=== PATIENT | male | born 1950 | race Caucasian/White ===

== ENCOUNTER 2020-12-25 06:40 | Inpatient (IN) | payer MEDICARE, SELFPAY ==
[2020-12-25] VITALS (10 sets, daily range): BP systolic 136–174; BP diastolic 63–75; PULSE 53–110; RESP 12–20; TEMP 36.4–37.7; O2SAT 93–98; BMI 52.4; BMI 50.9
--- NOTE | 2020-12-25 07:10 | RAD_ITS ---
STUDY: X-RAY CHEST REASON FOR EXAM: Male, 70 years old. Shortness of breath TECHNIQUE: Single AP portable view of the chest. COMPARISON: None. FINDINGS: The lungs are clear and expanded. There is no demonstrated pleural abnormality. Normal size heart. Normal mediastinum and almaz. Normal visualized pulmonary arteries. Normal visualized aortic arch and descending thoracic aorta. There are diffuse degenerative changes of the visualized thoracic spine. Normal visualized ribs, clavicles, and shoulders. There is no demonstrated abnormality of the visualized soft tissue structures of the upper abdomen. RAD/Chest 1 View (Portable) IMPRESSION: No acute pulmonary process Electronically Signed: Sukhi Romero MD at 8:19 EDT , Service support ,
--- NOTE | 2020-12-25 07:10 | EKG12_ITS ---
Test Reason : WOUND Blood Pressure : / mmHG Vent. Rate : 091 BPM Atrial Rate : 100 BPM P-R Int : 160 ms QRS Dur : 124 ms QT Int : 384 ms P-R-T Axes : 007 -41 094 degrees QTc Int : 472 ms Atrial fibrillation Left axis deviation Septal infarct , age undetermined ST & T wave abnormality, consider lateral ischemia Abnormal ECG Confirmed by LISA NGUYEN, LYNDSEY ([id number]), department editor OFELIA RUTH ([id number]) on 12/29/2020 10:10:12 A M Referred By: TAYLOR Confirmed By:ODESSA GONZALEZ MD
--- NOTE | 2020-12-25 07:12 | EX.ED.DYSGE1 ---
HPI History of Present Illness Chief Complaint: Wound Narrative Narrative: 70-year-old male presenting with diabetic foot infection. He has chronic wounds to his left foot. He states over the last several days it has been increasingly red and swollen. He has had drainage from the wounds. He denies fever. He complains of associated shortness of breath and chest tightness. Denies vomiting, diarrhea. He states he usually follows with podiatry but has been unable because of the pandemic. He has not received his Covid vaccine. Prior similar symptoms: Yes Recent Illness/Hospitalization: No PFSH PFSH Medical History Diabetes Hypertension Kidney disease Home Medications carvedilol [Coreg] 1 mg PO BID 12/25/20 [History Last Taken Unknown] furosemide [Lasix] 40 mg PO BID 12/25/20 [History Last Taken Unknown] insulin glargine [Lantus Solostar U-100 Insulin] 46 unit SUBCUT DAILY 12/25/20 [History Last Taken Unknown] pioglitazone [Actos] 30 mg PO DAILY 12/25/20 [History Last Taken Unknown] Allergy/AdvReac Type Severity Reaction Status Date / Time Penicillins [PCN] AdvReac Rash Verified 12/25/20 06:49 blood pressure meds AdvReac NEEDS Uncoded 12/25/20 06:49 FOLLOW-UP Social History Smoking Status: Never smoker ROS ROS ED Constitutional Constitutional ED: Denies fever(s) Eyes Eyes: Denies change in vision ENT ENT ED: Denies rhinorrhea or sore throat Cardiovascular Cardiovascular: Reports chest pain; Denies palpitations Respiratory/Chest Respiratory/Chest: Reports cough and dyspnea; Denies sputum Gastrointestinal Gastrointestinal: Denies abdominal pain, diarrhea, nausea or vomiting Genitourinary Genitourinary ED: Denies dysuria Musculoskeletal Musculoskeletal: Denies myalgias Integumentary Reports other Details: left foot wounds ; Denies rash Neurologic Neurologic: Denies headache(s) Psychiatric Psychiatric: Denies suicidal thoughts EXAM Physical Exam Const Vital Signs: 12/25/20 06:43 Temperature 98.1 F Temperature Source Oral Pulse Rate 103 H Respiratory Rate 16 Blood Pressure 165/75 H Blood Pressure Mean 105 Pulse Ox 97 Oxygen Delivery Method Room Air Positive well nourished and well developed General Appearance ED: well developed HEENT Reports normocephalic and head/scalp atraumatic Eyes PERRL and EOMs intact bilaterally Neck supple General: Negative for tenderness Chest Wall inspection of chest normal Resp normal respiratory effort and clear to auscultation bilaterally Cardio regular rate and regular rhythm GI non-tender and non-distended Palpation: soft; Negative for guarding or rebound tenderness present no CVA tenderness Extremity Extremity Narrative: left lateral foot and heel wound with surrounding erythema Neuro oriented x3 Sensorium / Orientation: alert Psych mental status grossly normal MDM MDM MDM Narrative Medical decision making narrative: Covid is negative. Left foot x-ray read by myself and radiology shows abnormal volar soft tissue swelling with subcutaneous emphysema noted in the soft tissues volar to the proximal fifth metatarsal seen best on the lateral film. There is no evidence of an erosive osseous lesion, these findings are highly suspicious for an inflammatory process. Extensive arthrosis and deformity of the foot consistent with diabetic foot. There is no demonstrated fracture or suspicious erosive osseous lesion. Calcaneal spurs and pes planus. Patient was given vancomycin IV. Discussed with hospitalist for admission. Lab Data Attestation: I reviewed the patient's lab results. Labs: Laboratory Results - last 24 hr 12/25/20 12/25/20 12/25/20 07:05 07:05 07:05 WBC 6.9 RBC 3.79 L Hgb 9.7 L Hct 31.9 L MCV 84.2 MCH 25.6 L MCHC 30.4 L RDW Std Deviation 54.4 H RDW Coeff of Xavier 17.6 H Plt Count 357 MPV 10.4 Immature Gran % (Auto) 0.600 Neut % (Auto) 69.5 Lymph % (Auto) 15.6 L Jennings % (Auto) 11.1 H Eos % (Auto) 2.9 Baso % (Auto) 0.3 Absolute Neuts (auto) 4.8 Absolute Lymphs (auto) 1.07 Nucleated RBC % 0 Sodium 137 Potassium 3.6 Chloride 102 Carbon Dioxide 26.0 Anion Gap 9 BUN 31 H Creatinine 1.49 H Estim Creat Clear Calc 48.99 Est GFR (MDRD) Af Amer 60 Est GFR (MDRD) Non-Af 50 L BUN/Creatinine Ratio 20.8 H Glucose 98 Lactic Acid 1.4 Calcium 8.8 Troponin I 0.025 Radiography Chest X-Ray - ED: 1 View, Read by ED Physician and Read by Radiologist Diagnostic Testing: Radiology Impression Chest X-Ray 12/25/20 07:10 IMPRESSION: No acute pulmonary process Electronically Signed: Sukhi Romero MD at 8:19 EDT , Service support , Foot X-Ray 12/25/20 07:48 IMPRESSION: Abnormal volar soft tissue swelling with subcutaneous emphysema noted in the soft tissues volar to the proximal fifth metatarsal seen best on the lateral film. There is no evidence of an erosive osseous lesion, these findings are highly suspicious for an inflammatory process. Extensive arthrosis and deformity of the foot consistent with diabetic foot. There is no demonstrated fracture or suspicious erosive osseous lesion, please see discussion above Calcaneal spurs and pes planus Electronically Signed: Sukhi Romero MD at 8:33 EDT , Service support , EKG Initial EKG: Attestation: I personally reviewed and interpreted this EKG as follows: Interpretation: Sinus Rhythm and Inverted T-Waves (Lead I and aVL) Prior EKG tracings: available for review Prior: Changed (11/17/2010) Discharge Plan Triage Chief Complaint: Wound ED Provider: Shantel Smart Dx/Rx/DC Orders Clinical Impression: Diabetic infection of left foot, Chest pain Prescriptions: No Action furosemide [Lasix] 40 mg tablet 40 mg PO BID RF: 0 carvedilol [Coreg] 25 mg tablet 1 mg PO BID RF: 0 pioglitazone [Actos] 30 mg tablet 30 mg PO DAILY RF: 0 Lantus Solostar U-100 Insulin 100 unit/mL (3 mL) insulin pen 46 unit SUBCUT DAILY RF: 0 Primary Care Provider: Michael Palomino Referrals: Michael Palomino DO [Primary Care Provider] - Disposition Disposition: Acute Care [facility]
[2020-12-25 07:28] LABS: Absolute Lymphocyte Count 1.07 X10^3/uL (0.83-4.51); Absolute Neutrophil Count 4.8 X10^3/uL (2.0-7.7); Basophil# 0.02 X10^3/uL; Basophil% 0.3 % (0-1); Eosinophils% 2.9 % (0-5); Hematocrit 31.9 % (40-54); Hemoglobin 9.7 g/dL (13.0-16.5); Lymphocyte # 1.07 X10^3/ul (0.83-4.51); Lymphocyte % 15.6 % (19-41); Mean Corp Hgb Conc 30.4 g/dL (32-36); Mean Corpuscular Hgb 25.6 pg (27.0-32.0); Mean Corpuscular Volume 84.2 fL (80-94); Mean Platelet Vol. 10.4 fl (6.2-12.0); Monocyte# 0.76 X10^3/uL; Monocyte% 11.1 % (0-10); NRBC Flagged by Analyzer 0 % (0-5); Neutrophil # 4.78 X10^3/uL (2.7-7.7); Neutrophil % 69.5 % (47-70); Platelet Count 357 K/mm3 (150-450); RBC Distribution Width CV 17.6 % (11.6-14.6); RBC Distribution Width SD 54.4 fl (35.1-43.9); Red Blood Count 3.79 M/mm3 (4.6-6.2); White Blood Count 6.9 K/mm3 (4.4-11.0)
[2020-12-25 07:48] LABS: Anion Gap 9 (5-15); BUN 31 mg/dL (7-18); BUN/Creat Ratio 20.8 RATIO (10-20); Calcium,Total 8.8 mg/dL (8.5-10.1); Chloride 102 mmol/L (98-107); Creatinine, Serum 1.49 mg/dL (0.70-1.30); EST Glomerular Filtration Rate 50 mL/min (>60); Est Glom Filt Rate - Afr Amer 60 mL/min (>60); Estimated Creatinine Clearance 48.99 ml/min; Glucose 98 mg/dL (74-106); Potassium 3.6 mmol/L (3.5-5.1); Sodium Level 137 mmol/L (136-145)
--- NOTE | 2020-12-25 07:48 | RAD_ITS ---
STUDY: X-RAY - LEFT FOOT CLINICAL: Male, 70 years old. Pain and swelling TECHNIQUE: 5 view(s) of the foot. COMPARISON: None. FINDINGS: The bones are demineralized. There has been collapse of the midfoot bones consistent with diabetic foot as well as pes planus. There is hammertoe deformity of the MTP joints. There is no demonstrated fracture or suspicious erosive lesion. However, one could easily be obscured or overlooked due to the osteopenia, overlapping structures and deformities of the bones. If there is strong clinical suspicion of a fracture or erosive lesion, recommend further evaluation with cross-sectional imaging. There are calcaneal spurs. There is volar soft tissue swelling and evidence of subcutaneous emphysema volar to the proximal fifth metatarsal which is highly concerning for an inflammatory process. RAD/Foot min 3 Views IMPRESSION: Abnormal volar soft tissue swelling with subcutaneous emphysema noted in the soft tissues volar to the proximal fifth metatarsal seen best on the lateral film. There is no evidence of an erosive osseous lesion, these findings are highly suspicious for an inflammatory process. Extensive arthrosis and deformity of the foot consistent with diabetic foot. There is no demonstrated fracture or suspicious erosive osseous lesion, please see discussion above Calcaneal spurs and pes planus Electronically Signed: Sukhi Romero MD at 8:33 EDT , Service support ,
[2020-12-25 07:50] LABS: Lactic Acid 1.4 mmol/L (0.4-1.9)
--- NOTE | 2020-12-25 09:21 | NURSING ---
DR RONNA VAZQUEZ
--- NOTE | 2020-12-25 09:43 | PCM.HP.STD ---
HPI - General General Date of Admission: 12/25/20 HPI Narrative JONEL ZALDIVAR, is a 70 M who presents with history of diabetes mellitus type 2 and chronic diabetic foot ulcer for more than 10 years came to ER with left foot ulcer along with chest pain and mild shortness of breath. He has bilateral Charcot's feet for many years and is on diabetic splint. He got opening on the lateral aspect of left foot, ulcer at 2 areas for more than 6 months. There is purulent drainage. Mild chills and fever. Patient also got chest pain along with shortness of breath yesterday morning. This lasted for half an hour. Described chest pain midsternal with radiation to neck without dizziness not associated shortness of breath. In the morning also had chest pain. Patient is back to lower extremity swelling and Lasix 40 mg twice daily but denies diagnosis of CHF, coronary artery disease or stent. He denies history of smoking or chronic lung disease. His mother had coronary artery disease in her 80s and of 89. [facility], [facility] Medical History Diabetes Hypertension Kidney disease Home Medications aspirin 81 mg PO DAILY 12/25/20 [History Last Taken Unknown] carvedilol [Coreg] 25 mg PO BID 12/25/20 [History Last Taken Unknown] furosemide [Lasix] 40 mg PO BID 12/25/20 [History Last Taken Unknown] insulin glargine [Lantus Solostar U-100 Insulin] 46 unit SUBCUT DAILY 12/25/20 [History Last Taken Unknown] pioglitazone [Actos] 30 mg PO DAILY 12/25/20 [History Last Taken Unknown] Allergy/AdvReac Type Severity Reaction Status Date / Time Penicillins [PCN] AdvReac Rash Verified 12/25/20 06:49 blood pressure meds AdvReac NEEDS Uncoded 12/25/20 06:49 FOLLOW-UP Social History Smoking Status: Never smoker ROS ROS Narrative Constitutional: Reports fatigue and weakness. Chills and occasional fever. HEENT: Reports systems reviewed and no addt'l complaints, except as documented Respiratory/Chest: Chest pain and shortness of breath as described in HPI Gastrointestinal: Denies coffee ground emesis, hematemesis or vomiting Genitourinary: Denies burning urination Musculoskeletal: Reports joint pain and limited range of motion especially of foot and lower extremity Neurologic: Denies seizure-like activity Endocrinology: Diabetes mellitus type 2. Reports systems reviewed and no addt'l complaints, except as documented Hematologic/Lymphatic: Reports systems reviewed and no addt'l complaints, except as documented Rest 12 ROS are negative except as mentioned in HPI Vital Signs Vital Signs Vital Signs: 12/25/20 06:43 Temperature 98.1 F Temperature Source Oral Pulse Rate 103 H Respiratory Rate 16 Blood Pressure 165/75 H Blood Pressure Mean 105 Pulse Ox 97 Oxygen Delivery Method Room Air Physical Exam Narrative General: Alert, Oriented x3, Cooperative looks mild short of breath. HEENT: Atraumatic, PERRLA, EOMI, Normocephalic Oral: No Gingival or Mucosal Lesions/ Ulcerations Neck: Supple, No JVD, Negative Carotid Bruits Lungs: Air entry diminished in bilateral lung bases. No crepitation/rhonchi. Mild dyspnea at rest Cardiovascular: Regular rate, Regular Rhythm, Normal S1, Normal S2, No murmurs Abdomen: Bowel Sounds Present, Soft, Non Tender, Non-Distended : No renal angle tenderness. No suprapubic tenderness. Extremities: Bilateral lower extremity lymphedema , Capillary Refill Less than 3 Seconds Skin: 2 ulcers of lateral margin of left foot, floor covered with slough. Margins are thickened and rough. Musculoskeletal: Tenderness present on the feet. Charcot joint of both feet. Neurological: Cranial nerves II-XII grossly intact, Deep Tendon Reflexes 2+/4 and Symmetrical, Neuro grossly intact Psych/Mental Status: Normal Affect, Appropriate. Lab / Micro Data Result Diagrams: 12/25/20 07:05 12/25/20 07:05 Labs: Laboratory Results - last 24 hr 12/25/20 12/25/20 12/25/20 07:05 07:05 07:05 WBC 6.9 RBC 3.79 L Hgb 9.7 L Hct 31.9 L MCV 84.2 MCH 25.6 L MCHC 30.4 L RDW Std Deviation 54.4 H RDW Coeff of Xavier 17.6 H Plt Count 357 MPV 10.4 Immature Gran % (Auto) 0.600 Neut % (Auto) 69.5 Lymph % (Auto) 15.6 L Lee % (Auto) 11.1 H Eos % (Auto) 2.9 Baso % (Auto) 0.3 Absolute Neuts (auto) 4.8 Absolute Lymphs (auto) 1.07 Nucleated RBC % 0 Sodium 137 Potassium 3.6 Chloride 102 Carbon Dioxide 26.0 Anion Gap 9 BUN 31 H Creatinine 1.49 H Estim Creat Clear Calc 48.99 Est GFR (MDRD) Af Amer 60 Est GFR (MDRD) Non-Af 50 L BUN/Creatinine Ratio 20.8 H Glucose 98 Lactic Acid 1.4 Calcium 8.8 Troponin I 0.025 Micro: Microbiology 12/25/20 07:43 SARS-CoV-2 Antigen (Rapid) - Final Interface Orders Radiology Impression Chest X-Ray 12/25/20 07:10 IMPRESSION: No acute pulmonary process Electronically Signed: Sukhi Romero MD at 8:19 EDT , Service support , Foot X-Ray 12/25/20 07:48 IMPRESSION: Abnormal volar soft tissue swelling with subcutaneous emphysema noted in the soft tissues volar to the proximal fifth metatarsal seen best on the lateral film. There is no evidence of an erosive osseous lesion, these findings are highly suspicious for an inflammatory process. Extensive arthrosis and deformity of the foot consistent with diabetic foot. There is no demonstrated fracture or suspicious erosive osseous lesion, please see discussion above Calcaneal spurs and pes planus Electronically Signed: Sukhi Romero MD at 8:33 EDT , Service support , Assessment & Plan Assessment/Plan (1) Diabetic infection of left foot: (2) Chest pain: PLAN: 1. Atypical chest pain and shortness of breath rule out coronary artery disease: Patient is being admitted in PCU. Serial troponin enzymes. Twelve-lead EKG shows sinus rhythm with sinus arrhythmia at 91 bpm, LAD. QTC 172 ms. 2D echo is ordered. Stress test not ordered as patient has diabetic foot ongoing infection. 2. 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 Cameron in [place] and has not been admitted here before in long time. MRI foot is ordered. Started on empirically antibiotic IV vancomycin and Zosyn. Wound nurse consult with wound culture. Blood cultures already been ordered. ESR elevated. ID consult. 3. CKD stage III: Patient creatinine stable at 1.49 since 2016. Probably diabetic nephropathy. 4. VTE prophylaxis: Lovenox 40 mg subcu daily. Living will/advanced directive/end of life care: Patient does not have living will or advanced directive. After discussion of benefits/risks procedures involved with full code, DNR CC arrest and DNR CC, the patient opted for DNR-CC Arrest with no intubation Patient does not want artificial life support including intubation, tube feed, ventilator and/chest compression, central venous catheter, vasopressor and DC shock if needed Total time spent in [id number] encounter in discussion of advanced directive 16 minutes. Visit Charges Inpatient E&M: 31220 Init Hosp L3 Procedures Hospitalists Procedures: 16807 Advncd Care Plan 30 Min
--- NOTE | 2020-12-25 10:02 | NURSING ---
PCU RONNA DIABETIC FOOT INFECTION, CP
[2020-12-25 10:16] LABS: Magnesium 2.1 mg/dL (1.6-2.6)
--- NOTE | 2020-12-25 10:35 | ECHOCS_ITS ---
Reason For Study: Dyspnea/SOB Procedure This was a 2D Doppler, Color Flow transthoracic echocardiogram. Very technically difficult study due to patient body habitus and patients inablility to stand probe pressure. Contrast injection was performed to try and enhance image quality. Exam performed portable in patient room. Left Ventricle Normal LV size. The estimated ejection fraction is 45 %. There is evidence of diastolic dysfunction. [place] : Severely Hypokinetic. anteroseptal hypokinesis. Right Ventricle Normal RV size. Normal systolic function. Atria Normal left atrium. Normal right atrium. No doppler evidence for ASD. Mitral Valve There is no mitral valve stenosis. No mitral valve insufficiency. Tricuspid Valve There is no tricuspid stenosis. Unable to estimate RV systolic pressure due to inadequate jet, pulmonary artery pressure probably normal. Aortic Valve The aortic valve is not well visualized. There is no aortic stenosis. No aortic valve insufficiency. Pulmonic Valve There is no pulmonic valvular stenosis. No pulmonic valve insufficiency. Great Vessels Normal aortic root. Pericardium/Pleural No pericardial effusion. Medication Diluted definity 5ml given slow IV push to enhance endocardial definition. MMode/2D Measurements & Calculations LVIDd: 5.4 cm IVSd: 1.8 cm LAV(MOD-sp4): 67.8 ml LVIDs: 4.4 cm LVPWd: 1.8 cm FS: 19.5 % LA A4 area: 22.9 cm2 Time Measurements MV dec time: 0.15 sec Doppler Measurements & Calculations MV E max aime: 111.3 cm/sec Lat Peak E' Aime: 10.7 cm/sec Med Peak E' Aime: 7.2 cm/sec MV A max aime: 34.0 cm/sec E/E' lat: 10.4 E/E' med: 15.4 MV E/A: 3.3 MV V2 max: 138.5 cm/sec MV P1/2t max aime: 137.2 cm/sec Ao V2 max: 67.6 cm/sec MV max P.7 mmHg MV P1/2t: 60.9 msec Ao max P.8 mmHg MV V2 mean: 61.6 cm/sec MV dec slope: 660.2 cm/sec2 MV mean P.0 mmHg MV V2 VTI: 27.2 cm MVA(P1/2t): 3.6 cm2 LV V1 max: 83.0 cm/sec PA V2 max: 80.9 cm/sec LV V1 max P.8 mmHg ECHO/Echo Complete W/ Contrast Interpretation Summary The estimated ejection fraction is 45 %. There is evidence of diastolic dysfunction. [place] : Severely Hypokinetic. anteroseptal hypokinesis Ordering Physician: Abelino Serrano Referring Physician: Michael Palomino Performed By: Fede Bee RCS
--- NOTE | 2020-12-25 10:35 | EKG12_ITS ---
Test Reason : UPDATE Blood Pressure : / mmHG Vent. Rate : 094 BPM Atrial Rate : 107 BPM P-R Int : 000 ms QRS Dur : 126 ms QT Int : 380 ms P-R-T Axes : 000 -46 097 degrees QTc Int : 475 ms Atrial fibrillation Left axis deviation Non-specific intra-ventricular conduction block Abnormal ECG Confirmed by BISI NGUYEN, JADEN ([id number]), movie editor OFELIA RUTH ([id number]) on 12/30/2020 9:55:47 AM Referred By: RONNA Confirmed By:JADEN MATHEWS MD
[2020-12-25] MEDS: Furosemide 40 MG Tablet PO ×2 (11:29→17:11)
[2020-12-25] MEDS: Carvedilol 25 MG Tablet PO ×2 (11:29→22:04)
[2020-12-25] MEDS: Aspirin E.C. 81 MG Tablet PO (11:29)
--- NOTE | 2020-12-25 11:39 | MRI_ITS ---
STUDY: MRI LEFT REARFOOT WITHOUT CONTRAST REASON FOR EXAM: Male, 70 years old. osteomyelitis -- without due to renal function TECHNIQUE: Standardized fat and water weighted pulse sequences were obtained in all 3 orthogonal planes. COMPARISON: Left foot x-ray dated DECEMBER 25, 2020 FINDINGS: Large open wound seen on the plantar aspect of foot centrally and laterally with edema and cellulitis in the affected subcutaneous tissues as well as the muscles of the foot without an abscess. Mild cortical thinning and mild to moderate patchy edema is present in the anterior process of the calcaneus, cuboid, and fourth and fifth metatarsal bases compatible with osteomyelitis. Equina varus deformity of the foot as well as reversal of Boehler''s angle, as well as extensive Charcot arthropathy. Small intramuscular fluid collections are present in the distal aspect of the posterior tibialis muscle measuring 4.92 x 2.38 cm which could represent extension of joint fluid into this region and less likely an intramuscular abscess. The appearance of this fluid suggests a loculated ganglion. A small to moderate size ankle joint effusion is present. Patchy reactive signal is present throughout the affected bony structures. Significant soft tissue edema and swelling. Significant fatty atrophy of the muscles. Moderate tenosynovitis of the flexor digitorum longus tendon sheath. The ankle mortise is intact. The deltoid ligamentous complex is intact. MRI/Lower Ext/No Jt/w/o IMPRESSION: 1. Mild cortical thinning and mild to moderate patchy edema is present in the anterior process of the calcaneus, cuboid, and fourth and fifth metatarsal bases compatible with osteomyelitis. 2. Extensive neuropathic/Charcot arthropathy changes of the foot with contraction in equinus varus deformity. Numerous additional abnormalities. Electronically Signed: Lon Baptiste MD at 23:57 EDT , Service support ,
[2020-12-25 11:40] LABS: Bedside Glucose 61 mg/dL (70-110)
[2020-12-25 12:00] LABS: Bedside Glucose 74 mg/dL (70-110)
--- NOTE | 2020-12-25 13:58 | CON.PCM.ID_ITS ---
Assessment & Plan Assessment/Plan (1) Diabetic infection of left foot: PLAN: Podiatry consulted. Wound cx pending. MRI pending. On vanc/zosyn. Will follow, thank you. Recommended he get covid vaccine after discharge. HPI Consult Data Date of Consult: 12/25/20 HPI Narrative HPI Narrative: JONEL ZALDIVAR, is a 70 M with DM, neuropathy, obesity, charcot foot, presented to ED today with a few days of L foot pain, redness, swelling, ulceration, fever. Has not gotten covid vaccine. No inciting event. Pain is moderate. No n/v/d. No outpt abx. Came to ED, admitted on vanc/zosyn. Reports hives with PCN as a small child. Full ROS performed and neg except as noted above. [facility] Medical History Diabetes Hypertension Kidney disease Home Medications aspirin 81 mg PO DAILY 12/25/20 [History Last Taken Unknown] carvedilol [Coreg] 25 mg PO BID 12/25/20 [History Last Taken Unknown] furosemide [Lasix] 40 mg PO BID 12/25/20 [History Last Taken Unknown] insulin glargine [Lantus Solostar U-100 Insulin] 46 unit SUBCUT DAILY 12/25/20 [History Last Taken Unknown] pioglitazone [Actos] 30 mg PO DAILY 12/25/20 [History Last Taken Unknown] Allergy/AdvReac Type Severity Reaction Status Date / Time Penicillins [PCN] AdvReac Rash Verified 12/25/20 06:49 blood pressure meds AdvReac NEEDS Uncoded 12/25/20 06:49 FOLLOW-UP Social History Smoking Status: Never smoker Physical Exam Const alert, oriented x3 and no apparent distress General Appearance: cooperative Exam Limitations: no limitations HEENT normocephalic and head/scalp atraumatic Eyes PERRL and EOMs intact bilaterally Neck supple and No nodes Resp normal air movement and clear to auscultation bilaterally Cardio regular rate and regular rhythm GI normal to inspection, nondistended, normoactive bowel sounds Extremity General Extremity: edema Skin Skin Narrative: L ankle wrapped, redness/swelling/ulcers present Neuro CN's II-XII intact bilaterally Lab / Micro Data Result Diagrams: 12/25/20 07:05 12/25/20 07:05 Labs: Laboratory Results - last 24 hr 12/25/20 12/25/20 12/25/20 07:05 07:05 07:05 WBC 6.9 RBC 3.79 L Hgb 9.7 L Hct 31.9 L MCV 84.2 MCH 25.6 L MCHC 30.4 L RDW Std Deviation 54.4 H RDW Coeff of Xavier 17.6 H Plt Count 357 MPV 10.4 Immature Gran % (Auto) 0.600 Neut % (Auto) 69.5 Lymph % (Auto) 15.6 L [place] % (Auto) 11.1 H Eos % (Auto) 2.9 Baso % (Auto) 0.3 Absolute Neuts (auto) 4.8 Absolute Lymphs (auto) 1.07 Nucleated RBC % 0 Sodium 137 Potassium 3.6 Chloride 102 Carbon Dioxide 26.0 Anion Gap 9 BUN 31 H Creatinine 1.49 H Estim Creat Clear Calc 48.99 Est GFR (MDRD) Af Amer 60 Est GFR (MDRD) Non-Af 50 L BUN/Creatinine Ratio 20.8 H Glucose 98 Lactic Acid 1.4 Calcium 8.8 Magnesium Troponin I 0.025 POC Glucose 12/25/20 12/25/20 12/25/20 07:05 11:15 11:33 WBC RBC Hgb Hct MCV MCH MCHC RDW Std Deviation RDW Coeff of Xavier Plt Count MPV Immature Gran % (Auto) Neut % (Auto) Lymph % (Auto) [place] % (Auto) Eos % (Auto) Baso % (Auto) Absolute Neuts (auto) Absolute Lymphs (auto) Nucleated RBC % Sodium Potassium Chloride Carbon Dioxide Anion Gap BUN Creatinine Estim Creat Clear Calc Est GFR (MDRD) Af Amer Est GFR (MDRD) Non-Af BUN/Creatinine Ratio Glucose Lactic Acid Calcium Magnesium 2.1 Troponin I 0.040 POC Glucose 61 L 12/25/20 11:56 WBC RBC Hgb Hct MCV MCH MCHC RDW Std Deviation RDW Coeff of Xavier Plt Count MPV Immature Gran % (Auto) Neut % (Auto) Lymph % (Auto) [place] % (Auto) Eos % (Auto) Baso % (Auto) Absolute Neuts (auto) Absolute Lymphs (auto) Nucleated RBC % Sodium Potassium Chloride Carbon Dioxide Anion Gap BUN Creatinine Estim Creat Clear Calc Est GFR (MDRD) Af Amer Est GFR (MDRD) Non-Af BUN/Creatinine Ratio Glucose Lactic Acid Calcium Magnesium Troponin I POC Glucose 74 Micro: Microbiology 12/25/20 07:43 SARS-CoV-2 Antigen (Rapid) - Final Interface Orders Radiology Impression Chest X-Ray 12/25/20 07:10 IMPRESSION: No acute pulmonary process Electronically Signed: Sukhi Romero MD at 8:19 EDT , Service support , Foot X-Ray 12/25/20 07:48 IMPRESSION: Abnormal volar soft tissue swelling with subcutaneous emphysema noted in the soft tissues volar to the proximal fifth metatarsal seen best on the lateral film. There is no evidence of an erosive osseous lesion, these findings are highly suspicious for an inflammatory process. Extensive arthrosis and deformity of the foot consistent with diabetic foot. There is no demonstrated fracture or suspicious erosive osseous lesion, please see discussion above Calcaneal spurs and pes planus Electronically Signed: Sukhi Romero MD at 8:33 EDT , Service support ,
--- NOTE | 2020-12-25 14:20 | NURSING ---
wound photo: left lateral foot/ankle
--- NOTE | 2020-12-25 14:25 | NURSING ---
wound photo: left plantar foot
--- NOTE | 2020-12-25 14:25 | NURSING ---
wound photo: left foot
--- NOTE | 2020-12-25 14:53 | PCM.RX.CS ---
Consult Pharmacy has been consulted to manage selected antiobiotic: Vancomycin Type of Consult: New start Suspected Infection: Skin/Soft tissue Labs: Sodium 137 mmol/L (136-145) 12/25/20 07:05 Potassium 3.6 mmol/L (3.5-5.1) 12/25/20 07:05 Chloride 102 mmol/L (98-107) 12/25/20 07:05 Carbon Dioxide 26.0 mmol/L (21.0-32.0) 12/25/20 07:05 Anion Gap 9 (5-15) 12/25/20 07:05 BUN 31 mg/dL (7-18) H 12/25/20 07:05 Creatinine 1.49 mg/dL (0.70-1.30) H 12/25/20 07:05 Est GFR (MDRD) Af Amer 60 mL/min (>60) 12/25/20 07:05 Est GFR (MDRD) Non-Af 50 mL/min (>60) L 12/25/20 07:05 BUN/Creatinine Ratio 20.8 RATIO (10-20) H 12/25/20 07:05 Glucose 98 mg/dL (74-106) 12/25/20 07:05 Microbiology: Microbiology 12/25/20 07:43 Interface Orders SARS-CoV-2 Antigen (Rapid) - Final Goal Trough: 15-20 mcg/mL Pharmacy Plan for Drug Dosing: NEW START IV VANCOMYCIN Consulting Physician: Dr. Serrano Indication: Diabetic foot infection Goal Trough: 15-20 SrCr: 1.49 CrCl: 73 mL/min using AdjBW of 108.2kg Comments: Initial dose of 2000mg IV vanco x1 in ED 12/25/20 @1023 Vancomcyin Dose: 1750mg IV Q12hr to start 12/25/20 @2200 Pending Level: 12/26/20 @2130, prior to 4th total dose per protocol Pharmacy Service will continue to monitor and adjust dosing as required.
[2020-12-25 15:05] LABS: M R Staph aureus DNA By PCR Negative (Negative); Probe Check PASS; Specimen Processing Control PASS; Staph aureus DNA By PCR POSITIVE (Negative)
--- NOTE | 2020-12-25 15:05 | CASEMGMT ---
Addendum entered by Glen Rodriguez 12/25/20 20:44: 1505: LNOK: Sister, Anyi. Has a brother. Father is living. Original Note: RN CM DRY WALL INSTALLER CM to room to meet with patient for initial transition planning/care coordination assessment. RN MISTY introduced self and role at [facility]. Pt voices understanding and consents to assessment at this time. Pt resting in bed in no distress at this time. Pt is A/O at this time and answers all questions appropriately. Care providers, pharmacy, and demographics verified/updated at this time. PCP: Dr Palomino Specialists: Dr Cameron--podiatry [facility] Insurance: [facility] Prescription Benefit: Yes Living Will/HPOA: Pt does not currently have LW/HCPOA and declines info at this time. Pt made aware that he can contact as an out-pt and make appt in the future if he decides he would like to talk with someone about this or would like to utilize [facility] social work for advanced directive completion. Given [employer] card with information and contact number. Pt expresses understanding. Living Arrangements: Lives alone in [id number]5 steps to go down to get to the apt. Independent w/ADL's and IADL's. Has groceries delivered. Transportation: Pt states drives self and states no transportation concerns at this time. DME: States has the following DME: Shower chair, glucometer w/testing supplies, BP machine, [place] splint for Lt foot Pt states no need for further DME at this time. HHC/SNF: No hx of SNF. Hx of [facility] HHC after foot surgery. Pt wishes to return home and states has no concerns with going home at time of discharge. He states he may be interested in HHC @ discharge, stating, It depends as how bad things are as he was talking about upcoming MRI. CM to follow for discharge planning/needs. Pt voices no further concerns/needs at this time. Advised pt to ask for CM if any further questions/concerns/needs arise. Voices understanding. PLAN: Home w/possible HHC. MRI pending. PT/OT evals pending Follow for any DME needs. Sandy DUBON RN, CM
[2020-12-25] MEDS: proCHLORPERazine 10 MG/2 ML Vial 5 MG IV (15:40)
[2020-12-25] MEDS: levoFLOXacin IV 750 MG/150 ML BAG 100 MG IV (15:57)
[2020-12-25] MEDS: APIXABAN 5 MG TABLET PO ×2 (15:57→22:04)
[2020-12-25] MEDS: Juven (unflavored) Packet 1 PACKET PO (17:16)
[2020-12-25 17:21] LABS: Bedside Glucose 117 mg/dL (70-110)
[2020-12-25] MEDS: Atorvastatin Calcium 40 MG Tablet PO (22:03)
[2020-12-25 23:11] LABS: Bedside Glucose 201 mg/dL (70-110)
[2020-12-25] MEDS: Insulin Lispro 100 UNIT/ML INSULN.PEN SC (23:14)
[2020-12-26] VITALS (13 sets, daily range): BP systolic 110–144; BP diastolic 49–66; PULSE 70–97; RESP 15–18; TEMP 36.5–38.2; O2SAT 97–98
[2020-12-26] MEDS: Acetaminophen 325 MG Tablet 650 MG PO (01:04)
[2020-12-26 06:45] LABS: Absolute Neutrophil Count 5.2 X10^3/uL (2.0-7.7); Basophil# 0.03 X10^3/uL; Basophil% 0.4 % (0-1); Eosinophil# 0.15 X10^3/uL; Hematocrit 30.2 % (40-54); Lymphocyte % 14.9 % (19-41); Mean Corp Hgb Conc 29.8 g/dL (32-36); Mean Corpuscular Hgb 25.6 pg (27.0-32.0); Mean Corpuscular Volume 85.8 fL (80-94); Mean Platelet Vol. 10.2 fl (6.2-12.0); Monocyte# 0.84 X10^3/uL; Monocyte% 11.4 % (0-10); NRBC Flagged by Analyzer 0 % (0-5); Neutrophil # 5.18 X10^3/uL (2.7-7.7); Neutrophil % 70.2 % (47-70); Platelet Count 341 K/mm3 (150-450); RBC Distribution Width CV 17.7 % (11.6-14.6); RBC Distribution Width SD 55.9 fl (35.1-43.9); Red Blood Count 3.52 M/mm3 (4.6-6.2); White Blood Count 7.4 K/mm3 (4.4-11.0)
[2020-12-26 07:10] LABS: Bedside Glucose 146 mg/dL (70-110)
--- NOTE | 2020-12-26 07:14 | CON.PCM_ITS ---
Assessment & Plan Assessment/Plan (1) Diabetic infection of left foot: PLAN: Continue with local wound care which includes Aquacel Ag packed within the wounds and dry sterile dressing. Patient states as the wound care currently is he cannot apply his boot so that will need to be trimmed down a little bit with the amount of gauze and ABDs applied. (2) Osteomyelitis of left foot: QUALIFIERS: Osteomyelitis type: unspecified type Qualified Code(s): M86.9 - Osteomyelitis, unspecified PLAN: Recommend further guidance and treatment by infectious disease. Discussed treatment options with patient including surgical and conservative. At this point given the structures involved in the shape of the patient's foot with extreme instability due to Charcot, below-knee amputation would be the most appropriate surgical intervention in my opinion. Simple debridement of the infected structures would yield him even more unstable foot for the patient to ambulate. It is also not likely that his lateral skin would heal given the appearance of it from chronic lymphedema and ulceration. This was discussed in detail with the patient. The wounds are relatively clean and without significant necrosis, so conservative intervention could be an option for him. It is also not likely that he would do well with a below-knee amputation, as is our concern. Podiatry will continue to follow as needed. Patient was encouraged to obtain COVID-19 vaccinations so that he can make his doctors appoi ntments. He states he did not seek any medical care over the last year because, people were just dying around me and I did not want to leave the house. (3) Charcot foot due to diabetes mellitus: PLAN: Over 18 months ago we had recommended the patient follow-up with [employer] for a new Kake walker. Patient admits that he did but the boot is so wide for him that he cannot drive with it and he feels there is too much movement with his foot on the inside. So he does not wear it. It is obvious that his foot has changed position since I last saw him as he is bearing more weight on the dorsal lateral foot area which is completely inappropriate. We did discuss again today that we are very concerned about the patient bearing weight on his unstable foot and given his body habitus as well as the soft bones of the Charcot foot, he understands that he could cause fracture to his foot and/or ankle. It is very important that he wears a walking boot at all times with ambulation. He understands. Patient refuses surgical intervention today in favor of simple conservative therapy with antibiotics. He states that he is able to give himself antibiotics at home if necessary. Risks, complications, benefits, alternative treatments were reviewed in detail and no guarantees were given. All questions were answered. Patient states, I just want to get home. HPI Consult Data Date of Consult: 12/26/20 HPI Narrative HPI Narrative: JONEL ZALDIVAR, is a 70 M who presents complaining of painful diabet ic foot ulcer to left foot. He states that he was having more pain yesterday and today he is feeling much better. COUNTS INCLUDE 234 BEDS AT THE [facility] Medical History Diabetes Hypertension Kidney disease Home Medications aspirin 81 mg PO DAILY 12/25/20 [History Last Taken Unknown] carvedilol [Coreg] 25 mg PO BID 12/25/20 [History Last Taken Unknown] furosemide [Lasix] 40 mg PO BID 12/25/20 [History Last Taken Unknown] insulin glargine [Lantus Solostar U-100 Insulin] 46 unit SUBCUT DAILY 12/25/20 [History Last Taken Unknown] pioglitazone [Actos] 30 mg PO DAILY 12/25/20 [History Last Taken Unknown] Allergy/AdvReac Type Severity Reaction Status Date / Time Penicillins [PCN] Allergy Rash Verified 12/25/20 14:41 blood pressure meds AdvReac NEEDS Uncoded 12/25/20 06:49 FOLLOW-UP Social History Smoking Status: Never smoker Physical Exam Narrative Lower extremity exam was performed today. Patient is known to me from my [facility] office where he had been treated for several years with conservative care for left lower extremity ulcerations. The current ulcerations have been in place for approximately 6+ years. Patient refused aggressive intervention and was seen monthly in my office for conservative care only. Patient lives alone and often missed appointments due to his inability to get to our office. Since Covid began he refused to leave his home so did not follow-up with us. Extremity normal capillary refill General Extremity: weight-bearing difficulty Peripheral Pulses: Yes pulses 2+ throughout Left Lower Extremity: foot and digits Positive for neurovascular exam (Protective sensation is absent to bilateral feet. Light touch sensation is absent as well but patient does feel pain during exam today at the lateral midfoot ulceration.) Skin Wounds: wounds noted Wound Narrative: Large wound to left lateral midfoot which was very superficial the last time I saw the patient 18 months ago. The wound is approximately 2.8 x 1.5 x 1.5 cm. Bone is exposed at this area but does seem to be intact. The wound is granular and healthy appearing as well without necrosis or malodor. There is no significant purulence as well. The plantar lateral midfoot wound is much smaller than when I saw the patient previously and measures approximately 2.4 x 0.8 x 1.0. This wound has granular tissue without fibrous tissue noted or necrosis. There is no valentine purulence or malodor. Lab / Micro Data Result Diagrams: 12/26/20 06:17 12/26/20 06:17 Labs: Laboratory Results - last 24 hr 12/25/20 12/25/20 12/25/20 07:05 07:05 07:05 WBC 6.9 RBC 3.79 L Hgb 9.7 L Hct 31.9 L MCV 84.2 MCH 25.6 L MCHC 30.4 L RDW Std Deviation 54.4 H RDW Coeff of Xavier 17.6 H Plt Count 357 MPV 10.4 Immature Gran % (Auto) 0.600 Neut % (Auto) 69.5 Lymph % (Auto) 15.6 L [place] % (Auto) 11.1 H Eos % (Auto) 2.9 Baso % (Auto) 0.3 Absolute Neuts (auto) 4.8 Absolute Lymphs (auto) 1.07 Nucleated RBC % 0 Sodium 137 Potassium 3.6 Chloride 102 Carbon Dioxide 26.0 Anion Gap 9 BUN 31 H Creatinine 1.49 H Estim Creat Clear Calc 48.99 Est GFR (MDRD) Af Amer 60 Est GFR (MDRD) Non-Af 50 L BUN/Creatinine Ratio 20.8 H Glucose 98 Lactic Acid 1.4 Calcium 8.8 Magnesium Troponin I 0.025 S.aureus Protein A PCR MRSA (PCR) POC Glucose 12/25/20 12/25/20 12/25/20 07:05 11:15 11:33 WBC RBC Hgb Hct MCV MCH MCHC RDW Std Deviation RDW Coeff of Xavier Plt Count MPV Immature Gran % (Auto) Neut % (Auto) Lymph % (Auto) [place] % (Auto) Eos % (Auto) Baso % (Auto) Absolute Neuts (auto) Absolute Lymphs (auto) Nucleated RBC % Sodium Potassium Chloride Carbon Dioxide Anion Gap BUN Creatinine Estim Creat Clear Calc Est GFR (MDRD) Af Amer Est GFR (MDRD) Non-Af BUN/Creatinine Ratio Glucose Lactic Acid Calcium Magnesium 2.1 Troponin I 0.040 S.aureus Protein A PCR MRSA (PCR) POC Glucose 61 L 12/25/20 12/25/20 12/25/20 11:56 13:00 13:18 WBC RBC Hgb Hct MCV MCH MCHC RDW Std Deviation RDW Coeff of Xavier Plt Count MPV Immature Gran % (Auto) Neut % (Auto) Lymph % (Auto) [place] % (Auto) Eos % (Auto) Baso % (Auto) Absolute Neuts (auto) Absolute Lymphs (auto) Nucleated RBC % Sodium Potassium Chloride Carbon Dioxide Anion Gap BUN Creatinine Estim Creat Clear Calc Est GFR (MDRD) Af Amer Est GFR (MDRD) Non-Af BUN/Creatinine Ratio Glucose Lactic Acid Calcium Magnesium Troponin I 0.034 S.aureus Protein A PCR POSITIVE H MRSA (PCR) Negative POC Glucose 74 12/25/20 12/25/20 12/26/20 17:10 23:06 06:17 WBC 7.4 RBC 3.52 L Hgb 9.0 L Hct 30.2 L MCV 85.8 MCH 25.6 L MCHC 29.8 L RDW Std Deviation 55.9 H RDW Coeff of Xavier 17.7 H Plt Count 341 MPV 10.2 Immature Gran % (Auto) 1.100 H Neut % (Auto) 70.2 H Lymph % (Auto) 14.9 L [place] % (Auto) 11.4 H Eos % (Auto) 2.0 Baso % (Auto) 0.4 Absolute Neuts (auto) 5.2 Absolute Lymphs (auto) 1.10 Nucleated RBC % 0 Sodium Potassium Chloride Carbon Dioxide Anion Gap BUN Creatinine Estim Creat Clear Calc Est GFR (MDRD) Af Amer Est GFR (MDRD) Non-Af BUN/Creatinine Ratio Glucose Lactic Acid Calcium Magnesium Troponin I S.aureus Protein A PCR MRSA (PCR) POC Glucose 117 H 201 H 12/26/20 07:06 WBC RBC Hgb Hct MCV MCH MCHC RDW Std Deviation RDW Coeff of Xavier Plt Count MPV Immature Gran % (Auto) Neut % (Auto) Lymph % (Auto) [place] % (Auto) Eos % (Auto) Baso % (Auto) Absolute Neuts (auto) Absolute Lymphs (auto) Nucleated RBC % Sodium Potassium Chloride Carbon Dioxide Anion Gap BUN Creatinine Estim Creat Clear Calc Est GFR (MDRD) Af Amer Est GFR (MDRD) Non-Af BUN/Creatinine Ratio Glucose Lactic Acid Calcium Magnesium Troponin I S.aureus Protein A PCR MRSA (PCR) POC Glucose 146 H Micro: Microbiology 12/25/20 07:05 Blood Culture - Preliminary Blood Culture (Wb) - Right Hand 12/25/20 07:40 Gram Stain - Final Wound - Ankle 12/25/20 07:43 SARS-CoV-2 Antigen (Rapid) - Final Interface Orders Radiology Impression Chest X-Ray 12/25/20 07:10 IMPRESSION: No acute pulmonary process Electronically Signed: Sukhi Romero MD at 8:19 EDT , Service support , Foot X-Ray 12/25/20 07:48 IMPRESSION: Abnormal volar soft tissue swelling with subcutaneous emphysema noted in the soft tissues volar to the proximal fifth metatarsal seen best on the lateral film. There is no evidence of an erosive osseous lesion, these findings are highly suspicious for an inflammatory process. Extensive arthrosis and deformity of the foot consistent with diabetic foot. There is no demonstrated fracture or suspicious erosive osseous lesion, please see discussion above Calcaneal spurs and pes planus Electronically Signed: Sukhi Romero MD at 8:33 EDT , Service support , Echocardiogram 12/25/20 10:35 Interpretation Summary The estimated ejection fraction is 45 %. There is evidence of diastolic dysfunction. [place] : Severely Hypokinetic. anteroseptal hypokinesis Ordering Physician: Abelino Serrano Referring Physician: Michael Palomino Performed By: Fede Bee RCS Lower Extremity MRI 12/25/20 11:39 IMPRESSION: 1. Mild cortical thinning and mild to moderate patchy edema is present in the anterior process of the calcaneus, cuboid, and fourth and fifth metatarsal bases compatible with osteomyelitis. 2. Extensive neuropathic/Charcot arthropathy changes of the foot with contraction in equinus varus deformity. Numerous additional abnormalities. Electronically Signed: Lon Baptiste MD at 23:57 EDT , Service support ,
[2020-12-26 07:20] LABS: Anion Gap 8 (5-15); BUN 35 mg/dL (7-18); BUN/Creat Ratio 20.5 RATIO (10-20); Calcium,Total 8.8 mg/dL (8.5-10.1); Chloride 101 mmol/L (98-107); Cholesterol 121 mg/dL (200); Creatinine, Serum 1.71 mg/dL (0.70-1.30); EST Glomerular Filtration Rate 43 mL/min (>60); Est Glom Filt Rate - Afr Amer 51 mL/min (>60); Estimated Creatinine Clearance 42.69 ml/min; Glucose 156 mg/dL (74-106); High Density Lipoprotein 32 mg/dL; Potassium 3.4 mmol/L (3.5-5.1); Sodium Level 135 mmol/L (136-145); Thyroid Stim Hormone (TSH) 0.96 uIU/mL (0.358-3.74); Triglycerides 52 mg/dL; Very Low Density Lipoprotein 10 mg/dL (5-40)
[2020-12-26 08:26] LABS: Hemoglobin A1c 6.6 % (3.8-5.6)
[2020-12-26] MEDS: Juven (unflavored) Packet 1 PACKET PO ×2 (09:16→16:34)
[2020-12-26] MEDS: Carvedilol 25 MG Tablet PO ×2 (09:17→21:28)
[2020-12-26] MEDS: Aspirin E.C. 81 MG Tablet PO (09:17)
[2020-12-26] MEDS: APIXABAN 5 MG TABLET PO ×2 (09:17→21:28)
[2020-12-26] MEDS: Furosemide 40 MG Tablet PO (09:17)
--- NOTE | 2020-12-26 09:30 | EKG12_ITS ---
Test Reason : Blood Pressure : / mmHG Vent. Rate : 070 BPM Atrial Rate : 070 BPM P-R Int : 160 ms QRS Dur : 130 ms QT Int : 430 ms P-R-T Axes : 008 -42 083 degrees QTc Int : 464 ms Normal sinus rhythm Left axis deviation Non-specific intra-ventricular conduction block T wave abnormality, consider lateral ischemia Abnormal ECG When compared with ECG of 25-DEC-2020 13:49, MANUAL COMPARISON REQUIRED, DATA IS UNCONFIRMED Confirmed by TIN NGUYEN, JESUS ([id number]), assistant editor OFELIA RUTH ([id number]) on 12/31/2020 11:21:35 AM Referred By: RONNA Confirmed By:JESUS CASTLE MD
--- NOTE | 2020-12-26 09:58 | CASEMGMT ---
RN MISTY NOTE: PT/OT notes have been reviewed. SNF is recommended. Assist of 2 and pt unable to maintain NWB w/out assistance. Pt states he does not want to go to a SNF or TCU and he wishes to go home. He states he feels he will be able to get around okay once he is in his own home. He also states feels he can administer IV atb's @ home, if needed. Pt would like [facility]. Pt was provided with list of [facility] providers including quality and resource use data and consistent with the patient's preferred geographic region, medical needs, and insurance network. The pt's preferred provider is [facility]. D/C Plan: Pt wishes to return home w/[facility]. ID c/s pending. Pt may need IV atb's @ d/c. CM to follow pt's progress and work w/pt to determine safe discharge plan. CM to follow for any DME needs @ discharge. Sandy GONSALEZN TINO JAY
--- NOTE | 2020-12-26 10:09 | CASEMGMT ---
TINO JAY NOTE: Insurance review for hospitals In-network with [facility] Insurance if transfer is recommended is as follows: [facility], [facility] ([facility]), and . Sandy DUBON RN CM
[2020-12-26] MEDS: Potassium Chloride Oral Tablet 20 MEQ 40 MEQ PO (11:43)
[2020-12-26] MEDS: levoFLOXacin IV 750 MG/150 ML BAG 100 MG IV (11:45)
[2020-12-26 11:51] LABS: Bedside Glucose 149 mg/dL (70-110)
--- NOTE | 2020-12-26 15:33 | PCM.PN.HOSP ---
Subjective Subjective 2D echo report reviewed with the patient. Actually, stress test was ordered in the a.m. but patient refused it. He even does not want to see automatic die cutting machine operator. 2D echo shows cardiac Severe hypokinesis of, EF 45 % with evidence of diastolic dysfunction. Objective Data Objective Data Vital Signs: Vital Signs Temp Pulse Resp BP Pulse Ox 97.7 F L 81 18 144/66 H 97 12/26/20 09:15 12/26/20 15:01 12/26/20 09:15 12/26/20 09:15 12/26/20 09:15 Oxygen Delivery Method Room Air Weight: 354 lb 12.8 oz Body Mass Index (BMI) 50.9 Intake & Output: Intake and Output for Last 24 Hours 12/24/20 12/25/20 12/26/20 23:59 23:59 23:59 Intake Total 1240 / 1490 2049 / 2049 Output Total 775 / 1125 975 / 975 Balance 465 / 365 1075 / 1075 Lab / Micro Data Result Diagrams: 12/26/20 06:17 12/26/20 06:17 Labs: Laboratory Results - last 24 hr 12/25/20 12/25/20 12/26/20 17:10 23:06 06:17 WBC 7.4 RBC 3.52 L Hgb 9.0 L Hct 30.2 L MCV 85.8 MCH 25.6 L MCHC 29.8 L RDW Std Deviation 55.9 H RDW Coeff of [place]vaier 17.7 H Plt Count 341 MPV 10.2 Immature Gran % (Auto) 1.100 H Neut % (Auto) 70.2 H Lymph % (Auto) 14.9 L [place] % (Auto) 11.4 H Eos % (Auto) 2.0 Baso % (Auto) 0.4 Absolute Neuts (auto) 5.2 Absolute Lymphs (auto) 1.10 Nucleated RBC % 0 Sodium Potassium Chloride Carbon Dioxide Anion Gap BUN Creatinine Estim Creat Clear Calc Est GFR (MDRD) Af Amer Est GFR (MDRD) Non-Af BUN/Creatinine Ratio Glucose Hemoglobin A1c Calcium Triglycerides Cholesterol LDL Cholesterol VLDL Cholesterol HDL Cholesterol TSH POC Glucose 117 H 201 H 12/26/20 12/26/20 12/26/20 06:17 06:17 07:06 WBC RBC Hgb Hct MCV MCH MCHC RDW Std Deviation RDW Coeff of Xavier Plt Count MPV Immature Gran % (Auto) Neut % (Auto) Lymph % (Auto) [place] % (Auto) Eos % (Auto) Baso % (Auto) Absolute Neuts (auto) Absolute Lymphs (auto) Nucleated RBC % Sodium 135 L Potassium 3.4 L Chloride 101 Carbon Dioxide 26.0 Anion Gap 8 BUN 35 H Creatinine 1.71 H Estim Creat Clear Calc 42.69 Est GFR (MDRD) Af Amer 51 L Est GFR (MDRD) Non-Af 43 L BUN/Creatinine Ratio 20.5 H Glucose 156 H Hemoglobin A1c 6.6 H Calcium 8.8 Triglycerides 52 Cholesterol 121 LDL Cholesterol 79 VLDL Cholesterol 10 HDL Cholesterol 32 L TSH 0.96 POC Glucose 146 H 12/26/20 11:42 WBC RBC Hgb Hct MCV MCH MCHC RDW Std Deviation RDW Coeff of Xavier Plt Count MPV Immature Gran % (Auto) Neut % (Auto) Lymph % (Auto) [place] % (Auto) Eos % (Auto) Baso % (Auto) Absolute Neuts (auto) Absolute Lymphs (auto) Nucleated RBC % Sodium Potassium Chloride Carbon Dioxide Anion Gap BUN Creatinine Estim Creat Clear Calc Est GFR (MDRD) Af Amer Est GFR (MDRD) Non-Af BUN/Creatinine Ratio Glucose Hemoglobin A1c Calcium Triglycerides Cholesterol LDL Cholesterol VLDL Cholesterol HDL Cholesterol TSH POC Glucose 149 H Micro: Microbiology 12/25/20 07:40 Wound - Ankle Gram Stain - Final 12/25/20 07:40 Wound - Ankle Wound Culture - Preliminary Gram negative claudia Gram positive organism 12/25/20 07:05 Blood Culture (Wb) - Right Hand Blood Culture - Preliminary 12/25/20 07:43 Interface Orders SARS-CoV-2 Antigen (Rapid) - Final Radiography Diagnostic Testing: Radiology Impression Lower Extremity MRI 12/25/20 11:39 IMPRESSION: 1. Mild cortical thinning and mild to moderate patchy edema is present in the anterior process of the calcaneus, cuboid, and fourth and fifth metatarsal bases compatible with osteomyelitis. 2. Extensive neuropathic/Charcot arthropathy changes of the foot with contraction in equinus varus deformity. Numerous additional abnormalities. Electronically Signed: Lon Baptiste MD at 23:57 EDT , Service support , Physical Exam Narrative General: Alert, Oriented x3, Cooperative looks mild short of breath. HEENT: Atraumatic, PERRLA, EOMI, Normocephalic Oral: No Gingival or Mucosal Lesions/ Ulcerations Neck: Supple, No JVD, Negative Carotid Bruits Lungs: Air entry diminished in bilateral lung bases. No crepitation/rhonchi. Mild dyspnea at rest Cardiovascular: Regular rate, Regular Rhythm, Normal S1, Normal S2, No murmurs Abdomen: Bowel Sounds Present, Soft, Non Tender, Non-Distended : No renal angle tenderness. No suprapubic tenderness. Extremities: Bilateral lower extremity lymphedema, mild improvement, Capillary Refill Less than 3 Seconds Skin: 2 ulcers of lateral margin of left foot, status post debridement. Dressing dry. Musculoskeletal: Tenderness present on the feet. Charcot joint of both feet. Neurological: Cranial nerves II-XII grossly intact, Deep Tendon Reflexes 2+/4 and Symmetrical, Neuro grossly intact Psych/Mental Status: Normal Affect, Appropriate. Assessment & Plan Assessment/Plan (1) Diabetic infection of left foot: (2) Chest pain: PLAN: 1. Atypical chest pain and shortness of breath rule out coronary artery disease: Patient is being admitted in PCU. Serial troponin enzymes. Twelve-lead EKG shows sinus rhythm with sinus arrhythmia at 91 bpm, LAD. QTC 172 ms. 2D echo is ordered. Stress test not ordered as patient has diabetic foot ongoing infection. 12/26: 2D echo shows EF 45% with severe hypokinetic apex, anteroseptal hypokinesis. Patient offered stress test and cardiac cath but he refused. He even refused to see automatic die cutting machine operator. Discussed with automatic die cutting machine operator Dr. Stroud and recommended medical management with beta-brent, LOKI/ARB and statin. Patient cannot have LOKI/ARB and is already on carvedilol, atorvastatin, apixaban and aspirin. He has chronic systolic and diastolic heart failure. Lipid profile within normal limit except HDL 32 2. Acute on chronic left diabetic foot infection, complicated with Charcot feet, neuropathy, bilateral lymphedema, venous hypertension and possible PAD: Patient history about diabetic foot, peripheral arterial disease is unclear as he follows silk screen printer machine Dr. Cameron in [place] and has not been admitted here before in long time. MRI foot is ordered. Started on empirically antibiotic IV vancomycin and Zosyn. Wound nurse consult with wound culture. Blood cultures already been ordered. ESR elevated. ID consult. 12/26: MRI reviewed and shows osteomyelitis of calcaneum, cuboid and fourth and fifth metatarsal. Patient had wound debridement in the morning by silk screen printer machine. Preliminary blood cultures, Anaerobic bottle growing gram-positive cocci. Wound culture preliminary showing gram-negative claudia and gram-positive organism. 3. CKD stage IIIb: Patient creatinine stable at 1.49 since 2016. Probably diabetic nephropathy. Patient developed increasing creatinine, still less than 30% of baseline secondary to diuretic/fluid received and probably vancomycin. Nephrology consult. Lasix discontinued. Discussed with the pharmacist to hold vancomycin. Patient not on LOKI or ARB or other nephrotoxic medications. 4. VTE prophylaxis: Lovenox 40 mg subcu daily. Living will/advanced directive/end of life care: Patient does not have living will or advanced directive. After discussion of benefits/risks procedures involved with full code, DNR CC arrest and DNR CC, the patient opted for DNR-CC Arrest with no intubation Patient does not want artificial life support including intubation, tube feed, ventilator and/chest compression, central venous catheter, vasopressor and DC shock if needed Total time spent in [id number] encounter in discussion of advanced directive 16 minutes. Total time of the visit including total time spent in counseling or coordination of care, (more than 50% of the total time, spent in obtaining medical information from nurses and other ancillary care providers,explaining to the patient about labs, imaging, diagnosis and management), discussion with automatic die cutting machine operator and nursing staff, review of labs and imaging is 30 minutes. Microbiology Past 72 Hours 12/25/20 07:40 Wound - Ankle Gram Stain - Final 12/25/20 07:40 Wound - Ankle Wound Culture - Preliminary Gram negative claudia Gram positive organism 12/25/20 07:05 Blood Culture (Wb) - Right Hand Blood Culture - Preliminary 12/25/20 07:43 Interface Orders SARS-CoV-2 Antigen (Rapid) - Final Clinical Impression(s) from Imaging Studies Chest X-Ray 12/25/20 07:10 IMPRESSION: No acute pulmonary process Foot X-Ray 12/25/20 07:48 IMPRESSION: Abnormal volar soft tissue swelling with subcutaneous emphysema noted in the soft tissues volar to the proximal fifth metatarsal seen best on the lateral film. There is no evidence of an erosive osseous lesion, these findings are highly suspicious for an inflammatory process. Extensive arthrosis and deformity of the foot consistent with diabetic foot. There is no demonstrated fracture or suspicious erosive osseous lesion, please see discussion above Calcaneal spurs and pes planus Echocardiogram 12/25/20 10:35 Interpretation Summary The estimated ejection fraction is 45 %. There is evidence of diastolic dysfunction. [place] : Severely Hypokinetic. anteroseptal hypokinesis Lower Extremity MRI 12/25/20 11:39 IMPRESSION: 1. Mild cortical thinning and mild to moderate patchy edema is present in the anterior process of the calcaneus, cuboid, and fourth and fifth metatarsal bases compatible with osteomyelitis. 2. Extensive neuropathic/Charcot arthropathy changes of the foot with contraction in equinus varus deformity. Numerous additional abnormalities. Electronically Signed: Lon Baptiste MD at 23:57 EDT , Service support , Visit Charges Inpatient E&M: [id number] Subs Hosp L3
[2020-12-26] MEDS: Insulin Lispro 100 UNIT/ML INSULN.PEN SC ×2 (16:34→21:26)
[2020-12-26 16:40] LABS: Bedside Glucose 187 mg/dL (70-110)
--- NOTE | 2020-12-26 19:01 | CON.PCM.RE_ITS ---
Assessment & Plan Assessment/Plan (1) Acute kidney injury: (2) Chronic kidney disease, stage 3b: (3) Hyponatremia: (4) Hypokalemia: PLAN: (5) Osteomyelitis of left foot: QUALIFIERS: Osteomyelitis type: unspecified type Qualified Code(s): M86.9 - Osteomyelitis, unspecified (6) Charcot foot due to diabetes mellitus: (7) Diabetic infection of left foot: PLAN: 1. The patient has underlying chronic kidney disease stage IIIa secondary to diabetic kidney disease. Baseline serum creatinine is around 1.5 mg/dL. 2. There are multiple possibilities for acute kidney injuries. The patient could have prerenal azotemia from poor intake along with continued diuresis. Volume depletion could have been made worse by diarrhea today as well. ATN can also be due to vancomycin although he has only received 2 days worth of antibiotics. Another possibility for ANDRY is acute glomerulonephritis related to osteomyelitis. Acute interstitial nephritis from quinolone is also possible but less likely. Low suspicion for obstructive ANDRY, but we should check renal ultrasound to be sure. 3. Agree with stopping furosemide for now. 4. I will check urinalysis and urine indices. Will check urine protein to creatinine ratio. 5. I will check C3 and C4. C3 should be low and infection related gl omerulonephritis. 6. There is no current need for kidney replacement therapy. 7. If renal function is any worse tomorrow, I would recommend dosing vancomycin for a random level rather than scheduling it. 8. Continue potassium chloride since potassium level is still low. However, we should check potassium level and magnesium level again tomorrow. 9. Hyponatremia is mild and asymptomatic. It is likely due to acute kidney injury on chronic kidney disease. There is no need for extensive work-up at this point. However, if sodium continues to fall, I will expand the work-up for hyponatremia. HPI Consult Data Date of Consult: 12/26/20 HPI Narrative Reason for Consultation: Acute kidney injury on chronic kidney disease. HPI Narrative: The patient is a 70-year-old man with past history of type 2 diabetes mellitus, hypertension, hyperlipidemia, and lymphedema of the lower extremities. The patient presented to the hospital with a 3 days history left foot pain and swelling prior to admission. The patient is being treated for left diabetic foot infection and osteomyelitis. Nephrology is asked to see the patient because of acute rise in serum creatinine over the last 24 hours. The patient has a known chronic kidney disease stage IIIa secondary to diabetic kidney disease. He had been followed by Dr. Gregory in our office. However, he has not been seen since March 2017. At that time, his serum creatinine had been around 1.4 to 1.5 mg/dL. The patient presented to the hospital with serum creatinine of 1.49 mg/dL on 12/25/2020. Serum creatinine has increased to 1.71 mg/dL today. The patient denies chest pain, shortness of breath at rest, nausea, or vomiting. His appetite, however, has been poor. He also had loose bowel movement today. He denies diarrhea prior to admission. The patient denies gross hematuria or dysuria. He denies increasing urinary frequency, urgency or hesitancy. He has occasional dribbling. The patient has chronic bilateral lymphedema. His left foot has been more swollen lately, especially in the last 3 days prior to admission. The patient does take ibuprofen at home as needed. He did take 1-2 ibuprofen for about 4 to 5 days prior to admission. There has been no recent exposure to IV contrast. [facility] Medical History Diabetes Hypertension Kidney disease Home Medications aspirin 81 mg PO DAILY 12/25/20 [History Last Taken Unknown] carvedilol [Coreg] 25 mg PO BID 12/25/20 [History Last Taken Unknown] furosemide [Lasix] 40 mg PO BID 12/25/20 [History Last Taken Unknown] insulin glargine [Lantus Solostar U-100 Insulin] 46 unit SUBCUT DAILY 12/25/20 [History Last Taken Unknown] pioglitazone [Actos] 30 mg PO DAILY 12/25/20 [History Last Taken Unknown] Allergy/AdvReac Type Severity Reaction Status Date / Time Penicillins [PCN] Allergy Rash Verified 12/25/20 14:41 blood pressure meds AdvReac NEEDS Uncoded 12/25/20 06:49 FOLLOW-UP Social History Smoking Status: Never smoker ROS ROS Narrative Review of systems as per HPI. Otherwise, review of 10 systems are nonco ntributory. Physical Exam Const Constitutional Narrative: Alert and oriented x3 in no apparent distress. HEENT HEENT Narrative: Normocephalic, atraumatic. Mucous membrane moist without erythema. Hearing is intact. Eyes Eyes Narrative: Pupil equal round and reactive to light and accommodation. Neck Neck Narrative: Supple, no JVD Lymph Lymphatic: lymphedema Resp Resp Narrative: Clear to auscultation bilaterally Cardio Cardio Narrative: Normal S1-S2 no rubs no murmurs GI GI Narrative: Normal bowel sound. Abdomen is obese. There is no pain on palpation. No guarding or rebound. Extremity Extremity Narrative: There is no cyanosis. Both lower extremities are edematous. 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 The left lower extremity has pitting edema up to the knee. Neuro Neuro Narrative: No focal neurologic deficits. Lab / Micro Data Result Diagrams: 12/26/20 06:17 12/26/20 06:17 Labs: Laboratory Results - last 24 hr 12/25/20 12/26/20 12/26/20 23:06 06:17 06:17 WBC 7.4 RBC 3.52 L Hgb 9.0 L Hct 30.2 L MCV 85.8 MCH 25.6 L MCHC 29.8 L RDW Std Deviation 55.9 H RDW Coeff of Xavier 17.7 H Plt Count 341 MPV 10.2 Immature Gran % (Auto) 1.100 H Neut % (Auto) 70.2 H Lymph % (Auto) 14.9 L [place] % (Auto) 11.4 H Eos % (Auto) 2.0 Baso % (Auto) 0.4 Absolute Neuts (auto) 5.2 Absolute Lymphs (auto) 1.10 Nucleated RBC % 0 Sodium 135 L Potassium 3.4 L Chloride 101 Carbon Dioxide 26.0 Anion Gap 8 BUN 35 H Creatinine 1.71 H Estim Creat Clear Calc 42.69 Est GFR (MDRD) Af Amer 51 L Est GFR (MDRD) Non-Af 43 L BUN/Creatinine Ratio 20.5 H Glucose 156 H Hemoglobin A1c Calcium 8.8 Triglycerides 52 Cholesterol 121 LDL Cholesterol 79 VLDL Cholesterol 10 HDL Cholesterol 32 L TSH 0.96 POC Glucose 201 H 12/26/20 12/26/20 12/26/20 06:17 07:06 11:42 WBC RBC Hgb Hct MCV MCH MCHC RDW Std Deviation RDW Coeff of Xavier Plt Count MPV Immature Gran % (Auto) Neut % (Auto) Lymph % (Auto) [place] % (Auto) Eos % (Auto) Baso % (Auto) Absolute Neuts (auto) Absolute Lymphs (auto) Nucleated RBC % Sodium Potassium Chloride Carbon Dioxide Anion Gap BUN Creatinine Estim Creat Clear Calc Est GFR (MDRD) Af Amer Est GFR (MDRD) Non-Af BUN/Creatinine Ratio Glucose Hemoglobin A1c 6.6 H Calcium Triglycerides Cholesterol LDL Cholesterol VLDL Cholesterol HDL Cholesterol TSH POC Glucose 146 H 149 H 12/26/20 16:32 WBC RBC Hgb Hct MCV MCH MCHC RDW Std Deviation RDW Coeff of Xavier Plt Count MPV Immature Gran % (Auto) Neut % (Auto) Lymph % (Auto) [place] % (Auto) Eos % (Auto) Baso % (Auto) Absolute Neuts (auto) Absolute Lymphs (auto) Nucleated RBC % Sodium Potassium Chloride Carbon Dioxide Anion Gap BUN Creatinine Estim Creat Clear Calc Est GFR (MDRD) Af Amer Est GFR (MDRD) Non-Af BUN/Creatinine Ratio Glucose Hemoglobin A1c Calcium Triglycerides Cholesterol LDL Cholesterol VLDL Cholesterol HDL Cholesterol TSH POC Glucose 187 H Micro: Microbiology 12/25/20 07:40 Gram Stain - Final Wound - Ankle Wound Culture - Preliminary Gram negative claudia Gram positive organism 12/25/20 07:05 Blood Culture - Preliminary Blood Culture (Wb) - Right Hand Radiology Impression Lower Extremity MRI 12/25/20 11:39 IMPRESSION: 1. Mild cortical thinning and mild to moderate patchy edema is present in the anterior process of the calcaneus, cuboid, and fourth and fifth metatarsal bases compatible with osteomyelitis. 2. Extensive neuropathic/Charcot arthropathy changes of the foot with contraction in equinus varus deformity. Numerous additional abnormalities. Electronically Signed: Lon Baptiste MD at 23:57 EDT , Service support ,
[2020-12-26] MEDS: Atorvastatin Calcium 40 MG Tablet PO (21:28)
[2020-12-26 21:41] LABS: Bedside Glucose 198 mg/dL (70-110)
[2020-12-26 21:53] LABS: Mucous, Urine 0 SEEN /hpf (<or=2+); Squamous Epithelial Cells - UA 0 SEEN /hpf (0-5); White Blood Cells 0 SEEN /hpf (0-5)
[2020-12-26 22:10] LABS: Color, Urine Yellow (Yellow); Glucose, Dipstick Normal (Normal); Ketone-Dipstick Negative (Negative); Leukocyte Esterase-Dipstick Negative /ul (Negative); Nitrite-Dipstick Negative (Negative); Occult Blood-Urine 50 /ul (Negative); Protein-Dipstick 15 mg/dl (Negative); Specific Gravity, Urine 1.015 (1.002-1.030); Urine Bilirubin Dipstick Negative (Negative); Urine Clarity Clear (Clear); Urine Urobilinogen Normal (Normal)
[2020-12-26 22:13] LABS: Vancomycin, Trough Level 28.2 ug/mL (5.0-15.0)
[2020-12-26 22:17] LABS: Protein, Urine (Random) 40.7 mg/dL (<11.9); Protein:Creat Ratio 308 mg/g CRE (0-200); Urine Sodium 13 mmol/L (Not Establ.)
[2020-12-26 22:23] LABS: Bacteria RARE /hpf (None Seen); Red Blood Cells-Urine 0-5 SEEN /hpf (0-5)
--- NOTE | 2020-12-26 22:33 | PCM.RX.CS ---
Consult Pharmacy has been consulted to manage selected antiobiotic: Vancomycin Type of Consult: Follow-up Suspected Infection: Skin/Soft tissue Labs: Sodium 135 mmol/L (136-145) L 12/26/20 06:17 Potassium 3.4 mmol/L (3.5-5.1) L 12/26/20 06:17 Chloride 101 mmol/L (98-107) 12/26/20 06:17 Carbon Dioxide 26.0 mmol/L (21.0-32.0) 12/26/20 06:17 Anion Gap 8 (5-15) 12/26/20 06:17 BUN 35 mg/dL (7-18) H 12/26/20 06:17 Creatinine 1.71 mg/dL (0.70-1.30) H 12/26/20 06:17 Est GFR (MDRD) Af Amer 51 mL/min (>60) L 12/26/20 06:17 Est GFR (MDRD) Non-Af 43 mL/min (>60) L 12/26/20 06:17 BUN/Creatinine Ratio 20.5 RATIO (10-20) H 12/26/20 06:17 Glucose 156 mg/dL (74-106) H 12/26/20 06:17 Vancomycin Trough 28.2 ug/mL (5.0-15.0) H 12/26/20 21:30 Microbiology: Microbiology 12/25/20 07:40 Wound - Ankle Gram Stain - Final 12/25/20 07:40 Wound - Ankle Wound Culture - Preliminary Gram negative claudia Gram positive organism 12/25/20 07:05 Blood Culture (Wb) - Right Hand Blood Culture - Preliminary 12/25/20 07:43 Interface Orders SARS-CoV-2 Antigen (Rapid) - Final Goal Trough: 15-20 mcg/mL Pharmacy Plan for Drug Dosing: Pharmacy Service will continue to monitor and adjust dosing as required. TROUGH 28.2 D/C CURRENT DOSE, DRAW LEVEL IN 12 HOURS AND REDOSE Follow-Up Labs: Trough Vancomycin Labs to be done on [date and time ordered]: 12/27 @ 2648
[2020-12-27] VITALS (9 sets, daily range): BP systolic 141–151; BP diastolic 57–68; PULSE 73–86; RESP 18; TEMP 36.2–37.3; O2SAT 96–98
[2020-12-27 05:36] LABS: Magnesium 2.2 mg/dL (1.6-2.6)
[2020-12-27 06:40] LABS: Bedside Glucose 141 mg/dL (70-110)
[2020-12-27] MEDS: Aspirin E.C. 81 MG Tablet PO (09:07)
[2020-12-27] MEDS: Juven (unflavored) Packet 1 PACKET PO ×2 (09:07→16:43)
[2020-12-27] MEDS: APIXABAN 5 MG TABLET PO ×2 (09:07→22:43)
[2020-12-27] MEDS: Carvedilol 25 MG Tablet PO ×2 (09:07→22:43)
[2020-12-27] MEDS: Potassium Chloride Oral Tablet 20 MEQ 40 MEQ PO (09:08)
--- NOTE | 2020-12-27 10:28 | PCM.PN.HOSP ---
Subjective Subjective The patient was seen by rolled glass crosscutter for acute kidney injury and CKD. Vault Worker ordered complement levels, pending, urine random protein 40, sodium 13, protein creatinine ratio 308. Patient clinical status has not much change with anasarca. Lasix, vancomycin has been discontinued. Discussed with ID. Objective Data Objective Data Vital Signs: Vital Signs Temp Pulse Resp BP Pulse Ox 99.1 F 79 18 146/59 H 97 12/27/20 09:07 12/27/20 09:07 12/27/20 09:07 12/27/20 09:07 12/27/20 09:07 Oxygen Delivery Method Room Air Weight: 354 lb 12.8 oz Body Mass Index (BMI) 50.9 Intake & Output: Intake and Output for Last 24 Hours 12/25/20 12/26/20 12/27/20 23:59 23:59 23:59 Intake Total 1240 / 1490 2770 / 2770 480 / 480 Output Total 775 / 1125 1325 / 1325 275 / 275 Balance 465 / 365 1445 / 1445 205 / 205 Lab / Micro Data Result Diagrams: 12/26/20 06:17 12/26/20 06:17 Labs: Laboratory Results - last 24 hr 12/26/20 12/26/20 12/26/20 11:42 16:32 21:25 Magnesium Urine Color Urine Clarity Urine pH Ur Specific [place] Urine Protein Urine Glucose (UA) Urine Ketones Urine Occult Blood Urine Nitrite Urine Bilirubin Urine Urobilinogen Ur Leukocyte Esterase Urine RBC Urine WBC Ur Squamous Epith Cells Urine Bacteria Urine Mucus U Random Total Protein Ur Random Sodium Urine Creatinine Protein/Creatinin Ratio Vancomycin Trough POC Glucose 149 H 187 H 198 H 12/26/20 12/26/20 12/26/20 21:30 21:45 21:45 Magnesium Urine Color Yellow Urine Clarity Clear Urine pH 5.0 Ur Specific [place] 1.015 Urine Protein 15 H Urine Glucose (UA) Normal Urine Ketones Negative Urine Occult Blood 50 H Urine Nitrite Negative Urine Bilirubin Negative Urine Urobilinogen Normal Ur Leukocyte Esterase Negative Urine RBC 0-5 SEEN Urine WBC 0 SEEN Ur Squamous Epith Cells 0 SEEN Urine Bacteria RARE Urine Mucus 0 SEEN U Random Total Protein 40.7 H Ur Random Sodium 13 Urine Creatinine 132.00 Protein/Creatinin Ratio 308 H Vancomycin Trough 28.2 H POC Glucose 12/26/20 12/27/20 12/27/20 21:45 05:03 06:36 Magnesium 2.2 Urine Color Urine Clarity Urine pH Ur Specific [place] Urine Protein Urine Glucose (UA) Urine Ketones Urine Occult Blood Urine Nitrite Urine Bilirubin Urine Urobilinogen Ur Leukocyte Esterase Urine RBC Urine WBC Ur Squamous Epith Cells Urine Bacteria Urine Mucus U Random Total Protein Ur Random Sodium Urine Creatinine 137.00 Protein/Creatinin Ratio Vancomycin Trough POC Glucose 141 H Micro: Microbiology 12/25/20 07:40 Wound - Ankle Gram Stain - Final 12/25/20 07:40 Wound - Ankle Wound Culture - Preliminary Morganella morganii sp morgani Gram negative claudia Gram negative claudia#2 Staphylococcus aureus 12/25/20 07:20 Blood Culture (Wb) - Left Hand Blood Culture - Preliminary No growth in 48 hours. 12/25/20 07:05 Blood Culture (Wb) - Right Hand Blood Culture - Preliminary Staphylococcus aureus 12/25/20 07:43 Interface Orders SARS-CoV-2 Antigen (Rapid) - Final Physical Exam Narrative General: Alert, Oriented x3, Cooperative. HEENT: Atraumatic, PERRLA, EOMI, Normocephalic Oral: No Gingival or Mucosal Lesions/ Ulcerations Neck: Supple, No JVD, Negative Carotid Bruits Lungs: Air entry diminished in bilateral lung bases. No crepitation/rhonchi. Cardiovascular: Regular rate, Regular Rhythm, Normal S1, Normal S2, No murmurs Abdomen: Bowel Sounds Present, Soft, Non Tender, Non-Distended, may be ascites, hard to discern from fat abdomen : No renal angle tenderness. No suprapubic tenderness. Extremities: Bilateral lower extremity lymphedema. Capillary Refill Less than 3 Seconds Skin: 2 ulcers of lateral margin of left foot, status post debridement. Dressing dry. Musculoskeletal: Tenderness present on the feet. Charcot joint of both feet. Neurological: Cranial nerves II-XII grossly intact, Deep Tendon Reflexes 2+/4 and Symmetrical, Neuro grossly intact Psych/Mental Status: Normal Affect, Appropriate. Assessment & Plan Assessment/Plan (1) Diabetic infection of left foot: (2) Chest pain: PLAN: 1. Atypical chest pain and shortness of breath rule out coronary artery disease: Patient is being admitted in PCU. Serial troponin enzymes. Twelve-lead EKG shows sinus rhythm with sinus arrhythmia at 91 bpm, LAD. QTC 172 ms. 2D echo is ordered. Stress test not ordered as patient has diabetic foot ongoing infection. 12/26: 2D echo shows EF 45% with severe hypokinetic apex, anteroseptal hypokinesis. Patient offered stress test and cardiac cath but he refused. He even refused to see physician/ophthalmologist. Discussed with physician/ophthalmologist Dr. Stroud and recommended medical management with beta-brent, LOKI/ARB and statin. Patient cannot have LOKI/ARB and is already on carvedilol, atorvastatin, apixaban and aspirin. He has chronic systolic and diastolic heart failure. Lipid profile within normal limit except HDL 32 2. Acute on chronic left diabetic foot infection, complicated with Charcot feet, neuropathy, bilateral lymphedema, venous hypertension and possible PAD: Patient history about diabetic foot, peripheral arterial disease is unclear as he follows dictating transcribing machine servicer Dr. Cameron in [place] and has not been admitted here before in long time. MRI foot is ordered. Started on empirically antibiotic IV vancomycin and Zosyn. Wound nurse consult with wound culture. Blood cultures already been ordered. ESR elevated. ID consult. 12/26: MRI reviewed and shows osteomyelitis of calcaneum, cuboid and fourth and fifth metatarsal. Patient had wound debridement in the morning by dictating transcribing machine servicer. Preliminary blood cultures, Anaerobic bottle growing gram-positive cocci. Wound culture preliminary showing gram-negative claudia and gram-positive organism. 12/27: Discussed with ID. Vanco trough level elevated 28.2, random level came 23.4. Vancomycin discontinued. Will consider linezolid later as Vanco level still covers gram-positive organisms. 3. Acute kidney injury on CKD stage IIIa during hospital course: Patient creatinine stable at 1.49 since 2016. Probably diabetic nephropathy. Patient developed increasing creatinine, still less than 30% of baseline secondary to diuretic/fluid received and probably vancomycin. Nephrology consult. Lasix discontinued. Discussed with the pharmacist to hold vancomycin. Patient not on LOKI or ARB or other nephrotoxic medications. 12/27: Monitor labs. Nephrology consult reviewed. Patient has diabetic nephropathy, ANDRY may be related to volume shift from diuretic, poor intake, diarrhea, ATN from vancomycin. Renal ultrasound ordered to rule out postobstructive pathology. 4. VTE prophylaxis: Lovenox 30 mg subcu daily. Living will/advanced directive/end of life care: Patient does not have living will or advanced directive. After discussion of benefits/risks procedures involved with full code, DNR CC arrest and DNR CC, the patient opted for DNR-CC Arrest with no intubation Patient does not want artificial life support including intubation, tube feed, ventilator and/chest compression, central venous catheter, vasopressor and DC shock if needed Total time spent in [id number] encounter in discussion of advanced directive 16 minutes. Total time of the visit including total time spent in counseling or coordination of care, (more than 50% of the total time, spent in obtaining medical information from nurses and other ancillary care providers,explaining to the patient about labs, imaging, diagnosis and management), discussion with ID, rolled glass crosscutter and nursing staff, review of labs and imaging is 30 minutes. Microbiology Past 72 Hours 12/25/20 07:40 Wound - Ankle Gram Stain - Final 12/25/20 07:40 Wound - Ankle Wound Culture - Preliminary Morganella morganii sp morgani Gram negative claudia Gram negative claudia#2 Staphylococcus aureus 12/25/20 07:20 Blood Culture (Wb) - Left Hand Blood Culture - Preliminary No growth in 48 hours. 12/25/20 07:05 Blood Culture (Wb) - Right Hand Blood Culture - Preliminary Staphylococcus aureus 12/25/20 07:43 Interface Orders SARS-CoV-2 Antigen (Rapid) - Final Clinical Impression(s) from Imaging Studies Chest X-Ray 12/25/20 07:10 IMPRESSION: No acute pulmonary process Foot X-Ray 12/25/20 07:48 IMPRESSION: Abnormal volar soft tissue swelling with subcutaneous emphysema noted in the soft tissues volar to the proximal fifth metatarsal seen best on the lateral film. There is no evidence of an erosive osseous lesion, these findings are highly suspicious for an inflammatory process. Extensive arthrosis and deformity of the foot consistent with diabetic foot. There is no demonstrated fracture or suspicious erosive osseous lesion, please see discussion above Calcaneal spurs and pes planus Echocardiogram 12/25/20 10:35 Interpretation Summary The estimated ejection fraction is 45 %. There is evidence of diastolic dysfunction. [place] : Severely Hypokinetic. anteroseptal hypokinesis Lower Extremity MRI 12/25/20 11:39 IMPRESSION: 1. Mild cortical thinning and mild to moderate patchy edema is present in the anterior process of the calcaneus, cuboid, and fourth and fifth metatarsal bases compatible with osteomyelitis. 2. Extensive neuropathic/Charcot arthropathy changes of the foot with contraction in equinus varus deformity. Numerous additional abnormalities. Electronically Signed: Lon Baptiste MD at 23:57 EDT , Service support , Visit Charges Inpatient E&M: [id number] Subs Hosp L3
[2020-12-27 10:29] LABS: Vancomycin, Random Level 23.4 ug/mL (0.0-15.0)
[2020-12-27 11:11] LABS: Bedside Glucose 126 mg/dL (70-110)
[2020-12-27] MEDS: 0.9% Saline Lock 10 ML Syringe IV (11:14)
[2020-12-27 11:35] LABS: Absolute Lymphocyte Count 1.17 X10^3/uL (0.83-4.51); Basophil# 0.03 X10^3/uL; Basophil% 0.4 % (0-1); Eosinophil# 0.24 X10^3/uL; Eosinophils% 3.4 % (0-5); Hematocrit 31.1 % (40-54); Hemoglobin 9.3 g/dL (13.0-16.5); Lymphocyte # 1.17 X10^3/ul (0.83-4.51); Lymphocyte % 16.6 % (19-41); Mean Corp Hgb Conc 29.9 g/dL (32-36); Mean Corpuscular Hgb 25.3 pg (27.0-32.0); Mean Corpuscular Volume 84.5 fL (80-94); Mean Platelet Vol. 9.9 fl (6.2-12.0); Monocyte# 0.58 X10^3/uL; Monocyte% 8.2 % (0-10); NRBC Flagged by Analyzer 0 % (0-5); Neutrophil # 4.97 X10^3/uL (2.7-7.7); Neutrophil % 70.4 % (47-70); Platelet Count 357 K/mm3 (150-450); RBC Distribution Width CV 17.7 % (11.6-14.6); Red Blood Count 3.68 M/mm3 (4.6-6.2); White Blood Count 7.1 K/mm3 (4.4-11.0)
[2020-12-27 11:51] LABS: Albumin, Serum 2.1 g/dL (3.2-5.0); BUN 54 mg/dL (7-18); BUN/Creat Ratio 27.8 RATIO (10-20); Calcium,Total 9.1 mg/dL (8.5-10.1); Chloride 104 mmol/L (98-107); Creatinine, Serum 1.94 mg/dL (0.70-1.30); EST Glomerular Filtration Rate 37 mL/min (>60); Est Glom Filt Rate - Afr Amer 44 mL/min (>60); Estimated Creatinine Clearance 37.63 ml/min; Glucose 133 mg/dL (74-106); Magnesium 2.2 mg/dL (1.6-2.6); Potassium 4.3 mmol/L (3.5-5.1); Sodium Level 136 mmol/L (136-145)
[2020-12-27 16:40] LABS: Bedside Glucose 147 mg/dL (70-110)
--- NOTE | 2020-12-27 20:07 | PN.RENAL_ITS ---
Subjective Subjective Following for acute kidney injury on chronic kidney disease. Has mild shortness of breath with exertion. He denies chest pain,, vomiting or diarrhea. Diet is marginal. Objective Data Objective Data Vital Signs: Vital Signs Temp Pulse Resp BP Pulse Ox 97.2 F L 77 18 151/60 H 98 12/27/20 15:07 12/27/20 19:35 12/27/20 15:07 12/27/20 15:07 12/27/20 15:07 Oxygen Delivery Method Room Air Weight: 160.935 kg Body Mass Index (BMI) 50.9 Intake & Output: Intake and Output for Last 24 Hours 12/25/20 12/26/20 12/27/20 23:59 23:59 23:59 Intake Total 1240 / 1490 2770 / 2770 1440 / 1440 Output Total 775 / 1125 1325 / 1325 925 / 925 Balance 465 / 365 1445 / 1445 515 / 515 Lab / Micro Data Result Diagrams: 12/27/20 11:21 12/27/20 11:21 Labs: Laboratory Results - last 24 hr 12/26/20 12/26/20 12/26/20 21:25 21:30 21:45 WBC RBC Hgb Hct MCV MCH MCHC RDW Std Deviation RDW Coeff of Xavier Plt Count MPV Immature Gran % (Auto) Neut % (Auto) Lymph % (Auto) [place] % (Auto) Eos % (Auto) Baso % (Auto) Absolute Neuts (auto) Absolute Lymphs (auto) Nucleated RBC % Sodium Potassium Chloride Carbon Dioxide BUN Creatinine Estim Creat Clear Calc Est GFR (MDRD) Af Amer Est GFR (MDRD) Non-Af BUN/Creatinine Ratio Glucose Calcium Phosphorus Magnesium Albumin Urine Color Yellow Urine Clarity Clear Urine pH 5.0 Ur Specific [place] 1.015 Urine Protein 15 H Urine Glucose (UA) Normal Urine Ketones Negative Urine Occult Blood 50 H Urine Nitrite Negative Urine Bilirubin Negative Urine Urobilinogen Normal Ur Leukocyte Esterase Negative Urine RBC 0-5 SEEN Urine WBC 0 SEEN Ur Squamous Epith Cells 0 SEEN Urine Bacteria RARE Urine Mucus 0 SEEN U Random Total Protein Ur Random Sodium Urine Creatinine Protein/Creatinin Ratio Vancomycin Trough 28.2 H Random Vancomycin POC Glucose 198 H 12/26/20 12/26/20 12/27/20 21:45 21:45 05:03 WBC RBC Hgb Hct MCV MCH MCHC RDW Std Deviation RDW Coeff of Xavier Plt Count MPV Immature Gran % (Auto) Neut % (Auto) Lymph % (Auto) [place] % (Auto) Eos % (Auto) Baso % (Auto) Absolute Neuts (auto) Absolute Lymphs (auto) Nucleated RBC % Sodium Potassium Chloride Carbon Dioxide BUN Creatinine Estim Creat Clear Calc Est GFR (MDRD) Af Amer Est GFR (MDRD) Non-Af BUN/Creatinine Ratio Glucose Calcium Phosphorus Magnesium 2.2 Albumin Urine Color Urine Clarity Urine pH Ur Specific [place] Urine Protein Urine Glucose (UA) Urine Ketones Urine Occult Blood Urine Nitrite Urine Bilirubin Urine Urobilinogen Ur Leukocyte Esterase Urine RBC Urine WBC Ur Squamous Epith Cells Urine Bacteria Urine Mucus U Random Total Protein 40.7 H Ur Random Sodium 13 Urine Creatinine 132.00 137.00 Protein/Creatinin Ratio 308 H Vancomycin Trough Random Vancomycin POC Glucose 12/27/20 12/27/20 12/27/20 06:36 09:17 11:04 WBC RBC Hgb Hct MCV MCH MCHC RDW Std Deviation RDW Coeff of Xavier Plt Count MPV Immature Gran % (Auto) Neut % (Auto) Lymph % (Auto) [place] % (Auto) Eos % (Auto) Baso % (Auto) Absolute Neuts (auto) Absolute Lymphs (auto) Nucleated RBC % Sodium Potassium Chloride Carbon Dioxide BUN Creatinine Estim Creat Clear Calc Est GFR (MDRD) Af Amer Est GFR (MDRD) Non-Af BUN/Creatinine Ratio Glucose Calcium Phosphorus Magnesium Albumin Urine Color Urine Clarity Urine pH Ur Specific [place] Urine Protein Urine Glucose (UA) Urine Ketones Urine Occult Blood Urine Nitrite Urine Bilirubin Urine Urobilinogen Ur Leukocyte Esterase Urine RBC Urine WBC Ur Squamous Epith Cells Urine Bacteria Urine Mucus U Random Total Protein Ur Random Sodium Urine Creatinine Protein/Creatinin Ratio Vancomycin Trough Random Vancomycin 23.4 H POC Glucose 141 H 126 H 12/27/20 12/27/20 12/27/20 11:21 11:21 16:27 WBC 7.1 RBC 3.68 L Hgb 9.3 L Hct 31.1 L MCV 84.5 MCH 25.3 L MCHC 29.9 L RDW Std Deviation 55.0 H RDW Coeff of Xavier 17.7 H Plt Count 357 MPV 9.9 Immature Gran % (Auto) 1.000 H Neut % (Auto) 70.4 H Lymph % (Auto) 16.6 L [place] % (Auto) 8.2 Eos % (Auto) 3.4 Baso % (Auto) 0.4 Absolute Neuts (auto) 5.0 Absolute Lymphs (auto) 1.17 Nucleated RBC % 0 Sodium 136 Potassium 4.3 Chloride 104 Carbon Dioxide 26.0 BUN 54 H Creatinine 1.94 H Estim Creat Clear Calc 37.63 Est GFR (MDRD) Af Amer 44 L Est GFR (MDRD) Non-Af 37 L BUN/Creatinine Ratio 27.8 H Glucose 133 H Calcium 9.1 Phosphorus 3.0 Magnesium 2.2 Albumin 2.1 L Urine Color Urine Clarity Urine pH Ur Specific [place] Urine Protein Urine Glucose (UA) Urine Ketones Urine Occult Blood Urine Nitrite Urine Bilirubin Urine Urobilinogen Ur Leukocyte Esterase Urine RBC Urine WBC Ur Squamous Epith Cells Urine Bacteria Urine Mucus U Random Total Protein Ur Random Sodium Urine Creatinine Protein/Creatinin Ratio Vancomycin Trough Random Vancomycin POC Glucose 147 H Micro: Microbiology 12/25/20 07:40 Wound - Ankle Gram Stain - Final 12/25/20 07:40 Wound - Ankle Wound Culture - Preliminary Morganella morganii sp morgani Gram negative claudia Gram negative claudia#2 Staphylococcus aureus 12/25/20 07:20 Blood Culture (Wb) - Left Hand Blood Culture - Preliminary No growth in 48 hours. 12/25/20 07:05 Blood Culture (Wb) - Right Hand Blood Culture - Preliminary Staphylococcus aureus 12/25/20 07:43 Interface Orders SARS-CoV-2 Antigen (Rapid) - Final Physical Exam Const Constitutional Narrative: Alert and oriented x3 in no apparent distress. Neck Neck Narrative: Supple, no JVD Lymph Lymphatic: lymphedema Resp Resp Narrative: Clear to auscultation anteriorly Cardio Cardio Narrative: Normal S1-S2 no rubs no murmurs GI GI Narrative: Normal bowel sound. Abdomen is obese. There is no pain on palpation. No guarding or rebound. Extremity Extremity Narrative: There is no cyanosis. Both lower extremities are edematous. 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 The left lower extremity has 4+ pitting edema up to the knee. Assessment & Plan Assessment/Plan (1) Acute kidney injury: PLAN: There are multiple possibilities for acute kidney injuries. The patient could have prerenal azotemia from poor intake along with continued diuresis. Urine indices are consistent with prerenal azotemia with FENa<1%. Another possibility for ANDRY is acute glomerulonephritis related to osteomyelitis presents with low FENa. However, I would have expected higher urine protein (UPCR is only 308 mg/g) and more RBCs in UA. C3 and C4 are pending. Acute interstitial nephritis from quinolone is also possible but less likely. Low suspicion for obstructive ANDRY, but we should check renal ultrasound to be sure (renal ultrasound is pending). Renal function is a bit worse today, but the patient is nonoliguric. There is no need for kidney replacement therapy today. Agree with holding furosemide for now. Recheck renal function tomorrow. Current medications are reviewed and are all appropriately dosed for the current estimated creatinine clearance. (2) Chronic kidney disease, stage 3b: PLAN: CKD is likely due to diabetic kidney disease. Baseline serum creatinine is 1.5 mg/dL. (3) Hyponatremia: PLAN: Resolved. Sodium level is 136 mmol/L today. Continue to monitor serum sodium. (4) Hypokalemia: PLAN: Potassium level is 4.3 mmol/L today. The patient is still on potassi um chloride at 40 mEq/day. Recheck potassium level in the morning. If potassium level is greater than 4.5 mmol/L, I would stop potassium chloride since the patient is off Lasix. (5) Osteomyelitis of left foot: QUALIFIERS: Osteomyelitis type: unspecified type Qualified Code(s): M86.9 - Osteomyelitis, unspecified PLAN: Antimicrobial per infectious disease. Pharmacist is helping to monitor vancomycin level and adjust the dose. (6) Charcot foot due to diabetes mellitus: (7) Diabetic infection of left foot: PLAN: . See above.
[2020-12-27] MEDS: Insulin Lispro 100 UNIT/ML INSULN.PEN SC (22:42)
[2020-12-27] MEDS: Atorvastatin Calcium 40 MG Tablet PO (22:43)
[2020-12-27 23:01] LABS: Bedside Glucose 195 mg/dL (70-110)
--- NOTE | 2020-12-27 23:09 | NURSING ---
Pt states that he is refusing Kidney and Bladder US in morning, canceling NPO @ 0000 per Pt request.
[2020-12-28] VITALS (10 sets, daily range): BP systolic 145–162; BP diastolic 53–63; PULSE 73–86; RESP 18; TEMP 36.6–36.9; O2SAT 96–97
[2020-12-28] MEDS: Acetaminophen 325 MG Tablet 650 MG PO (05:46)
[2020-12-28 06:45] LABS: Absolute Lymphocyte Count 1.12 X10^3/uL (0.83-4.51); Absolute Neutrophil Count 4.8 X10^3/uL (2.0-7.7); Basophil# 0.05 X10^3/uL; Basophil% 0.7 % (0-1); Eosinophil# 0.32 X10^3/uL; Eosinophils% 4.6 % (0-5); Hematocrit 30.8 % (40-54); Hemoglobin 9.2 g/dL (13.0-16.5); Lymphocyte # 1.12 X10^3/ul (0.83-4.51); Lymphocyte % 16.1 % (19-41); Mean Corp Hgb Conc 29.9 g/dL (32-36); Mean Corpuscular Hgb 25.3 pg (27.0-32.0); Mean Corpuscular Volume 84.6 fL (80-94); Mean Platelet Vol. 10.3 fl (6.2-12.0); Monocyte# 0.61 X10^3/uL; Monocyte% 8.8 % (0-10); NRBC Flagged by Analyzer 0 % (0-5); Neutrophil # 4.77 X10^3/uL (2.7-7.7); Neutrophil % 68.5 % (47-70); Platelet Count 376 K/mm3 (150-450); RBC Distribution Width CV 17.9 % (11.6-14.6); RBC Distribution Width SD 55.7 fl (35.1-43.9); Red Blood Count 3.64 M/mm3 (4.6-6.2)
[2020-12-28 06:50] LABS: Bedside Glucose 133 mg/dL (70-110)
[2020-12-28 07:11] LABS: Albumin, Serum 2.1 g/dL (3.2-5.0); BUN 53 mg/dL (7-18); BUN/Creat Ratio 29.4 RATIO (10-20); Chloride 104 mmol/L (98-107); EST Glomerular Filtration Rate 40 mL/min (>60); Est Glom Filt Rate - Afr Amer 48 mL/min (>60); Estimated Creatinine Clearance 40.56 ml/min; Glucose 140 mg/dL (74-106); Phosphorus 3.4 mg/dL (2.5-4.9); Potassium 4.5 mmol/L (3.5-5.1); Sodium Level 136 mmol/L (136-145)
--- NOTE | 2020-12-28 09:51 | NURSING ---
wound photo: left lateral ankle
--- NOTE | 2020-12-28 09:52 | NURSING ---
wound photo: left plantar foot
[2020-12-28] MEDS: levoFLOXacin IV 750 MG/150 ML BAG 100 MG IV (10:01)
[2020-12-28] MEDS: APIXABAN 5 MG TABLET PO ×2 (10:01→21:25)
[2020-12-28] MEDS: Carvedilol 25 MG Tablet PO ×2 (10:01→21:24)
[2020-12-28] MEDS: Juven (unflavored) Packet 1 PACKET PO ×2 (10:01→16:38)
[2020-12-28] MEDS: Aspirin E.C. 81 MG Tablet PO (10:02)
[2020-12-28] MEDS: Potassium Chloride Oral Tablet 20 MEQ 40 MEQ PO (10:02)
[2020-12-28] MEDS: Insulin Lispro 100 UNIT/ML INSULN.PEN SC (11:54)
[2020-12-28 12:01] LABS: Bedside Glucose 210 mg/dL (70-110)
--- NOTE | 2020-12-28 15:07 | PCM.PN.HOSP ---
Objective Data Objective Data Vital Signs: Vital Signs Temp Pulse Resp BP Pulse Ox 98.2 F 74 18 162/59 H 96 12/28/20 14:36 12/28/20 14:36 12/28/20 14:36 12/28/20 14:36 12/28/20 14:36 Oxygen Delivery Method Room Air Weight: 354 lb 12.8 oz Body Mass Index (BMI) 50.9 Intake & Output: Intake and Output for Last 24 Hours 12/26/20 12/27/20 12/28/20 23:59 23:59 23:59 Intake Total 2770 / 2770 1440 / 2000 1290 / 1290 Output Total 1325 / 1325 925 / 1075 975 / 975 Balance 1445 / 1445 515 / 925 315 / 315 Lab / Micro Data Result Diagrams: 12/28/20 06:25 12/28/20 06:25 Labs: Laboratory Results - last 24 hr 12/27/20 12/27/20 12/28/20 16:27 22:39 06:25 WBC 7.0 RBC 3.64 L Hgb 9.2 L Hct 30.8 L MCV 84.6 MCH 25.3 L MCHC 29.9 L RDW Std Deviation 55.7 H RDW Coeff of Xavier 17.9 H Plt Count 376 MPV 10.3 Immature Gran % (Auto) 1.300 H Neut % (Auto) 68.5 Lymph % (Auto) 16.1 L Esmeralda % (Auto) 8.8 Eos % (Auto) 4.6 Baso % (Auto) 0.7 Absolute Neuts (auto) 4.8 Absolute Lymphs (auto) 1.12 Nucleated RBC % 0 Sodium Potassium Chloride Carbon Dioxide BUN Creatinine Estim Creat Clear Calc Est GFR (MDRD) Af Amer Est GFR (MDRD) Non-Af BUN/Creatinine Ratio Glucose Calcium Phosphorus Albumin POC Glucose 147 H 195 H 12/28/20 12/28/20 12/28/20 06:25 06:44 11:53 WBC RBC Hgb Hct MCV MCH MCHC RDW Std Deviation RDW Coeff of Xavier Plt Count MPV Immature Gran % (Auto) Neut % (Auto) Lymph % (Auto) Esmeralda % (Auto) Eos % (Auto) Baso % (Auto) Absolute Neuts (auto) Absolute Lymphs (auto) Nucleated RBC % Sodium 136 Potassium 4.5 Chloride 104 Carbon Dioxide 25.0 BUN 53 H Creatinine 1.80 H Estim Creat Clear Calc 40.56 Est GFR (MDRD) Af Amer 48 L Est GFR (MDRD) Non-Af 40 L BUN/Creatinine Ratio 29.4 H Glucose 140 H Calcium 9.0 Phosphorus 3.4 Albumin 2.1 L POC Glucose 133 H 210 H Micro: Microbiology 12/25/20 07:05 Blood Culture (Wb) - Right Hand Blood Culture - Preliminary Staphylococcus aureus 12/25/20 07:40 Wound - Ankle Gram Stain - Final 12/25/20 07:40 Wound - Ankle Wound Culture - Final Morganella morganii sp morgani Pseudomonas fluorescens Proteus mirabilis Staphylococcus aureus 12/25/20 07:20 Blood Culture (Wb) - Left Hand Blood Culture - Preliminary No growth in 48 hours. 12/25/20 07:43 Interface Orders SARS-CoV-2 Antigen (Rapid) - Final Physical Exam Narrative No fever or chills. Blood pressure acceptable. Kidney profile getting better. Patient refused for stress test, surgical debridement and SNF. General: Alert, Oriented x3, Cooperative. HEENT: Atraumatic, PERRLA, EOMI, Normocephalic Oral: No Gingival or Mucosal Lesions/ Ulcerations Neck: Supple, No JVD, Negative Carotid Bruits Lungs: Air entry diminished in bilateral lung bases. No crepitation/rhonchi. Cardiovascular: Regular rate, Regular Rhythm, Normal S1, Normal S2, No murmurs Abdomen: Bowel Sounds Present, Soft, Non Tender, mild ascites/fat abdomen, better. : No renal angle tenderness. No suprapubic tenderness. Extremities: Bilateral lower extremity lymphedema. Capillary Refill Less than 3 Seconds Skin: 2 ulcers of lateral margin of left foot, status post debridement. Dressing dry. Musculoskeletal: Tenderness present on the feet. Charcot joint of both feet. Neurological: Cranial nerves II-XII grossly intact, Deep Tendon Reflexes 2+/4 and Symmetrical, Neuro grossly intact Psych/Mental Status: Normal Affect, Appropriate. Assessment & Plan Assessment/Plan (1) Diabetic infection of left foot: (2) Chest pain: PLAN: 1. Atypical chest pain and shortness of breath rule out coronary artery disease: Patient is being admitted in PCU. Serial troponin enzymes. Twelve-lead EKG shows sinus rhythm with sinus arrhythmia at 91 bpm, LAD. QTC 172 ms. 2D echo is ordered. Stress test not ordered as patient has diabetic foot ongoing infection. 12/26: 2D echo shows EF 45% with severe hypokinetic apex, anteroseptal hypokinesis. Patient offered stress test and cardiac cath but he refused. He even refused to see vessel slagman. Discussed with vessel slagman Dr. Stroud and recommended medical management with beta-brent, LOKI/ARB and statin. Patient cannot have LOKI/ARB and is already on carvedilol, atorvastatin, apixaban and aspirin. He has chronic systolic and diastolic heart failure. Lipid profile within normal limit except HDL 32 2. Acute on chronic left diabetic foot infection, complicated with Charcot feet, neuropathy, bilateral lymphedema, venous hypertension and possible PAD: Patient history about diabetic foot, peripheral arterial disease is unclear as he follows electrical & instrumentation supervisor Dr. Cameron in [place] and has not been admitted here before in long time. MRI foot is ordered. Started on empirically antibiotic IV vancomycin and Zosyn. Wound nurse consult with wound culture. Blood cultures already been ordered. ESR elevated. ID consult. 12/26: MRI reviewed and shows osteomyelitis of calcaneum, cuboid and fourth and fifth metatarsal. Patient had wound debridement in the morning by electrical & instrumentation supervisor. Preliminary blood cultures, Anaerobic bottle growing gram-positive cocci. Wound culture preliminary showing gram-negative claudia and gram-positive organism. 12/27: Discussed with ID. Vanco trough level elevated 28.2, random level came 23.4. Vancomycin discontinued. Will consider linezolid later as Vanco level still covers gram-positive organisms. 12/28: Blood culture is showing MSSA. On prelim wound culture Morganella, Pseudomonas fluorescence, Proteus mirabilis and staph aureus, MSSA. ID on board. 3. Acute kidney injury on CKD stage IIIa during hospital course: Patient creatinine stable at 1.49 since 2016. Probably diabetic nephropathy. Patient developed increasing creatinine, still less than 30% of baseline secondary to diuretic/fluid received and probably vancomycin. Nephrology consult. Lasix discontinued. Discussed with the pharmacist to hold vancomycin. Patient not on LOKI or ARB or other nephrotoxic medications. 12/27: Monitor labs. Nephrology consult reviewed. Patient has diabetic nephropathy, ANDRY may be related to volume shift from diuretic, poor intake, diarrhea, ATN from vancomycin. Renal ultrasound ordered to rule out postobstructive pathology. 12/28: Mild improvement in creatinine. 4. VTE prophylaxis: Lovenox 30 mg subcu daily. Discharge plan: Discharge home tomorrow after patient gets durable medical equipment for his leg ulcer possible home with home health care Living will/advanced directive/end of life care: Patient does not have living will or advanced directive. After discussion of benefits/risks procedures involved with full code, DNR CC arrest and DNR CC, the patient opted for DNR-CC Arrest with no intubation Patient does not want artificial life support including intubation, tube feed, ventilator and/chest compression, central venous catheter, vasopressor and DC shock if needed Total time spent in [id number] encounter in discussion of advanced directive 16 minutes. Total time of the visit including total time spent in counseling or coordination of care, (more than 50% of the total time, spent in obtaining medical information from nurses and other ancillary care providers,explaining to the patient about labs, imaging, diagnosis and management), discussion with ID, groundskeeping maintenance and nursing staff, review of labs and imaging is 30 minutes. Microbiology Past 72 Hours 12/25/20 07:40 Wound - Ankle Gram Stain - Final 12/25/20 07:40 Wound - Ankle Wound Culture - Preliminary Morganella morganii sp morgani Gram negative claudia Gram negative claudia#2 Staphylococcus aureus 12/25/20 07:20 Blood Culture (Wb) - Left Hand Blood Culture - Preliminary No growth in 48 hours. 12/25/20 07:05 Blood Culture (Wb) - Right Hand Blood Culture - Preliminary Staphylococcus aureus 12/25/20 07:43 Interface Orders SARS-CoV-2 Antigen (Rapid) - Final Clinical Impression(s) from Imaging Studies Chest X-Ray 12/25/20 07:10 IMPRESSION: No acute pulmonary process Foot X-Ray 12/25/20 07:48 IMPRESSION: Abnormal volar soft tissue swelling with subcutaneous emphysema noted in the soft tissues volar to the proximal fifth metatarsal seen best on the lateral film. There is no evidence of an erosive osseous lesion, these findings are highly suspicious for an inflammatory process. Extensive arthrosis and deformity of the foot consistent with diabetic foot. There is no demonstrated fracture or suspicious erosive osseous lesion, please see discussion above Calcaneal spurs and pes planus Echocardiogram 12/25/20 10:35 Interpretation Summary The estimated ejection fraction is 45 %. There is evidence of diastolic dysfunction. [place] : Severely Hypokinetic. anteroseptal hypokinesis Lower Extremity MRI 12/25/20 11:39 IMPRESSION: 1. Mild cortical thinning and mild to moderate patchy edema is present in the anterior process of the calcaneus, cuboid, and fourth and fifth metatarsal bases compatible with osteomyelitis. 2. Extensive neuropathic/Charcot arthropathy changes of the foot with contraction in equinus varus deformity. Numerous additional abnormalities. Electronically Signed: Lon Baptiste MD at 23:57 EDT , Service support , Visit Charges Inpatient E&M: 16291 Subs Hosp L2
--- NOTE | 2020-12-28 15:13 | PCM.PN.ID ---
Physical Exam Narrative Feeling ok, no fever, foot sore, no n/v/d. Const alert and no apparent distress General Appearance: cooperative Resp normal air movement and clear to auscultation bilaterally Cardio regular rate and regular rhythm GI normal to inspection, nondistended, normoactive bowel sounds Extremity General Extremity: edema Skin Skin Narrative: reviewed photos ID ID: Route of nutrition/ use of supplements: [] Nutritional Intake: [] IV Site: [] Shearer Catheter: [] Assessment & Plan Assessment/Plan (1) Diabetic infection of left foot: PLAN: Podiatry following. Wound cx with morganella, Pseudomonas fluorescens, proteus, mssa. MRI reviewed. Currently on levaquin. With MSSA bacteremia, will change to zosyn. Repeat bcx today. TTE showed no veg. Once bcx clear, plan will be for picc and 6 weeks iv zosyn Will follow. Recommended he get covid vaccine after discharge..
--- NOTE | 2020-12-28 15:46 | CASEMGMT ---
[facility] palliative screening tool completed and pt does not qualify for palliative c/s at this time. Debi JIMÉNEZ CM
--- NOTE | 2020-12-28 15:55 | PCM.PN.REN ---
Subjective Subjective no new complaints Objective Data Objective Data Vital Signs: Vital Signs Temp Pulse Resp BP Pulse Ox 98.2 F 74 18 162/59 H 96 12/28/20 14:36 12/28/20 14:36 12/28/20 14:36 12/28/20 14:36 12/28/20 14:36 Oxygen Delivery Method Room Air Weight: 160.935 kg Body Mass Index (BMI) 50.9 Intake & Output: Intake and Output for Last 24 Hours 12/26/20 12/27/20 12/28/20 23:59 23:59 23:59 Intake Total 2770 / 2770 1440 / 2000 1290 / 1290 Output Total 1325 / 1325 925 / 1075 975 / 975 Balance 1445 / 1445 515 / 925 315 / 315 Lab / Micro Data Result Diagrams: 12/28/20 06:25 12/28/20 06:25 Labs: Laboratory Results - last 24 hr 12/27/20 12/27/20 12/28/20 16:27 22:39 06:25 WBC 7.0 RBC 3.64 L Hgb 9.2 L Hct 30.8 L MCV 84.6 MCH 25.3 L MCHC 29.9 L RDW Std Deviation 55.7 H RDW Coeff of Xavier 17.9 H Plt Count 376 MPV 10.3 Immature Gran % (Auto) 1.300 H Neut % (Auto) 68.5 Lymph % (Auto) 16.1 L [place] % (Auto) 8.8 Eos % (Auto) 4.6 Baso % (Auto) 0.7 Absolute Neuts (auto) 4.8 Absolute Lymphs (auto) 1.12 Nucleated RBC % 0 Sodium Potassium Chloride Carbon Dioxide BUN Creatinine Estim Creat Clear Calc Est GFR (MDRD) Af Amer Est GFR (MDRD) Non-Af BUN/Creatinine Ratio Glucose Calcium Phosphorus Albumin POC Glucose 147 H 195 H 12/28/20 12/28/20 12/28/20 06:25 06:44 11:53 WBC RBC Hgb Hct MCV MCH MCHC RDW Std Deviation RDW Coeff of Xavier Plt Count MPV Immature Gran % (Auto) Neut % (Auto) Lymph % (Auto) [place] % (Auto) Eos % (Auto) Baso % (Auto) Absolute Neuts (auto) Absolute Lymphs (auto) Nucleated RBC % Sodium 136 Potassium 4.5 Chloride 104 Carbon Dioxide 25.0 BUN 53 H Creatinine 1.80 H Estim Creat Clear Calc 40.56 Est GFR (MDRD) Af Amer 48 L Est GFR (MDRD) Non-Af 40 L BUN/Creatinine Ratio 29.4 H Glucose 140 H Calcium 9.0 Phosphorus 3.4 Albumin 2.1 L POC Glucose 133 H 210 H Micro: Microbiology 12/25/20 07:05 Blood Culture (Wb) - Right Hand Blood Culture - Preliminary Staphylococcus aureus 12/25/20 07:40 Wound - Ankle Gram Stain - Final 12/25/20 07:40 Wound - Ankle Wound Culture - Final Morganella morganii sp morgani Pseudomonas fluorescens Proteus mirabilis Staphylococcus aureus 12/25/20 07:20 Blood Culture (Wb) - Left Hand Blood Culture - Preliminary No growth in 48 hours. 12/25/20 07:43 Interface Orders SARS-CoV-2 Antigen (Rapid) - Final Physical Exam Const Constitutional Narrative: Alert and oriented x3 in no apparent distress. Eyes Eyes Narrative: Pupil equal round and reactive to light and accommodation. Neck Neck Narrative: Supple, no JVD Lymph Lymphatic: lymphedema Resp Resp Narrative: Clear to auscultation anteriorly Cardio Cardio Narrative: Normal S1-S2 no rubs no murmurs GI GI Narrative: Normal bowel sound. Abdomen is obese. There is no pain on palpation. No guarding or rebound. Extremity Extremity Narrative: There is no cyanosis. Both lower extremities are edematous. 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 The left lower extremity has 4+ pitting edema up to the knee. Neuro Neuro Narrative: No focal neurologic deficits. Assessment & Plan Assessment/Plan (1) Acute kidney injury: PLAN: likely hemodynamic cr is better med list reviewed (2) Chronic kidney disease, stage 3b: PLAN: CKD is likely due to diabetic kidney disease. Baseline serum creatinine is 1.5 mg/dL. (3) Hyponatremia: PLAN: Resolved. (4) Hypokalemia: PLAN: better (5) Osteomyelitis of left foot: QUALIFIERS: Osteomyelitis type: unspecified type Qualified Code(s): M86.9 - Osteomyelitis, unspecified PLAN: Antimicrobial per infectious disease. (6) Charcot foot due to diabetes mellitus: (7) Diabetic infection of left foot: PLAN: . See above.
[2020-12-28 16:41] LABS: Bedside Glucose 150 mg/dL (70-110)
[2020-12-28] MEDS: Atorvastatin Calcium 40 MG Tablet PO (21:25)
[2020-12-28 21:35] LABS: Bedside Glucose 164 mg/dL (70-110)
[2020-12-29] VITALS (8 sets, daily range): BP systolic 139–159; BP diastolic 58–72; PULSE 72–83; RESP 14–18; TEMP 36.6–36.9; O2SAT 95–97
[2020-12-29 06:40] LABS: Bedside Glucose 115 mg/dL (70-110)
[2020-12-29 06:51] LABS: Absolute Lymphocyte Count 0.77 X10^3/uL (0.83-4.51); Absolute Neutrophil Count 4.5 X10^3/uL (2.0-7.7); Basophil# 0.04 X10^3/uL; Basophil% 0.6 % (0-1); Eosinophil# 0.39 X10^3/uL; Eosinophils% 6.3 % (0-5); Hematocrit 31.3 % (40-54); Hemoglobin 9.3 g/dL (13.0-16.5); Lymphocyte # 0.77 X10^3/ul (0.83-4.51); Lymphocyte % 12.4 % (19-41); Mean Corp Hgb Conc 29.7 g/dL (32-36); Mean Corpuscular Hgb 24.9 pg (27.0-32.0); Mean Corpuscular Volume 83.9 fL (80-94); Mean Platelet Vol. 9.8 fl (6.2-12.0); Monocyte# 0.48 X10^3/uL; Monocyte% 7.7 % (0-10); NRBC Flagged by Analyzer 0 % (0-5); Neutrophil # 4.48 X10^3/uL (2.7-7.7); Neutrophil % 71.9 % (47-70); Platelet Count 387 K/mm3 (150-450); RBC Distribution Width CV 17.8 % (11.6-14.6); RBC Distribution Width SD 54.5 fl (35.1-43.9); Red Blood Count 3.73 M/mm3 (4.6-6.2); White Blood Count 6.2 K/mm3 (4.4-11.0)
[2020-12-29 07:24] LABS: BUN 48 mg/dL (7-18); BUN/Creat Ratio 27.7 RATIO (10-20); Calcium,Total 8.9 mg/dL (8.5-10.1); Chloride 105 mmol/L (98-107); Creatinine, Serum 1.73 mg/dL (0.70-1.30); EST Glomerular Filtration Rate 42 mL/min (>60); Est Glom Filt Rate - Afr Amer 51 mL/min (>60); Glucose 115 mg/dL (74-106); Phosphorus 3.5 mg/dL (2.5-4.9); Potassium 4.7 mmol/L (3.5-5.1); Sodium Level 137 mmol/L (136-145)
[2020-12-29 07:25] LABS: Complement C3 164 mg/dL (82-167)
[2020-12-29] MEDS: Aspirin E.C. 81 MG Tablet PO (09:41)
[2020-12-29] MEDS: APIXABAN 5 MG TABLET PO ×2 (09:41→20:59)
[2020-12-29] MEDS: Carvedilol 25 MG Tablet PO ×2 (09:41→20:59)
[2020-12-29] MEDS: Juven (unflavored) Packet 1 PACKET PO ×2 (09:41→16:53)
--- NOTE | 2020-12-29 10:07 | PCM.PN.ID ---
Physical Exam Narrative Feeling fine, no fever, no n/v/d. Const alert and no apparent distress General Appearance: cooperative Resp normal air movement and clear to auscultation bilaterally Cardio regular rate and regular rhythm GI normal to inspection, nondistended, normoactive bowel sounds Extremity Extremity Narrative: legs wrapped ID ID: Route of nutrition/ use of supplements: [] Nutritional Intake: [] IV Site: [] Shearer Catheter: [] Assessment & Plan Assessment/Plan (1) Diabetic infection of left foot: PLAN: Complicated by MSSA bacteremia. Podiatry following. Wound cx with morganella, Pseudomonas fluorescens, proteus, mssa. Cont zosyn. Repeat bcx today. TTE showed no veg. Plan will be for picc tomorrow and 6 weeks iv zosyn, stop date 02/05/21, weekly labs, ID followup in 2-3 weeks.P Will follow. Recommended he get covid vaccine after discharge. D/w Dr. Alfonso and caseworker protective services.
--- NOTE | 2020-12-29 10:40 | CASEMGMT ---
SW spoke with patient as he is not doing well with therapy. He lives alone in an apartment with 5 entry steps. RIGO told patient SW called his insurance and he has 20 days where [facility]. He said he is not going anywhere he would rather go home. He said he normally does not have any troubles at home. SW asked him if he was non weightbearing before and he said no. SW told him that is a big difference as he is not able to maintain his non weightbearing status. He said he wears his brace and then he can bear weight on his foot. SW told him he is swollen and he cannot get the brace on. He said he does not have any troubles at home. SW told him he normally may not have troubles, but these are different circumstances and he is currently having troubles getting out of bed etc. SW asked if he has a plan for getting home and getting into his apartment. He said he will have someone come and get him. Michelle MEDINA
--- NOTE | 2020-12-29 11:45 | CASEMGMT ---
Addendum entered by Melody Dutta 12/29/20 14:08: Pt states plans to use his boot like he normally does and states has another one at home that's a little larger, if needed. Debi JIMÉNEZ CM Addendum entered by Melody Dutta 12/29/20 13:59: Call back from Lon at [facility] and he states they can take pt at this time. PICC line documentation to be faxed to [facility] and infusion once obtained. CM to follow. Debi JIMÉNEZ CM Addendum entered by Melody Dutta 12/29/20 13:23: Call from Josie at [facility] and she states they are unable to accept pt at this time. Pt states no further preference for [facility]. Call to Lon with [facility] in regards to their availability and message left for him at this time. Referral faxed to [facility]. Debi JIMÉNEZ CM Original Note: Per pt and Merced SIERRA, pt insists on going home with [facility] at discharge despite therapy recommendations. Pt states would like [facility] as list was previously provided. Call to [facility] and Josie updated on referral and possible 12/30 discharge date, voices understanding and will call this RN MISTY back. Pt states no preference for infusion company so referral faxed to [facility]. CM to follow. Debi JIMÉNEZ CM
[2020-12-29 11:51] LABS: Bedside Glucose 123 mg/dL (70-110)
--- NOTE | 2020-12-29 13:24 | PCM.PN.HOSP ---
Subjective Subjective Feels much better than when he came in. No issues overnight Objective Data Objective Data Vital Signs: Vital Signs Temp Pulse Resp BP Pulse Ox 98.2 F 81 18 154/58 H 97 12/29/20 09:48 12/29/20 09:48 12/29/20 09:48 12/29/20 09:48 12/29/20 09:48 Oxygen Delivery Method Room Air Weight: 354 lb 12.8 oz Body Mass Index (BMI) 50.9 Intake & Output: Intake and Output for Last 24 Hours 12/28/20 12/29/20 12/30/20 03:59 03:59 03:59 Intake Total 1760 / 1760 1590 / 1590 690 / 690 Output Total 900 / 900 1875 / 1875 950 / 950 Balance 860 / 860 -285 / -285 -260 / -260 Lab / Micro Data Result Diagrams: 12/29/20 06:40 12/29/20 06:40 Labs: Laboratory Results - last 24 hr 12/27/20 12/28/20 12/28/20 05:03 16:34 21:27 WBC RBC Hgb Hct MCV MCH MCHC RDW Std Deviation RDW Coeff of Xavier Plt Count MPV Immature Gran % (Auto) Neut % (Auto) Lymph % (Auto) Petroleum % (Auto) Eos % (Auto) Baso % (Auto) Absolute Neuts (auto) Absolute Lymphs (auto) Nucleated RBC % Sodium Potassium Chloride Carbon Dioxide BUN Creatinine Estim Creat Clear Calc Est GFR (MDRD) Af Amer Est GFR (MDRD) Non-Af BUN/Creatinine Ratio Glucose Calcium Phosphorus Albumin Complement C3 164 Complement C4 35 POC Glucose 150 H 164 H 12/29/20 12/29/20 12/29/20 06:31 06:40 06:40 WBC 6.2 RBC 3.73 L Hgb 9.3 L Hct 31.3 L MCV 83.9 MCH 24.9 L MCHC 29.7 L RDW Std Deviation 54.5 H RDW Coeff of Xavier 17.8 H Plt Count 387 MPV 9.8 Immature Gran % (Auto) 1.100 H Neut % (Auto) 71.9 H Lymph % (Auto) 12.4 L Petroleum % (Auto) 7.7 Eos % (Auto) 6.3 H Baso % (Auto) 0.6 Absolute Neuts (auto) 4.5 Absolute Lymphs (auto) 0.77 L Nucleated RBC % 0 Sodium 137 Potassium 4.7 Chloride 105 Carbon Dioxide 26.0 BUN 48 H Creatinine 1.73 H Estim Creat Clear Calc 42.20 Est GFR (MDRD) Af Amer 51 L Est GFR (MDRD) Non-Af 42 L BUN/Creatinine Ratio 27.7 H Glucose 115 H Calcium 8.9 Phosphorus 3.5 Albumin 2.0 L Complement C3 Complement C4 POC Glucose 115 H 12/29/20 11:46 WBC RBC Hgb Hct MCV MCH MCHC RDW Std Deviation RDW Coeff of Xavier Plt Count MPV Immature Gran % (Auto) Neut % (Auto) Lymph % (Auto) Petroleum % (Auto) Eos % (Auto) Baso % (Auto) Absolute Neuts (auto) Absolute Lymphs (auto) Nucleated RBC % Sodium Potassium Chloride Carbon Dioxide BUN Creatinine Estim Creat Clear Calc Est GFR (MDRD) Af Amer Est GFR (MDRD) Non-Af BUN/Creatinine Ratio Glucose Calcium Phosphorus Albumin Complement C3 Complement C4 POC Glucose 123 H Micro: Microbiology 12/25/20 07:05 Blood Culture (Wb) - Right Hand Blood Culture - Preliminary Staphylococcus aureus 12/25/20 07:40 Wound - Ankle Gram Stain - Final 12/25/20 07:40 Wound - Ankle Wound Culture - Final Morganella morganii sp morgani Pseudomonas fluorescens Proteus mirabilis Staphylococcus aureus 12/25/20 07:20 Blood Culture (Wb) - Left Hand Blood Culture - Preliminary No growth in 48 hours. 12/25/20 07:43 Interface Orders SARS-CoV-2 Antigen (Rapid) - Final Physical Exam Const alert, oriented x3 and no apparent distress HEENT moist oral mucous membranes Head and Scalp: normocephalic Eyes PERRL, EOMs intact bilaterally and conjunctivae normal Neck supple and no JVD Resp normal respiratory effort and clear to auscultation bilaterally Auscultation: Negative for crackles, rales, rhonchi or wheezes Cardio regular rate, regular rhythm, S1 normal heart sound, S2 normal heart sound and no murmurs GI soft to palpation, non-tender and non-distended; Negative for hepatosplenomegaly Extremity General Extremity: edema bilateral lower extremity Details: moderate Skin Skin Narrative: 2 ulcers on the lateral aspect of the left foot status post debridement. Dressing is CDI Neuro no focal motor deficits and no sensory deficits noted Psych affect normal Assessment & Plan Assessment/Plan (1) Diabetic infection of left foot: (2) Chest pain: PLAN: 1. Atypical chest pain and shortness of breath rule out coronary artery disease: Patient is being admitted in PCU. Serial troponin enzymes. Twelve-lead EKG shows sinus rhythm with sinus arrhythmia at 91 bpm, LAD. QTC 172 ms. 2D echo is ordered. Stress test not ordered as patient has diabetic foot ongoing infection. 12/26: 2D echo shows EF 45% with severe hypokinetic apex, anteroseptal hypokinesis. Patient offered stress test and cardiac cath but he refused. He even refused to see agent spa desk. Discussed with agent spa desk Dr. Stroud and recommended medical management with beta-brent, LOKI/ARB and statin. Patient cannot have LOKI/ARB and is already on carvedilol, atorvastatin, apixaban and aspirin. He has chronic systolic and diastolic heart failure. Lipid profile within normal limit except HDL 32 12/29: No further work-up as he refuses any further work-up 2. Acute on chronic left diabetic foot infection, complicated with Charcot feet, neuropathy, bilateral lymphedema, venous hypertension and possible PAD/DM 2: Patient history about diabetic foot, peripheral arterial disease is unclear as he follows apparel designer Dr. Cameron in [place] and has not been admitted here before in long time. MRI foot is ordered. Started on empirically antibiotic IV vancomycin and Zosyn. Wound nurse consult with wound culture. Blood cultures already been ordered. ESR elevated. ID consult. 12/26: MRI reviewed and shows osteomyelitis of calcaneum, cuboid and fourth and fifth metatarsal. Patient had wound debridement in the morning by apparel designer. Preliminary blood cultures, Anaerobic bottle growing gram-positive cocci. Wound culture preliminary showing gram-negative claudia and gram-positive organism. 12/27: Discussed with ID. Vanco trough level elevated 28.2, random level came 23.4. Vancomycin discontinued. Will consider linezolid later as Vanco level still covers gram-positive organisms. 12/28: Blood culture is showing MSSA. On prelim wound culture Morganella, Pseudomonas fluorescence, Proteus mirabilis and staph aureus, MSSA. ID on board. 12/29: Blood culture from yesterday is pending, will plan for discharge tomorrow if culture is no growth and can get a PICC line and safely. We will continue to monitor blood sugars and adjust as necessary 3. Acute kidney injury on CKD stage IIIa during hospital course: Patient creatinine stable at 1.49 since 2016. Probably diabetic nephropathy. Patient developed increasing creatinine, still less than 30% of baseline secondary to diuretic/fluid received and probably vancomycin. Nephrology consult. Lasix discontinued. Discussed with the pharmacist to hold vancomycin. Patient not on LOKI or ARB or other nephrotoxic medications. 12/27: Monitor labs. Nephrology consult reviewed. Patient has diabetic nephropathy, ANDRY may be related to volume shift from diuretic, poor intake, diarrhea, ATN from vancomycin. Renal ultrasound ordered to rule out postobstructive pathology. 12/28: Mild improvement in creatinine. 12/29: Continue to monitor creatinine as it is improving 4. VTE prophylaxis: Lovenox 30 mg subcu daily. Discharge plan: Discharge home tomorrow after patient gets durable medical equipment for his leg ulcer possible home with home health care Microbiology Past 72 Hours 12/25/20 07:40 Wound - Ankle Gram Stain - Final 12/25/20 07:40 Wound - Ankle Wound Culture - Preliminary Morganella morganii sp morgani Gram negative claudia Gram negative claudia#2 Staphylococcus aureus 12/25/20 07:20 Blood Culture (Wb) - Left Hand Blood Culture - Preliminary No growth in 48 hours. 12/25/20 07:05 Blood Culture (Wb) - Right Hand Blood Culture - Preliminary Staphylococcus aureus 12/25/20 07:43 Interface Orders SARS-CoV-2 Antigen (Rapid) - Final Clinical Impression(s) from Imaging Studies Chest X-Ray 12/25/20 07:10 IMPRESSION: No acute pulmonary process Foot X-Ray 12/25/20 07:48 IMPRESSION: Abnormal volar soft tissue swelling with subcutaneous emphysema noted in the soft tissues volar to the proximal fifth metatarsal seen best on the lateral film. There is no evidence of an erosive osseous lesion, these findings are highly suspicious for an inflammatory process. Extensive arthrosis and deformity of the foot consistent with diabetic foot. There is no demonstrated fracture or suspicious erosive osseous lesion, please see discussion above Calcaneal spurs and pes planus Echocardiogram 12/25/20 10:35 Interpretation Summary The estimated ejection fraction is 45 %. There is evidence of diastolic dysfunction. Geary : Severely Hypokinetic. anteroseptal hypokinesis Lower Extremity MRI 12/25/20 11:39 IMPRESSION: 1. Mild cortical thinning and mild to moderate patchy edema is present in the anterior process of the calcaneus, cuboid, and fourth and fifth metatarsal bases compatible with osteomyelitis. 2. Extensive neuropathic/Charcot arthropathy changes of the foot with contraction in equinus varus deformity. Numerous additional abnormalities. Electronically Signed: Lon Baptiste MD at 23:57 EDT , Service support , (3) MSSA bacteremia: Visit Charges Inpatient E&M: 63600 Subs Hosp L2
[2020-12-29 17:00] LABS: Bedside Glucose 114 mg/dL (70-110)
--- NOTE | 2020-12-29 17:31 | PN.RENAL_ITS ---
Subjective Subjective no new events Objective Data Objective Data Vital Signs: Vital Signs Temp Pulse Resp BP Pulse Ox 98.0 F 73 18 151/67 H 96 12/29/20 14:56 12/29/20 15:00 12/29/20 14:56 12/29/20 14:56 12/29/20 14:56 Oxygen Delivery Method Room Air Weight: 160.935 kg Body Mass Index (BMI) 50.9 Intake & Output: Intake and Output for Last 24 Hours 12/27/20 12/28/20 12/29/20 23:59 23:59 23:59 Intake Total 1440 / 1999 1700 / 2100 1140 / 1140 Output Total 925 / 1075 1725 / 2025 1250 / 1250 Balance 515 / 925 -25 / 75 -110 / -110 Lab / Micro Data Result Diagrams: 12/29/20 06:40 12/29/20 06:40 Labs: Laboratory Results - last 24 hr 12/27/20 12/28/20 12/29/20 05:03 21:27 06:31 WBC RBC Hgb Hct MCV MCH MCHC RDW Std Deviation RDW Coeff of Xavier Plt Count MPV Immature Gran % (Auto) Neut % (Auto) Lymph % (Auto) [place] % (Auto) Eos % (Auto) Baso % (Auto) Absolute Neuts (auto) Absolute Lymphs (auto) Nucleated RBC % Sodium Potassium Chloride Carbon Dioxide BUN Creatinine Estim Creat Clear Calc Est GFR (MDRD) Af Amer Est GFR (MDRD) Non-Af BUN/Creatinine Ratio Glucose Calcium Phosphorus Albumin Complement C3 164 Complement C4 35 POC Glucose 164 H 115 H 12/29/20 12/29/20 12/29/20 06:40 06:40 11:46 WBC 6.2 RBC 3.73 L Hgb 9.3 L Hct 31.3 L MCV 83.9 MCH 24.9 L MCHC 29.7 L RDW Std Deviation 54.5 H RDW Coeff of Xaveir 17.8 H Plt Count 387 MPV 9.8 Immature Gran % (Auto) 1.100 H Neut % (Auto) 71.9 H Lymph % (Auto) 12.4 L [place] % (Auto) 7.7 Eos % (Auto) 6.3 H Baso % (Auto) 0.6 Absolute Neuts (auto) 4.5 Absolute Lymphs (auto) 0.77 L Nucleated RBC % 0 Sodium 137 Potassium 4.7 Chloride 105 Carbon Dioxide 26.0 BUN 48 H Creatinine 1.73 H Estim Creat Clear Calc 42.20 Est GFR (MDRD) Af Amer 51 L Est GFR (MDRD) Non-Af 42 L BUN/Creatinine Ratio 27.7 H Glucose 115 H Calcium 8.9 Phosphorus 3.5 Albumin 2.0 L Complement C3 Complement C4 POC Glucose 123 H 12/29/20 16:51 WBC RBC Hgb Hct MCV MCH MCHC RDW Std Deviation RDW Coeff of Xavier Plt Count MPV Immature Gran % (Auto) Neut % (Auto) Lymph % (Auto) [place] % (Auto) Eos % (Auto) Baso % (Auto) Absolute Neuts (auto) Absolute Lymphs (auto) Nucleated RBC % Sodium Potassium Chloride Carbon Dioxide BUN Creatinine Estim Creat Clear Calc Est GFR (MDRD) Af Amer Est GFR (MDRD) Non-Af BUN/Creatinine Ratio Glucose Calcium Phosphorus Albumin Complement C3 Complement C4 POC Glucose 114 H Micro: Microbiology 12/25/20 07:05 Blood Culture (Wb) - Right Hand Blood Culture - Preliminary Staphylococcus aureus 12/25/20 07:40 Wound - Ankle Gram Stain - Final 12/25/20 07:40 Wound - Ankle Wound Culture - Final Morganella morganii sp morgani Pseudomonas fluorescens Proteus mirabilis Staphylococcus aureus 12/25/20 07:20 Blood Culture (Wb) - Left Hand Blood Culture - Preliminary No growth in 48 hours. 12/25/20 07:43 Interface Orders SARS-CoV-2 Antigen (Rapid) - Final Physical Exam Const Constitutional Narrative: Alert and oriented x3 in no apparent distress. Eyes Eyes Narrative: Pupil equal round and reactive to light and accommodation. Neck Neck Narrative: Supple, no JVD Lymph Lymphatic: lymphedema Resp Resp Narrative: Clear to auscultation anteriorly Cardio Cardio Narrative: Normal S1-S2 no rubs no murmurs GI GI Narrative: Normal bowel sound. Abdomen is obese. There is no pain on palpation. No guarding or rebound. Extremity Extremity Narrative: There is no cyanosis. Both lower extremities are edematous. 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 The left lower extremity has 4+ pitting edema up to the knee. Neuro Neuro Narrative: No focal neurologic deficits. Assessment & Plan Assessment/Plan (1) Acute kidney injury: PLAN: likely hemodynamic cr is better med list reviewed (2) Chronic kidney disease, stage 3b: PLAN: CKD is likely due to diabetic kidney disease. Baseline serum creatinine is 1.5 mg/dL. (3) Hyponatremia: PLAN: Resolved. (4) Hypokalemia: PLAN: better (5) Osteomyelitis of left foot: QUALIFIERS: Osteomyelitis type: unspecified type Qualified Code(s): M86.9 - Osteomyelitis, unspecified PLAN: Antimicrobial per infectious disease. (6) Charcot foot due to diabetes mellitus: (7) Diabetic infection of left foot: PLAN: . See above.
[2020-12-29] MEDS: Atorvastatin Calcium 40 MG Tablet PO (20:59)
[2020-12-29 21:40] LABS: Bedside Glucose 104 mg/dL (70-110)
[2020-12-30] VITALS (8 sets, daily range): BP systolic 150–155; BP diastolic 67–69; PULSE 73–88; RESP 18; TEMP 36.7–37.2; O2SAT 94–97
[2020-12-30] MEDS: oxyCODONE 5 MG Tablet PO (00:23)
[2020-12-30 06:41] LABS: Bedside Glucose 72 mg/dL (70-110)
[2020-12-30] MEDS: Carvedilol 25 MG Tablet PO (09:59)
[2020-12-30] MEDS: Aspirin E.C. 81 MG Tablet PO (09:59)
--- NOTE | 2020-12-30 10:01 | CASEMGMT ---
Addendum entered by Melody Dutta 12/30/20 15:37: Pt now states his sister will roll picker his new, larger boot and bring to hospital for him to wear for discharge. D/C summ/instructions faxed to [facility] and Jarret, PCU charge, to fax PICC documentation once charted by PICC nurse. Debi JIMÉNEZ CM Addendum entered by Melody Dutta 12/30/20 14:18: This RN CM to room to updated pt on all and pt now states that he cannot go home until he can get his boot on so that he can ambulate with boot in place. Pt does not believe that the boot will fit at this time and this RN CM advised pt that this is why RIGO and CM discussed this and therapy recommendations with pt yesterday as plan was to discharge pt today. Pt does have a new, larger boot at home but states 'I don't want to wear that one because it doesn't fit right.' Pt would like [place] JIMÉNEZ to come in and try to help him put boot on. Pt also states has not been on his lasix and that's why boot won't fit. Dr. Alfonso and Leighton updated on all, voices understanding. CM to follow. Debi JIMÉNEZ CM Addendum entered by Melody Dutta 12/30/20 13:44: Per Dr. Sweeney, pt can discharge after this afternoon's dose of Zosyn and miss tonight's dose and then have start of care with next dose tomorrow am. Dr. Alfonso updated, voices understanding. PICC line being placed at this time. Pt updated on all and PICC documentation faxed to [facility]/infusion. HHC/infusion updated on discharge and tonight's missed dose, voice understanding. Debi JIMÉNEZ CM Addendum entered by Melody Dutta 12/30/20 12:49: Per Hanna at [facility], pt will have meds/supplies delivered tomorrow am prior to 0800 start of care for [facility]. PICC documentation to be faxed to [facility] and infusion therapy once obtained. Pt to be updated on all and provided contact info for HHC/infusion on d/c instructions. CM to follow. Debi JIMÉNEZ CM Addendum entered by Melody Dutta 12/30/20 10:42: Call from Lon at [facility] and he states that they are unable to do start of care until 12/31 at 0800. Marilu, pharmacist, aware and states pt can have next zosyn dose at 1300 today and then 2000 tonight they could do 3rd dose and run in 30minutes. Leighton JIMÉNEZ updated to give next dose at 1300, voices understanding. Still awaiting blood cultures/PICC placement and this RN CM will discuss with Dr. Sweeney as well. CM to follow. Debi JIMÉNEZ CM Original Note: Pt updated on plan of Care at this time, voices understanding. Pt states has a new [place] ore[place] boot and declines need for WW at this time. CM to follow for blood cultures/PICC placement and then will line up [facility] to come out. Debi JIMÉNEZ CM
[2020-12-30] MEDS: APIXABAN 5 MG TABLET PO (11:54)
[2020-12-30 12:00] LABS: Bedside Glucose 143 mg/dL (70-110)
--- NOTE | 2020-12-30 12:23 | PCM.DC ---
Discharge Instructions Diet Discharge Diet: Carb Control Diet Activity Discharge Activity: Return to Normal Activity Dressing / Incision Call your doctor if you observe: Fever of 101 or Higher, Shortness of breath, Dizziness, Fainting spells, Swelling in the ankles, Chest pain and Increased palpitations (irregular heartbeat) Follow Up Care Test Results: Test results from this visit will be discussed in further detail at your follow-up appointment, if applicable. Discharge Plan Admission Admit Date/Time: 12/25/20 09:53 Attending Provider: Joel Alfonso Primary Care Provider: Michael Palomino Consulting Providers: Betito Sweeney ; Payton Cameron ; Ricardo Hermosillo Instructions Patient Instructions: ED Chest Pain, Noncardiac, ED Bacteremia, Suspected (Adult) Discharge Orders/Prescriptions Prescriptions: New Zosyn in dextrose (iso-osm) 3.375 gram/50 mL piggyback 3.375 g IV Q8H 38 Days Qty: 114 RF: 0 No Action furosemide [Lasix] 40 mg tablet 40 mg PO BID RF: 0 carvedilol [Coreg] 25 mg tablet 25 mg PO BID RF: 0 pioglitazone [Actos] 30 mg tablet 30 mg PO DAILY RF: 0 Lantus Solostar U-100 Insulin 100 unit/mL (3 mL) insulin pen 46 unit SUBCUT DAILY RF: 0 aspirin 81 mg Tablet 81 mg PO DAILY RF: 0 Referrals / Follow Up: Michael Palomino DO [Primary Care Provider] - In 1 Week Payton Cameron DPM [STAFF PHYSICIAN] - In 1 Week Betito Sweeney MD [STAFF PHYSICIAN] - Within 2 Weeks Disposition Disposition (needs filled in before D/C Order can be placed): Home Health Service
--- NOTE | 2020-12-30 13:58 | RAD_ITS ---
STUDY: X-RAY CHEST REASON FOR EXAM: Male, 70 years old. Picc line placement TECHNIQUE: Single AP portable view of the chest. COMPARISON: Comparison is made with prior study dated 12/25/2020. FINDINGS: A right-sided PICC line catheter as been placed. The tip is at the junction of the superior vena cava and right atrium. EKG electrodes are seen. The lungs are clear and expanded. There is no demonstrated pleural abnormality. There is moderate cardiac enlargement. Normal mediastinum and almaz. Normal visualized pulmonary arteries. Normal visualized aortic arch and descending thoracic aorta. Normal visualized thoracic spine. Normal visualized ribs, clavicles, and shoulders. There is no demonstrated abnormality of the visualized soft tissue structures of the upper abdomen. RAD/CXR for Line Placement IMPRESSION: The tip of the right PICC line catheter is at the junction of the superior vena cava and right atrium. Cardiomegaly. Electronically Signed: Javed Brandon MD at 14:33 EDT , Service support ,
--- NOTE | 2020-12-30 14:03 | DS.PCM_ITS ---
Providers Date of Admission: 12/25/20 Primary Care Physician: Dr. 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 Consult: Podiatry Routine Consulting Provider: Payton Cameron Reason for Consult: Left foot ulcer EMERGENT Consult: No MD Notified: Yes Date Notified:: 12/25/20 Time Notified: 09:51 Method of Notification: telephone 12/25/20 13:27 Consult: Infectious Disease Routine Consulting Provider: Betito Sweeney Reason for Consult: Left ankle diabetic ulcer for long time. Type Soldering Machine Tender consulted. EMERGENT Consult: No MD Notified: Yes Date Notified:: 12/25/20 Time Notified: 13:27 Method of Notification: Answering Service 12/26/20 15:29 Consult: Nephrology Routine Consulting Provider: Ricardo Hermosillo Reason for Consult: ANDRY on CKD stage 3 EMERGENT Consult: No MD Notified: Yes Date Notified:: 12/26/20 Time Notified: 15:29 Method of Notification: Answering Service Reason For Visit: ATYPICAL CHEST PAIN, FOOT ULCER Diagnosis Discharge Diagnosis (1) Acute kidney injury: Status: Resolved Code(s): N17.9 - Acute kidney failure, unspecified (2) Chronic kidney disease, stage 3b: Status: Deleted Code(s): N18.32 - Chronic kidney disease, stage 3b (3) Osteomyelitis of left foot: Status: Acute Code(s): M86.9 - Osteomyelitis, unspecified Qualifiers: Osteomyelitis type: unspecified type Qualified Code(s): M86.9 - Osteomyelitis, unspecified (4) Charcot foot due to diabetes mellitus: Status: Chronic Code(s): E11.610 - Type 2 diabetes mellitus with diabetic neuropathic arthropathy (5) Diabetic infection of left foot: Status: Acute Code(s): E11.628 - Type 2 diabetes mellitus with other skin complications; L08.9 - Local infection of the skin and subcutaneous tissue, unspecified (6) Stage 3a chronic kidney disease: Status: Chronic Code(s): N18.31 - Chronic kidney disease, stage 3a (7) MSSA bacteremia: Status: Acute Code(s): R78.81 - Bacteremia; B95.61 - Methicillin susceptible Staphylococcus aureus infection as the cause of diseases classified elsewhere Medications at Discharge Home Medications Lantus Solostar U-100 Insulin 46 unit SUBCUT DAILY 12/25/20 aspirin 81 mg PO DAILY 12/25/20 carvedilol [Coreg] 25 mg PO BID 12/25/20 furosemide [Lasix] 40 mg PO BID 12/25/20 pioglitazone [Actos] 30 mg PO DAILY 12/25/20 [id number] [Zosyn in dextrose (iso-osm)] 3.375 g IV Q8H 38 Days #114 bag 12/29/20 atorvastatin 40 mg PO QHS #30 tab 12/30/20 Hospital Course Operations None Procedures 2-D Echocardiogram Summary of Care Provided Minutes Spent on Discharge: 35 Hospital Course: Per HPI: JONEL ZALDIVAR, is a 70 M who presents with history of diabetes mellitus type 2 and chronic diabetic foot ulcer for more than 10 years came to ER with left foot ulcer along with chest pain and mild shortness of breath.? He has bilateral Charcot's feet for many years and is on diabetic splint.? He got opening on the lateral aspect of left foot, ulcer at 2 areas for more than 6 months.? There is purulent drainage.? Mild chills and fever. Patient also got chest pain along with shortness of breath yesterday morning.? This lasted for half an hour.? Described chest pain midsternal with radiation to neck without dizziness not associated shortness of breath.? In the morning also had chest pain. Patient is back to lower extremity swelling and Lasix 40 mg twice daily but denies diagnosis of CHF, coronary artery disease or stent.? He denies history of smoking or chronic lung disease. His mother had coronary artery disease in her 80s and of 89. Hospital Course: 1. Acute on chronic diabetic left foot infection complicated by Charcot feet bilaterally as well as neuropathy and lymphedema with possible PAD/IDDM 2/MSSA bacteremia -70-year-old male presented from home with left foot infection. He has been managed by podiatry for bilateral Charcot feet however he has not sought treatment in about 12 months secondary to Covid and since then it appears that his Charcot feet have worsened. Podiatry was consulted and evaluated him and felt based on the progression of his disease that he would be best served by below the knee amputation however he has declined this intervention and would like conservative measures with antibiotics he had a wound culture mixed organisms with Proteus, Pseudomonas, Morganella, and MSSA. Infectious disease was consulted and recommended discharge on 6 weeks of Zosyn. His care was little bit complicated by potential MSSA bacteremia however repeat cultures on the were negative for growth therefore PICC line was placed on the day of discharge and he will undergo home care evaluation and antibiotics infusion at home. He will need to follow-up with infectious disease in 2 to 3 weeks as well as his PCP in 1 week and podiatry in a week as well. We had multiple extensive discussions throughout his stay about going to a [place] [facility] facility for rehab and closer nursing care, he has refused all offers. He understands the risks of going home and his condition and is unwilling to go to a SNF at this time. 2. Atypical chest pain/HTN/HLD-he did have an episode of chest pain for about 30 minutes. EKG and troponins were unremarkable he did have a 2D echo ordered which showed severe apical hypokinesis with an EF of 45% and diastolic dysfunc tion however he refused a stress test as well as a cardiac cath. To this extent he will be discharged on Lipitor and continued on aspirin as well as his other blood pressure medications, and will need to follow-up with his PCP as an outpatient. We will hold his Lasix for another few days, his creatinine is improving towards baseline however it is still elevated and I do recommend that he follow-up with his PCP to obtain a BMP on discharge to monitor his renal function. Physical Exam Const alert, oriented x3 and no apparent distress HEENT moist oral mucous membranes Eyes PERRL, EOMs intact bilaterally and conjunctivae normal Neck supple and no JVD Resp normal respiratory effort and clear to auscultation bilaterally Auscultation: Negative for crackles, rales, rhonchi or wheezes Cardio regular rate, regular rhythm, S1 normal heart sound, S2 normal heart sound and no murmurs GI soft to palpation, non-tender and non-distended; Negative for hepatosplenomegaly Extremity General Extremity: edema bilateral lower extremity Details: moderate Skin Skin Narrative: 2 ulcers on the lateral aspect of the left foot status post debridement. Dressing is CDI Neuro no focal motor deficits and no sensory deficits noted Psych affect normal ABG / Lab / Microbiology Data Result Diagrams: 12/29/20 06:40 12/29/20 06:40 Laboratory: Laboratory Results - last 24 hr 12/29/20 12/29/20 12/30/20 16:51 21:02 06:37 POC Glucose 114 H 104 72 12/30/20 11:52 POC Glucose 143 H Microbiology: Microbiology 12/28/20 14:40 Blood Culture - Preliminary Blood Culture (Wb) - Right Hand No growth in 48 hours. 12/25/20 07:20 Blood Culture - Final Blood Culture (Wb) - Left Hand No growth in 5 days. 12/25/20 07:05 Blood Culture - Final Blood Culture (Wb) - Right Hand Staphylococcus aureus Microbiology 12/28/20 14:40 Blood Culture (Wb) - Right Hand Blood Culture - Preliminary No growth in 48 hours. 12/25/20 07:20 Blood Culture (Wb) - Left Hand Blood Culture - Final No growth in 5 days. 12/25/20 07:05 Blood Culture (Wb) - Right Hand Blood Culture - Final Staphylococcus aureus 12/25/20 07:40 Wound - Ankle Gram Stain - Final 12/25/20 07:40 Wound - Ankle Wound Culture - Final Morganella morganii sp morgani Pseudomonas fluorescens Proteus mirabilis Staphylococcus aureus 12/25/20 07:43 Interface Orders SARS-CoV-2 Antigen (Rapid) - Final D/C Instructions Discharge Diet: Carb Control Diet Discharge Activity: Return to Normal Activity Call your doctor if you observe: Fever of 101 or Higher, Shortness of breath, Dizziness, Fainting spells, Swelling in the ankles, Chest pain and Increased palpitations (irregular heartbeat) Meaningful Use Info Meaningful Use Diagnoses (Choose all that apply): None applicable Discharge Plan Admission Admit Date/Time: 12/25/20 09:53 Attending Provider: Joel Alfonso Primary Care Provider: Michael Palomino Consulting Providers: Betito Sweeney ; Payton Cameron ; Ricardo Hermosillo Instructions Patient Instructions: ED Chest Pain, Noncardiac, ED Bacteremia, Suspected (Adult) Discharge Orders/Prescriptions Prescriptions: New Zosyn in dextrose (iso-osm) 3.375 gram/50 mL piggyback 3.375 g IV Q8H 38 Days Qty: 114 RF: 0 atorvastatin 40 mg Tablet 40 mg PO QHS Qty: 30 RF: 0 Continued carvedilol [Coreg] 25 mg tablet 25 mg PO BID RF: 0 pioglitazone [Actos] 30 mg tablet 30 mg PO DAILY RF: 0 Lantus Solostar U-100 Insulin 100 unit/mL (3 mL) insulin pen 46 unit SUBCUT DAILY RF: 0 aspirin 81 mg Tablet 81 mg PO DAILY RF: 0 Held furosemide [Lasix] 40 mg tablet 40 mg PO BID RF: 0 Hold Instructions: Resume on 01/02/21. Follow-up with your PCP in 1 week we will obtain a BMP to monitor your renal function. Referrals / Follow Up: iMchael Palomino DO [Primary Care Provider] - 01/06/21 4:15 pm Payton Cameron DPM [STAFF PHYSICIAN] - 01/06/21 12:30 pm Betito Sweeney MD [STAFF PHYSICIAN] - Within 2 Weeks (Office is closed. Please call tomorrow for an appointment. ) Disposition Disposition (needs filled in before D/C Order can be placed): Home Health Service Visit Charges Inpatient E&M: 85726 Disch Hosp
--- NOTE | 2020-12-30 16:15 | PHA.DC.MC ---
Pharmacy Service has performed discharge medication reconciliation and counseling for this patient. 1. ATORVASTATIN 40MG PO QHS 2. ZOSYN 3.375GM IV Q8 X 38DAYS The patient's discharge medication list was reviewed for discrepancies and discrepancies were resolved. Home Medications Lantus Solostar U-100 Insulin 46 unit SUBCUT DAILY 12/25/20 aspirin 81 mg PO DAILY 12/25/20 carvedilol [Coreg] 25 mg PO BID 12/25/20 furosemide [Lasix] 40 mg PO BID 12/25/20 pioglitazone [Actos] 30 mg PO DAILY 12/25/20 [id number] [Zosyn in dextrose (iso-osm)] 3.375 g IV Q8H 38 Days #114 bag 12/29/20 atorvastatin 40 mg PO QHS #30 tab 12/30/20 The patient was counseled on the following discharge medications and changes in medications for homegoing were reviewed. The Reason for Use, instructions for use, and potential side effects were reviewed for all new medications. The patient's questions regarding all of their medications were answered. The patient was able to verbally demonstrate an understanding of their discharge medications.
[2020-12-30 16:21] LABS: Bedside Glucose 111 mg/dL (70-110)
--- NOTE | 2020-12-30 18:43 | NURSING ---
Pt sister in to picker and packer pt. Sister unable to get into pt house to bring walking boot. Sister asking pt why he doesn't go to rehab? Pt replied, I have to do this, I am going home. Pt refusing to go for rehab. Sister got pt keys and went to retrieve walking boot and will return to picker and packer pt.
== END 2020-12-30 20:47 | disposition home health service (06) | DRG 638 ==
LOC: ED 09:59 → PCU 10:11
PROVIDERS: Internal Medicine Nephrology; Admitting Provider Internal Medicine; Emergency Provider Emergency Medicine; PCP Student in an Organized Health Care Education/Training Program; Visit Provider Family Medicine
DX: E11.628 Type 2 diabetes mellitus with other skin complications (principal); Z68.43 Body mass index [BMI] 50.0-59.9, adult; M86.8X7 Other osteomyelitis, ankle and foot; I50.42 Chronic combined systolic (congestive) and diastolic (congestive) heart failure; E87.1 Hypo-osmolality and hyponatremia; E11.69 Type 2 diabetes mellitus with other specified complication; R07.89 Other chest pain; N17.9 Acute kidney failure, unspecified; E11.621 Type 2 diabetes mellitus with foot ulcer; L97.529 Non-pressure chronic ulcer of other part of left foot with unspecified severity; E11.40 Type 2 diabetes mellitus with diabetic neuropathy, unspecified; E11.22 Type 2 diabetes mellitus with diabetic chronic kidney disease; L08.9 Local infection of the skin and subcutaneous tissue, unspecified; I12.9 Hypertensive chronic kidney disease with stage 1 through stage 4 chronic kidney disease, or unspecified chronic kidney disease; E11.610 Type 2 diabetes mellitus with diabetic neuropathic arthropathy; E66.9 Obesity, unspecified; E87.6 Hypokalemia; E78.5 Hyperlipidemia, unspecified; I89.0 Lymphedema, not elsewhere classified; M77.30 Calcaneal spur, unspecified foot; M21.40 Flat foot [pes planus] (acquired), unspecified foot; N18.31 Chronic kidney disease, stage 3a; B95.61 Methicillin susceptible Staphylococcus aureus infection as the cause of diseases classified elsewhere; B96.4 Proteus (mirabilis) (morganii) as the cause of diseases classified elsewhere; B96.5 Pseudomonas (aeruginosa) (mallei) (pseudomallei) as the cause of diseases classified elsewhere; Z79.899 Other long term (current) drug therapy; Z79.4 Long term (current) use of insulin; Z79.82 Long term (current) use of aspirin
CPT/HCPCS: 36415; 36569; 71045; 73630; 73718; 80048; 80061; 80069; 80202; 81001; 82570; 82962; 83036; 83605; 83735; 84156; 84300; 84443; 84484; 85025; 86160; 87040; 87070; 87077; 87186; 87205; 87426; 87640; 93005; 93306; 97110; 97163; 97166; 97530; 97535; 97802; 97803; 99285; J7040; Q9957; A4216; C8929

== ENCOUNTER 2020-12-31 13:12 | Emergency (ER) | payer MEDICARE, SELFPAY ==
[2020-12-25 10:40] VITALS: BMI 50.9
[2020-12-31 13:14] VITALS: BP 158/73; PULSE 96; RESP 24; TEMP 36.6; O2SAT 96; BMI 49.1
--- NOTE | 2020-12-31 13:45 | RAD_ITS ---
STUDY: X-RAY - LEFT ANKLE REASON FOR EXAM: Male, 70 years old. Fall TECHNIQUE: 3 view(s) of the ankle. COMPARISON: None. FINDINGS: Severe chronic deformity of the ankle with evidence of sclerosis and diffuse arthrosis of the hindfoot. 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 Moderate diffuse soft tissue swelling is noted. RAD/Ankle min 3 Views IMPRESSION: Chronic deformity of the ankle no grossly displaced acute fracture is identified. High clinical suspicion for acute fracture further evaluation with cross-sectional imaging may be obtained. Electronically Signed: Hugo Lara MD at 14:44 EDT Tel , Service support ,
[2020-12-31 14:11] LABS: Absolute Lymphocyte Count 1.07 X10^3/uL (0.83-4.51); Absolute Neutrophil Count 4.8 X10^3/uL (2.0-7.7); Basophil# 0.03 X10^3/uL; Basophil% 0.4 % (0-1); Eosinophil# 0.37 X10^3/uL; Eosinophils% 5.3 % (0-5); Hematocrit 32.9 % (40-54); Hemoglobin 9.9 g/dL (13.0-16.5); Lymphocyte # 1.07 X10^3/ul (0.83-4.51); Lymphocyte % 15.3 % (19-41); Mean Corp Hgb Conc 30.1 g/dL (32-36); Mean Corpuscular Hgb 25.2 pg (27.0-32.0); Mean Corpuscular Volume 83.7 fL (80-94); Mean Platelet Vol. 9.5 fl (6.2-12.0); Monocyte# 0.68 X10^3/uL; Monocyte% 9.7 % (0-10); NRBC Flagged by Analyzer 0 % (0-5); Neutrophil # 4.78 X10^3/uL (2.7-7.7); Neutrophil % 68.3 % (47-70); Platelet Count 351 K/mm3 (150-450); RBC Distribution Width CV 17.5 % (11.6-14.6); RBC Distribution Width SD 53.9 fl (35.1-43.9); Red Blood Count 3.93 M/mm3 (4.6-6.2)
--- NOTE | 2020-12-31 14:20 | CM.ED ---
SOCIAL WORK Referral Source: Dr. Mendoza Reason for Consult: Discharge Planning Patient discharged from [facility] yesterday. Social work and case management at that time discussed with patient need for SNF. Patient refused and wished to return home. Patient presents to [facility] ER today after fall. Patient in agreement with SNF and requests referral to TCU. Spoke with Kesha with TCU. Kesha to initiate precert with patient's insurance-[employer]. Requesting COVID-[address] Mendoza updated. Plan: Referral to TCU, pending precert Kiara Flores MSW, PULMONOLOGIST
[2020-12-31 14:26] LABS: Anion Gap 6 (5-15); BUN 31 mg/dL (7-18); BUN/Creat Ratio 21.7 RATIO (10-20); Calcium,Total 9.3 mg/dL (8.5-10.1); Chloride 105 mmol/L (98-107); Creatinine, Serum 1.43 mg/dL (0.70-1.30); EST Glomerular Filtration Rate 52 mL/min (>60); Est Glom Filt Rate - Afr Amer 63 mL/min (>60); Estimated Creatinine Clearance 52.66 ml/min; Glucose 79 mg/dL (74-106); Potassium 4.3 mmol/L (3.5-5.1); Sodium Level 139 mmol/L (136-145)
--- NOTE | 2020-12-31 14:58 | EX.ED.DYSGE1 ---
HPI History of Present Illness Chief Complaint: Wound Narrative Narrative: 70-year-old who was discharged from the hospital yesterday after being treated for osteomyelitis of his left foot. Patient reports that he thought he would be able to take care of himself at home and refused longterm facility, assisted living, or rehab. He reports that today he attempted to get up and slipped and twisted his left ankle. He does admit that he is so weak that he cannot do this at home on his own. Patient denies any fall with this. He denies any blow to the head or loss of consciousness. He denies any fever or chills. No constitutional symptoms. No nausea or vomiting. [facility] Medical History Diabetes Hypertension Kidney disease Home Medications Lantus Solostar U-100 Insulin 46 unit SUBCUT DAILY 12/25/20 [History Last Taken Unknown] aspirin 81 mg PO DAILY 12/25/20 [History Last Taken Unknown] carvedilol [Coreg] 25 mg PO BID 12/25/20 [History Last Taken Unknown] furosemide [Lasix] 40 mg PO BID 12/25/20 [History Last Taken Unknown] pioglitazone [Actos] 30 mg PO DAILY 12/25/20 [History Last Taken Unknown] [id number] [Zosyn in dextrose (iso-osm)] 3.375 g IV Q8H 38 Days #114 bag 12/29/20 [Rx Last Taken Unknown] atorvastatin 40 mg PO QHS #30 tab 12/30/20 [Rx Last Taken Unknown] Allergy/AdvReac Type Severity Reaction Status Date / Time Penicillins [PCN] Allergy Rash Verified 12/25/20 14:41 blood pressure meds AdvReac NEEDS Uncoded 12/25/20 06:49 FOLLOW-UP Social History Smoking Status: Never smoker ROS ROS ED Constitutional Constitutional ED: Denies chills, fever(s) or sweats Eyes Eyes: Denies change in vision ENT ENT ED: Denies sore throat Cardiovascular Cardiovascular: Denies chest pain Respiratory/Chest Respiratory/Chest: Denies cough, dyspnea or dyspnea on exertion Gastrointestinal Gastrointestinal: Denies abdominal pain, diarrhea, melena, nausea or vomiting Genitourinary Genitourinary ED: Denies dysuria or urinary frequency Musculoskeletal Musculoskeletal: Denies myalgias Integumentary Denies rash Neurologic Neurologic: Denies headache(s), paresthesias or weakness EXAM Physical Exam Const Vital Signs: 12/31/20 13:14 12/31/20 15:22 12/31/20 17:13 Temperature 97.8 F Temperature Source Temporal Pulse Rate 96 108 H 93 Respiratory Rate 24 H 21 H 22 H Blood Pressure 158/73 H 149/77 H 156/59 H Blood Pressure Mean 101 101 Pulse Ox 96 98 97 Oxygen Delivery Method Room Air Room Air Positive well nourished and well developed General Appearance ED: well developed HEENT Reports normocephalic and head/scalp atraumatic Eyes PERRL Neck no lymphadenopathy, supple and no JVD General: Negative for tenderness Resp normal respiratory effort and clear to auscultation bilaterally Cardio regular rate, regular rhythm and no murmurs GI normal to inspection, nondistended, normoactive bowel sounds and non-tender GI Narrative: No guarding, rebound, or peritoneal signs. Palpation: soft Back/Spine Back/Spine Narrative: Nontender. Extremity Extremity Narrative: Charcot ankles bilaterally. On the left there is a dressing in place that is clean and dry. There is a 3 cm ulcer just distal to the lateral malleolus. There is also a 2 cm ulcer on the bottom of his foot laterally. There is minimal surrounding erythema. He has mild tenderness palpation to the lateral malleolus. General Extremety ED: Yes tenderness; Negative for edema General Extremity: Negative for edema Neuro oriented x3, CN's II-XII intact bilaterally and no sensory deficits noted Sensorium / Orientation: alert Motor Exam: strength 5/5 throughout Psych mental status grossly normal Skin no rashes or lesions noted MDM MDM Lab Data Labs: Laboratory Results - last 24 hr 12/31/20 12/31/20 12/31/20 14:07 14:07 14:07 WBC 7.0 RBC 3.93 L Hgb 9.9 L Hct 32.9 L MCV 83.7 MCH 25.2 L MCHC 30.1 L RDW Std Deviation 53.9 H RDW Coeff of Xavier 17.5 H Plt Count 351 MPV 9.5 Immature Gran % (Auto) 1.000 H Neut % (Auto) 68.3 Lymph % (Auto) 15.3 L Hartley % (Auto) 9.7 Eos % (Auto) 5.3 H Baso % (Auto) 0.4 Absolute Neuts (auto) 4.8 Absolute Lymphs (auto) 1.07 Nucleated RBC % 0 Sodium 139 Potassium 4.3 Chloride 105 Carbon Dioxide 28.0 Anion Gap 6 BUN 31 H Creatinine 1.43 H Estim Creat Clear Calc 52.66 Est GFR (MDRD) Af Amer 63 Est GFR (MDRD) Non-Af 52 L BUN/Creatinine Ratio 21.7 H Glucose 79 Lactic Acid 1.0 Calcium 9.3 Radiography Diagnostic Testing: Radiology Impression Ankle X-Ray 12/31/20 13:45 IMPRESSION: Chronic deformity of the ankle no grossly displaced acute fracture is identified. High clinical suspicion for acute fracture further evaluation with cross-sectional imaging may be obtained. Electronically Signed: Hugo Lara MD at 14:44 EDT Tel , Service support , ADDENDUM: 12/31/20 7420 Treatment and Re-Evaluation Comments:: Emergency department course: Patient is resting comfortably. He refused pain medications. He was discussed with case management. Treatment plan: Patient was assessed by physical therapy here. Following this case management has been able to arrange for the patient to be admitted to the TCU. This note was generated with [employer] dictation software. It may contain incorrect words, spelling, and punctuation that were not noted in review of the chart prior to signing. Discharge Plan Triage Chief Complaint: Wound ED Provider: Yossi Mendoza Dx/Rx/DC Orders Clinical Impression: Diabetic infection of left foot, Osteomyelitis of left foot Instructions: Diabetic Foot Ulcers Prescriptions: No Action furosemide [Lasix] 40 mg tablet 40 mg PO BID RF: 0 Hold Instructions: Resume on 01/02/21. Follow-up with your PCP in 1 week we will obtain a BMP to monitor your renal function. carvedilol [Coreg] 25 mg tablet 25 mg PO BID RF: 0 pioglitazone [Actos] 30 mg tablet 30 mg PO DAILY RF: 0 Lantus Solostar U-100 Insulin 100 unit/mL (3 mL) insulin pen 46 unit SUBCUT DAILY RF: 0 aspirin 81 mg Tablet 81 mg PO DAILY RF: 0 Zosyn in dextrose (iso-osm) 3.375 gram/50 mL piggyback 3.375 g IV Q8H 38 Days Qty: 114 RF: 0 atorvastatin 40 mg Tablet 40 mg PO QHS Qty: 30 RF: 0 Primary Care Provider: Michael Palomino Referrals: Michael Palomino DO [Primary Care Provider] -
[2020-12-31 15:22] VITALS: BP 149/77; PULSE 108; RESP 21; O2SAT 98
--- NOTE | 2020-12-31 17:05 | CM.ED ---
SOCIAL WORK Patient approved for TCU. Bed to be available around 6pm. Patient will be going to TCU Room 5. Nursing staff and Dr. Mendoza updated. Awaiting bed at this time. Kiara Flores MSW, SURVEYOR'S ASSISTANT
[2020-12-31 17:13] VITALS: BP 156/59; PULSE 93; RESP 22; O2SAT 97
[2020-12-31 19:00] VITALS: RESP 18
--- NOTE | 2020-12-31 19:08 | ED.RN ---
THIS RN OFFERED PT A SANDWICH
--- NOTE | 2020-12-31 19:10 | ED.RN ---
pt declined all food offers.
== END 2020-12-31 20:07 ==
LOC: ED 13:42
PROVIDERS: Emergency Provider Emergency Medicine; PCP Student in an Organized Health Care Education/Training Program
DX: L08.9 Local infection of the skin and subcutaneous tissue, unspecified (principal); M86.9 Osteomyelitis, unspecified; E11.69 Type 2 diabetes mellitus with other specified complication
CPT/HCPCS: 36415; 73610; 80048; 83605; 85025; 87040; 87426; 97162; 99283; A4216

== ENCOUNTER 2020-12-31 19:50 | Inpatient (IN) | payer MEDICARE, SELFPAY ==
[2020-12-31 13:14] VITALS: BMI 49.1
[2020-12-31 20:29] VITALS: BMI 49.4
[2020-12-31 21:07] VITALS: BP 141/51; PULSE 77; RESP 16; TEMP 36.5; O2SAT 95
--- NOTE | 2020-12-31 21:35 | HP.PCM_ITS ---
HPI - General General Date of Admission: 12/31/20 HPI Narrative JONEL ZALDIVAR, is a 70 Male with below past medical history. Discharged from [facility] 1 day prior for treatment of left diabetic foot osteomyelitis. Left below the knee amputation recommended, but patient declined. Dr. Sweeney recommended 6 weeks IV Zosyn via PICC line. Alf Facility recommended but patient opted to go home with home infusions, patient failed discharge to home. He was too weak to take care of himself. He also had chest pain with negative troponin, unremarkable EKG. Echo showed EF 45%, patient refused stress test, refused heart catheterization, was discharged on aspirin, high intensity statin. 12/31/2020 Admit to TCU with debility, here for rehabilitation, strengthening, intravenous antibiotics prior to discharge home. [facility] Medical History Diabetes Hypertension Kidney disease Home Medications Lantus Solostar U-100 Insulin 46 unit SUBCUT DAILY 12/25/20 [History Last Taken 12/30/20 10:00] carvedilol [Coreg] 25 mg PO BID 12/25/20 [History Last Taken 12/30/20 10:00] furosemide [Lasix] 40 mg PO BID 12/25/20 [History Last Taken 12/30/20 10:00] pioglitazone [Actos] 30 mg PO DAILY 12/25/20 [History Last Taken 12/30/20 10:00] aspirin 81 mg PO DAILY 12/31/20 [History Last Taken Unknown] atorvastatin 40 mg PO QHS 12/31/20 [History Last Taken 12/30/20 10:00] [id number] [Zosyn in dextrose (iso-osm)] 3.375 g IV Q8H 12/31/20 [History Last Taken 12/30/20 14:00] Allergy/AdvReac Type Severity Reaction Status Date / Time Penicillins [PCN] Allergy Rash Verified 12/25/20 14:41 blood pressure meds AdvReac NEEDS Uncoded 12/25/20 06:49 FOLLOW-UP Social History (Updated 12/31/20 @ 21:[address] Uday Courtney MD) household members: none Smoking Status: Never smoker ROS Constitutional Constitutional: Denies chills, fever(s) or weight gain ENT HEENT: Denies headache(s), nasal congestion or nasal discharge Cardiovascular Cardiovascular: Denies chest pain or palpitations Respiratory/Chest Respiratory/Chest: Denies cough, excessive phlegm production or shortness of breath with exertion Gastrointestinal Gastrointestinal: Denies abdominal pain, nausea or vomiting Genitourinary Genitourinary: Denies dysuria Musculoskeletal Musculoskeletal: Denies joint pain or joint swelling Integumentary Integumentary: Denies rash or wounds Neurologic Neurologic: Denies focal weakness, numbness or tingling Psychiatric Psychiatric: Reports auditory hallucinations; Denies anxiety, depression, homicidal ideation or suicidal ideation Vital Signs Vital Signs Vital Signs: 12/31/20 21:07 Temperature 97.7 F L Temperature Source Temporal Pulse Rate 77 Respiratory Rate 16 Blood Pressure 141/51 H Blood Pressure Mean 81 Blood Pressure Source Monitor Blood Pressure Position Semi-Fowlers Blood Pressure Location Right Arm Pulse Ox 95 Oxygen Delivery Method Room Air Weight Weight: 160.572 kg Body Mass Index (BMI) 49.4 Physical Exam Const alert and oriented x3 General Appearance: cooperative HEENT normocephalic Eyes PERRL and EOMs intact bilaterally Neck supple, no JVD and no carotid bruits Resp normal respiratory effort, normal air movement and clear to auscultation lorenzo aterally Cardio regular rate and regular rhythm GI normal to inspection, nondistended, normoactive bowel sounds, non-tender and non-distended Extremity normal capillary refill Extremity Narrative: Left foot dressed. General Extremity: Negative for edema Skin no rashes or lesions noted General Skin Exam: no breakdown Psych affect normal Appearance: appropriate Lab / Micro Data Result Diagrams: 01/01/21 05:15 01/01/21 05:15 Assessment & Plan Assessment/Plan (1) Debility: (2) Chest pain: (3) Osteomyelitis of left foot: QUALIFIERS: Osteomyelitis type: unspecified type Qualified Code(s): M86.9 - Osteomyelitis, unspecified (4) Charcot foot due to diabetes mellitus: (5) Diabetes mellitus: (6) Hypertension: (7) Hyperlipidemia: PLAN: 70 year old male with below past medical history recent hospitalized left diabetic foot osteomyelitis, chest pain, acute kidney injury, admitted to TCU with debility, here for rehabilitation, strengthening, intravenous an tibiotics, prior to discharge home alone. * Debility - PT/OT. * Pain - Tylenol 1000MG Q6H PRN pain (1-5), Oxycodone 5MG Q4H PRN pain (6-10). * Bowel - Miralax 17GM daily, Senna/colace 1 tablet BID, Dulcolax 10MG daily PRN. * Adult immunization - Administer Prevnar 13, Pneumovax 23, COVID19 vaccine as appropriate. * DVT prophylaxis - Lovenox 40MG SC daily. * Coronary Artery Disease - Coreg 25MG BID, Aspirin 81MG daily. * Hyperlipidemia - Atorvastatin 40MG QHS. * Nutrition - Glucerna Shake 120ML TIDCM. * Diabetes Mellitus II - Pioglitazone 30MG daily, Lantus 46 units daily. * Osteomyelitis of left foot - Zosyn 3.375GM IV Q8H, consult Dr. Sweeney, consult Dr. Cameron.
[2020-12-31 23:00] VITALS: RESP 18; O2SAT 97
[2020-12-31] MEDS: Atorvastatin Calcium 40 MG Tablet PO (23:01)
[2021-01-01] MEDS: Acetaminophen 500 MG Tablet 1000 MG PO ×3 (03:45→20:22)
[2021-01-01 05:00] VITALS: BP 136/58; PULSE 76; RESP 16; TEMP 36.6; O2SAT 98
[2021-01-01 05:27] LABS: Absolute Lymphocyte Count 0.65 X10^3/uL (0.83-4.51); Absolute Neutrophil Count 4.7 X10^3/uL (2.0-7.7); Basophil# 0.02 X10^3/uL; Basophil% 0.3 % (0-1); Eosinophil# 0.41 X10^3/uL; Eosinophils% 6.6 % (0-5); Hematocrit 32.4 % (40-54); Hemoglobin 9.7 g/dL (13.0-16.5); Lymphocyte # 0.65 X10^3/ul (0.83-4.51); Lymphocyte % 10.5 % (19-41); Mean Corp Hgb Conc 29.9 g/dL (32-36); Mean Corpuscular Hgb 25.5 pg (27.0-32.0); Mean Platelet Vol. 9.7 fl (6.2-12.0); Monocyte# 0.34 X10^3/uL; Monocyte% 5.5 % (0-10); NRBC Flagged by Analyzer 0 % (0-5); Neutrophil # 4.73 X10^3/uL (2.7-7.7); Platelet Count 325 K/mm3 (150-450); RBC Distribution Width CV 17.4 % (11.6-14.6); RBC Distribution Width SD 54.8 fl (35.1-43.9); Red Blood Count 3.81 M/mm3 (4.6-6.2); White Blood Count 6.2 K/mm3 (4.4-11.0)
[2021-01-01 05:43] LABS: Anion Gap 7 (5-15); BUN 31 mg/dL (7-18); BUN/Creat Ratio 23.1 RATIO (10-20); Calcium,Total 8.8 mg/dL (8.5-10.1); Chloride 107 mmol/L (98-107); Creatinine, Serum 1.34 mg/dL (0.70-1.30); EST Glomerular Filtration Rate 56 mL/min (>60); Est Glom Filt Rate - Afr Amer 68 mL/min (>60); Estimated Creatinine Clearance 56.19 ml/min; Glucose 73 mg/dL (74-106); Potassium 4.2 mmol/L (3.5-5.1); Sodium Level 140 mmol/L (136-145)
[2021-01-01] MEDS: Enoxaparin 40 MG/0.4 ML Syringe SC (07:00)
[2021-01-01 08:44] VITALS: O2SAT 98
[2021-01-01] MEDS: Aspirin E.C. 81 MG Tablet PO (09:10)
[2021-01-01] MEDS: Carvedilol 25 MG Tablet PO ×2 (09:11→17:55)
[2021-01-01] MEDS: Glucerna Shake 120 ML LIQUID PO ×2 (09:13→11:40)
[2021-01-01] MEDS: Tuberculin,Purif.prot.deriv. 50 TU/ML Vial 0.1 ML ID (10:24)
--- NOTE | 2021-01-01 12:55 | PCM.PN.ID ---
Physical Exam Narrative Feeling ok but c/o diarrhea. No fever. No abd pain. Const alert and no apparent distress General Appearance: cooperative Resp normal air movement and clear to auscultation bilaterally Cardio regular rate and regular rhythm GI normal to inspection, nondistended, normoactive bowel sounds Skin Skin Narrative: foot wrapped ID ID: Route of nutrition/ use of supplements: [] Nutritional Intake: [] IV Site: [] Shearer Catheter: [] Assessment & Plan Assessment/Plan (1) MSSA bacteremia: PLAN: Complicated by MSSA bacteremia.? Podiatry following.? Wound cx with morganella, Pseudomonas fluorescens, proteus, mssa. Cont zosyn.? Repeat bcx today.? TTE showed no veg.? Transferred to TCU for 6 weeks iv zosyn, stop date 02/05/21, weekly labs. Now with diarrhea. Will add probiotic, check cdiff. Spoke with micro lab and requested additional susceptibilities. If diarrhea continues and cdiff is neg, meropenem could be an alternative to try instead of cefepime. Will follow. (2) Stage 3a chronic kidney disease: (3) Osteomyelitis of left foot: QUALIFIERS: Osteomyelitis type: unspecified type Qualified Code(s): M86.9 - Osteomyelitis, unspecified
--- NOTE | 2021-01-01 13:51 | PHA.CONS_ITS ---
Progress Note - Pharmacy Subjective: TCU ADMISSION Objective: Allergies Penicillins [PCN] Allergy (Verified 12/25/20 14:41) Rash blood pressure meds Adverse Reaction (Uncoded 12/25/20 06:49) NEEDS FOLLOW-UP Current Medications Generic Name Dose Route Start Last Admin Trade Name Freq PRN Reason Stop Dose Admin Acetaminophen 1,000 mg 12/31/20 21:47 01/01/21 03:45 Acetaminophen 500 Mg Tablet PO 1,000 mg Q6H PRN PRN Administration Pain Score 1-5 Aspirin 81 mg 01/01/21 08:00 01/01/21 09:10 Aspirin E.C. 81 Mg Tablet PO 81 mg DAILYCM GLADIS Administration Atorvastatin Calcium 40 mg 12/31/20 22:00 12/31/20 23:01 Atorvastatin Calcium 40 Mg Tablet PO 40 mg QHS GLADIS Administration Bisacodyl 10 mg 12/31/20 21:47 Bisacodyl 5 Mg Tablet PO DAILY PRN Constipation Carvedilol 25 mg 01/01/21 08:00 01/01/21 09:11 Carvedilol 25 Mg Tablet PO 25 mg BIDCM GLADIS Administration Enoxaparin Sodium 40 mg 01/01/21 06:00 01/01/21 07:00 Enoxaparin 40 Mg/0.4 Ml Syringe SC 40 mg DAILY@0600 GLADIS Administration Piperacillin Sod/Tazobactam 50 mls @ 12.5 mls/hr 12/31/20 21:15 01/01/21 11:41 Sod 3.375 gm/ Sodium Chloride IV 02/05/21 23:00 Infused Q8 GLADIS Infusion Sodium Chloride 250 mls @ 15 mls/hr 12/31/20 22:35 IV .[id number] PRN Additional IVPB Infusion Insulin Glargine 46 units 01/01/21 06:00 01/01/21 07:00 Insulin Glargine 100 Units/Ml Pen SC Not Given DAILY GLADIS Lactobacillus Acidophilus 1 tablet 01/01/21 18:00 Lactobacillus Acidophilus PO BID GLADIS Nutritional Formula (Lactose Free) 120 ml 01/01/21 07:45 01/01/21 11:40 Glucerna Shake 120 Ml Liquid PO 120 ml TIDCM GLADIS Administration Oxycodone HCl 5 mg 12/31/20 21:47 Oxycodone 5 Mg Tablet PO Q4H PRN PRN Pain Score 6-10 Pioglitazone HCl 30 mg 01/01/21 06:00 01/01/21 07:02 Pioglitazone Hydrochloride 30 Mg Tablet PO Not Given DAILY GLADIS Polyethylene Glycol 17 gm 01/01/21 06:00 01/01/21 07:00 Polyethylene Glycol 3350 17 Gm Packet PO Not Given DAILY GLADIS Senna/Docusate Sodium 1 tablet 01/01/21 06:00 01/01/21 07:01 Senna/Docusate Sodium 1 Tablet PO Not Given BID GLADIS Sodium Chloride 10 - 40 ml 12/31/20 20:35 0.9% Saline Lock 10 Ml Syringe IV UD PRN Closed End PICC Flush Sodium Chloride 10 - 40 ml 12/31/20 20:35 0.9 % Nacl (Sterile) Posiflush 10 Ml IV UD PRN Port access or dressing change Tuberculin PPD 0.1 ml 01/08/21 10:00 Tuberculin,Purif.Prot.Deriv. 50 Tu/Ml Vial ID 01/08/21 10:01 X1 ONE Problem List (Last Reviewed 12/31/20 @ 21:[address] Uday Courtney MD) Hyperlipidemia (Acute) Hypertension (Chronic) Diabetes mellitus (Acute) Chest pain (Acute) Debility (Acute) Stage 3a chronic kidney disease (Chronic) MSSA bacteremia (Acute) Osteomyelitis of left foot (Acute) Charcot foot due to diabetes mellitus (Chronic) Vital Signs Temp Pulse Resp BP Pulse Ox 97.8 F 76 16 136/58 H 98 01/01/21 05:00 01/01/21 05:00 01/01/21 05:00 01/01/21 05:00 01/01/21 08:44 Oxygen Delivery Method Room Air Weight: 160.572 kg Body Mass Index (BMI) 49.4 Sodium 140 mmol/L (136-145) 01/01/21 05:15 Potassium 4.2 mmol/L (3.5-5.1) 01/01/21 05:15 Chloride 107 mmol/L (98-107) 01/01/21 05:15 Carbon Dioxide 26.0 mmol/L (21.0-32.0) 01/01/21 05:15 Anion Gap 7 (5-15) 01/01/21 05:15 BUN 31 mg/dL (7-18) H 01/01/21 05:15 Creatinine 1.34 mg/dL (0.70-1.30) H 01/01/21 05:15 Est GFR (MDRD) Af Amer 68 mL/min (>60) 01/01/21 05:15 Est GFR (MDRD) Non-Af 56 mL/min (>60) L 01/01/21 05:15 BUN/Creatinine Ratio 23.1 RATIO (10-20) H 01/01/21 05:15 Glucose 73 mg/dL (74-106) L 01/01/21 05:15 Assessment/Plan: 1. Pain: Tylenol 1000mg PO Q6H PRN pain (1-5), oxycodone 5mg PO Q4H PRN pain (6- 10). Please continue to monitor pain, respiratory depression, and PRN usage. 2. DVT prophylaxis: Lovenox 40mg SC daily. Please continue to monitor renal function, platelets (last 325,000), and S/S of bleeding. 3. Coronary Artery Disease: carvedilol 25mg PO BIDCM, aspirin 81mg PO dailyCM. Please continue to monitor BP (last 136/58), HR (last 76), S/S of bleeding, and S/S of CAD.? 4. Hyperlipidemia: atorvastatin 40mg PO QHS. Please continue to monitor lipids (LDL last 79 mg/dL). 5. Diabetes Mellitus II: pioglitazone 30mg PO daily, Lantus 46 units SC daily. Please continue to monitor BG (last 73 mg/dL), HbA1C, and weight (last 160.572kg). 6. Osteomyelitis of left foot: Zosyn 3.375GM IV Q8H. Please continue to monitor infection improvement, renal function, WBC (last 6.2), and temperature (last 97.8 F). Psychotropic Medications: None Unnecessary Medications: None Bowel Regimen: Miralax 17GM PO daily, Senna/Colace 1 tablet PO BID, Dulcolax 10mg PO daily PRN constipation. Please continue to monitor constipation and PRN usage. Date of Note:: 01/01/21
[2021-01-01] MEDS: 0.9% Saline Lock 10 ML Syringe IV (13:55)
--- NOTE | 2021-01-01 14:24 | NURSING ---
Dr. Sweeney in today for consult, N.O. Stool culture for cdiff and placed in special contact precautions for diarrhea and abdominal pain. Dr. Cameron's office called and updated on need for consult.
--- NOTE | 2021-01-01 14:32 | CASEMGMT ---
Social Work Met with patient for initial assessment. Discussed code status. Pt confirms DNR-CCA, with intubation. MOLST form reviewed, communication to , placed in chart. Pt would like to complete AD and name sister, Anyi. SW to assist as time allows prior to DC. Explained [facility] insurance with NRD 01/07 and continued stay is not guaranteed. Pt is on IV ATB Q8 until 02/05. Pt does not have anyone to administer IVs at home. The goal is for pt to return home alone, but has small apartment and cannot use any assistive devices. Thus, must be independent to DC home. SW to continue to follow. Elba Ingram, [employer] OFFICER
[2021-01-01 14:53] VITALS: BP 157/57; PULSE 82; RESP 20; TEMP 36.8; O2SAT 95
[2021-01-01] MEDS: Menthol/Lanolin/Calamine/Znox 113 GM Tube 1 APPLIC TOPICAL (17:55)
[2021-01-01] MEDS: Nystatin Powder 15gm Bottle 1 APPLIC TOPICAL (17:56)
[2021-01-01] MEDS: Atorvastatin Calcium 40 MG Tablet PO (20:23)
[2021-01-02 01:37] VITALS: BP 136/49; PULSE 82; RESP 18; TEMP 36.8; O2SAT 96
[2021-01-02] MEDS: Enoxaparin 40 MG/0.4 ML Syringe SC (05:34)
[2021-01-02] MEDS: Nystatin Powder 15gm Bottle 1 APPLIC TOPICAL ×2 (05:39→23:29)
[2021-01-02] MEDS: Menthol/Lanolin/Calamine/Znox 113 GM Tube 1 APPLIC TOPICAL ×2 (05:41→18:06)
[2021-01-02] MEDS: Pioglitazone Hydrochloride 30 MG Tablet PO (05:44)
[2021-01-02 05:56] LABS: Bedside Glucose 151 mg/dL (70-110)
[2021-01-02] MEDS: Glucerna Shake 120 ML LIQUID PO ×2 (09:35→14:00)
[2021-01-02] MEDS: Carvedilol 25 MG Tablet PO ×2 (09:38→18:08)
[2021-01-02] MEDS: Aspirin E.C. 81 MG Tablet PO (09:38)
[2021-01-02 09:44] VITALS: BP 155/78; PULSE 90
[2021-01-02] MEDS: 0.9% Saline Lock 10 ML Syringe IV ×3 (09:48→18:15)
--- NOTE | 2021-01-02 10:39 | NURSING ---
IN TO CHANGE PT DRESSING TO FOOT.
--- NOTE | 2021-01-02 10:54 | CON.PCM_ITS ---
Assessment & Plan Assessment/Plan (1) Diabetes mellitus: (2) Stage 3a chronic kidney disease: (3) Osteomyelitis of left foot: QUALIFIERS: Osteomyelitis type: unspecified type Qualified Code(s): M86.9 - Osteomyelitis, unspecified PLAN: Continue with local wound care of Aquacel Ag and dry dressing to the left foot. Podiatry will continue to follow weekly or biweekly depending on the appearance of the wounds. No debridement was performed today but will likely be performed at bedside in the future. (4) Charcot foot due to diabetes mellitus: PLAN: Discussed findings with patient that again it is extremely important that he wear his [place] walker when he is performing weightbearing activities including physical therapy. After his sister brings the boot eeden will be contacted to have the boot modified so it is appropriate for the patient to wear. This was discussed with nursing staff and orders were written. (5) Diabetic infection of left foot: HPI Consult Data Date of Consult: 01/02/21 HPI Narrative HPI Narrative: JONEL ZALDIVAR, is a 70 M who presents to TCU stating that he has been discharged from [facility] and gone home. He states once he had gotten home he was much weaker than he thought he was. He could not even get out of bed and had to call the squad to come and help him. Patient states that he did finally agreed to be admitted to TCU to help himself get stronger with physical therapy. Patient also states that his sister will be bringing his new Nul[place] walker and leaving it at the front office help at some point. [facility] Medical History Diabetes Hypertension Kidney disease Home Medications Lantus Solostar U-100 Insulin 46 unit SUBCUT DAILY 12/25/20 [History Last Taken 12/30/20 10:00] carvedilol [Coreg] 25 mg PO BID 12/25/20 [History Last Taken 12/30/20 10:00] furosemide [Lasix] 40 mg PO BID 12/25/20 [History Last Taken 12/30/20 10:00] pioglitazone [Actos] 30 mg PO DAILY 12/25/20 [History Last Taken 12/30/20 10:00] aspirin 81 mg PO DAILY 12/31/20 [History Last Taken Unknown] atorvastatin 40 mg PO QHS 12/31/20 [History Last Taken 12/30/20 10:00] cooxijjxjziz-qnlvvkwfky-ogywiz [Zosyn in dextrose (iso-osm)] 3.375 g IV Q8H [History Last Taken 12/30/20 14:00] Allergy/AdvReac Type Severity Reaction Status Date / Time Penicillins [PCN] Allergy Rash Verified 12/25/20 14:41 blood pressure meds AdvReac NEEDS Uncoded 12/25/20 06:49 FOLLOW-UP Social History (Updated 12/31/20 @ 21:[address] Uday Courtney MD) household members: none Smoking Status: Never smoker Physical Exam Extremity Extremity Narrative: Left lower extremity has Charcot neuroarthropathy at the rear foot. This deformity has been steadily progressing over the last few years. The patient does walk barefoot at times in his home out of necessity he states when he does not have the ability to apply the Nulato walker. This is extremely dangerous for him and he is walking on the lateral and lateral dorsal part of the foot. He is at risk for fracture and dislocation of this limb. Patient wishes to continue with conservative treatment and hopefully we can get the Nulato walker modified so it fits appropriately. Skin General Skin Exam: venous stasis Wounds: wounds noted size Size: Lateral L foot 3.5 x 1.2 x 0.5 cm. Plantar L foot 2.2x1.2x.04cm Wound Narrative: Lateral foot wound has minimal surrounding thickened skin but no significant callusing. The base of the wound is mixed fibrous and granular. No bone is exposed. There is about 1.0 cm tunneling area at the 10 o'clock position. The tunneling orients anteriorly instead of deep. Plantar foot wound has a granular base without tunneling or probing. No bone is exposed. Both wounds have no malodor today. There is a thick red brown-tinged drainage noted within the wounds. Wounds were cleansed today and rinsed thoroughly. Aquacel extra and DSD were applied. Nails: yellow and thickened Lab / Micro Data Result Diagrams: 01/01/21 05:15 01/01/21 05:15 Labs: Laboratory Results - last 24 hr 01/01/21 01/02/21 15:18 05:42 COVID-19 (COTY) Not Detected POC Glucose 151 H Micro: Microbiology 05/28/21 18:15 C. difficile DNA Amplification - Final Stool
--- NOTE | 2021-01-02 11:17 | NURSING ---
NEW ORDERS PER DR. FRIED IN FOR DRESSING CHANGE. ALSO DR. FRIED WANTS ADAM CALLED TO SEE ABOUT NEW BOOT OR ADJUSTMENT TO BOOT FOR PT DUE TO IT NOT FITTING RIGHT. ORDER PUT IN. RN AWARE.
[2021-01-02 15:23] VITALS: BP 160/75; PULSE 73; RESP 17; TEMP 37; O2SAT 96
--- NOTE | 2021-01-02 17:21 | NURSING ---
Notified Dr. Courtney of patient request to take his personal Saw palmetto daily as he does at home. Received order that the patient can take his own saw palmetto. Notified pharmacy and they stated that the patient can take the medication without it being on the eMAR. Information repeated back.
[2021-01-02 21:55] LABS: Bedside Glucose 174 mg/dL (70-110)
--- NOTE | 2021-01-02 23:12 | PCA ---
Pt declined to wash up for the evening, stating he was just washed up this afternoon. em
[2021-01-02] MEDS: Atorvastatin Calcium 40 MG Tablet PO (23:30)
[2021-01-03 05:00] VITALS: BP 167/68; PULSE 76; RESP 18; TEMP 36.3; O2SAT 95
[2021-01-03] MEDS: Pioglitazone Hydrochloride 30 MG Tablet PO (06:29)
[2021-01-03] MEDS: Menthol/Lanolin/Calamine/Znox 113 GM Tube 1 APPLIC TOPICAL ×2 (06:30→17:36)
[2021-01-03] MEDS: Enoxaparin 40 MG/0.4 ML Syringe SC (06:31)
[2021-01-03] MEDS: Nystatin Powder 15gm Bottle 1 APPLIC TOPICAL ×2 (06:31→18:06)
[2021-01-03 06:36] LABS: Bedside Glucose 131 mg/dL (70-110)
[2021-01-03] MEDS: Aspirin E.C. 81 MG Tablet PO (08:36)
[2021-01-03] MEDS: Carvedilol 25 MG Tablet PO ×2 (08:36→17:38)
[2021-01-03 08:39] VITALS: BP 133/72; PULSE 109
[2021-01-03 11:20] LABS: Bedside Glucose 155 mg/dL (70-110)
[2021-01-03] MEDS: Acetaminophen 500 MG Tablet 1000 MG PO (11:36)
[2021-01-03] MEDS: 0.9% Saline Lock 10 ML Syringe IV (14:46)
[2021-01-03 14:58] VITALS: BP 144/62; PULSE 75; RESP 14; TEMP 36.4; O2SAT 98
[2021-01-03 17:31] LABS: Bedside Glucose 145 mg/dL (70-110)
[2021-01-03 21:25] LABS: Bedside Glucose 152 mg/dL (70-110)
[2021-01-03] MEDS: Atorvastatin Calcium 40 MG Tablet PO (21:42)
[2021-01-04] MEDS: Acetaminophen 500 MG Tablet 1000 MG PO ×2 (02:42→21:26)
[2021-01-04 05:00] VITALS: BP 149/72; PULSE 74; RESP 18; O2SAT 95
[2021-01-04] MEDS: Enoxaparin 40 MG/0.4 ML Syringe SC (06:07)
[2021-01-04] MEDS: Pioglitazone Hydrochloride 30 MG Tablet PO (06:08)
[2021-01-04] MEDS: Menthol/Lanolin/Calamine/Znox 113 GM Tube 1 APPLIC TOPICAL ×2 (06:10→16:06)
[2021-01-04] MEDS: Nystatin Powder 15gm Bottle 1 APPLIC TOPICAL ×2 (06:10→16:06)
[2021-01-04 06:30] LABS: Bedside Glucose 109 mg/dL (70-110)
[2021-01-04] MEDS: Carvedilol 25 MG Tablet PO ×2 (07:52→16:05)
[2021-01-04] MEDS: Aspirin E.C. 81 MG Tablet PO (07:53)
[2021-01-04] MEDS: Glucerna Shake 120 ML LIQUID PO ×2 (13:32→16:07)
[2021-01-04 13:58] VITALS: BP 151/62; PULSE 75; RESP 16; TEMP 36.2; O2SAT 95
[2021-01-04] MEDS: Atorvastatin Calcium 40 MG Tablet PO (21:27)
[2021-01-04 21:45] LABS: Bedside Glucose 161 mg/dL (70-110)
--- NOTE | 2021-01-04 22:30 | PCA ---
Patient not wanting to get washed up this evening stating that they will take care of all the in the morning
[2021-01-05 05:00] VITALS: BP 156/63; PULSE 73; RESP 18; TEMP 36.4; O2SAT 96
[2021-01-05] MEDS: Enoxaparin 40 MG/0.4 ML Syringe SC (05:25)
[2021-01-05] MEDS: Pioglitazone Hydrochloride 30 MG Tablet PO (05:25)
[2021-01-05] MEDS: Nystatin Powder 15gm Bottle 1 APPLIC TOPICAL ×2 (05:25→17:41)
[2021-01-05] MEDS: Menthol/Lanolin/Calamine/Znox 113 GM Tube 1 APPLIC TOPICAL ×2 (05:25→17:41)
[2021-01-05] MEDS: Aspirin E.C. 81 MG Tablet PO (08:17)
[2021-01-05] MEDS: Carvedilol 25 MG Tablet PO ×2 (08:18→17:40)
[2021-01-05] MEDS: Acetaminophen 500 MG Tablet 1000 MG PO (08:18)
[2021-01-05 08:20] VITALS: BP 158/72; PULSE 72
[2021-01-05] MEDS: Glucerna Shake 120 ML LIQUID PO ×2 (08:23→11:40)
--- NOTE | 2021-01-05 10:07 | CASEMGMT ---
Social Work Brief interview for mental status (BIMS) and resident mood assessment (PHQ-9) completed on this day. BIMS score . PHQ-9 score 09/02. Gerardo ANGEL, IRENES
[2021-01-05] MEDS: 0.9% Saline Lock 10 ML Syringe IV ×3 (10:41→18:50)
--- NOTE | 2021-01-05 11:13 | CASEMGMT ---
Social Work Met with patient in room to inquire about advanced care planning. Patient declining to complete advanced care planning at this time. Patient aware of option to complete advanced care planning during stay on the TCU. Gerardo ANGEL, TONY
[2021-01-05 11:38] LABS: Bedside Glucose 102 mg/dL (70-110)
[2021-01-05 13:50] VITALS: BP 138/64; PULSE 74; RESP 18; TEMP 36.8; O2SAT 96
--- NOTE | 2021-01-05 14:59 | NURSING ---
wound photo: left lateral foot
--- NOTE | 2021-01-05 15:00 | NURSING ---
wound photo: left plantar foot
[2021-01-05] MEDS: Furosemide 40 MG Tablet PO (17:43)
[2021-01-05 21:00] VITALS: BP 140/59; PULSE 76; RESP 18; TEMP 36.9; O2SAT 95
[2021-01-05] MEDS: Atorvastatin Calcium 40 MG Tablet PO (21:06)
[2021-01-05 21:40] LABS: Bedside Glucose 132 mg/dL (70-110)
[2021-01-06 06:00] VITALS: BP 141/65; PULSE 100; RESP 18; TEMP 36.7; O2SAT 97
[2021-01-06] MEDS: Pioglitazone Hydrochloride 30 MG Tablet PO (06:16)
[2021-01-06] MEDS: Enoxaparin 40 MG/0.4 ML Syringe SC (06:16)
[2021-01-06] MEDS: Furosemide 40 MG Tablet PO (06:16)
[2021-01-06] MEDS: Nystatin Powder 15gm Bottle 1 APPLIC TOPICAL ×2 (06:17→16:07)
[2021-01-06] MEDS: Menthol/Lanolin/Calamine/Znox 113 GM Tube 1 APPLIC TOPICAL ×2 (06:18→16:08)
[2021-01-06 06:26] LABS: Bedside Glucose 70 mg/dL (70-110)
[2021-01-06] MEDS: Carvedilol 25 MG Tablet PO ×2 (08:05→16:06)
[2021-01-06] MEDS: Aspirin E.C. 81 MG Tablet PO (08:05)
[2021-01-06] MEDS: Glucerna Shake 120 ML LIQUID PO ×3 (08:06→16:08)
[2021-01-06 10:36] LABS: Bedside Glucose 122 mg/dL (70-110)
--- NOTE | 2021-01-06 10:55 | CASEMGMT ---
Social Work IDT met with patient and sister via conference call for care plan meeting. Discussed patient's progress in therapy and nursing. Pt remains NWBS r/t wound care restrictions. Pt remains on IV ATB Q8 until 02/05. Explained the goal is for pt to remain in TCU through end of IV ATB and until wound heals to get WBS to regain strength and independence. Explained [employer] insurance with NRD 01/07 and continued stay is not guaranteed. Encouraged to brainstorm alternative DC plans if pt cannot return home alone. SW offered to discuss Medicaid and SNFs. Pt expressed understanding. SW to continue to follow for DC planning. Elba Ingram, [employer] INSULATION WORKER INTERIOR SURFACE
--- NOTE | 2021-01-06 11:01 | PCA ---
Addendum entered by Megha Carvajal 01/06/21 13:47: Katherine called back from [employer], Binh sparrow clinician will be here at 8am to look at boot. Nursing/therapy updated Original Note: Called and spoke with [employer]. Waiting for a return call on when they will be able to come and adjust boot. Nursing/therapy updated
[2021-01-06] MEDS: 0.9% Saline Lock 10 ML Syringe IV (13:35)
[2021-01-06 13:46] VITALS: BP 130/57; PULSE 73; RESP 18; TEMP 36.7; O2SAT 98
[2021-01-06] MEDS: Acetaminophen 500 MG Tablet 1000 MG PO (20:32)
[2021-01-06] MEDS: Atorvastatin Calcium 40 MG Tablet PO (20:32)
[2021-01-06 21:26] LABS: Bedside Glucose 138 mg/dL (70-110)
[2021-01-07 01:11] LABS: Bedside Glucose 106 mg/dL (70-110)
[2021-01-07 05:00] VITALS: BP 168/72; PULSE 71; RESP 16; TEMP 36; O2SAT 97
[2021-01-07 06:20] LABS: Bedside Glucose 69 mg/dL (70-110)
[2021-01-07] MEDS: Pioglitazone Hydrochloride 30 MG Tablet PO (06:41)
[2021-01-07] MEDS: Enoxaparin 40 MG/0.4 ML Syringe SC (06:41)
[2021-01-07] MEDS: Furosemide 40 MG Tablet PO (06:42)
[2021-01-07] MEDS: Nystatin Powder 15gm Bottle 1 APPLIC TOPICAL ×2 (06:43→17:34)
[2021-01-07] MEDS: Menthol/Lanolin/Calamine/Znox 113 GM Tube 1 APPLIC TOPICAL ×2 (06:44→17:34)
[2021-01-07 07:10] LABS: Bedside Glucose 99 mg/dL (70-110)
[2021-01-07] MEDS: Glucerna Shake 120 ML LIQUID PO ×3 (08:13→17:32)
[2021-01-07] MEDS: Carvedilol 25 MG Tablet PO ×2 (08:14→17:33)
[2021-01-07] MEDS: Aspirin E.C. 81 MG Tablet PO (08:14)
--- NOTE | 2021-01-07 09:06 | NURSING ---
Yoan Higgins unable to fit boot today d/t swelling. Will come back on 01/14 @ 0800 to reassess.
[2021-01-07 13:57] VITALS: BP 140/63; PULSE 77; RESP 18; TEMP 35.7; O2SAT 94
[2021-01-07 21:30] LABS: Bedside Glucose 154 mg/dL (70-110)
[2021-01-07] MEDS: 0.9% Saline Lock 10 ML Syringe IV (22:17)
[2021-01-07 22:20] VITALS: RESP 18
[2021-01-07] MEDS: Atorvastatin Calcium 40 MG Tablet PO (22:20)
[2021-01-07] MEDS: Calcium Carbonate 500 MG Tablet 1000 MG PO (22:28)
[2021-01-08] MEDS: Acetaminophen 500 MG Tablet 1000 MG PO (03:20)
[2021-01-08 03:27] VITALS: BP 132/61; PULSE 73; RESP 17; TEMP 36.4; O2SAT 96
[2021-01-08 05:49] LABS: Absolute Lymphocyte Count 0.83 X10^3/uL (0.83-4.51); Absolute Neutrophil Count 3.3 X10^3/uL (2.0-7.7); Basophil# 0.03 X10^3/uL; Basophil% 0.6 % (0-1); Eosinophil# 0.49 X10^3/uL; Eosinophils% 9.5 % (0-5); Hematocrit 33.5 % (40-54); Hemoglobin 10.1 g/dL (13.0-16.5); Lymphocyte # 0.83 X10^3/ul (0.83-4.51); Lymphocyte % 16.1 % (19-41); Mean Corp Hgb Conc 30.1 g/dL (32-36); Mean Corpuscular Hgb 25.5 pg (27.0-32.0); Mean Corpuscular Volume 84.6 fL (80-94); Mean Platelet Vol. 10.3 fl (6.2-12.0); Monocyte# 0.44 X10^3/uL; Monocyte% 8.5 % (0-10); NRBC Flagged by Analyzer 0 % (0-5); Neutrophil # 3.31 X10^3/uL (2.7-7.7); Neutrophil % 64.1 % (47-70); Platelet Count 287 K/mm3 (150-450); RBC Distribution Width CV 18.1 % (11.6-14.6); RBC Distribution Width SD 55.2 fl (35.1-43.9); Red Blood Count 3.96 M/mm3 (4.6-6.2); White Blood Count 5.2 K/mm3 (4.4-11.0)
[2021-01-08] MEDS: Pioglitazone Hydrochloride 30 MG Tablet PO (06:21)
[2021-01-08] MEDS: Furosemide 40 MG Tablet PO (06:21)
[2021-01-08] MEDS: Nystatin Powder 15gm Bottle 1 APPLIC TOPICAL ×2 (06:27→18:25)
[2021-01-08] MEDS: Menthol/Lanolin/Calamine/Znox 113 GM Tube 1 APPLIC TOPICAL ×2 (06:28→18:20)
[2021-01-08] MEDS: Enoxaparin 40 MG/0.4 ML Syringe SC (06:29)
[2021-01-08 06:35] LABS: Anion Gap 4 (5-15); BUN 30 mg/dL (7-18); BUN/Creat Ratio 19.5 RATIO (10-20); Calcium,Total 9.2 mg/dL (8.5-10.1); Chloride 104 mmol/L (98-107); Creatinine, Serum 1.54 mg/dL (0.70-1.30); EST Glomerular Filtration Rate 48 mL/min (>60); Est Glom Filt Rate - Afr Amer 58 mL/min (>60); Glucose 110 mg/dL (74-106); Potassium 3.9 mmol/L (3.5-5.1); Sodium Level 138 mmol/L (136-145)
[2021-01-08 07:00] LABS: Bedside Glucose 109 mg/dL (70-110)
[2021-01-08] MEDS: Aspirin E.C. 81 MG Tablet PO (08:00)
[2021-01-08] MEDS: Carvedilol 25 MG Tablet PO ×2 (08:00→18:20)
[2021-01-08] MEDS: Glucerna Shake 120 ML LIQUID PO ×3 (08:00→18:25)
[2021-01-08] MEDS: Tuberculin,Purif.prot.deriv. 50 TU/ML Vial 0.1 ML ID (09:06)
[2021-01-08] MEDS: 0.9% Saline Lock 10 ML Syringe IV (13:50)
[2021-01-08 14:46] VITALS: BP 132/63; PULSE 70; RESP 18; TEMP 36.7; O2SAT 94
[2021-01-08 21:20] LABS: Bedside Glucose 137 mg/dL (70-110)
[2021-01-08] MEDS: Atorvastatin Calcium 40 MG Tablet PO (22:33)
[2021-01-09] MEDS: Calcium Carbonate 500 MG Tablet 1000 MG PO (01:27)
[2021-01-09 03:52] VITALS: BP 128/51; PULSE 72; RESP 18; TEMP 36.5; O2SAT 96
[2021-01-09] MEDS: Acetaminophen 500 MG Tablet 1000 MG PO (03:54)
[2021-01-09] MEDS: Pioglitazone Hydrochloride 30 MG Tablet PO (03:55)
[2021-01-09] MEDS: Furosemide 40 MG Tablet PO (03:56)
[2021-01-09] MEDS: Enoxaparin 40 MG/0.4 ML Syringe SC (03:57)
[2021-01-09] MEDS: Nystatin Powder 15gm Bottle 1 APPLIC TOPICAL ×2 (03:59→17:31)
[2021-01-09] MEDS: Menthol/Lanolin/Calamine/Znox 113 GM Tube 1 APPLIC TOPICAL ×2 (04:00→17:30)
[2021-01-09 06:16] LABS: Bedside Glucose 70 mg/dL (70-110)
[2021-01-09] MEDS: 0.9% Saline Lock 10 ML Syringe IV ×3 (06:28→22:21)
[2021-01-09] MEDS: Carvedilol 25 MG Tablet PO ×2 (08:11→17:29)
[2021-01-09] MEDS: Aspirin E.C. 81 MG Tablet PO (08:11)
[2021-01-09] MEDS: Glucerna Shake 120 ML LIQUID PO ×3 (08:11→22:15)
[2021-01-09 14:12] VITALS: BP 115/47; PULSE 72; RESP 16; TEMP 36.1; O2SAT 99
[2021-01-09 17:32] VITALS: BP 111/60; PULSE 71
[2021-01-09 21:40] LABS: Bedside Glucose 166 mg/dL (70-110)
[2021-01-09 22:00] VITALS: PULSE 78; RESP 18; O2SAT 97
[2021-01-09] MEDS: Atorvastatin Calcium 40 MG Tablet PO (22:15)
[2021-01-10] MEDS: Acetaminophen 500 MG Tablet 1000 MG PO (00:28)
[2021-01-10 03:48] VITALS: BP 132/46; PULSE 80; RESP 18; TEMP 36.9; O2SAT 97
[2021-01-10] MEDS: Furosemide 40 MG Tablet PO (06:16)
[2021-01-10] MEDS: Pioglitazone Hydrochloride 30 MG Tablet PO (06:16)
[2021-01-10] MEDS: Enoxaparin 40 MG/0.4 ML Syringe SC (06:16)
[2021-01-10] MEDS: Menthol/Lanolin/Calamine/Znox 113 GM Tube 1 APPLIC TOPICAL ×2 (06:19→17:20)
[2021-01-10 06:21] LABS: Bedside Glucose 83 mg/dL (70-110)
[2021-01-10] MEDS: Nystatin Powder 15gm Bottle 1 APPLIC TOPICAL ×2 (06:23→17:20)
--- NOTE | 2021-01-10 06:24 | NURSING ---
Per patient's request held Lantus until Breakfast d/t blood glucose of 84 mg/dL. RN aware.
[2021-01-10] MEDS: Glucerna Shake 120 ML LIQUID PO ×3 (08:35→17:18)
[2021-01-10] MEDS: Aspirin E.C. 81 MG Tablet PO (08:36)
[2021-01-10] MEDS: Carvedilol 25 MG Tablet PO ×2 (08:36→17:19)
--- NOTE | 2021-01-10 08:38 | NURSING ---
Pt refused breakfast but was willing to eat some lornadoons and drink some orange juice.
[2021-01-10 11:05] LABS: Bedside Glucose 136 mg/dL (70-110)
[2021-01-10] MEDS: 0.9% Saline Lock 10 ML Syringe IV ×2 (13:02→21:28)
[2021-01-10 13:56] VITALS: BP 129/45; PULSE 70; RESP 18; TEMP 36.2; O2SAT 98
--- NOTE | 2021-01-10 15:28 | NURSING ---
Pt had shower this shift, pt tolerated well and said he enjoyed it and feels much better.
[2021-01-10 16:41] LABS: Bedside Glucose 165 mg/dL (70-110)
[2021-01-10 17:17] VITALS: BP 139/64; PULSE 77
[2021-01-10 21:16] LABS: Bedside Glucose 169 mg/dL (70-110)
[2021-01-10] MEDS: Atorvastatin Calcium 40 MG Tablet PO (21:31)
[2021-01-11 04:22] VITALS: BP 140/54; PULSE 71; RESP 18; TEMP 36.4; O2SAT 95
[2021-01-11 06:20] LABS: Bedside Glucose 90 mg/dL (70-110)
[2021-01-11] MEDS: 0.9% Saline Lock 10 ML Syringe IV ×3 (06:35→14:31)
[2021-01-11] MEDS: Furosemide 40 MG Tablet PO (06:37)
[2021-01-11] MEDS: Pioglitazone Hydrochloride 30 MG Tablet PO (06:37)
[2021-01-11] MEDS: Enoxaparin 40 MG/0.4 ML Syringe SC (06:37)
[2021-01-11] MEDS: Menthol/Lanolin/Calamine/Znox 113 GM Tube 1 APPLIC TOPICAL ×2 (06:40→22:15)
[2021-01-11] MEDS: Nystatin Powder 15gm Bottle 1 APPLIC TOPICAL ×2 (06:40→22:15)
[2021-01-11] MEDS: Glucerna Shake 120 ML LIQUID PO ×3 (08:51→17:35)
[2021-01-11] MEDS: Aspirin E.C. 81 MG Tablet PO (08:56)
[2021-01-11] MEDS: Carvedilol 25 MG Tablet PO ×2 (08:56→17:34)
[2021-01-11 08:58] VITALS: BP 144/59; PULSE 71
--- NOTE | 2021-01-11 10:24 | NURSING ---
wound photo: left lateral foot
--- NOTE | 2021-01-11 10:25 | NURSING ---
wound photo: left plantar foot
[2021-01-11 14:43] VITALS: BP 127/55; PULSE 72; RESP 16; TEMP 36.6; O2SAT 96
[2021-01-11 21:41] LABS: Bedside Glucose 116 mg/dL (70-110)
[2021-01-11] MEDS: Atorvastatin Calcium 40 MG Tablet PO (22:10)
[2021-01-12 05:00] VITALS: BP 146/54; PULSE 70; RESP 18; TEMP 36.6; O2SAT 95
[2021-01-12 06:21] LABS: Bedside Glucose 82 mg/dL (70-110)
[2021-01-12] MEDS: Furosemide 40 MG Tablet PO (06:42)
[2021-01-12] MEDS: Menthol/Lanolin/Calamine/Znox 113 GM Tube 1 APPLIC TOPICAL ×2 (06:42→18:15)
[2021-01-12] MEDS: Enoxaparin 40 MG/0.4 ML Syringe SC (06:42)
[2021-01-12] MEDS: Pioglitazone Hydrochloride 30 MG Tablet PO (06:42)
[2021-01-12] MEDS: Nystatin Powder 15gm Bottle 1 APPLIC TOPICAL (06:43)
[2021-01-12] MEDS: Glucerna Shake 120 ML LIQUID PO ×3 (08:37→18:18)
[2021-01-12] MEDS: Aspirin E.C. 81 MG Tablet PO (08:38)
[2021-01-12] MEDS: Carvedilol 25 MG Tablet PO ×2 (08:39→18:16)
[2021-01-12] MEDS: Acetaminophen 500 MG Tablet 1000 MG PO (08:41)
[2021-01-12 08:43] VITALS: BP 133/47; PULSE 70
[2021-01-12] MEDS: 0.9% Saline Lock 10 ML Syringe IV ×3 (11:28→19:18)
--- NOTE | 2021-01-12 11:36 | NURSING ---
Message left for Dr. Cameron making her aware that pt is refusing to wear the new boot she ordered for him.
--- NOTE | 2021-01-12 12:15 | MDS.RN ---
Information for the mds was obtained from review of the clinical record, interview of resident, staff, and direct observation of resident's care.
[2021-01-12 13:00] VITALS: PULSE 72; RESP 18; O2SAT 96
--- NOTE | 2021-01-12 13:09 | NURSING ---
Dr. Cameron returned call regarding walking boot for resident. Resident has two walking boots, an older one and a newer one. He does not like the newer one, prefers the older one. [facility] is scheduled to come to evaluate modifying the newer boot . Dr. Cameron is very concerned that if resident injures ankle further it will not be able to be repaired and will not heal and may lead to an amputation. She understands that resident in noncompliant with NWB and feels he needs some sort of boot. If [facility] is able to modify the older boot (she doesn't think they will be able to) she is fine with that. She just wants him to wear some sort of boot. She will be in to see resident on Monday and will discuss this with him further.
--- NOTE | 2021-01-12 13:46 | NURSING ---
Dressing to the left foot was changed by TIBURCIO Huang.
[2021-01-12 14:00] VITALS: BP 139/64; PULSE 72; RESP 16; TEMP 37; O2SAT 96
[2021-01-12] MEDS: Senna/Docusate Sodium 1 Tablet PO (18:16)
[2021-01-12 21:06] LABS: Bedside Glucose 97 mg/dL (70-110)
[2021-01-12] MEDS: Atorvastatin Calcium 40 MG Tablet PO (22:04)
[2021-01-13 05:00] VITALS: BP 139/51; PULSE 70; RESP 18; O2SAT 96
[2021-01-13 06:15] LABS: Bedside Glucose 71 mg/dL (70-110)
[2021-01-13] MEDS: Furosemide 40 MG Tablet PO (06:30)
[2021-01-13] MEDS: Enoxaparin 40 MG/0.4 ML Syringe SC (06:30)
[2021-01-13] MEDS: Senna/Docusate Sodium 1 Tablet PO (06:31)
[2021-01-13] MEDS: Menthol/Lanolin/Calamine/Znox 113 GM Tube 1 APPLIC TOPICAL ×2 (06:31→16:42)
[2021-01-13] MEDS: Nystatin Powder 15gm Bottle 1 APPLIC TOPICAL ×2 (06:31→16:41)
[2021-01-13] MEDS: Pioglitazone Hydrochloride 30 MG Tablet PO (06:31)
[2021-01-13] MEDS: Carvedilol 25 MG Tablet PO ×2 (08:10→16:40)
[2021-01-13] MEDS: Aspirin E.C. 81 MG Tablet PO (08:10)
[2021-01-13] MEDS: Glucerna Shake 120 ML LIQUID PO ×3 (08:14→16:40)
[2021-01-13] MEDS: 0.9% Saline Lock 10 ML Syringe IV (13:21)
--- NOTE | 2021-01-13 14:04 | NURSING ---
PICC dressing changed today per protocol using sterile technique, pt tolerated well, good blood return noted and PICC flushed easily.
[2021-01-13 14:15] VITALS: BP 135/60; PULSE 71; RESP 18; TEMP 36.1; O2SAT 96
--- NOTE | 2021-01-13 15:40 | NURSING ---
c/o itchiness to right abdominal fold pt stated he put lotion under there to help with itching but he thinks he made it worse, area cleansed and dried thoroughly and nystatin powder applied by this nurse. Pt educated on importance of keeping skin dry.
[2021-01-13] MEDS: Atorvastatin Calcium 40 MG Tablet PO (21:33)
[2021-01-13 21:41] VITALS: PULSE 73; RESP 18; O2SAT 98
[2021-01-13 21:56] LABS: Bedside Glucose 168 mg/dL (70-110)
[2021-01-14 00:56] LABS: Bedside Glucose 126 mg/dL (70-110)
[2021-01-14 05:00] VITALS: BP 136/53; PULSE 70; RESP 18; TEMP 36.4; O2SAT 98
[2021-01-14] MEDS: Senna/Docusate Sodium 1 Tablet PO (05:39)
[2021-01-14] MEDS: Furosemide 40 MG Tablet PO (05:39)
[2021-01-14] MEDS: Pioglitazone Hydrochloride 30 MG Tablet PO (05:39)
[2021-01-14] MEDS: Enoxaparin 40 MG/0.4 ML Syringe SC (05:40)
[2021-01-14 06:14] VITALS: PULSE 81; RESP 18; O2SAT 98
[2021-01-14] MEDS: Menthol/Lanolin/Calamine/Znox 113 GM Tube 1 APPLIC TOPICAL ×2 (06:14→22:59)
[2021-01-14] MEDS: Nystatin Powder 15gm Bottle 1 APPLIC TOPICAL ×2 (06:14→22:59)
[2021-01-14 06:21] LABS: Bedside Glucose 118 mg/dL (70-110)
[2021-01-14] MEDS: Carvedilol 25 MG Tablet PO ×2 (08:24→17:48)
[2021-01-14] MEDS: Aspirin E.C. 81 MG Tablet PO (08:24)
[2021-01-14] MEDS: Glucerna Shake 120 ML LIQUID PO ×2 (08:24→17:48)
[2021-01-14 08:42] VITALS: BP 125/58; PULSE 70
--- NOTE | 2021-01-14 11:18 | NURSING ---
PT STATED HE WAS VERY TIRED AND NO ENERGY TODAY SENSE GETTING 1ST COVID SHOT ON 01/13/21. WILL CONTINUE TO MONITOR.
--- NOTE | 2021-01-14 11:45 | NURSING ---
PT STATED HE UPDATES FAMILY.
--- NOTE | 2021-01-14 12:11 | PT ---
Yoan Carmolex,nics present to take pt's boot for modifications. Yoan montgomery stated she will likely have pt's boot back tomorrow later in the afternoon with modifications made.
[2021-01-14 14:07] VITALS: BP 92/56; PULSE 71; RESP 18; TEMP 36.7; O2SAT 96
[2021-01-14] MEDS: 0.9% Saline Lock 10 ML Syringe IV ×2 (14:24→18:53)
--- NOTE | 2021-01-14 15:37 | NURSING ---
PICC IN UPPER RIGHT ARM NO BLOOD RETURN BUT FLUSHED. NO S/S OF INFECTION,IN TACK. PT TOLERATED WELL NO COMPLAINTS AT THIS TIME.REPORTED TO TINO.
[2021-01-14 17:50] VITALS: BP 140/63; PULSE 71
[2021-01-14] MEDS: Acetaminophen 500 MG Tablet 1000 MG PO (18:55)
--- NOTE | 2021-01-14 20:10 | NURSING ---
marisela manetchklaus was in and took pt boot to readjust it and will bring it back in tomorrow.
[2021-01-14 22:40] LABS: Bedside Glucose 141 mg/dL (70-110)
[2021-01-14] MEDS: Atorvastatin Calcium 40 MG Tablet PO (22:56)
[2021-01-15 05:00] VITALS: BP 140/60; PULSE 70; RESP 18; O2SAT 96
[2021-01-15] MEDS: Senna/Docusate Sodium 1 Tablet PO (05:11)
[2021-01-15] MEDS: Pioglitazone Hydrochloride 30 MG Tablet PO (05:11)
[2021-01-15] MEDS: Furosemide 40 MG Tablet PO (05:11)
[2021-01-15] MEDS: Enoxaparin 40 MG/0.4 ML Syringe SC (05:13)
[2021-01-15] MEDS: Menthol/Lanolin/Calamine/Znox 113 GM Tube 1 APPLIC TOPICAL ×2 (05:14→17:18)
[2021-01-15] MEDS: Nystatin Powder 15gm Bottle 1 APPLIC TOPICAL ×2 (05:14→17:18)
[2021-01-15 05:46] LABS: Absolute Lymphocyte Count 1.09 X10^3/uL (0.83-4.51); Absolute Neutrophil Count 2.3 X10^3/uL (2.0-7.7); Basophil# 0.04 X10^3/uL; Basophil% 0.9 % (0-1); Eosinophils% 13.4 % (0-5); Hematocrit 34.7 % (40-54); Hemoglobin 10.1 g/dL (13.0-16.5); Lymphocyte # 1.09 X10^3/ul (0.83-4.51); Lymphocyte % 24.3 % (19-41); Mean Corp Hgb Conc 29.1 g/dL (32-36); Mean Corpuscular Hgb 24.9 pg (27.0-32.0); Mean Corpuscular Volume 85.5 fL (80-94); Mean Platelet Vol. 10.9 fl (6.2-12.0); Monocyte% 8.9 % (0-10); NRBC Flagged by Analyzer 0 % (0-5); Neutrophil # 2.32 X10^3/uL (2.7-7.7); Neutrophil % 51.8 % (47-70); Platelet Count 221 K/mm3 (150-450); RBC Distribution Width CV 18.6 % (11.6-14.6); RBC Distribution Width SD 58.5 fl (35.1-43.9); Red Blood Count 4.06 M/mm3 (4.6-6.2); White Blood Count 4.5 K/mm3 (4.4-11.0)
[2021-01-15 06:05] LABS: Anion Gap 5 (5-15); BUN 28 mg/dL (7-18); BUN/Creat Ratio 19.9 RATIO (10-20); Calcium,Total 9.2 mg/dL (8.5-10.1); Chloride 105 mmol/L (98-107); Creatinine, Serum 1.41 mg/dL (0.70-1.30); EST Glomerular Filtration Rate 53 mL/min (>60); Est Glom Filt Rate - Afr Amer 64 mL/min (>60); Glucose 72 mg/dL (74-106); Potassium 3.9 mmol/L (3.5-5.1); Sodium Level 141 mmol/L (136-145)
[2021-01-15 06:21] LABS: Bedside Glucose 71 mg/dL (70-110)
[2021-01-15] MEDS: Glucerna Shake 120 ML LIQUID PO ×3 (09:35→17:17)
[2021-01-15] MEDS: Aspirin E.C. 81 MG Tablet PO (09:36)
[2021-01-15] MEDS: Carvedilol 25 MG Tablet PO ×2 (09:36→17:17)
[2021-01-15 10:50] VITALS: PULSE 79; RESP 18; O2SAT 96
[2021-01-15 11:11] LABS: Bedside Glucose 160 mg/dL (70-110)
[2021-01-15] MEDS: 0.9% Saline Lock 10 ML Syringe IV (12:56)
--- NOTE | 2021-01-15 13:17 | NURSING ---
Dr Cameron is to see patient today. will leave dressing in place at this time.
[2021-01-15 14:15] VITALS: BP 139/66; PULSE 70; RESP 18; TEMP 36.3; O2SAT 97
[2021-01-15 16:31] LABS: Bedside Glucose 112 mg/dL (70-110)
[2021-01-15] MEDS: Atorvastatin Calcium 40 MG Tablet PO (21:50)
[2021-01-16 01:21] LABS: Bedside Glucose 148 mg/dL (70-110)
[2021-01-16 04:26] VITALS: BP 151/67; PULSE 85; RESP 16; TEMP 37.1
[2021-01-16] MEDS: Furosemide 40 MG Tablet PO (05:58)
[2021-01-16] MEDS: Pioglitazone Hydrochloride 30 MG Tablet PO (05:59)
[2021-01-16] MEDS: Enoxaparin 40 MG/0.4 ML Syringe SC (05:59)
[2021-01-16] MEDS: Nystatin Powder 15gm Bottle 1 APPLIC TOPICAL ×2 (06:01→17:03)
[2021-01-16] MEDS: Glucerna Shake 120 ML LIQUID PO ×3 (06:02→17:01)
[2021-01-16] MEDS: Menthol/Lanolin/Calamine/Znox 113 GM Tube 1 APPLIC TOPICAL ×2 (06:04→17:02)
[2021-01-16 06:25] LABS: Bedside Glucose 91 mg/dL (70-110)
[2021-01-16] MEDS: Aspirin E.C. 81 MG Tablet PO (08:24)
[2021-01-16] MEDS: Carvedilol 25 MG Tablet PO ×2 (08:24→17:02)
[2021-01-16 14:16] VITALS: BP 124/55; PULSE 70; RESP 20; TEMP 36.4; O2SAT 98
[2021-01-16 21:31] LABS: Bedside Glucose 137 mg/dL (70-110)
[2021-01-16] MEDS: Atorvastatin Calcium 40 MG Tablet PO (21:47)
[2021-01-16] MEDS: Acetaminophen 500 MG Tablet 1000 MG PO (21:58)
[2021-01-17 01:51] LABS: Bedside Glucose 80 mg/dL (70-110)
--- NOTE | 2021-01-17 01:51 | NURSING ---
fish bait picker to change bed linens d/t pt was diaphoretic. blood sugar was taken and found to 80, pt reports that he doesn't feel well. pt given coke to drink at this time. rn made aware and will recheck at 0200.
[2021-01-17 03:21] LABS: Bedside Glucose 102 mg/dL (70-110)
[2021-01-17 03:47] VITALS: BP 116/51; PULSE 52; RESP 16; TEMP 35.9; O2SAT 96
--- NOTE | 2021-01-17 03:49 | NURSING ---
pt blood surgar rechecked and found to be 102 at 0315, pt reports that he is feeling better . rn aware and will continue to monitor
[2021-01-17] MEDS: Pioglitazone Hydrochloride 30 MG Tablet PO (05:52)
[2021-01-17] MEDS: Furosemide 40 MG Tablet PO (05:53)
[2021-01-17] MEDS: Menthol/Lanolin/Calamine/Znox 113 GM Tube 1 APPLIC TOPICAL ×2 (05:54→16:52)
[2021-01-17] MEDS: Nystatin Powder 15gm Bottle 1 APPLIC TOPICAL ×2 (05:54→16:52)
[2021-01-17] MEDS: Enoxaparin 40 MG/0.4 ML Syringe SC (05:55)
[2021-01-17 07:00] LABS: Bedside Glucose 79 mg/dL (70-110)
[2021-01-17 07:00] LABS: Bedside Glucose 102 mg/dL (70-110)
[2021-01-17] MEDS: Aspirin E.C. 81 MG Tablet PO (08:42)
[2021-01-17] MEDS: Carvedilol 25 MG Tablet PO ×2 (08:42→16:49)
[2021-01-17] MEDS: Glucerna Shake 120 ML LIQUID PO ×3 (08:45→14:24)
[2021-01-17 14:39] VITALS: BP 133/51; PULSE 70; RESP 18; TEMP 36.4; O2SAT 96
[2021-01-17 22:11] LABS: Bedside Glucose 195 mg/dL (70-110)
[2021-01-17] MEDS: Atorvastatin Calcium 40 MG Tablet PO (22:21)
[2021-01-17 23:00] VITALS: PULSE 75; RESP 16; O2SAT 97
[2021-01-18 04:46] LABS: Bedside Glucose 80 mg/dL (70-110)
[2021-01-18] MEDS: Pioglitazone Hydrochloride 30 MG Tablet PO (04:55)
[2021-01-18] MEDS: Furosemide 40 MG Tablet PO (04:55)
[2021-01-18] MEDS: Enoxaparin 40 MG/0.4 ML Syringe SC (04:56)
[2021-01-18 05:00] VITALS: BP 128/56; PULSE 71; RESP 16; TEMP 36.2; O2SAT 98
[2021-01-18] MEDS: Menthol/Lanolin/Calamine/Znox 113 GM Tube 1 APPLIC TOPICAL ×2 (05:00→17:36)
[2021-01-18] MEDS: Nystatin Powder 15gm Bottle 1 APPLIC TOPICAL ×2 (05:00→17:36)
[2021-01-18] MEDS: 0.9% Saline Lock 10 ML Syringe IV ×3 (05:01→21:36)
[2021-01-18 06:25] LABS: Bedside Glucose 88 mg/dL (70-110)
[2021-01-18 06:44] VITALS: PULSE 71; RESP 16; O2SAT 98
[2021-01-18] MEDS: Carvedilol 25 MG Tablet PO ×2 (07:46→17:35)
[2021-01-18] MEDS: Glucerna Shake 120 ML LIQUID PO ×3 (07:46→17:36)
[2021-01-18] MEDS: Aspirin E.C. 81 MG Tablet PO (07:46)
[2021-01-18 14:35] VITALS: BP 131/68; PULSE 70; RESP 16; TEMP 36.4; O2SAT 98
--- NOTE | 2021-01-18 18:34 | NURSING ---
[facility] [email or web address] in today and dropped off new boot, they took pt's old boot to try to modify it per pt report, they did not state when they will bring it back.
[2021-01-18] MEDS: Atorvastatin Calcium 40 MG Tablet PO (21:35)
[2021-01-18 21:36] LABS: Bedside Glucose 123 mg/dL (70-110)
[2021-01-19 05:00] VITALS: BP 130/55; PULSE 70; RESP 16; TEMP 36.3; O2SAT 98
[2021-01-19] MEDS: Enoxaparin 40 MG/0.4 ML Syringe SC (05:52)
[2021-01-19] MEDS: Pioglitazone Hydrochloride 30 MG Tablet PO (05:52)
[2021-01-19] MEDS: Furosemide 40 MG Tablet PO (05:52)
[2021-01-19] MEDS: Nystatin Powder 15gm Bottle 1 APPLIC TOPICAL (05:56)
[2021-01-19] MEDS: Menthol/Lanolin/Calamine/Znox 113 GM Tube 1 APPLIC TOPICAL ×2 (05:56→21:41)
[2021-01-19 06:46] LABS: Bedside Glucose 85 mg/dL (70-110)
[2021-01-19] MEDS: Carvedilol 25 MG Tablet PO ×2 (08:01→18:04)
[2021-01-19] MEDS: Aspirin E.C. 81 MG Tablet PO (08:01)
[2021-01-19] MEDS: Glucerna Shake 120 ML LIQUID PO ×3 (08:03→17:56)
[2021-01-19 08:05] VITALS: BP 143/56; PULSE 70
--- NOTE | 2021-01-19 09:58 | NURSING ---
TAIRN/WOUND NURSE CHANGED PT DRESSING TO LEFT FOOT AND PUT NEW ORDERS IN.
[2021-01-19] MEDS: 0.9% Saline Lock 10 ML Syringe IV ×3 (10:02→18:00)
[2021-01-19 11:01] LABS: Bedside Glucose 82 mg/dL (70-110)
[2021-01-19 13:47] VITALS: BP 122/52; PULSE 72; RESP 18; TEMP 36.3; O2SAT 96
--- NOTE | 2021-01-19 14:54 | NURSING ---
wound photo: left lateral foot
--- NOTE | 2021-01-19 14:55 | NURSING ---
wound photo: left plantar foot
[2021-01-19] MEDS: Senna/Docusate Sodium 1 Tablet PO (18:03)
[2021-01-19] MEDS: Atorvastatin Calcium 40 MG Tablet PO (21:41)
[2021-01-19 21:45] LABS: Bedside Glucose 165 mg/dL (70-110)
[2021-01-19 21:49] VITALS: RESP 16
[2021-01-20 05:00] VITALS: BP 139/70; PULSE 70; RESP 18; O2SAT 97
[2021-01-20] MEDS: Pioglitazone Hydrochloride 30 MG Tablet PO (06:15)
[2021-01-20] MEDS: Senna/Docusate Sodium 1 Tablet PO (06:15)
[2021-01-20] MEDS: Enoxaparin 40 MG/0.4 ML Syringe SC (06:15)
[2021-01-20] MEDS: Furosemide 40 MG Tablet PO (06:16)
[2021-01-20] MEDS: Nystatin Powder 15gm Bottle 1 APPLIC TOPICAL ×2 (06:17→16:59)
[2021-01-20 06:26] LABS: Bedside Glucose 83 mg/dL (70-110)
[2021-01-20] MEDS: Aspirin E.C. 81 MG Tablet PO (08:42)
[2021-01-20] MEDS: Carvedilol 25 MG Tablet PO (08:42)
[2021-01-20] MEDS: Menthol/Lanolin/Calamine/Znox 113 GM Tube 1 APPLIC TOPICAL ×2 (08:45→16:59)
[2021-01-20] MEDS: Glucerna Shake 120 ML LIQUID PO ×3 (08:45→16:59)
[2021-01-20 15:33] VITALS: BP 116/44; PULSE 71; RESP 18; TEMP 36.5; O2SAT 98
--- NOTE | 2021-01-20 16:18 | NURSING ---
New mepilex's placed to L foot d/t dressings rolling up on themselves and unable to be recovered, wound nurse was called and stated mepilex are fine to continue to use d/t pt needing them when using his boot for ambulation, Aquacel AG placed only on lateral incision per wound nurse directions. After therapy one of the mepilex's again rolled up d/t walking in his boot, area was cleansed Aquacel AG reapplied and Gauze 4x4 and kerlix applied to area until tomorrow per wound nurse directions, in which case new mepliex can be reapplied for therapy.
[2021-01-20 18:21] VITALS: BP 125/43
[2021-01-20] MEDS: Acetaminophen 500 MG Tablet 1000 MG PO (20:50)
[2021-01-20] MEDS: Atorvastatin Calcium 40 MG Tablet PO (20:50)
[2021-01-20 22:05] LABS: Bedside Glucose 171 mg/dL (70-110)
[2021-01-21 05:14] VITALS: BP 114/52; PULSE 70; RESP 18; TEMP 36.6; O2SAT 97
[2021-01-21] MEDS: Pioglitazone Hydrochloride 30 MG Tablet PO (05:19)
[2021-01-21] MEDS: Enoxaparin 40 MG/0.4 ML Syringe SC (05:19)
[2021-01-21] MEDS: Furosemide 40 MG Tablet PO (05:20)
[2021-01-21] MEDS: Senna/Docusate Sodium 1 Tablet PO (05:20)
[2021-01-21] MEDS: Menthol/Lanolin/Calamine/Znox 113 GM Tube 1 APPLIC TOPICAL (05:21)
[2021-01-21] MEDS: Glucerna Shake 120 ML LIQUID PO ×3 (06:18→17:31)
[2021-01-21 06:30] LABS: Bedside Glucose 64 mg/dL (70-110)
[2021-01-21] MEDS: Carvedilol 25 MG Tablet PO ×2 (08:14→17:32)
[2021-01-21] MEDS: Aspirin E.C. 81 MG Tablet PO (08:14)
[2021-01-21 08:17] VITALS: BP 121/42; PULSE 77
[2021-01-21] MEDS: 0.9% Saline Lock 10 ML Syringe IV (11:26)
[2021-01-21 14:30] VITALS: BP 135/55; PULSE 64; RESP 16; TEMP 36.3; O2SAT 97
[2021-01-21] MEDS: Acetaminophen 500 MG Tablet 1000 MG PO (20:10)
[2021-01-21] MEDS: Atorvastatin Calcium 40 MG Tablet PO (20:13)
[2021-01-21] MEDS: 0.9 % NaCl (Sterile) Posiflush 10 mL IV (21:53)
[2021-01-21 22:10] LABS: Bedside Glucose 158 mg/dL (70-110)
[2021-01-22 05:21] VITALS: BP 143/61; PULSE 69; RESP 18; TEMP 36.6; O2SAT 96
[2021-01-22] MEDS: Pioglitazone Hydrochloride 30 MG Tablet PO (05:23)
[2021-01-22] MEDS: Furosemide 40 MG Tablet PO (05:24)
[2021-01-22] MEDS: Enoxaparin 40 MG/0.4 ML Syringe SC (05:24)
[2021-01-22] MEDS: Nystatin Powder 15gm Bottle 1 APPLIC TOPICAL ×2 (05:25→17:10)
[2021-01-22] MEDS: Menthol/Lanolin/Calamine/Znox 113 GM Tube 1 APPLIC TOPICAL ×2 (05:25→17:10)
[2021-01-22 05:43] LABS: Absolute Lymphocyte Count 1.12 X10^3/uL (0.83-4.51); Absolute Neutrophil Count 2.4 X10^3/uL (2.0-7.7); Basophil# 0.08 X10^3/uL; Basophil% 1.7 % (0-1); Eosinophil# 0.64 X10^3/uL; Eosinophils% 13.2 % (0-5); Hematocrit 32.8 % (40-54); Hemoglobin 9.9 g/dL (13.0-16.5); Lymphocyte # 1.12 X10^3/ul (0.83-4.51); Lymphocyte % 23.1 % (19-41); Mean Corp Hgb Conc 30.2 g/dL (32-36); Mean Corpuscular Hgb 25.8 pg (27.0-32.0); Mean Corpuscular Volume 85.6 fL (80-94); Mean Platelet Vol. 10.7 fl (6.2-12.0); Monocyte# 0.58 X10^3/uL; NRBC Flagged by Analyzer 0 % (0-5); Neutrophil # 2.39 X10^3/uL (2.7-7.7); Neutrophil % 49.4 % (47-70); Platelet Count 186 K/mm3 (150-450); RBC Distribution Width CV 19.6 % (11.6-14.6); RBC Distribution Width SD 59.9 fl (35.1-43.9); Red Blood Count 3.83 M/mm3 (4.6-6.2); White Blood Count 4.8 K/mm3 (4.4-11.0)
[2021-01-22 05:58] LABS: Anion Gap 5 (5-15); BUN 35 mg/dL (7-18); BUN/Creat Ratio 22.7 RATIO (10-20); Calcium,Total 8.9 mg/dL (8.5-10.1); Chloride 104 mmol/L (98-107); Creatinine, Serum 1.54 mg/dL (0.70-1.30); EST Glomerular Filtration Rate 48 mL/min (>60); Est Glom Filt Rate - Afr Amer 58 mL/min (>60); Glucose 125 mg/dL (74-106); Potassium 3.7 mmol/L (3.5-5.1); Sodium Level 138 mmol/L (136-145)
[2021-01-22 06:20] LABS: Bedside Glucose 115 mg/dL (70-110)
[2021-01-22] MEDS: Glucerna Shake 120 ML LIQUID PO ×3 (07:45→18:21)
[2021-01-22] MEDS: Carvedilol 25 MG Tablet PO ×2 (07:46→18:22)
[2021-01-22] MEDS: Aspirin E.C. 81 MG Tablet PO (07:46)
[2021-01-22] MEDS: 0.9% Saline Lock 10 ML Syringe IV (13:44)
[2021-01-22 15:30] VITALS: BP 119/40; PULSE 71; RESP 18; TEMP 36.4; O2SAT 97
[2021-01-22 17:56] VITALS: BP 127/52; PULSE 70
[2021-01-22 18:22] VITALS: BP 126/61; PULSE 77
[2021-01-22] MEDS: Atorvastatin Calcium 40 MG Tablet PO (20:43)
[2021-01-22 21:20] LABS: Bedside Glucose 167 mg/dL (70-110)
--- NOTE | 2021-01-23 02:12 | NURSING ---
washed bilat. feet and lower legs with soap and water, changed dsd per order and applied eucerin cream. 'R tolerated well.
[2021-01-23 05:00] VITALS: BP 120/54; PULSE 71; RESP 18; TEMP 36.4; O2SAT 95
[2021-01-23 06:31] LABS: Bedside Glucose 98 mg/dL (70-110)
[2021-01-23] MEDS: Furosemide 40 MG Tablet PO (06:33)
[2021-01-23] MEDS: Enoxaparin 40 MG/0.4 ML Syringe SC (06:33)
[2021-01-23] MEDS: Pioglitazone Hydrochloride 30 MG Tablet PO (06:33)
[2021-01-23] MEDS: Nystatin Powder 15gm Bottle 1 APPLIC TOPICAL ×2 (06:34→17:30)
[2021-01-23] MEDS: Menthol/Lanolin/Calamine/Znox 113 GM Tube 1 APPLIC TOPICAL ×2 (06:34→17:30)
[2021-01-23] MEDS: Glucerna Shake 120 ML LIQUID PO ×3 (08:55→17:32)
[2021-01-23] MEDS: Aspirin E.C. 81 MG Tablet PO (08:56)
[2021-01-23] MEDS: Carvedilol 25 MG Tablet PO ×2 (08:56→17:33)
[2021-01-23 09:15] VITALS: BP 133/65; PULSE 69
[2021-01-23] MEDS: 0.9% Saline Lock 10 ML Syringe IV ×2 (10:39→13:39)
[2021-01-23] MEDS: Acetaminophen 500 MG Tablet 1000 MG PO (10:41)
[2021-01-23 11:00] VITALS: PULSE 71; RESP 18; O2SAT 96
[2021-01-23 13:57] VITALS: BP 117/58; PULSE 71; RESP 16; TEMP 36.6; O2SAT 95
--- NOTE | 2021-01-23 16:03 | NURSING ---
DRESSING CHANGED TO LEFT FOOT PER ORDERS. NEW MEPILEXS APPLIED DO TO CURLING UP FROM WEARING BOOT.
[2021-01-23] MEDS: Senna/Docusate Sodium 1 Tablet PO (17:33)
[2021-01-23 21:11] LABS: Bedside Glucose 177 mg/dL (70-110)
[2021-01-23] MEDS: Atorvastatin Calcium 40 MG Tablet PO (22:47)
[2021-01-24 05:00] VITALS: BP 123/58; PULSE 69; RESP 18; O2SAT 96
[2021-01-24] MEDS: Enoxaparin 40 MG/0.4 ML Syringe SC (06:18)
[2021-01-24] MEDS: Pioglitazone Hydrochloride 30 MG Tablet PO (06:19)
[2021-01-24] MEDS: Furosemide 40 MG Tablet PO (06:19)
[2021-01-24] MEDS: Nystatin Powder 15gm Bottle 1 APPLIC TOPICAL ×2 (06:20→18:26)
[2021-01-24] MEDS: Menthol/Lanolin/Calamine/Znox 113 GM Tube 1 APPLIC TOPICAL ×2 (06:20→18:25)
[2021-01-24 06:25] LABS: Bedside Glucose 109 mg/dL (70-110)
[2021-01-24] MEDS: Aspirin E.C. 81 MG Tablet PO (09:35)
[2021-01-24] MEDS: Glucerna Shake 120 ML LIQUID PO ×3 (09:35→18:24)
[2021-01-24] MEDS: Carvedilol 25 MG Tablet PO ×2 (09:35→18:24)
[2021-01-24] MEDS: Acetaminophen 500 MG Tablet 1000 MG PO (12:12)
[2021-01-24 14:53] VITALS: BP 106/66; PULSE 70; RESP 18; TEMP 36; O2SAT 95
[2021-01-24 14:58] VITALS: PULSE 70; RESP 20; O2SAT 96
[2021-01-24] MEDS: Atorvastatin Calcium 40 MG Tablet PO (22:05)
[2021-01-24 22:50] LABS: Bedside Glucose 172 mg/dL (70-110)
[2021-01-25 05:00] VITALS: BP 139/59; PULSE 70; RESP 18; O2SAT 96
[2021-01-25 06:26] LABS: Bedside Glucose 87 mg/dL (70-110)
[2021-01-25] MEDS: Enoxaparin 40 MG/0.4 ML Syringe SC (06:55)
[2021-01-25] MEDS: Furosemide 40 MG Tablet PO (06:56)
[2021-01-25] MEDS: Pioglitazone Hydrochloride 30 MG Tablet PO (06:56)
[2021-01-25] MEDS: Nystatin Powder 15gm Bottle 1 APPLIC TOPICAL ×2 (06:57→16:55)
[2021-01-25] MEDS: Menthol/Lanolin/Calamine/Znox 113 GM Tube 1 APPLIC TOPICAL ×2 (06:57→16:55)
[2021-01-25] MEDS: Acetaminophen 500 MG Tablet 1000 MG PO (07:00)
[2021-01-25] MEDS: Glucerna Shake 120 ML LIQUID PO ×3 (08:39→16:54)
[2021-01-25] MEDS: Carvedilol 25 MG Tablet PO ×2 (08:40→16:54)
[2021-01-25] MEDS: Aspirin E.C. 81 MG Tablet PO (08:40)
--- NOTE | 2021-01-25 10:27 | NURSING ---
This nurse called into room by Physical Therapy, blood noted to pt's dressing, area cleansed per order, Aquacel AG, ABD pad and kerlix applied to add cushion and catch drainage, pt has occupational therapy later and wants to see if the ABD helps pad it more as long as it fits into his boot.
[2021-01-25 13:37] VITALS: BP 132/63; PULSE 71; RESP 16; TEMP 36.5; O2SAT 96
[2021-01-25] MEDS: 0.9% Saline Lock 10 ML Syringe IV (13:38)
--- NOTE | 2021-01-25 14:38 | PCM.PN.ID ---
Physical Exam Narrative Foot improving, still some diarrhea, 2 episodes so far today. Const alert and no apparent distress General Appearance: cooperative Resp normal air movement and clear to auscultation bilaterally Cardio regular rate and regular rhythm GI normal to inspection, nondistended, normoactive bowel sounds Skin Skin Narrative: reviewed most recent photos ID ID: Route of nutrition/ use of supplements: [] Nutritional Intake: [] IV Site: [] Shearer Catheter: [] Assessment & Plan Assessment/Plan (1) MSSA bacteremia: PLAN: Complicated by MSSA bacteremia.? Podiatry following.? Wound cx with morganella, Pseudomonas fluorescens, proteus, mssa. Cont zosyn.? Repeat bcx today.? TTE showed no veg.? Transferred to TCU for 6 weeks iv zosyn, stop date 02/05/21, weekly labs. Continued diarrhea, at this point will change to po levaquin and see if this helps. Will follow.
--- NOTE | 2021-01-25 15:58 | NURSING ---
Dr. Sweeney in today to see pt, IV Zosyn d/c and PO Levaquin ordered until 02/05/21, ATB switched d/t pt complaining of diarrhea.
--- NOTE | 2021-01-25 18:22 | PN.TCU_ITS ---
Subjective Subjective Resident seen, examined for regulatory visit. He is lying in bed, his only complaint is antibiotic associated diarrhea. Objective Data Objective Data Vital Signs: Vital Signs Temp Pulse Resp BP Pulse Ox 97.7 F L 71 16 132/63 H 96 01/25/21 13:37 01/25/21 13:37 01/25/21 13:37 01/25/21 13:37 01/25/21 13:37 Oxygen Flow Rate (L/min) 96 Oxygen Delivery Method Room Air Weight: 147.503 kg Body Mass Index (BMI) 49.4 Intake & Output: Intake and Output for Last 24 Hours 01/23/21 01/24/21 01/25/21 23:59 23:59 23:59 Intake Total 630 / 630 670 / 670 727.5 / 727.5 Output Total 450 / 450 Balance 180 / 180 670 / 670 727.5 / 727.5 Lab / Micro Data Result Diagrams: 01/22/21 05:10 01/22/21 05:10 Labs: Laboratory Results - last 24 hr 01/24/21 01/25/21 22:39 06:15 POC Glucose 172 H 87 Micro: Microbiology 01/01/21 18:15 Stool C. difficile DNA Amplification - Final Physical Exam Const alert and oriented x3 General Appearance: cooperative HEENT normocephalic Eyes PERRL and EOMs intact bilaterally Neck supple, no JVD and no carotid bruits Resp normal respiratory effort, normal air movement and clear to auscultation bilaterally Cardio regular rate and regular rhythm GI normal to inspection, nondistended, normoactive bowel sounds, non-tender and non-distended Extremity normal capillary refill Extremity Narrative: Left foot dressed. General Extremity: Negative for edema Skin no rashes or lesions noted General Skin Exam: no breakdown Psych affect normal Appearance: appropriate Assessment & Plan Assessment/Plan (1) Debility: (2) Chest pain: (3) Osteomyelitis of left foot: QUALIFIERS: Osteomyelitis type: unspecified type Qualified Co de(s): M86.9 - Osteomyelitis, unspecified (4) Charcot foot due to diabetes mellitus: (5) Diabetes mellitus: (6) Hypertension: (7) Hyperlipidemia: PLAN: 70 year old male with below past medical history recent hospitalized left diabetic foot osteomyelitis, chest pain, acute kidney injury, admitted to TCU with debility, here for rehabilitation, strengthening, intravenous antibiotics, prior to discharge home alone. * Debility - PT/OT. * Pain - Tylenol 1000MG Q6H PRN pain (1-5), Oxycodone 5MG Q4H PRN pain (6-10). * Bowel - Stop Miralax 17GM daily due to diarrhea, Stop Senna/colace 1 tablet BID due to diarrhea, Dulcolax 10MG daily PRN. * Adult immunization - Administer Prevnar 13, Pneumovax 23, COVID19 vaccine as appropriate. * DVT prophylaxis - Lovenox 40MG SC daily. * Coronary Artery Disease - Coreg 25MG BID, Aspirin 81MG daily. * Hyperlipidemia - Atorvastatin 40MG QHS. * Nutrition - Glucerna Shake 120ML TIDCM. * Diabetes Mellitus II - Pioglitazone 30MG daily, Lantus 40 units daily. * Osteomyelitis of left foot - Zosyn 3.375GM IV Q8H changed to Levaquin 500MG daily thru 02/05/2021 due to antibiotic associated diarrhea, appreciate Dr. Sweeney. * Indigestion - Calcium 1000MG Q4H PRN. * Edema - Lasix 40MG daily. * Nutritioin - Glucerna Shake 120ML TIDCM. * GI prophylaxis - Lactobacillus 1 tablet PO TID. * Skin irritation - Calmoseptine topical BID, Ensure topical QHS. * Tinea Corporis - Nystatin powder topical BID. Capacity Capacity Assessment Tool Can the patient make a choice & communicate that choice?: Yes Can the patient understand benefits, risks and alternatives?: Yes Can the patient make a logical, rational choice?: Yes Is the choice the patient makes consistent w/ their values?: Yes Is there an impending, emergent risk to the patient?: No Does the patient have an Advance Directive?: Yes Is there a Surrogate Available?: Yes i.e. HCPOA: Yes i.e. close relative (spouse, child, parent, sibling)?: Yes
[2021-01-25] MEDS: Atorvastatin Calcium 40 MG Tablet PO (20:37)
[2021-01-26 05:00] VITALS: BP 132/47; PULSE 70; RESP 16; TEMP 36.2; O2SAT 97
[2021-01-26] MEDS: Pioglitazone Hydrochloride 30 MG Tablet PO (06:32)
[2021-01-26] MEDS: levoFLOXacin 500 MG Tablet PO (06:32)
[2021-01-26] MEDS: Enoxaparin 40 MG/0.4 ML Syringe SC (06:32)
[2021-01-26] MEDS: Furosemide 40 MG Tablet PO (06:33)
[2021-01-26] MEDS: Menthol/Lanolin/Calamine/Znox 113 GM Tube 1 APPLIC TOPICAL ×2 (06:37→16:49)
[2021-01-26] MEDS: Acetaminophen 500 MG Tablet 1000 MG PO (06:51)
[2021-01-26] MEDS: Nystatin Powder 15gm Bottle 1 APPLIC TOPICAL ×2 (06:52→18:03)
[2021-01-26 08:38] LABS: Bedside Glucose 79 mg/dL (70-110)
[2021-01-26 08:38] LABS: Bedside Glucose 133 mg/dL (70-110)
[2021-01-26] MEDS: Glucerna Shake 120 ML LIQUID PO ×3 (08:51→16:49)
[2021-01-26] MEDS: Carvedilol 25 MG Tablet PO ×2 (08:52→16:47)
[2021-01-26] MEDS: Aspirin E.C. 81 MG Tablet PO (08:53)
[2021-01-26 11:55] VITALS: PULSE 69; RESP 18
--- NOTE | 2021-01-26 13:55 | NURSING ---
wound photo: left plantar foot
--- NOTE | 2021-01-26 13:56 | NURSING ---
wound photo: left lateral foot
--- NOTE | 2021-01-26 14:24 | PT ---
Spoke with Pamela, wound nurse. Per Pamela pt's boot is causing rubbing on lateral wound on pt's foot and wound is not healing. Pt is not to wear boot on LLE until [employer] adjusts pt's boot to prevent rubbing and better fit pt. Nursing staff notified and aware that pt is not to wear boot on LLE and he is to perform SPT only at this time.
[2021-01-26 15:05] VITALS: BP 123/47; PULSE 69; RESP 18; TEMP 36.4; O2SAT 97
--- NOTE | 2021-01-26 15:20 | NURSING ---
Resident and sister notified of another resident testing positive for COVID.
[2021-01-26] MEDS: 0.9% Saline Lock 10 ML Syringe IV (15:37)
[2021-01-26] MEDS: Atorvastatin Calcium 40 MG Tablet PO (21:53)
[2021-01-26 22:21] LABS: Bedside Glucose 92 mg/dL (70-110)
[2021-01-27 05:00] VITALS: BP 120/56; PULSE 71; RESP 18; TEMP 36.9; O2SAT 97
[2021-01-27] MEDS: Enoxaparin 40 MG/0.4 ML Syringe SC (05:37)
[2021-01-27] MEDS: levoFLOXacin 500 MG Tablet PO (05:37)
[2021-01-27] MEDS: Furosemide 40 MG Tablet PO (05:37)
[2021-01-27] MEDS: Menthol/Lanolin/Calamine/Znox 113 GM Tube 1 APPLIC TOPICAL ×2 (05:39→18:11)
[2021-01-27] MEDS: Nystatin Powder 15gm Bottle 1 APPLIC TOPICAL ×2 (05:40→18:11)
[2021-01-27] MEDS: 0.9% Saline Lock 10 ML Syringe IV (06:19)
[2021-01-27] MEDS: Acetaminophen 500 MG Tablet 1000 MG PO (06:23)
[2021-01-27 06:31] LABS: Bedside Glucose 67 mg/dL (70-110)
[2021-01-27 06:41] LABS: Bedside Glucose 85 mg/dL (70-110)
[2021-01-27] MEDS: Aspirin E.C. 81 MG Tablet PO (09:08)
[2021-01-27] MEDS: Carvedilol 25 MG Tablet PO ×2 (09:08→18:11)
[2021-01-27] MEDS: Pioglitazone Hydrochloride 30 MG Tablet PO (09:08)
[2021-01-27 09:25] LABS: Bedside Glucose 146 mg/dL (70-110)
[2021-01-27 09:56] VITALS: PULSE 71; RESP 18; O2SAT 95
[2021-01-27 10:46] LABS: Bedside Glucose 125 mg/dL (70-110)
[2021-01-27 14:02] VITALS: BP 136/56; PULSE 71; RESP 18; TEMP 36.1; O2SAT 98
[2021-01-27] MEDS: Glucerna Shake 120 ML LIQUID PO (18:11)
[2021-01-27] MEDS: Atorvastatin Calcium 40 MG Tablet PO (20:33)
[2021-01-27 21:51] LABS: Bedside Glucose 116 mg/dL (70-110)
[2021-01-28] MEDS: Acetaminophen 500 MG Tablet 1000 MG PO (06:18)
[2021-01-28] MEDS: Enoxaparin 40 MG/0.4 ML Syringe SC (06:18)
[2021-01-28] MEDS: levoFLOXacin 500 MG Tablet PO (06:19)
[2021-01-28] MEDS: Furosemide 40 MG Tablet PO (06:19)
[2021-01-28] MEDS: Pioglitazone Hydrochloride 30 MG Tablet PO (06:19)
[2021-01-28] MEDS: 0.9% Saline Lock 10 ML Syringe IV (06:20)
[2021-01-28] MEDS: Nystatin Powder 15gm Bottle 1 APPLIC TOPICAL ×2 (06:23→16:56)
[2021-01-28] MEDS: Menthol/Lanolin/Calamine/Znox 113 GM Tube 1 APPLIC TOPICAL ×2 (06:24→16:55)
[2021-01-28 06:25] VITALS: BP 113/62; PULSE 69; RESP 18; TEMP 37; O2SAT 98
[2021-01-28 06:25] LABS: Bedside Glucose 103 mg/dL (70-110)
[2021-01-28] MEDS: Glucerna Shake 120 ML LIQUID PO ×3 (08:19→16:54)
[2021-01-28] MEDS: Carvedilol 25 MG Tablet PO ×2 (08:20→16:55)
[2021-01-28] MEDS: Aspirin E.C. 81 MG Tablet PO (08:20)
[2021-01-28 13:53] VITALS: BP 117/59; PULSE 69; RESP 16; TEMP 36.3; O2SAT 96
--- NOTE | 2021-01-28 14:50 | PHA.CONS_ITS ---
Progress Note - Pharmacy Subjective: TCU MONTHLY MEDICATION REVIEW Objective: Allergies Penicillins [PCN] Allergy (Verified 12/25/20 14:41) Rash blood pressure meds Adverse Reaction (Uncoded 12/25/20 06:49) NEEDS FOLLOW-UP Current Medications Generic Name Dose Route Start Last Admin Trade Name Freq PRN Reason Stop Dose Admin Acetaminophen 1,000 mg 12/31/20 21:47 01/28/21 06:18 Acetaminophen 500 Mg Tablet PO 1,000 mg Q6H PRN PRN Administration Pain Score 1-5 Aspirin 81 mg 01/01/21 08:00 01/28/21 08:20 Aspirin E.C. 81 Mg Tablet PO 81 mg DAILYCM GLADIS Administration Atorvastatin Calcium 40 mg 12/31/20 22:00 01/27/21 20:33 Atorvastatin Calcium 40 Mg Tablet PO 40 mg QHS GLADIS Administration Bisacodyl 10 mg 12/31/20 21:47 Bisacodyl 5 Mg Tablet PO DAILY PRN Constipation Calamine/Phenol 1 applic 01/01/21 18:00 01/28/21 06:24 Menthol/Lanolin/Calamine/Znox 113 Gm Tube TOPICAL 1 applic BID GLADIS Administration Protocol Calcium Carbonate 1,000 mg 01/06/21 07:51 01/09/21 01:27 Calcium Carbonate 500 Mg Tablet PO 1,000 mg Q4H PRN PRN Administration HEARTBURN Carvedilol 25 mg 01/01/21 08:00 01/28/21 08:20 Carvedilol 25 Mg Tablet PO 25 mg BIDCM GLADIS Administration Enoxaparin Sodium 40 mg 01/01/21 06:00 01/28/21 06:18 Enoxaparin 40 Mg/0.4 Ml Syringe SC 40 mg DAILY@0600 GLADIS Administration Furosemide 40 mg 01/06/21 06:00 01/28/21 06:19 Furosemide 40 Mg Tablet PO 40 mg DAILY GLADIS Administration Sodium Chloride 250 mls @ 15 mls/hr 12/31/20 22:35 01/25/21 13:38 IV Infused .[id number] PRN Infusion Additional IVPB Infusion Insulin Glargine 40 units 01/22/21 06:00 01/28/21 06:19 Insulin Glargine 100 Units/Ml Pen SC 40 u DAILY GLADIS Administration Lactobacillus Acidophilus 1 tablet 01/01/21 22:00 01/28/21 13:33 Lactobacillus Acidophilus PO 1 tablet TID GLADIS Administration Levofloxacin 500 mg 01/26/21 06:00 01/28/21 06:19 Levofloxacin 500 Mg Tablet PO 02/05/21 06:00 500 mg DAILY@0600 GLADIS Administration Multi-Ingredient Cream 1 applic 01/16/21 22:00 01/27/21 20:33 Mineral Oil/Petrolatum,White Jar TOPICAL 1 applic QHS GLADIS Administration Protocol Nutritional Formula (Lactose Free) 120 ml 01/01/21 07:45 01/28/21 13:32 Glucerna Shake 120 Ml Liquid PO 120 ml TIDCM GLADIS Administration Nystatin 1 applic 01/01/21 18:00 01/28/21 06:23 Nystatin Powder 15gm Bottle TOPICAL 1 applic BID GLADIS Administration Protocol Oxycodone HCl 5 mg 12/31/20 21:47 Oxycodone 5 Mg Tablet PO Q4H PRN PRN Pain Score 6-10 Pioglitazone HCl 30 mg 01/01/21 06:00 01/28/21 06:19 Pioglitazone Hydrochloride 30 Mg Tablet PO 30 mg DAILY GLADIS Administration Sodium Chloride 10 - 40 ml 12/31/20 20:35 01/28/21 06:20 0.9% Saline Lock 10 Ml Syringe IV 10 ml UD PRN Administration Closed End PICC Flush Sodium Chloride 10 - 40 ml 12/31/20 20:35 01/21/21 21:53 0.9 % Nacl (Sterile) Posiflush 10 Ml IV 10 ml UD PRN Administration Port access or dressing change Problem List (Last Reviewed 12/31/20 @ 21:[address] Uday Courtney MD) Hyperlipidemia (Acute) Hypertension (Chronic) Diabetes mellitus (Acute) Chest pain (Acute) Debility (Acute) Stage 3a chronic kidney disease (Chronic) MSSA bacteremia (Acute) Osteomyelitis of left foot (Acute) Charcot foot due to diabetes mellitus (Chronic) Diabetic infection of left foot (Acute) Vital Signs Temp Pulse Resp BP Pulse Ox 97.4 F L 69 16 117/59 L 96 01/28/21 13:53 01/28/21 13:53 01/28/21 13:53 01/28/21 13:53 01/28/21 13:53 Oxygen Flow Rate (L/min) 96 Oxygen Delivery Method Room Air Weight: 144.696 kg Body Mass Index (BMI) 49.4 Sodium 138 mmol/L (136-145) 01/22/21 05:10 Potassium 3.7 mmol/L (3.5-5.1) 01/22/21 05:10 Chloride 104 mmol/L (98-107) 01/22/21 05:10 Carbon Dioxide 29.0 mmol/L (21.0-32.0) 01/22/21 05:10 Anion Gap 5 (5-15) 01/22/21 05:10 BUN 35 mg/dL (7-18) H 01/22/21 05:10 Creatinine 1.54 mg/dL (0.70-1.30) H 01/22/21 05:10 Est GFR (MDRD) Af Amer 58 mL/min (>60) L 01/22/21 05:10 Est GFR (MDRD) Non-Af 48 mL/min (>60) L 01/22/21 05:10 BUN/Creatinine Ratio 22.7 RATIO (10-20) H 01/22/21 05:10 Glucose 125 mg/dL (74-106) H 01/22/21 05:10 Assessment/Plan: 1. Pain: Tylenol 1000mg PO Q6H PRN pain (1-5), oxycodone 5mg PO Q4H PRN pain (6- 10). Please continue to monitor pain, respiratory depression, and PRN usage. 2. DVT prophylaxis: Lovenox 40mg SC daily. Please continue to monitor renal function, platelets, and S/S of bleeding. 3. Coronary Artery Disease/Edema: carvedilol 25mg PO BID, aspirin 81mg PO daily, Lasix 40mg PO Daily. Please continue to monitor BP, HR, S/S of bleeding, fluid status.? 4. Hyperlipidemia: atorvastatin 40mg PO QHS. Please continue to monitor lipids. 5. Diabetes Mellitus II: pioglitazone 30mg PO daily, Lantus 40 units SC daily. Please continue to monitor BG, HbA1C, s/s hyper/hypoglycemia. 6. Osteomyelitis of left foot: Levofloxacin 500mg PO Daily thru 02/05/21. Please continue to monitor infection improvement, renal function, WBC (last 6.2), and temperature (last 97.8 F). 7. Indigestion: Tums 1000mg PO Q4h PRN. Please continue to monitor for symptoms resolution, PRN medication usage requirements. 8. General Wellness: Acidophilus 1 tab PO TID. Please continue to monitor. Psychotropic Medications: None Unnecessary Medications: None Bowel Regimen: Dulcolax 10mg PO daily PRN constipation. Please continue to monitor constipation and PRN usage. Of note; scheduled bowel regimen dc'd d/t diarrhea. Date of Note:: 01/28/21
--- NOTE | 2021-01-28 16:17 | CASEMGMT ---
Social Work Insurance issued a letter of non coverage with Last covered day 01/30 and discharge 01/31. Pt choosing to return home alone on 01/31. IDT is recommending home health PT/OT/SN. SW presented this to pt and pt does not feel this is necessary. SW emphasized the importance of caring for wound and therapy to assist with function in home. Pt again refuses all home care stating he has managed at home for the last several years and will manage at home alone just fine. Pt states he follows up with Dr. Cameron for wound care. SW informed pt if he changes his mind SW will assist with arranging for home health services. Discharge Date: 01/31/21 Disposition: home alone, refusing home health care SAMIA Villalobos
--- NOTE | 2021-01-28 19:19 | DS.PCM_ITS ---
Providers Date of Admission: 12/31/20 Primary Care Physician: Dr. Michael Palomino, Consultations 12/31/20 21:36 Consult: Infectious Disease Routine Consulting Provider: Betito Sweeney Reason for Consult: left ankle diabetic ulcer EMERGENT Consult: No Notified: Yes Date Notified: 12/31/20 Time Notified: 21:36 Method of Notification: [employer] Consult: Onc/Wound/passport support manager Routine Comment: Reason for Consult:: diabetic ulcer left foot 12/31/20 21:47 Consult: Infectious Disease Routine Consulting Provider: Betito Sweeney Reason for Consult: Osteomyelitis left foot, diabetic, char[place]. EMERGENT Consult: No MD Notified: Yes Date Notified: 12/31/20 Time Notified: 21:49 Method of Notification: [employer] Consult: Podiatry Routine Consulting Provider: Payton Cameron Reason for Consult: Osteomyelitis left foot, diabetic, [place]. EMERGENT Consult: No MD Notified: Yes Date Notified: 12/31/20 Time Notified: 21:50 Method of Notification: phone call Reason For Visit: DIABETIC FOOT WOUND Diagnosis Discharge Diagnosis (1) Debility: Status: Acute Code(s): R53.81 - Other malaise (2) Chest pain: Status: Acute Code(s): R07.9 - Chest pain, unspecified (3) Osteomyelitis of left foot: Status: Acute Code(s): M86.9 - Osteomyelitis, unspecified Qualifiers: Osteomyelitis type: unspecified type Qualified Code(s): M86.9 - Osteomyelitis, unspecified (4) Charcot foot due to diabetes mellitus: Status: Chronic Code(s): E11.610 - Type 2 diabetes mellitus with diabetic neuropathic arthropathy (5) Diabetes mellitus: Status: Acute Code(s): E11.9 - Type 2 diabetes mellitus without complications (6) Hypertension: Status: Chronic Code(s): I10 - Essential (primary) hypertension (7) Hyperlipidemia: Status: Acute Code(s): E78.5 - Hyperlipidemia, unspecified Medications at Discharge Home Medications Lantus Solostar U-100 Insulin 46 unit SUBCUT DAILY 12/25/20 carvedilol [Coreg] 25 mg PO BID 12/25/20 furosemide [Lasix] 40 mg PO BID 12/25/20 pioglitazone [Actos] 30 mg PO DAILY 12/25/20 aspirin 81 mg PO DAILY 12/31/20 atorvastatin 40 mg PO QHS 12/31/20 levofloxacin 500 mg PO DAILY@0600 5 Days #5 tab 01/28/21 Hospital Course Operations None Procedures None Summary of Care Provided Minutes Spent on Discharge: 35 Hospital Course: 70 year old male with below past medical history recent hospitalized left diabetic foot osteomyelitis, chest pain, acute kidney injury, admitted to TCU with debility, here for rehabilitation, strengthening, intravenous antibiotics, prior to discharge home alone. Discharge home alone 01/31/2021, resident declined home health services. Physical Exam Const alert and oriented x3 General Appearance: cooperative HEENT normocephalic Eyes PERRL and EOMs intact bilaterally Neck supple, no JVD and no carotid bruits Resp normal respiratory effort, normal air movement and clear to auscultation bilaterally Cardio regular rate and regular rhythm GI normal to inspection, nondistended, normoactive bowel sounds, non-tender and non-distended Extremity normal capillary refill General Extremity: Negative for edema Skin no rashes or lesions noted General Skin Exam: no breakdown Psych affect normal Appearance: appropriate Weight / BMI Weight Weight: 144.696 kg Body Mass Index (BMI) 49.4 ABG / Lab / Microbiology Data Result Diagrams: 01/22/21 05:10 01/22/21 05:10 Laboratory: Laboratory Results - last 24 hr 01/27/21 01/28/21 21:38 06:18 POC Glucose 116 H 103 Microbiology: Microbiology 01/27/21 11:15 Interface Orders SARS-CoV-2 Antigen (Rapid) - Final 01/01/21 18:15 Stool C. difficile DNA Amplification - Final D/C Instructions Discharge Diet: No restrictions Discharge Activity: Return to Normal Activity, May Shower and Use Walker Weight Bearing Status: No weight bearing (Left lower extremity.) Call your doctor if you observe: Fever of 101 or Higher, Inability to urinate, Inability to have a bowel movement, Shortness of breath, Chest pain and Uncontrolled pain Additional Instructions: Discharge home alone 01/31/2021, resident declined home health services. Please Follow Up With: Michael Palomino DO When: 1 week. Meaningful Use Info Meaningful Use Diagnoses (Choose all that apply): None applicable Discharge Plan Admission Admit Date/Time: 12/31/20 19:50 Primary Reason for Your Visit: Debility Attending Provider: Uday Courtney Chi Primary Care Provider: Michael Palomino Consulting Providers: Betito Sweeney ; Payton Cameron Instructions Patient Instructions: ED Chest Pain, Noncardiac Additional Instructions / Restrictions: Discharge home alone 01/31/2021, resident declined home health services. Discharge Orders/Prescriptions Prescriptions: New levofloxacin 500 mg Tablet 500 mg PO DAILY@0600 5 Days Qty: 5 RF: 0 Continued furosemide [Lasix] 40 mg tablet 40 mg PO BID RF: 0 Hold Instructions: Resume on 01/02/21. Follow-up with your PCP in 1 week we will obtain a BMP to monitor your renal function. carvedilol [Coreg] 25 mg tablet 25 mg PO BID RF: 0 pioglitazone [Actos] 30 mg tablet 30 mg PO DAILY RF: 0 Lantus Solostar U-100 Insulin 100 unit/mL (3 mL) insulin pen 46 unit SUBCUT DAILY RF: 0 atorvastatin 40 mg tablet 40 mg PO QHS RF: 0 aspirin 81 mg Tablet 81 mg PO DAILY RF: 0 Discontinued Zosyn in dextrose (iso-osm) 3.375 gram/50 mL piggyback 3.375 g IV Q8H RF: 0 Referrals / Follow Up: Michael Palomino DO [Primary Care Provider] - Disposition Disposition (needs filled in before D/C Order can be placed): Home, Self Care
[2021-01-28 21:21] LABS: Bedside Glucose 175 mg/dL (70-110)
[2021-01-28] MEDS: Atorvastatin Calcium 40 MG Tablet PO (22:04)
[2021-01-29 05:00] VITALS: BP 143/63; PULSE 77; RESP 18; O2SAT 95
[2021-01-29 06:04] LABS: Absolute Lymphocyte Count 1.71 X10^3/uL (0.83-4.51); Absolute Neutrophil Count 3.3 X10^3/uL (2.0-7.7); Basophil# 0.05 X10^3/uL; Basophil% 0.8 % (0-1); Eosinophil# 0.15 X10^3/uL; Eosinophils% 2.5 % (0-5); Hematocrit 34.1 % (40-54); Hemoglobin 10.5 g/dL (13.0-16.5); Lymphocyte # 1.71 X10^3/ul (0.83-4.51); Lymphocyte % 28.6 % (19-41); Mean Corp Hgb Conc 30.8 g/dL (32-36); Mean Corpuscular Hgb 25.9 pg (27.0-32.0); Mean Corpuscular Volume 84.2 fL (80-94); Mean Platelet Vol. 10.6 fl (6.2-12.0); Monocyte# 0.74 X10^3/uL; Monocyte% 12.4 % (0-10); NRBC Flagged by Analyzer 0 % (0-5); Neutrophil # 3.29 X10^3/uL (2.7-7.7); Neutrophil % 55.2 % (47-70); POSITIVE MORPHOLOGY YES; Platelet Count 184 K/mm3 (150-450); RBC Distribution Width CV 20.5 % (11.6-14.6); RBC Distribution Width SD 62.7 fl (35.1-43.9); Red Blood Count 4.05 M/mm3 (4.6-6.2)
[2021-01-29 06:21] LABS: Bedside Glucose 121 mg/dL (70-110)
[2021-01-29 06:22] LABS: Differential Indicated SCAN CRITERIA MET
[2021-01-29 06:24] LABS: Anisocytosis 1+; Differential Comment SCANNED; Macrocytosis RARE; Microcytosis RARE
[2021-01-29 06:33] LABS: Anion Gap 5 (5-15); BUN 38 mg/dL (7-18); BUN/Creat Ratio 24.5 RATIO (10-20); Calcium,Total 9.1 mg/dL (8.5-10.1); Chloride 102 mmol/L (98-107); Creatinine, Serum 1.55 mg/dL (0.70-1.30); EST Glomerular Filtration Rate 48 mL/min (>60); Est Glom Filt Rate - Afr Amer 58 mL/min (>60); Estimated Creatinine Clearance 48.58 ml/min; Glucose 113 mg/dL (74-106); Potassium 3.9 mmol/L (3.5-5.1); Sodium Level 135 mmol/L (136-145)
[2021-01-29] MEDS: levoFLOXacin 500 MG Tablet PO (06:47)
[2021-01-29] MEDS: Enoxaparin 40 MG/0.4 ML Syringe SC (06:47)
[2021-01-29] MEDS: Pioglitazone Hydrochloride 30 MG Tablet PO (06:47)
[2021-01-29] MEDS: Furosemide 40 MG Tablet PO (06:47)
[2021-01-29] MEDS: Bisacodyl 5 MG Tablet 10 MG PO (06:51)
[2021-01-29] MEDS: Nystatin Powder 15gm Bottle 1 APPLIC TOPICAL ×2 (06:54→17:35)
[2021-01-29] MEDS: Menthol/Lanolin/Calamine/Znox 113 GM Tube 1 APPLIC TOPICAL ×2 (06:54→17:35)
[2021-01-29] MEDS: Carvedilol 25 MG Tablet PO ×2 (07:57→17:35)
[2021-01-29] MEDS: Aspirin E.C. 81 MG Tablet PO (07:57)
[2021-01-29] MEDS: Glucerna Shake 120 ML LIQUID PO ×3 (07:57→17:35)
[2021-01-29] MEDS: 0.9% Saline Lock 10 ML Syringe IV (07:57)
--- NOTE | 2021-01-29 08:57 | CASEMGMT ---
BIMS and PHQ9 Interviews completed on this date for MDS assessment. SAMIA Villalobos
[2021-01-29 08:59] VITALS: PULSE 90; RESP 18; O2SAT 97
[2021-01-29] MEDS: Calcium Carbonate 500 MG Tablet 1000 MG PO (09:18)
--- NOTE | 2021-01-29 10:11 | NURSING ---
[facility] [employer] called to notified us they will be here today between 4-5 bringing back boot. Pt is to f/u on out patient basis after d/c.
--- NOTE | 2021-01-29 10:55 | PT ---
Spoke with rep from [facility] [employer]. They are planning to come today between 4:00-5:00 pm to retrun pt's boot.
--- NOTE | 2021-01-29 13:24 | CASEMGMT ---
Social Work Therapy recommending wheeled walker. SW met with pt and he is agreeable to this and would like to use [facility]. Order faxed to [facility] with request to deliver to pt room prior to d/c on 01/31. SAMIA Villalobos
[2021-01-29 14:04] VITALS: BP 117/58; PULSE 70; RESP 16; TEMP 36.5; O2SAT 97
--- NOTE | 2021-01-29 14:10 | NURSING ---
Dr. Cameron made aware of resident being discharged home 01/31. Will be in later this evening to see patient.
--- NOTE | 2021-01-29 18:27 | PN_ITS ---
Subjective Subjective Patient was resting comfortably in his bed. He states that the dressing has been changed approximately a day ago. He states that he will be discharged home in 2 days. He also admits that [employer] has taken his old brace because the new [place] walker was just not comfortable. It was supposed to have been del ivered and fitted to him today. But it has not been done yet. Patient states that he will be using a walker when he gets home and his girlfriend had bought him one. He is hopeful that he will be able to use that. Objective Data Objective Data Vital Signs: Vital Signs Temp Pulse Resp BP Pulse Ox 97.7 F L 70 16 117/58 L 97 01/29/21 14:04 01/29/21 14:04 01/29/21 14:04 01/29/21 14:04 01/29/21 14:04 Oxygen Flow Rate (L/min) 96 Oxygen Delivery Method Room Air Weight: 144.696 kg Body Mass Index (BMI) 49.4 Intake & Output: Intake and Output for Last 24 Hours 01/27/21 01/28/21 01/29/21 23:59 23:59 23:59 Intake Total 1080 / 1080 720 / 720 960 / 960 Balance 1080 / 1080 720 / 720 960 / 960 Lab / Micro Data Result Diagrams: 01/29/21 05:26 01/29/21 05:26 Labs: Laboratory Results - last 24 hr 01/28/21 01/29/21 01/29/21 21:16 05:26 05:26 WBC 6.0 RBC 4.05 L Hgb 10.5 L Hct 34.1 L MCV 84.2 MCH 25.9 L MCHC 30.8 L RDW Std Deviation 62.7 H RDW Coeff of Xavier 20.5 H Plt Count 184 MPV 10.6 Immature Gran % (Auto) 0.500 Neut % (Auto) 55.2 Lymph % (Auto) 28.6 [place] % (Auto) 12.4 H Eos % (Auto) 2.5 Baso % (Auto) 0.8 Absolute Neuts (auto) 3.3 Absolute Lymphs (auto) 1.71 Nucleated RBC % 0 Differential Comment SCANNED Anisocytosis 1+ Microcytosis RARE Macrocytosis RARE Sodium 135 L Potassium 3.9 Chloride 102 Carbon Dioxide 28.0 Anion Gap 5 BUN 38 H Creatinine 1.55 H Estim Creat Clear Calc 48.58 Est GFR (MDRD) Af Amer 58 L Est GFR (MDRD) Non-Af 48 L BUN/Creatinine Ratio 24.5 H Glucose 113 H Calcium 9.1 POC Glucose 175 H 01/29/21 06:13 WBC RBC Hgb Hct MCV MCH MCHC RDW Std Deviation RDW Coeff of Xavier Plt Count MPV Immature Gran % (Auto) Neut % (Auto) Lymph % (Auto) [place] % (Auto) Eos % (Auto) Baso % (Auto) Absolute Neuts (auto) Absolute Lymphs (auto) Nucleated RBC % Differential Comment Anisocytosis Microcytosis Macrocytosis Sodium Potassium Chloride Carbon Dioxide Anion Gap BUN Creatinine Estim Creat Clear Calc Est GFR (MDRD) Af Amer Est GFR (MDRD) Non-Af BUN/Creatinine Ratio Glucose Calcium POC Glucose 121 H Micro: Microbiology 01/27/21 11:15 Interface Orders SARS-CoV-2 Antigen (Rapid) - Final 01/01/21 18:15 Stool C. difficile DNA Amplification - Final Physical Exam Extremity Left Lower Extremity: foot and digits Positive for other (The left foot is severely inverted and when patient bears weight it is performed on the lateral foot. He is unable to invert or julisa the foot due to the fixed position from the collapse of the Charcot foot.) Skin Wound Narrative: Wound to left lateral foot measures 2.7 x 1.1 x 0.1 cm with 100% granulation tissue. No tracking, probing to bone, purulence, undermining. This is great improvement as no deep structures are visible. Plantar wound had very large dry callus overlying that was easily removed with pickups and scissors with a selective debridement performed bedside. Minimal bleeding was controlled with compression. This wound measures 1.2 x 0.2 x 0.2 cm. This wound initially had been probing to bone and tunneling 2 to 3 cm so this is also great improvement. There is no sign of cellulitis and the second wound also has granular tissue without fibrous tissue. Assessment & Plan Assessment/Plan (1) Osteomyelitis of left foot: QUALIFIERS: Osteomyelitis type: unspecified type Qualified Code(s): M86.9 - Osteomyelitis, unspecified (2) Diabetes mellitus: (3) Charcot arthropathy of hindfoot: PLAN: Continue with local wound care as Aquacel Ag was applied today fol lowing treatment. Patient was encouraged to follow-up in our office which he states he will try to do if he is able to ambulate or even leave the house. It has been over 1 year since we have seen him in our private office. We had a significant discussion about the importance of keeping the area offloaded. He will continue with antibiotics as directed as he states he will begin oral antibiotics today. Hopefully the modified [place] walker will be helpful for him and he will continue with the walker. Patient understands possible risks and complications associated with noncompliance.
--- NOTE | 2021-01-29 18:59 | NURSING ---
[employer] [employer] never returned pt foot brace, Malini, PT updated, will attempt to notify them tomorrow.
[2021-01-29] MEDS: Atorvastatin Calcium 40 MG Tablet PO (21:15)
[2021-01-29 21:26] LABS: Bedside Glucose 145 mg/dL (70-110)
[2021-01-30] MEDS: Acetaminophen 500 MG Tablet 1000 MG PO ×2 (03:16→13:38)
[2021-01-30 05:00] VITALS: BP 99/48; PULSE 69; RESP 18; TEMP 36.4; O2SAT 97
[2021-01-30 05:51] LABS: Bedside Glucose 118 mg/dL (70-110)
[2021-01-30] MEDS: levoFLOXacin 500 MG Tablet PO (06:19)
[2021-01-30] MEDS: Enoxaparin 40 MG/0.4 ML Syringe SC (06:19)
[2021-01-30] MEDS: Pioglitazone Hydrochloride 30 MG Tablet PO (06:19)
[2021-01-30] MEDS: Furosemide 40 MG Tablet PO (06:19)
[2021-01-30] MEDS: Nystatin Powder 15gm Bottle 1 APPLIC TOPICAL ×2 (06:23→16:58)
[2021-01-30] MEDS: Menthol/Lanolin/Calamine/Znox 113 GM Tube 1 APPLIC TOPICAL ×2 (06:23→16:58)
[2021-01-30 08:31] VITALS: BP 126/61; PULSE 70
[2021-01-30] MEDS: Carvedilol 25 MG Tablet PO ×2 (08:32→16:58)
[2021-01-30] MEDS: Aspirin E.C. 81 MG Tablet PO (08:32)
--- NOTE | 2021-01-30 09:32 | PT ---
Spoke with pt this AM. Pt states [facility] did come to unit last night around 8:30pm. 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
[2021-01-30] MEDS: Glucerna Shake 120 ML LIQUID PO ×2 (13:35→16:57)
[2021-01-30 14:22] VITALS: BP 151/68; PULSE 71; RESP 18; TEMP 36.4; O2SAT 98
[2021-01-30] MEDS: Atorvastatin Calcium 40 MG Tablet PO (21:19)
[2021-01-30 21:20] LABS: Bedside Glucose 151 mg/dL (70-110)
[2021-01-31 05:00] VITALS: BP 122/62; PULSE 70; RESP 16; TEMP 35.9; O2SAT 96
[2021-01-31] MEDS: Acetaminophen 500 MG Tablet 1000 MG PO (05:56)
[2021-01-31] MEDS: Furosemide 40 MG Tablet PO (05:56)
[2021-01-31] MEDS: Enoxaparin 40 MG/0.4 ML Syringe SC (05:56)
[2021-01-31] MEDS: Pioglitazone Hydrochloride 30 MG Tablet PO (05:56)
[2021-01-31] MEDS: levoFLOXacin 500 MG Tablet PO (05:56)
[2021-01-31] MEDS: Menthol/Lanolin/Calamine/Znox 113 GM Tube 1 APPLIC TOPICAL (06:00)
[2021-01-31] MEDS: Nystatin Powder 15gm Bottle 1 APPLIC TOPICAL (06:00)
[2021-01-31 06:31] LABS: Bedside Glucose 90 mg/dL (70-110)
[2021-01-31 07:16] VITALS: PULSE 70; RESP 16; O2SAT 96
[2021-01-31] MEDS: Carvedilol 25 MG Tablet PO (07:51)
[2021-01-31] MEDS: Aspirin E.C. 81 MG Tablet PO (07:51)
[2021-01-31 09:14] VITALS: BP 128/58; PULSE 72; RESP 18; TEMP 36.5; O2SAT 95
== END 2021-01-31 09:30 | disposition home or self-care (01) | DRG 638 ==
PROVIDERS: Admitting Provider Family Medicine Geriatric Medicine; PCP Student in an Organized Health Care Education/Training Program; Visit Provider Family Medicine Geriatric Medicine
DX: E11.69 Type 2 diabetes mellitus with other specified complication (principal); M86.8X7 Other osteomyelitis, ankle and foot; R78.81 Bacteremia; L97.329 Non-pressure chronic ulcer of left ankle with unspecified severity; E11.610 Type 2 diabetes mellitus with diabetic neuropathic arthropathy; E78.5 Hyperlipidemia, unspecified; I25.10 Atherosclerotic heart disease of native coronary artery without angina pectoris; B35.4 Tinea corporis; E11.622 Type 2 diabetes mellitus with other skin ulcer; E11.22 Type 2 diabetes mellitus with diabetic chronic kidney disease; I12.9 Hypertensive chronic kidney disease with stage 1 through stage 4 chronic kidney disease, or unspecified chronic kidney disease; N18.31 Chronic kidney disease, stage 3a; B95.61 Methicillin susceptible Staphylococcus aureus infection as the cause of diseases classified elsewhere; B96.5 Pseudomonas (aeruginosa) (mallei) (pseudomallei) as the cause of diseases classified elsewhere; B96.4 Proteus (mirabilis) (morganii) as the cause of diseases classified elsewhere; Z79.899 Other long term (current) drug therapy; Z79.82 Long term (current) use of aspirin
CPT/HCPCS: 36415; 80048; 82962; 85025; 87426; 87493; 87635; 97110; 97116; 97162; 97166; 97530; 97535; 97802; J7050; U0005; A4216; U0003

== ENCOUNTER 2021-01-13 13:04 | Outpatient (RCR) | payer MEDICARE, SELFPAY | END 2021-02-26 23:59 | LOC: IMMUN 13:04 | PROVIDERS: PCP Student in an Organized Health Care Education/Training Program; Visit Provider Family Medicine | DX: Z23 Encounter for immunization (principal) | CPT/HCPCS: 0001A; 91300 ==

== ENCOUNTER 2021-02-10 18:46 | Inpatient (IN) | payer MEDICARE, SELFPAY ==
[2021-02-10] VITALS (7 sets, daily range): BP systolic 98–111; BP diastolic 33–61; PULSE 70–88; RESP 16–24; TEMP 36.4–36.6; O2SAT 97–99; BMI 44.2; BMI 42.2
--- NOTE | 2021-02-10 19:01 | RAD_ITS ---
STUDY: X-RAY - THORACIC SPINE REASON FOR EXAM: Male, 70 years old. Trauma TECHNIQUE: 3 view(s) of the thoracic spine were obtained. COMPARISON: None. FINDINGS: Normal kyphosis of the thoracic spine. There is no substantial scoliosis. Degenerative changes of the thoracic vertebrae with spurring at the endplates. Normal disc space heights. The soft tissue structures are unremarkable. RAD/Thoracic Spine 2 Views IMPRESSION: Degenerative changes of the thoracic spine. Electronically Signed: Dario Marte DO at 20:37 EDT Tel [phone], Service support ,
--- NOTE | 2021-02-10 19:01 | EKG12_ITS ---
Test Reason : FALL Blood Pressure : / mmHG Vent. Rate : 085 BPM Atrial Rate : 104 BPM P-R Int : 000 ms QRS Dur : 126 ms QT Int : 420 ms P-R-T Axes : 000 -37 081 degrees QTc Int : 499 ms Atrial fibrillation with premature ventricular or aberrantly conducted complexes Left axis deviation Non-specific intra-ventricular conduction block T wave abnormality, consider lateral ischemia Abnormal ECG Confirmed by TIN NGUYEN, JESUS ([id number]), social media editor OFELIA RUTH ([id number]) on 02/15/2021 12:55:55 PM Referred By: PC Confirmed By:JESUS CASTLE MD
--- NOTE | 2021-02-10 19:03 | ED.VIS.FALL ---
HPI HPI - Fall History of Present Illness Chief Complaint: Fall Narrative Narrative: Patient presents with a recent fall. He fell on the ground because he was trying to walk without his walking boot. He usually walks with a walking boot due to severe deformity of the left foot, he fell injuring his back but not his head, he laid on the floor for about 6 hours before he could manage to get to his phone. Prior to this he was not experiencing any worsening weakness, no fevers or chills. He was only complaining of slight back pain otherwise he has no other complaints. PFSH PFS Medical History Ankle fracture Chronic ulcer of ankle Chronic ulcer of left foot Chronic ulcer of right foot Diabetes History of ankle fracture Hypertension Kidney disease Home Medications Lantus Solostar U-100 Insulin 46 unit SUBCUT DAILY 12/25/20 [History Last Taken 12/30/20 10:00] carvedilol [Coreg] 25 mg PO BID 12/25/20 [History Last Taken 12/30/20 10:00] furosemide [Lasix] 40 mg PO BID 12/25/20 [History Last Taken 12/30/20 10:00] pioglitazone [Actos] 30 mg PO DAILY 12/25/20 [History Last Taken 12/30/20 10:00] aspirin 81 mg PO DAILY 12/31/20 [History Last Taken Unknown] atorvastatin 40 mg PO QHS 12/31/20 [History Last Taken 12/30/20 10:00] Allergy/AdvReac Type Severity Reaction Status Date / Time Penicillins [PCN] Allergy Rash Verified 02/10/21 18:54 blood pressure meds AdvReac NEEDS Uncoded 02/10/21 18:54 FOLLOW-UP Social History household members: none Smoking Status: Never smoker ROS ROS ED ROS Narrative Past medical history: Reviewed, includes diabetes, history of osteomyelitis, history of Charcot foot, acute kidney injury, hyponatremia, chronic kidney disease, debility Medications: Reviewed Social history: Noncontributory Review of systems: All systems negative except as indicated General: No fever, he has chronic weakness but no acute weakness Eyes: No visual changes ENT: No upper airway congestion, normal voice Neck: No neck pain Cardiovascular: No chest pain Respiratory: No shortness of breath or cough Gastrointestinal: No abdominal pain, nausea vomiting or diarrhea Genitourinary: No dysuria Musculoskeletal: Chronic left ankle wound, he tells me it is unchanged Back: Some lower thoracic back pain. Skin: No rash Neurological: No memory loss, confusion or any focal weakness Psych: No recent behavioral changes Hematologic: No easy bleeding or easy bruising EXAM Physical Exam Narrative Exam Narrative: Physical exam General: Patient appears chronically ill, he has a high BMI of 44.3. Head: Normocephalic, Atraumatic Eyes: Conjunctiva not pale ENT: Slightly dry mucous membranes Neck: Supple, Nontender, No lymphadenopathy Cardiovascular: Regular rate, Regular rhythm Respiratory: Coarse bilateral breath sounds bilaterally Abdomen: Soft, Nontender, Nondistended Back: Nontender, Normal Inspection. Negative for: CVA tenderness Extremities: Left ankle and foot reveals ulcerated lesions, no foul-smelling discharge, no cellulitis is seen. Skin: Normal color, No rash Neurological: Alert, Normal Strength, Normal Sensation Psychological: Normal affect Const Vital Signs: 02/10/21 18:47 02/10/21 18:54 02/10/21 19:15 Temperature 97.7 F L 97.7 F L Temperature Source Oral Oral Pulse Rate 81 81 Respiratory Rate 24 H 24 H Respiratory Effort Normal Respiratory Depth Normal Respiratory Pattern Normal Blood Pressure 111/61 111/61 Blood Pressure Mean 77 77 Pulse Ox 99 99 Oxygen Delivery Method Room Air Room Air Room Air 02/10/21 20:00 Temperature 97.5 F L Temperature Source Temporal Pulse Rate 88 Respiratory Rate 16 Respiratory Effort Respiratory Depth Respiratory Pattern Blood Pressure 105/53 L Blood Pressure Mean 70 Pulse Ox 99 Oxygen Delivery Method MDM MDM MDM Narrative Medical decision making narrative: Patient has an unremarkable work-up other than acute kidney injury, as well as uremia. CPKs only slightly elevated. He is too weak to be discharged I believe that he can be observed in the hospital. Lab Data Labs: Laboratory Results - last 24 hr 02/10/21 02/10/21 18:50 18:50 WBC 10.0 RBC 4.01 L Hgb 10.4 L Hct 33.1 L MCV 82.5 MCH 25.9 L MCHC 31.4 L RDW Std Deviation 62.1 H RDW Coeff of Xavier 20.5 H Plt Count 269 MPV 10.5 Immature Gran % (Auto) 0.800 Neut % (Auto) 75.8 H Lymph % (Auto) 13.4 L [place] % (Auto) 8.4 Eos % (Auto) 1.3 Baso % (Auto) 0.3 Absolute Neuts (auto) 7.6 Absolute Lymphs (auto) 1.35 Nucleated RBC % 0 Platelet Estimate ADEQUATE RBC Morphology N CHROM Anisocytosis 1+ Sodium 137 Potassium 3.8 Chloride 107 Carbon Dioxide 21.0 Anion Gap 9 BUN 95 H Creatinine 2.50 H Estim Creat Clear Calc 30.12 Est GFR (MDRD) Af Amer 33 L Est GFR (MDRD) Non-Af 27 L BUN/Creatinine Ratio 38.0 H Glucose 96 Calcium 9.0 Total Bilirubin 0.70 AST 53 H ALT 21 Alkaline Phosphatase 70 Total Creatine Kinase 773 H Troponin I High Sens 75.6 Total Protein 7.0 Albumin 2.5 L Globulin 4.5 H Albumin/Globulin Ratio 0.6 L Radiography Diagnostic Testing: Radiology Impression Chest X-Ray 02/10/21 19:10 IMPRESSION: Normal x-ray examination of the chest. Electronically Signed: Dario Marte DO at 20:09 EDT Tel [phone], Service support , Discharge Plan Triage Chief Complaint: Fall ED Provider: Sean Fairbanks Dx/Rx/DC Orders Clinical Impression: Acute kidney injury, Fall Prescriptions: No Action furosemide [Lasix] 40 mg tablet 40 mg PO BID RF: 0 Hold Instructions: Resume on 01/02/21. Follow-up with your PCP in 1 week we will obtain a BMP to monitor your renal function. carvedilol [Coreg] 25 mg tablet 25 mg PO BID RF: 0 pioglitazone [Actos] 30 mg tablet 30 mg PO DAILY RF: 0 Lantus Solostar U-100 Insulin 100 unit/mL (3 mL) insulin pen 46 unit SUBCUT DAILY RF: 0 atorvastatin 40 mg tablet 40 mg PO QHS RF: 0 aspirin 81 mg Tablet 81 mg PO DAILY RF: 0 Primary Care Provider: Michael Palomino Referrals: Michael Palomino DO [Primary Care Provider] - Disposition Disposition: [facility]
--- NOTE | 2021-02-10 19:10 | RAD_ITS ---
STUDY: X-RAY CHEST REASON FOR EXAM: Male, 70 years old. Weakness TECHNIQUE: Frontal view COMPARISON: 12/25/2020 FINDINGS: The lungs are clear and expanded. There is no demonstrated pleural abnormality. Cardiomegaly. Normal mediastinum and almaz. Normal visualized pulmonary arteries. Normal visualized aortic arch and descending thoracic aorta. Normal visualized thoracic spine. Normal visualized ribs, clavicles, and shoulders. There is no demonstrated abnormality of the visualized soft tissue structures of the upper abdomen. RAD/Chest 1 View IMPRESSION: Normal x-ray examination of the chest. Electronically Signed: Dario Marte DO at 20:09 EDT Tel [phone], Service support ,
[2021-02-10 19:32] LABS: Absolute Lymphocyte Count 1.35 X10^3/uL (0.83-4.51); Absolute Neutrophil Count 7.6 X10^3/uL (2.0-7.7); Basophil# 0.03 X10^3/uL; Basophil% 0.3 % (0-1); Eosinophil# 0.13 X10^3/uL; Eosinophils% 1.3 % (0-5); Hematocrit 33.1 % (40-54); Hemoglobin 10.4 g/dL (13.0-16.5); Lymphocyte # 1.35 X10^3/ul (0.83-4.51); Lymphocyte % 13.4 % (19-41); Mean Corp Hgb Conc 31.4 g/dL (32-36); Mean Corpuscular Hgb 25.9 pg (27.0-32.0); Mean Corpuscular Volume 82.5 fL (80-94); Mean Platelet Vol. 10.5 fl (6.2-12.0); Monocyte# 0.84 X10^3/uL; Monocyte% 8.4 % (0-10); NRBC Flagged by Analyzer 0 % (0-5); Neutrophil # 7.61 X10^3/uL (2.7-7.7); Neutrophil % 75.8 % (47-70); POSITIVE MORPHOLOGY YES; Platelet Count 269 K/mm3 (150-450); RBC Distribution Width CV 20.5 % (11.6-14.6); RBC Distribution Width SD 62.1 fl (35.1-43.9); Red Blood Count 4.01 M/mm3 (4.6-6.2)
[2021-02-10 19:38] LABS: Differential Indicated SCAN CRITERIA MET
[2021-02-10 19:49] LABS: ALB/GLOB Ratio 0.6 RATIO (0.9-2.4); AST(SGOT) 53 U/L (15-37); Alanine Aminotransfer ALT/SGPT 21 U/L (16-61); Albumin, Serum 2.5 g/dL (3.2-5.0); Alkaline Phosphatase 70 U/L (45-117); Anion Gap 9 (5-15); BUN 95 mg/dL (7-18); CPK Total, Creatine Kinase 773 U/L (39-308); Chloride 107 mmol/L (98-107); EST Glomerular Filtration Rate 27 mL/min (>60); Est Glom Filt Rate - Afr Amer 33 mL/min (>60); Estimated Creatinine Clearance 30.12 ml/min; Globulin 4.5 g/dL (2.2-4.2); Glucose 96 mg/dL (74-106); Potassium 3.8 mmol/L (3.5-5.1); Sodium Level 137 mmol/L (136-145); Troponin-I HS 75.6 pg/mL (3.0-78.5)
[2021-02-10 20:19] LABS: Anisocytosis 1+; Platelet Estimate ADEQUATE (ADEQ); Red Cell Morphology N CHROM NORMAL (NORM C&C)
--- NOTE | 2021-02-10 20:28 | PCM.HP.STD ---
Documented by User: JACQUIE Julien 02/10/21 20:51 HPI - General General Date of Admission: 02/10/21 Date of Service: 02/10/21 Chief Complaint: Fall HPI Narrative JONEL ZALDIVAR, is a 70 M who presents following a fall. Patient has a history of Charcot foot and has to wear a foot brace when ambulating however patient did not put his boot on when walking at home and subsequently fell. Patient states that he laid on the floor for approximately 6 hours before being able to get to his phone to call his brother. Patient denies hitting his head or losing consciousness. Patient denies pain. Patient reports weakness. Patient denies fever, chills, shortness of breath, chest pain, cough, nausea, vomiting. [facility] Medical History Ankle fracture Chronic ulcer of ankle Chronic ulcer of left foot Chronic ulcer of right foot Diabetes History of ankle fracture Hypertension Kidney disease Home Medications Lantus Solostar U-100 Insulin 46 unit SUBCUT DAILY 12/25/20 [History Last Taken 12/30/20 10:00] carvedilol [Coreg] 25 mg PO BID 12/25/20 [History Last Taken 12/30/20 10:00] furosemide [Lasix] 40 mg PO BID 12/25/20 [History Last Taken 12/30/20 10:00] pioglitazone [Actos] 30 mg PO DAILY 12/25/20 [History Last Taken 12/30/20 10:00] aspirin 81 mg PO DAILY 12/31/20 [History Last Taken Unknown] atorvastatin 40 mg PO QHS 12/31/20 [History Last Taken 12/30/20 10:00] Allergy/AdvReac Type Severity Reaction Status Date / Time Penicillins [PCN] Allergy Rash Verified 02/10/21 18:54 blood pressure meds AdvReac NEEDS Uncoded 02/10/21 18:54 FOLLOW-UP Social History household members: none Smoking Status: Never smoker ROS Constitutional Constitutional: Reports weakness; Denies anorexia, chills, fatigue, fever(s) or malaise Cardiovascular Cardiovascular: Denies chest pain, edema or palpitations Respiratory/Chest Respiratory/Chest: Denies cough, shortness of breath at rest or shortness of breath with exertion Gastrointestinal Gastrointestinal: Denies abdominal pain, constipation, diarrhea, nausea or vomiting Genitourinary Genitourinary: Denies dysuria Musculoskeletal Musculoskeletal: Reports joint stiffness Integumentary Integumentary: Reports wounds; Denies dry skin Neurologic Neurologic: Denies abnormal gait, abnormal speech, confusion, dizziness, focal weakness or headache(s) Psychiatric Psychiatric: Denies anxiety or depression Endocrine Endocrinology: Denies change in body appearance Hematologic/Lymphatic Hematologic/Lymphatic: Denies easy bleeding or easy bruising Vital Signs Vital Signs Vital Signs: 02/10/21 18:47 02/10/21 18:54 02/10/21 19:15 Temperature 97.7 F L 97.7 F L Temperature Source Oral Oral Pulse Rate 81 81 Respiratory Rate 24 H 24 H Respiratory Effort Normal Respiratory Depth Normal Respiratory Pattern Normal Blood Pressure 111/61 111/61 Blood Pressure Mean 77 77 Pulse Ox 99 99 Oxygen Delivery Method Room Air Room Air Room Air 02/10/21 20:00 Temperature 97.5 F L Temperature Source Temporal Pulse Rate 88 Respiratory Rate 16 Respiratory Effort Respiratory Depth Respiratory Pattern Blood Pressure 105/53 L Blood Pressure Mean 70 Pulse Ox 99 Oxygen Delivery Method Weight Weight: 317 lb 7.45 oz Body Mass Index (BMI) 44.2 Physical Exam Const alert and oriented x3 General Appearance: cooperative HEENT normocephalic and head/scalp atraumatic Eyes conjunctivae normal and no scleral icterus Neck supple and no JVD General: trachea midline Lymph Lymphatic: no lymphadenopathy noted Resp normal respiratory effort, normal air movement and clear to auscultation bilaterally Cardio regular rate, regular rhythm, S1 normal heart sound and S2 normal heart sound GI normal to inspection, nondistended, normoactive bowel sounds, soft to palpation and non-tender Extremity no clubbing, cyanosis or edema Peripheral Pulses: Yes pulses 2+ throughout Left Lower Extremity: ankle joint and foot and digits Positive for other (Permanent deformity from Charcot foot) Skin Skin Narrative: Multiple open chronic wound to left foot and ankle, patient follows with Dr. Davis General Skin Exam: turgorafy normal Wounds: wounds noted open Neuro no focal motor deficits and no sensory deficits noted Speech: speech normal Motor Exam: general weakness Psych thought process normal, cooperative and affect normal Appearance: appropriate Results Lab / Micro Data Result Diagrams: 02/10/21 18:50 02/10/21 18:50 Labs: Laboratory Results - last 24 hr 02/10/21 02/10/21 18:50 18:50 WBC 10.0 RBC 4.01 L Hgb 10.4 L Hct 33.1 L MCV 82.5 MCH 25.9 L MCHC 31.4 L RDW Std Deviation 62.1 H RDW Coeff of Xavier 20.5 H Plt Count 269 MPV 10.5 Immature Gran % (Auto) 0.800 Neut % (Auto) 75.8 H Lymph % (Auto) 13.4 L [place] % (Auto) 8.4 Eos % (Auto) 1.3 Baso % (Auto) 0.3 Absolute Neuts (auto) 7.6 Absolute Lymphs (auto) 1.35 Nucleated RBC % 0 Platelet Estimate ADEQUATE RBC Morphology N CHROM Anisocytosis 1+ Sodium 137 Potassium 3.8 Chloride 107 Carbon Dioxide 21.0 Anion Gap 9 BUN 95 H Creatinine 2.50 H Estim Creat Clear Calc 30.12 Est GFR (MDRD) Af Amer 33 L Est GFR (MDRD) Non-Af 27 L BUN/Creatinine Ratio 38.0 H Glucose 96 Calcium 9.0 Total Bilirubin 0.70 AST 53 H ALT 21 Alkaline Phosphatase 70 Total Creatine Kinase 773 H Troponin I High Sens 75.6 Total Protein 7.0 Albumin 2.5 L Globulin 4.5 H Albumin/Globulin Ratio 0.6 L Radiology Impression Chest X-Ray 02/10/21 19:10 IMPRESSION: Normal x-ray examination of the chest. Electronically Signed: Dario Marte DO at 20:09 EDT Tel [phone], Service support , Assessment & Plan Assessment/Plan (1) Acute kidney injury: PLAN: 1. Acute on chronic kidney failure stage IIIa -admit to [facility] for observation -Normal saline 125 ml/hr -BMP ordered for a.m. -Vital signs per protocol -Intake and output -Oxygen per protocol 2. Weakness -Likely secondary to laying on the floor for 6 hours -PT and OT to eval and treat 3. Diabetes mellitus type II -Continue Lantus 46 units daily -Hold Actos -AC at bedtime blood sugars with sliding scale insulin ordered -Hypoglycemia protocol ordered 4. Hypertension -Continue Coreg -We will hold Lasix at this time due to acute kidney injury -Vital signs per protocol, trend BP 5. Hyperlipidemia -Continue atorvastatin DVT prophylaxis -subcu Lovenox This patient was seen by JACQUIE Julien under the supervision of Dr. Morocho. Documented by User: Dr. Vladimir Morocho MD 02/10/21 21:20 HPI - General General Date of Admission: 02/10/21 [facility] Medical History Ankle fracture Chronic ulcer of ankle Chronic ulcer of left foot Chronic ulcer of right foot Diabetes History of ankle fracture Hypertension Kidney disease Home Medications Lantus Solostar U-100 Insulin 46 unit SUBCUT DAILY 12/25/20 [History Last Taken 12/30/20 10:00] carvedilol [Coreg] 25 mg PO BID 12/25/20 [History Last Taken 12/30/20 10:00] furosemide [Lasix] 40 mg PO BID 12/25/20 [History Last Taken 12/30/20 10:00] pioglitazone [Actos] 30 mg PO DAILY 12/25/20 [History Last Taken 12/30/20 10:00] aspirin 81 mg PO DAILY 12/31/20 [History Last Taken Unknown] atorvastatin 40 mg PO QHS 12/31/20 [History Last Taken 12/30/20 10:00] Allergy/AdvReac Type Severity Reaction Status Date / Time Penicillins [PCN] Allergy Rash Verified 02/10/21 18:54 blood pressure meds AdvReac NEEDS Uncoded 02/10/21 18:54 FOLLOW-UP Social History household members: none Smoking Status: Never smoker Results Lab / Micro Data Result Diagrams: 02/10/21 18:50 02/10/21 18:50 Charges/Coding Addendum Addendum: Patient was seen and examined independently. I agree with assessment and plan by JACQUIE Julien Patient is a 65 y/o male with a significant history of diabetes mellitus; CKD stage IIIa; charcot foot and chronic ulcers who presents emergency department because of a fall. At baseline patient uses a boot on his left foot. However patient tried walking without the boot. Subsequently he fell and he could not get up. He laid on the ground for about 6 hours and then after crawled to pick a phone to call his brother. At the emergency department he was also found to be in ANDRY. He was encouraged to go home; However he felt too weak to go home. Surgical history: Hernia repair. Family history: His mother had strokes. Physical exam: General: Well-nourished, well-developed, no acute distress Head: Normocephalic, atraumatic, no tenderness Eyes: PERRLA, EOMI ENT, no trauma, moist mucous membranes, no rhinorrhea Neck: Nontender, full range of motion. CVS: Regular rate and rhythm Respiratory no acute distress, clear to auscultation bilaterally, chest wall nontender, no wheezing Abdomen: Soft, nontender, nondistended, normal bowel sounds, no masses : Deferred Extremities: Deformity of left foot. Skin: Right right foot with ulcer on the dorsal aspect of the big toe. Left foot with ulcer on lateral malleolus; and lateral side of foot. Neuro: Alert, oriented, cranial nerves II through XII grossly intact. Assessment and plan ANDRY on CKD stage II/ Review of ED labs showed creatinine of 2.50. Baseline creatinine is around 1.54. BUN presentation is 95 that is more than double baseline. BUN over creatinine is 38 likely prerenal. 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 Gentle IV hydration. Trend BMP. Avoid nephrotoxins. Home Lasix held. Mild rhabdomyolysis CPK of 773 Elevated AST. Positive urine occult blood but with unremarkable urine RBC. IV fluids as above. Trend CPK Debility and weakness PT and OT to work with patient. Case management consult for disposition. Diabetes mellitus Patient with euglycemia Patient is at risk of hypoglycemia. Hold home oral hypoglycemic regimen and basal insulin. Accu-Cheks ordered. Chronic wound Wound care consult. DVT prophylaxis: Subcutaneous Lovenox ordered. Visit Charges OBSV E&M: 74972 Initial observation care L3
[2021-02-10] MEDS: 0.9% Normal Saline 1,000 ML 125 ML IV (22:00)
[2021-02-10] MEDS: Acetaminophen 325 MG Tablet 650 MG PO (22:01)
[2021-02-10] MEDS: Carvedilol 25 MG Tablet PO (23:26)
[2021-02-10] MEDS: Atorvastatin Calcium 40 MG Tablet PO (23:26)
[2021-02-10] MEDS: Insulin Lispro 100 UNIT/ML INSULN.PEN SC (23:29)
[2021-02-11] VITALS (8 sets, daily range): BP systolic 94–116; BP diastolic 38–74; PULSE 69–110; RESP 12–20; TEMP 36.4–36.8; O2SAT 92–100; BMI 42.2
[2021-02-11] MEDS: 0.9% Normal Saline 1,000 ML 125 ML IV ×3 (04:13→20:30)
[2021-02-11] MEDS: Acetaminophen 325 MG Tablet 650 MG PO ×2 (04:13→11:31)
[2021-02-11 04:16] LABS: Bedside Glucose 196 mg/dL (70-110)
[2021-02-11 06:46] LABS: Absolute Neutrophil Count 5.6 X10^3/uL (2.0-7.7); Basophil# 0.02 X10^3/uL; Basophil% 0.3 % (0-1); Eosinophil# 0.27 X10^3/uL; Eosinophils% 3.4 % (0-5); Hematocrit 29.8 % (40-54); Hemoglobin 9.1 g/dL (13.0-16.5); Lymphocyte % 16.5 % (19-41); Mean Corp Hgb Conc 30.5 g/dL (32-36); Mean Corpuscular Hgb 25.8 pg (27.0-32.0); Mean Corpuscular Volume 84.4 fL (80-94); Mean Platelet Vol. 10.3 fl (6.2-12.0); Monocyte# 0.66 X10^3/uL; Monocyte% 8.4 % (0-10); NRBC Flagged by Analyzer 0 % (0-5); Neutrophil # 5.59 X10^3/uL (2.7-7.7); Neutrophil % 70.6 % (47-70); POSITIVE MORPHOLOGY YES; Platelet Count 242 K/mm3 (150-450); RBC Distribution Width CV 20.8 % (11.6-14.6); RBC Distribution Width SD 64.2 fl (35.1-43.9); Red Blood Count 3.53 M/mm3 (4.6-6.2); White Blood Count 7.9 K/mm3 (4.4-11.0)
[2021-02-11 07:01] LABS: Differential Indicated SCAN CRITERIA MET
[2021-02-11 07:10] LABS: Bedside Glucose 108 mg/dL (70-110)
[2021-02-11 07:16] LABS: Anion Gap 8 (5-15); BUN 99 mg/dL (7-18); BUN/Creat Ratio 33.7 RATIO (10-20); CPK Total, Creatine Kinase 617 U/L (39-308); Calcium,Total 8.5 mg/dL (8.5-10.1); Chloride 109 mmol/L (98-107); Creatinine, Serum 2.94 mg/dL (0.70-1.30); EST Glomerular Filtration Rate 23 mL/min (>60); Est Glom Filt Rate - Afr Amer 28 mL/min (>60); Estimated Creatinine Clearance 25.61 ml/min; Glucose 112 mg/dL (74-106); Potassium 3.5 mmol/L (3.5-5.1); Sodium Level 139 mmol/L (136-145)
[2021-02-11 09:11] LABS: Bedside Glucose 114 mg/dL (70-110)
[2021-02-11] MEDS: Nystatin Powder 15gm Bottle 1 APPLIC TOPICAL ×2 (09:29→20:31)
[2021-02-11] MEDS: Aspirin 81 MG TAB.CHEW PO (09:32)
[2021-02-11] MEDS: Pioglitazone Hydrochloride 30 MG Tablet PO (09:33)
[2021-02-11] MEDS: Glucerna Shake 120 ML LIQUID PO (09:42)
--- NOTE | 2021-02-11 10:16 | PN.HOSP_ITS ---
Documented by User: Sylvester HERMAN 02/11/21 10:27 Subjective Subjective Patient is a 70-year-old male comfortably resting in a chair, alert and oriented x3. Patient's only complaint is weakness, which he relates to being stuck on the ground for 6 hours yesterday. Denies chest pain, shortness of breath, p alpitations, fever, chills, N/V/D. Objective Data Objective Data Vital Signs: Vital Signs Temp Pulse Resp BP Pulse Ox 97.7 F L 72 20 H 94/38 L 100 02/11/21 09:09 02/11/21 09:09 02/11/21 09:09 02/11/21 09:09 02/11/21 09:09 Oxygen Delivery Method Room Air Weight: 302 lb 7.587 oz Body Mass Index (BMI) 42.2 Intake & Output: Intake and Output for Last 24 Hours 02/09/21 02/10/21 02/11/21 23:59 23:59 23:59 Intake Total 500 / 800 1377.08 / 1377.08 Output Total 375 / 375 100 / 100 Balance 125 / 425 1277.08 / 1277.08 Lab / Micro Data Result Diagrams: 02/11/21 05:58 02/11/21 05:58 Labs: Laboratory Results - last 24 hr 02/10/21 02/10/21 02/10/21 18:50 18:50 22:38 WBC 10.0 RBC 4.01 L Hgb 10.4 L Hct 33.1 L MCV 82.5 MCH 25.9 L MCHC 31.4 L RDW Std Deviation 62.1 H RDW Coeff of Xavier 20.5 H Plt Count 269 MPV 10.5 Immature Gran % (Auto) 0.800 Neut % (Auto) 75.8 H Lymph % (Auto) 13.4 L [place] % (Auto) 8.4 Eos % (Auto) 1.3 Baso % (Auto) 0.3 Absolute Neuts (auto) 7.6 Absolute Lymphs (auto) 1.35 Nucleated RBC % 0 Platelet Estimate ADEQUATE RBC Morphology N CHROM Anisocytosis 1+ Sodium 137 Potassium 3.8 Chloride 107 Carbon Dioxide 21.0 Anion Gap 9 BUN 95 H Creatinine 2.50 H Estim Creat Clear Calc 30.12 Est GFR (MDRD) Af Amer 33 L Est GFR (MDRD) Non-Af 27 L BUN/Creatinine Ratio 38.0 H Glucose 96 Calcium 9.0 Total Bilirubin 0.70 AST 53 H ALT 21 Alkaline Phosphatase 70 Total Creatine Kinase 773 H Troponin I High Sens 75.6 Total Protein 7.0 Albumin 2.5 L Globulin 4.5 H Albumin/Globulin Ratio 0.6 L POC Glucose 196 H 02/11/21 02/11/21 02/11/21 05:58 05:58 06:52 WBC 7.9 RBC 3.53 L Hgb 9.1 L Hct 29.8 L MCV 84.4 MCH 25.8 L MCHC 30.5 L RDW Std Deviation 64.2 H RDW Coeff of Xavier 20.8 H Plt Count 242 MPV 10.3 Immature Gran % (Auto) 0.800 Neut % (Auto) 70.6 H Lymph % (Auto) 16.5 L [place] % (Auto) 8.4 Eos % (Auto) 3.4 Baso % (Auto) 0.3 Absolute Neuts (auto) 5.6 Absolute Lymphs (auto) 1.30 Nucleated RBC % 0 Platelet Estimate RBC Morphology Anisocytosis Sodium 139 Potassium 3.5 Chloride 109 H Carbon Dioxide 22.0 Anion Gap 8 BUN 99 H Creatinine 2.94 H Estim Creat Clear Calc 25.61 Est GFR (MDRD) Af Amer 28 L Est GFR (MDRD) Non-Af 23 L BUN/Creatinine Ratio 33.7 H Glucose 112 H Calcium 8.5 Total Bilirubin AST ALT Alkaline Phosphatase Total Creatine Kinase 617 H Troponin I High Sens Total Protein Albumin Globulin Albumin/Globulin Ratio POC Glucose 108 02/11/21 09:01 WBC RBC Hgb Hct MCV MCH MCHC RDW Std Deviation RDW Coeff of Xavier Plt Count MPV Immature Gran % (Auto) Neut % (Auto) Lymph % (Auto) [place] % (Auto) Eos % (Auto) Baso % (Auto) Absolute Neuts (auto) Absolute Lymphs (auto) Nucleated RBC % Platelet Estimate RBC Morphology Anisocytosis Sodium Potassium Chloride Carbon Dioxide Anion Gap BUN Creatinine Estim Creat Clear Calc Est GFR (MDRD) Af Amer Est GFR (MDRD) Non-Af BUN/Creatinine Ratio Glucose Calcium Total Bilirubin AST ALT Alkaline Phosphatase Total Creatine Kinase Troponin I High Sens Total Protein Albumin Globulin Albumin/Globulin Ratio POC Glucose 114 H Radiography Diagnostic Testing: Radiology Impression Thoracic Spine X-Ray 02/10/21 19:01 IMPRESSION: Degenerative changes of the thoracic spine. Electronically Signed: Dario Marte DO at 20:37 EDT Tel [phone], Service support , Chest X-Ray 02/10/21 19:10 IMPRESSION: Normal x-ray examination of the chest. Electronically Signed: Dario Marte DO at 20:09 EDT Tel [phone], Service support , Physical Exam Const alert, oriented x3 and no apparent distress HEENT head/scalp atraumatic and moist oral mucous membranes Head and Scalp: normocephalic Eyes EOMs intact bilaterally and conjunctivae normal Neck no lymphadenopathy, supple and no JVD Resp normal respiratory effort, no retractions and no use of accessory muscles Cardio regular rate, regular rhythm, no murmurs and no JVD GI normal to inspection, nondistended, normoactive bowel sounds, soft to palpation and non-tender Extremity normal to inspection, full ROM and no clubbing, cyanosis or edema Skin no rashes or lesions noted, no wounds and skin turgor normal Neuro CN's II-XII intact bilaterally Psych affect normal Assessment & Plan Assessment/Plan (1) Acute kidney injury: (2) Fall: (3) Diabetes mellitus: (4) Hypertension: (5) Hyperlipidemia: PLAN: Day 2: See subjective for patient presentation. Discharge planning: Patient lives at home and desires to return on discharge, PT/OT eval pending, case management following. 1) ANDRY on CKD 3 Creatinine currently 2.94, up from admission. Likely related to dehydration and poor oral intake due to being on the ground for 6 hours before admission. Baseline appears between 1.5 and 2. Plan; continue IV fluids, BMP in a.m, hold Lasix. 2) weakness/fall Patient still endorses weakness from yesterday. Patient desires to return home on discharge, however seems open to possibility of SNF placement. Plan; PT/OT eval ordered, case management following. 3) DM2 Continue Lantus 46 units daily, Accu-Cheks ordered with sliding scale insulin. 4) HTN Coreg and Lasix on hold due to hypotension. Plan; continue to monitor, consider adjusting medications upon discharge. 5) hyperlipidemia Continue statin 6) Hypotension Currently 94/38. Plan; as above. DVT prophylaxis - Lovenox Patient seen by Sylvester Maurer PA-C, under the supervision of Dr. Alfonso. Documented by User: Dr. Joel Alfonso MD 02/11/21 14:34 Objective Data Lab / Micro Data Result Diagrams: 02/11/21 05:58 02/11/21 05:58 Charges/Coding Addendum Addendum: Dr. Alfonso: I personally reviewed the chart and examined the patient, and agree with the above findings. 70-year-old male presents to the hospital after a fall. He got up without wearing his boot on his left foot and fell over. He is supposed to wear the boot secondary to Charcot deformity. He was on the ground for about 6 hours prior to being able to crawl to the phone and call his brother for help. He was brought to the hospital with an elevated creatinine which has continued to rise indicative of an ANDRY and he did have an elevated CPK with a normal troponin. He does have an ANDRY on CKD 3 a, this with his mild rhabdomyolysis and his Charcot foot qualify him as an inpatient admission and he will be changed from observation. Will have PT/OT evaluation for possible placement, as well as orthostatic vital signs to monitor volume status and possible issues with sy ncope. Visit Charges Inpatient E&M: 21292 Subs Hosp L2
--- NOTE | 2021-02-11 11:20 | CASEMGMT ---
RN MISTY Assessment: Face to Face with pt for initial transition planning/care coordination assessment. RN CM introduced self and role at [facility], pt voices understanding and consents to assessment. Pt is A/O x4 and answers all questions appropriately at this time. Pt sitting up in bed with nurse and student nurse at bedside. Care providers, pharmacy, and demographics verified/updated. Admitting Dx: ANDRY PCP:Georgette Specialists: chelsy Cameron Preferred [facility]acy: [facility] Insurance: [facility] Medicare Prescription Benefit: yes LW/HPOA: Pt denies having a LW/DPOA. LNOK: Anyi Klein, sister Living Arrangements: Pt lives alone in a ground apt with 4-5 steps going down to enter with rails on both sides. Pt reports being I in ADL's and denies concerns at home. Transportation: Pt drives self and denies concerns with transportation. DME/HHC/SNF: Pt has a walker and glucometer. Pt states he has insulin and all of his supplies. Pt has previously had [facility] and has been in [facility]. Pt provided with information for [facility] [employer] as well as other local companies, per request. Pt states no concerns with going home at time of dc but he is willing to consider what is recommended for him if that is a SNF. Pt states no further concerns/needs. CM to follow. Advised pt to ask CM if any further question/concerns/needs arise, voices understanding. Pt Goal: Home with consideration of SNF if recommended Plan: Home vs SNF
[2021-02-11] MEDS: Enoxaparin 30 MG/0.3 ML Syringe SC (11:34)
[2021-02-11 11:35] LABS: Bedside Glucose 152 mg/dL (70-110)
[2021-02-11] MEDS: Insulin Lispro 100 UNIT/ML INSULN.PEN SC ×3 (11:35→20:32)
--- NOTE | 2021-02-11 15:05 | NURSING ---
This RN reviewed SN charting
--- NOTE | 2021-02-11 15:05 | NURSING ---
All meds given by SN were with this RN
--- NOTE | 2021-02-11 15:25 | CASEMGMT ---
Social Work Note Pt may need SNF at discharge, willing to consider. SW in to speak with pt. SW introduced self and role at [facility]. Patient was provided a list of SNF providers including quality and resource use data and consistent with the patient?s preferred geographic region, medical needs, and insurance network. SW informed pt that RN CM and SW will continue to follow pt and how pt progresses. Pt states understanding. Plan: TBD Melody Renya ELECTRICAL CAD TECHNICIAN, SYSTEMS TECHNOLOGIST
--- NOTE | 2021-02-11 15:59 | NT.THERAPY_ITS ---
Medical Nutrition Therapy - History Nutrition Services has been consulted to:: Manage nutrient details of diet order Current diet/nutrition support order:: Cardiac - consistent carbohydrate 1800kcal diet. Glucerna 120mL PO TID. - Anthropometric Measurements Height:: 5 ft 11 in Weight:: 137.2 kg Body Mass Index (BMI):: 42.2 - Relevant Labs Relevant Labs:: RBC 3.53 M/mm3 (4.6-6.2) L 02/11/21 05:58 Hgb 9.1 g/dL (13.0-16.5) L 02/11/21 05:58 Hct 29.8 % (40-54) L 02/11/21 05:58 MCH 25.8 pg (27.0-32.0) L 02/11/21 05:58 MCHC 30.5 g/dL (32-36) L 02/11/21 05:58 RDW Std Deviation 64.2 fl (35.1-43.9) H 02/11/21 05:58 RDW Coeff of Xavier 20.8 % (11.6-14.6) H 02/11/21 05:58 Neut % (Auto) 70.6 % (47-70) H 02/11/21 05:58 Lymph % (Auto) 16.5 % (19-41) L 02/11/21 05:58 Chloride 109 mmol/L (98-107) H 02/11/21 05:58 BUN 99 mg/dL (7-18) H 02/11/21 05:58 Creatinine 2.94 mg/dL (0.70-1.30) H 02/11/21 05:58 Est GFR (MDRD) Af Amer 28 mL/min (>60) L 02/11/21 05:58 Est GFR (MDRD) Non-Af 23 mL/min (>60) L 02/11/21 05:58 BUN/Creatinine Ratio 33.7 RATIO (10-20) H 02/11/21 05:58 Glucose 112 mg/dL (74-106) H 02/11/21 05:58 AST 53 U/L (15-37) H 02/10/21 18:50 Total Creatine Kinase 617 U/L (39-308) H 02/11/21 05:58 Albumin 2.5 g/dL (3.2-5.0) L 02/10/21 18:50 Globulin 4.5 g/dL (2.2-4.2) H 02/10/21 18:50 Albumin/Globulin Ratio 0.6 RATIO (0.9-2.4) L 02/10/21 18:50 - Assessment Food and Nutrient Intake: Pt reports that he has been experiencing a decreased appetite for ~1.5 months. Reports that he has been consuming a few bites of his meals at home and at the hospital. States that food doesn't taste good to him anymore, and he doesn't feel hungry at meals. Pt's weight on 12/30/2020 was 354# and CBW is 302.5# representing 51.5#/15% weight loss x43 days. Pt states wt loss was unintentional. Of note, pt was admitted to [facility] TCU from 12/31-01/31. Nursing documentation from TCU admission shows varying PO intake. During TCU admission, pt was on a therapeutic diet. - Nutrition Diagnosis: Clinical Problem Acute Disease or Injury Related Malnutrition Clinical Problem - Etiology: severe malnutrition in context of decreased appetite, inadequate energy intake during acute hospitalization/SNF stay Clinical Problem - Signs/Symptoms: as evidenced by unintentional wt loss of 51.5#/15% <2 months, estimated PO Intake meeting <75% of nutritional needs >1 month Status: Active Problem - Protein Calorie Malnutrition Evidence of Malnutrition Exists: Yes Severe Protein Calorie Malnutrition:: Acute Illness/Injury - Nutrition Intervention Nutrition Prescription: 2,000-2,000 kcal/day (25kcal/kg IBW). Protein 90- 100g/day (1.2g/kg IBW). Fluid 2,200-2,300mL/day (30mL/kg IBW) - Food / Nutrient Delivery Interventions Summary of nutrition intervention:: Adjust diet order, Provide oral nutrition supplement Nutrition support ordered as / adjusted to:: Continue cardiac - consistent carbohydrate diet, will increase to 2000 calories/day. Continue glucerna 120mL PO TID. Add 1 pkt beneprotein to meals. Coordination of Nutrition Care: Wt loss and pt's reported decreased PO intake is significant for malnutrition. Gradual wt loss certainly warranted given morbid obesity, however wt loss was not gradual and occurred in limited timeframe. Ca nnot exclude some wt loss d/t therapeutic diet while on TCU. Will continue to monitor wt for trends. - MNT Monitoring Active Nutrition Patient: Yes Nutrition Status: Requires Follow Up 3-5 Days
[2021-02-11 17:06] LABS: Bedside Glucose 164 mg/dL (70-110)
[2021-02-11] MEDS: Carvedilol 25 MG Tablet PO (20:31)
[2021-02-11] MEDS: Atorvastatin Calcium 40 MG Tablet PO (20:34)
[2021-02-11 20:40] LABS: Bedside Glucose 163 mg/dL (70-110)
[2021-02-12] MEDS: Ondansetron 4 MG/2 ML Vial IV (00:17)
[2021-02-12 02:08] VITALS: BP 114/53; PULSE 73; RESP 16; TEMP 36.7; O2SAT 98
[2021-02-12] MEDS: 0.9% Normal Saline 1,000 ML 125 ML IV ×3 (04:13→20:26)
[2021-02-12 06:40] LABS: Bedside Glucose 125 mg/dL (70-110)
[2021-02-12 07:30] LABS: Anion Gap 8 (5-15); BUN 94 mg/dL (7-18); BUN/Creat Ratio 39.8 RATIO (10-20); Calcium,Total 8.4 mg/dL (8.5-10.1); Chloride 111 mmol/L (98-107); Creatinine, Serum 2.36 mg/dL (0.70-1.30); EST Glomerular Filtration Rate 29 mL/min (>60); Est Glom Filt Rate - Afr Amer 35 mL/min (>60); Estimated Creatinine Clearance 31.91 ml/min; Glucose 121 mg/dL (74-106); Potassium 3.8 mmol/L (3.5-5.1); Sodium Level 138 mmol/L (136-145)
[2021-02-12 08:10] VITALS: BP 122/59; PULSE 70; RESP 16; TEMP 36.8; O2SAT 99
[2021-02-12] MEDS: Aspirin 81 MG TAB.CHEW PO (08:18)
[2021-02-12] MEDS: Acetaminophen 325 MG Tablet 650 MG PO ×2 (08:18→15:11)
[2021-02-12] MEDS: Carvedilol 25 MG Tablet PO ×2 (09:50→21:37)
[2021-02-12] MEDS: Enoxaparin 40 MG/0.4 ML Syringe SC (09:50)
[2021-02-12] MEDS: Pioglitazone Hydrochloride 30 MG Tablet PO (09:50)
[2021-02-12 09:51] VITALS: O2SAT 98
[2021-02-12] MEDS: Nystatin Powder 15gm Bottle 1 APPLIC TOPICAL ×2 (09:51→21:37)
--- NOTE | 2021-02-12 10:59 | PCM.PN.HOSP ---
Documented by User: Sylvester HERMAN 02/12/21 11:05 Subjective Subjective Patient is a 70-year-old male comfortably resting in bed and eating breakfast, alert and oriented x3. Denies chest pain, shortness of breath, palpitations, hemoptysis, sputum production, fever, chills, N/V/D. Objective Data Objective Data Vital Signs: Vital Signs Temp Pulse Resp BP Pulse Ox 98.3 F 70 16 122/59 H 99 02/12/21 08:10 02/12/21 08:10 02/12/21 08:10 02/12/21 08:10 02/12/21 08:10 Oxygen Delivery Method Room Air Weight: 302 lb 7.587 oz Body Mass Index (BMI) 42.2 Intake & Output: Intake and Output for Last 24 Hours 02/10/21 02/11/21 02/12/21 23:59 23:59 23:59 Intake Total 500 / 800 3683.33 / 3683.33 1264.58 / 1264.58 Output Total 375 / 375 875 / 875 425 / 425 Balance 125 / 425 2808.33 / 2808.33 839.58 / 839.58 Lab / Micro Data Result Diagrams: 02/11/21 05:58 02/12/21 06:41 Labs: Laboratory Results - last 24 hr 02/11/21 02/11/21 02/11/21 11:29 16:42 20:29 Sodium Potassium Chloride Carbon Dioxide Anion Gap BUN Creatinine Estim Creat Clear Calc Est GFR (MDRD) Af Amer Est GFR (MDRD) Non-Af BUN/Creatinine Ratio Glucose Calcium POC Glucose 152 H 164 H 163 H 02/12/21 02/12/21 06:34 06:41 Sodium 138 Potassium 3.8 Chloride 111 H Carbon Dioxide 19.0 L Anion Gap 8 BUN 94 H Creatinine 2.36 H Estim Creat Clear Calc 31.91 Est GFR (MDRD) Af Amer 35 L Est GFR (MDRD) Non-Af 29 L BUN/Creatinine Ratio 39.8 H Glucose 121 H Calcium 8.4 L POC Glucose 125 H Physical Exam Const alert, oriented x3 and no apparent distress HEENT head/scalp atraumatic and moist oral mucous membranes Head and Scalp: normocephalic Eyes EOMs intact bilaterally and conjunctivae normal Neck no lymphadenopathy, supple and no JVD Resp normal respiratory effort, no retractions, no use of accessory muscles and clear to auscultation bilaterally Cardio regular rate, regular rhythm, no murmurs and no JVD GI normal to inspection, nondistended, normoactive bowel sounds, soft to palpation, non-tender and non-distended Extremity Extremity Narrative: Brown discoloration of the lower extremities bilaterally. Bandaged chronic ulcer on the heel of the left lower extremity; no erythema, tenderness or swelling. Skin Skin Narrative: See extremities. Neuro CN's II-XII intact bilaterally Psych affect normal Assessment & Plan Assessment/Plan (1) Fall: (2) Acute kidney injury: (3) Hyperlipidemia: (4) Hypertension: (5) Diabetes mellitus: PLAN: Day 3: See subjective for patient presentation. Discharge planning: Patient lives at home and desires to return on discharge, PT/OT eval pending, case management following. 1) ANDRY on CKD 3 Creatinine currently 2.36, down from yesterday and at admission. Likely related to dehydration and poor oral intake due to being on the ground for 6 hours before admission. Baseline appears between 1.5 and 2. Plan; continue IV fluids, BMP in a.m, hold Lasix. 2) weakness/fall Patient still endorses weakness from yesterday. Patient desires to return home on discharge, however seems open to possibility of SNF placement. Plan; PT/OT eval ordered, case management following. 3) DM2 Continue Lantus 46 units daily, Accu-Cheks ordered with sliding scale insulin. 4) HTN Stable. Hold Lasix due to #1, continue Coreg. Plan; continue to monitor, consider adjusting medications upon discharge due to observed hypotension during admission. 5) hyperlipidemia Continue statin 6) Hypotension Resolved. Plan; as above. DVT prophylaxis - Lovenox Patient seen by Sylvester Maurer PA-C, under the supervision of Dr. Alfonso. Documented by User: Dr. Joel Alfonso MD 02/12/21 12:00 Objective Data Lab / Micro Data Result Diagrams: 02/11/21 05:58 02/12/21 06:41 Charges/Coding Addendum Addendum: Dr. Alfonso: I personally reviewed the chart and examined the patient, and agree with the above findings. 70-year-old male presents to the hospital after a fall. He got up without wearing his boot on his left foot and fell over. He is supposed to wear the boot secondary to Charcot deformity. He was on the ground for about 6 hours prior to being able to crawl to the phone and call his brother for help. He was brought to the hospital with an elevated creatinine which has continued to rise indicative of an ANDRY and he did have an elevated CPK with a normal troponin. He does have an ANDRY on CKD 3 a, this with his mild rhabdomyolysis and his Charcot foot qualify him as an inpatient admission and he will be changed from observation. Will have PT/OT evaluation for possible placement, as well as orthostatic vital signs to monitor volume status and possible issues with syncope. 02/12/2021: He is feeling better today and his creatinine has improved, can try to decrease his fluids from 125 to 100 cc/h today. Continue with PT/OT for evaluation and possible placement secondary to his ANDRY and his Charcot foot. Visit Charges Inpatient E&M: 69570 Subs Hosp L2
--- NOTE | 2021-02-12 11:32 | CASEMGMT ---
Social Work Note SW reviewed PT/OT, pt walked 30ft contact guard. SW in to speak with pt. Pt states that he feels safe going home and wishes to discharge home. SW asked pt if he wanted any HHC or outpatient therapy and pt denied. Pt states he will be going back home and has a walker at home and denied any additional needs or concerns. RIGO updated RN CM. Melody Reyna CADD OPERATOR, PRESSURE TESTER OPERATOR
[2021-02-12] MEDS: Insulin Lispro 100 UNIT/ML INSULN.PEN SC ×2 (11:41→21:36)
[2021-02-12 11:45] LABS: Bedside Glucose 152 mg/dL (70-110)
[2021-02-12 13:45] VITALS: O2SAT 97
--- NOTE | 2021-02-12 13:45 | NURSING ---
Pt scheduled to receive 2nd covid vaccine this afternoon at [facility] vaccine clinic. Rehan RN made aware of pt wishing to get the vaccine while he is an inpatient. Dr. Alfonso approved of pt getting his vaccine today. Jany Barrientos RN at bedside to administer pt's 2nd covid vaccine to rt deltoid. Pt instructed to use call light to alert RN of any s/s reaction.
[2021-02-12 14:10] VITALS: BP 120/50; PULSE 71; RESP 18; TEMP 36.9; O2SAT 99
[2021-02-12 17:10] LABS: Bedside Glucose 151 mg/dL (70-110)
[2021-02-12 20:24] VITALS: BP 121/52; PULSE 70; RESP 18; TEMP 36.5; O2SAT 100
[2021-02-12] MEDS: Atorvastatin Calcium 40 MG Tablet PO (21:38)
[2021-02-12 21:40] LABS: Bedside Glucose 161 mg/dL (70-110)
[2021-02-12] MEDS: Senna/Docusate Sodium 1 Tablet 2 TABLET PO (21:40)
[2021-02-13 00:44] VITALS: BP 128/70; PULSE 70; RESP 18; TEMP 36.5; O2SAT 100
[2021-02-13] MEDS: Acetaminophen 325 MG Tablet 650 MG PO (00:50)
[2021-02-13] MEDS: 0.9% Normal Saline 1,000 ML 125 ML IV (03:41)
[2021-02-13 06:17] VITALS: BP 138/61; PULSE 60; RESP 18; TEMP 36.5; O2SAT 100
[2021-02-13] MEDS: 0.9% Saline Lock 10 ML Syringe IV (06:30)
[2021-02-13] MEDS: Ondansetron 4 MG/2 ML Vial IV (06:30)
[2021-02-13 06:31] LABS: Bedside Glucose 115 mg/dL (70-110)
--- NOTE | 2021-02-13 06:34 | EKG12_ITS ---
Test Reason : CP Blood Pressure : / mmHG Vent. Rate : 056 BPM Atrial Rate : 100 BPM P-R Int : 000 ms QRS Dur : 130 ms QT Int : 444 ms P-R-T Axes : 000 -33 090 degrees QTc Int : 428 ms Atrial fibrillation Left axis deviation Non-specific intra-ventricular conduction block Abnormal ECG When compared with ECG of 10-FEB-2021 19:01, MANUAL COMPARISON REQUIRED, DATA IS UNCONFIRMED Confirmed by TIN NGUYEN, JESUS ([id number]), senior editor OFELIA RUTH ([id number]) on 02/16/2021 8:53:50 AM Referred By: CHON Confirmed By:JESUS CASTLE MD
[2021-02-13 06:41] LABS: Anion Gap 4 (5-15); BUN 76 mg/dL (7-18); BUN/Creat Ratio 41.5 RATIO (10-20); Calcium,Total 8.6 mg/dL (8.5-10.1); Chloride 112 mmol/L (98-107); Creatinine, Serum 1.83 mg/dL (0.70-1.30); EST Glomerular Filtration Rate 39 mL/min (>60); Est Glom Filt Rate - Afr Amer 48 mL/min (>60); Estimated Creatinine Clearance 41.15 ml/min; Glucose 128 mg/dL (74-106); Potassium 4.2 mmol/L (3.5-5.1); Sodium Level 139 mmol/L (136-145)
[2021-02-13 07:01] VITALS: BP 138/61; PULSE 60
[2021-02-13] MEDS: Nitroglycerin (INPATIENT USE) 0.4 MG TAB.SUBL SL (07:01)
--- NOTE | 2021-02-13 07:05 | NURSING ---
614. pt c/o chest tightness not really pain rating 3/10 all over my chest. nonradiating. and pt states started around 0300 pt never mentioned any complaint prior to this RN, prior to 614 EKG was obtained and showed no STEMI, but AFIB. pt states i have been told something like that before and take aspirin daily order for nitro and given order for troponin series
--- NOTE | 2021-02-13 07:11 | NURSING ---
this RN went in to reassess after first nitro given pt states i feel alot better pt states chest tightness has decreased pt states nausea is better at this time as well. zofran was given earlier at 0630
[2021-02-13 07:15] LABS: Troponin-I HS 53.5 pg/mL (3.0-78.5)
[2021-02-13 07:19] VITALS: O2SAT 100
[2021-02-13 07:54] LABS: Troponin-I HS 50.4 pg/mL (3.0-78.5)
[2021-02-13 09:04] VITALS: BP 124/55; PULSE 63; RESP 18; TEMP 36.4; O2SAT 98
[2021-02-13] MEDS: Pioglitazone Hydrochloride 30 MG Tablet PO (09:07)
[2021-02-13] MEDS: Aspirin 81 MG TAB.CHEW PO (09:07)
[2021-02-13] MEDS: Carvedilol 25 MG Tablet PO (09:07)
--- NOTE | 2021-02-13 10:06 | PCM.DC ---
Discharge Instructions Diet Discharge Diet: No restrictions Activity Discharge Activity: Return to Normal Activity Follow Up Care Please Follow Up With: Primary care provider When: Within the next two weeks. Test Results: Test results from this visit will be discussed in further detail at your follow-up appointment, if applicable. Discharge Plan Admission Admit Date/Time: 02/11/21 11:00 Primary Reason for Your Visit: Weakness/Fall Attending Provider: Joel Alfonso Primary Care Provider: Michael Palomino Instructions Patient Instructions: ED Chest Pain, Noncardiac Discharge Orders/Prescriptions Prescriptions: Continued furosemide [Lasix] 40 mg tablet 40 mg PO BID RF: 0 Hold Instructions: Resume on 01/02/21. Follow-up with your PCP in 1 week we will obtain a BMP to monitor your renal function. carvedilol [Coreg] 25 mg tablet 25 mg PO BID RF: 0 pioglitazone [Actos] 30 mg tablet 30 mg PO DAILY RF: 0 Lantus Solostar U-100 Insulin 100 unit/mL (3 mL) insulin pen 43 unit SUBCUT DAILY RF: 0 atorvastatin 40 mg tablet 40 mg PO DAILY RF: 0 aspirin 81 mg Tablet 81 mg PO DAILY RF: 0 vitamin B complex [B Complex-Vitamin B12] Tablet 1 tab PO DAILY RF: 0 cholecalciferol (vitamin D3) [Vitamin D3] 125 mcg (5,000 unit) Tablet 125 mcg PO DAILY RF: 0 Referrals / Follow Up: Michael Palomino DO [Primary Care Provider] - Within 2 Weeks Disposition Disposition (needs filled in before D/C Order can be placed): Home, Self Care
--- NOTE | 2021-02-13 10:09 | PCM.DC.SUM ---
Documented by User: Sylvester HERMAN 02/13/21 12:01 Providers Date of Admission: 02/11/21 Primary Care Physician: Dr. Michael Palomino, Consultations 02/10/21 21:41 Consult: Onc/Wound/varnish thinner Routine Comment: Reason for Consult:: chronic wounds to left foot Reason For Visit: ANDRY Diagnosis Discharge Diagnosis (1) Fall: Status: Acute Code(s): W19.XXXA - Unspecified fall, initial encounter (2) Acute kidney injury: Status: Acute Code(s): N17.9 - Acute kidney failure, unspecified (3) Hyperlipidemia: Status: Acute Code(s): E78.5 - Hyperlipidemia, unspecified (4) Hypertension: Status: Chronic Code(s): I10 - Essential (primary) hypertension (5) Diabetes mellitus: Status: Acute Code(s): E11.9 - Type 2 diabetes mellitus without complications Medications at Discharge Home Medications Lantus Solostar U-100 Insulin 43 unit SUBCUT DAILY 12/25/20 carvedilol [Coreg] 25 mg PO BID 12/25/20 furosemide [Lasix] 40 mg PO BID 12/25/20 pioglitazone [Actos] 30 mg PO DAILY 12/25/20 aspirin 81 mg PO DAILY 12/31/20 atorvastatin 40 mg PO DAILY 12/31/20 cholecalciferol (vitamin D3) [Vitamin D3] 125 mcg PO DAILY 02/10/21 vitamin B complex [B Complex-Vitamin B12] 1 tab PO DAILY 02/10/21 Hospital Course Summary of Care Provided Minutes Spent on Discharge: 35 Hospital Course: Disposition: Patient lives at home and desires to return on discharge. Patient denies wanting to go to SNF and denied HHC therapy when offered by . 1) ANDRY on CKD 3 Resolved, currently 1.83, back to baseline. 2) weakness/fall Still endorses mild weakness, which he relates to receiving the second dose of the COVID vaccine yesterday.Patient denies wanting to go to SNF and denied HHC therapy when offered by SW. 3) DM2 Continue home diabetic regimen. 4) HTN Stable, continue Coreg and Lasix. 5) hyperlipidemia Continue statin 6) Hypotension Resolved. Patient seen by Sylvester Maurer PA-C, under the supervision of Dr. Alfonso. Physical Exam Narrative Patient is a 70-year-old male comfortably resting in bed, alert and orient x3. Denies chest pain, shortness of breath, palpitations, hemoptysis, sputum production, fever, chills, N/V/D. Const alert, oriented x3 and no apparent distress HEENT normocephalic, head/scalp atraumatic and hearing grossly normal bilaterally Eyes EOMs intact bilaterally and conjunctivae normal Neck no lymphadenopathy, supple and no JVD Resp normal respiratory effort, no retractions, no use of accessory muscles and clear to auscultation bilaterally Cardio regular rate, regular rhythm, no murmurs and no JVD GI normal to inspection, nondistended, normoactive bowel sounds, soft to palpation and non-tender Extremity Extremity Narrative: Brown discoloration of the lower extremities bilaterally. Bandaged chronic ulcer on the heel of the left lower extremity; no erythema, tenderness or swelling. Skin Skin Narrative: See extremity. Neuro CN's II-XII intact bilaterally Psych affect normal Weight / BMI Weight Weight: 302 lb 7.587 oz Body Mass Index (BMI) 42.2 ABG / Lab / Microbiology Data Result Diagrams: 02/11/21 05:58 02/13/21 05:25 Laboratory: Laboratory Results - last 24 hr 02/12/21 02/12/21 02/12/21 11:40 17:04 21:35 Sodium Potassium Chloride Carbon Dioxide Anion Gap BUN Creatinine Estim Creat Clear Calc Est GFR (MDRD) Af Amer Est GFR (MDRD) Non-Af BUN/Creatinine Ratio Glucose Calcium Troponin I High Sens POC Glucose 152 H 151 H 161 H 02/13/21 02/13/21 02/13/21 05:25 05:25 06:23 Sodium 139 Potassium 4.2 Chloride 112 H Carbon Dioxide 23.0 Anion Gap 4 L BUN 76 H Creatinine 1.83 H Estim Creat Clear Calc 41.15 Est GFR (MDRD) Af Amer 48 L Est GFR (MDRD) Non-Af 39 L BUN/Creatinine Ratio 41.5 H Glucose 128 H Calcium 8.6 Troponin I High Sens 53.5 POC Glucose 115 H 02/13/21 07:25 Sodium Potassium Chloride Carbon Dioxide Anion Gap BUN Creatinine Estim Creat Clear Calc Est GFR (MDRD) Af Amer Est GFR (MDRD) Non-Af BUN/Creatinine Ratio Glucose Calcium Troponin I High Sens 50.4 POC Glucose D/C Instructions Discharge Diet: No restrictions Please Follow Up With: Primary care provider When: Within the next two weeks. Meaningful Use Info Meaningful Use Diagnoses (Choose all that apply): None applicable Discharge Plan Admission Admit Date/Time: 02/11/21 11:00 Primary Reason for Your Visit: Weakness/Fall Attending Provider: Joel Alfonso Primary Care Provider: Michael Palomino Instructions Patient Instructions: ED Chest Pain, Noncardiac Discharge Orders/Prescriptions Prescriptions: Continued furosemide [Lasix] 40 mg tablet 40 mg PO BID RF: 0 Hold Instructions: Resume on 01/02/21. Follow-up with your PCP in 1 week we will obtain a BMP to monitor your renal function. carvedilol [Coreg] 25 mg tablet 25 mg PO BID RF: 0 pioglitazone [Actos] 30 mg tablet 30 mg PO DAILY RF: 0 Lantus Solostar U-100 Insulin 100 unit/mL (3 mL) insulin pen 43 unit SUBCUT DAILY RF: 0 atorvastatin 40 mg tablet 40 mg PO DAILY RF: 0 aspirin 81 mg Tablet 81 mg PO DAILY RF: 0 vitamin B complex [B Complex-Vitamin B12] Tablet 1 tab PO DAILY RF: 0 cholecalciferol (vitamin D3) [Vitamin D3] 125 mcg (5,000 unit) Tablet 125 mcg PO DAILY RF: 0 Referrals / Follow Up: Michael Palomino DO [Primary Care Provider] - Within 2 Weeks Disposition Disposition (needs filled in before D/C Order can be placed): Home, Self Care Documented by User: Dr. Joel Alfonso MD 02/13/21 13:24 Providers Date of Admission: 02/11/21 Reason For Visit: ANDRY Medications at Discharge Home Medications Lantus Solostar U-100 Insulin 43 unit SUBCUT DAILY 12/25/20 carvedilol [Coreg] 25 mg PO BID 12/25/20 furosemide [Lasix] 40 mg PO BID 12/25/20 pioglitazone [Actos] 30 mg PO DAILY 12/25/20 aspirin 81 mg PO DAILY 12/31/20 atorvastatin 40 mg PO DAILY 12/31/20 cholecalciferol (vitamin D3) [Vitamin D3] 125 mcg PO DAILY 02/10/21 vitamin B complex [B Complex-Vitamin B12] 1 tab PO DAILY 02/10/21 ABG / Lab / Microbiology Data Result Diagrams: 02/11/21 05:58 02/13/21 05:25 Discharge Plan Admission Admit Date/Time: 02/11/21 11:00 Primary Reason for Your Visit: Weakness/Fall Attending Provider: Joel Alfonso Primary Care Provider: Michael Palomino Instructions Patient Instructions: ED Chest Pain, Noncardiac Discharge Orders/Prescriptions Prescriptions: Continued furosemide [Lasix] 40 mg tablet 40 mg PO BID RF: 0 Hold Instructions: Resume on 01/02/21. Follow-up with your PCP in 1 week we will obtain a BMP to monitor your renal function. carvedilol [Coreg] 25 mg tablet 25 mg PO BID RF: 0 pioglitazone [Actos] 30 mg tablet 30 mg PO DAILY RF: 0 Lantus Solostar U-100 Insulin 100 unit/mL (3 mL) insulin pen 43 unit SUBCUT DAILY RF: 0 atorvastatin 40 mg tablet 40 mg PO DAILY RF: 0 aspirin 81 mg Tablet 81 mg PO DAILY RF: 0 vitamin B complex [B Complex-Vitamin B12] Tablet 1 tab PO DAILY RF: 0 cholecalciferol (vitamin D3) [Vitamin D3] 125 mcg (5,000 unit) Tablet 125 mcg PO DAILY RF: 0 Referrals / Follow Up: Michael Palomino DO [Primary Care Provider] - Within 2 Weeks Disposition Disposition (needs filled in before D/C Order can be placed): Home, Self Care Charges/Coding Addendum Addendum: Dr. Alfonso: I personally reviewed the chart and examined the patient, and agree with the above findings. 70-year-old male presents to the hospital after a fall. He got up without wearing his boot on his left foot and fell over. He is supposed to wear the boot secondary to Charcot deformity. He was on the ground for about 6 hours prior to being able to crawl to the phone and call his brother for help. He was brought to the hospital with an elevated creatinine which has continued to rise indicative of an ANDRY and he did have an elevated CPK with a normal troponin. He does have an ANDRY on CKD 3 a, this with his mild rhabdomyolysis and his Charcot foot qualify him as an inpatient admission and he will be changed from observation. Will have PT/OT evaluation for possible placement, as well as orthostatic vital signs to monitor volume status and possible issues with syncope. 02/12/2021: He is feeling better today and his creatinine has improved, can try to decrease his fluids from 125 to 100 cc/h today. Continue with PT/OT for evaluation and possible placement secondary to his ANDRY and his Charcot foot. 02/13/2021: He is feeling much better today and wants to go home. He did have an episode of chest pain last night however his troponins were unremarkable, and likely secondary to his acute kidney disease and elevated CPK. We did advise that physical therapy either at a SNF or at home would be advisable however he refused both SNF placement and home health care. I discussed with him the plan for discharge today secondary to the fact that his creatinine has improved and has returned almost to baseline, he expressed understanding of the risks and benefits of going home and wants to go home today without any additional supports. Visit Charges Inpatient E&M: 21846 Disch Hosp
[2021-02-13] MEDS: Nystatin Powder 15gm Bottle 1 APPLIC TOPICAL (11:32)
--- NOTE | 2021-02-15 15:59 | CASEMGMT ---
TINO JAY Discharge Follow-up Phone Call: DEQUAN: 12 Strata: 3 Call Date: 02/15/21 Discharge Date: 02/13/21 Time of Call: 1555 Duration: 3 min Admitting Diagnosis: ANDRY TINO JAY completed follow-up phone call after recent hospitalization. Patient states he is good but still a little week and using walker. Patient had follow-up appt scheduled for February 24 and will go if able to walk. TINO JAY encourage for patient to go to follow-up appt and inquired if he had someone who could take him if needed. Patient voiced that he did have someone to assist to appt if needed. Patient had no further need or concerns at this time.
== END 2021-02-13 11:50 | disposition home or self-care (01) | DRG 683 ==
LOC: ED 20:37 → MS3 02-11 00:30
PROVIDERS: Hospitalist; Physician Assistant; Admitting Provider Nurse Practitioner Family; Emergency Provider Emergency Medicine; PCP Student in an Organized Health Care Education/Training Program; Visit Provider Family Medicine
DX: N17.9 Acute kidney failure, unspecified (principal); L97.309 Non-pressure chronic ulcer of unspecified ankle with unspecified severity; M62.82 Rhabdomyolysis; Z68.41 Body mass index [BMI] 40.0-44.9, adult; N18.31 Chronic kidney disease, stage 3a; E78.5 Hyperlipidemia, unspecified; E11.22 Type 2 diabetes mellitus with diabetic chronic kidney disease; E11.621 Type 2 diabetes mellitus with foot ulcer; E11.622 Type 2 diabetes mellitus with other skin ulcer; I12.9 Hypertensive chronic kidney disease with stage 1 through stage 4 chronic kidney disease, or unspecified chronic kidney disease; E11.610 Type 2 diabetes mellitus with diabetic neuropathic arthropathy; Z91.81 History of falling; Z79.899 Other long term (current) drug therapy; Z79.4 Long term (current) use of insulin; Z79.82 Long term (current) use of aspirin; L97.529 Non-pressure chronic ulcer of other part of left foot with unspecified severity; L97.519 Non-pressure chronic ulcer of other part of right foot with unspecified severity; R53.1 Weakness; E66.01 Morbid (severe) obesity due to excess calories; I95.9 Hypotension, unspecified
CPT/HCPCS: 36415; 71045; 72070; 80048; 80053; 82550; 82962; 84484; 85025; 93005; 97110; 97162; 97166; 97530; 97535; 97802; 99285; J7030; A4216; J2405

== ENCOUNTER 2021-02-16 07:58 | Inpatient (IN) | payer MEDICARE, SELFPAY ==
[2021-02-11 15:59] VITALS: BMI 42.2
[2021-02-16] VITALS (7 sets, daily range): BP systolic 96–139; BP diastolic 37–91; PULSE 84–100; RESP 15–20; TEMP 36.9–37.6; O2SAT 93–99; BMI 46.9; BMI 45.9
--- NOTE | 2021-02-16 08:07 | RAD_ITS ---
STUDY: X-RAY - RIGHT FOOT CLINICAL: Male, 70 years old. Injury TECHNIQUE: 4 view(s) of the foot. COMPARISON: None. FINDINGS: Evaluation is limited by some positioning. Evaluation of the toes is limited as they are flexed throughout the exam. There is no acute fracture or dislocation identified. There are mild degenerative changes in the midfoot. There is a plantar calcaneal spur noted. There is an enthesophyte noted at the insertion of the Achilles tendon. There are no definite radiographic findings of osteomyelitis. There is mild diffuse soft tissue swelling. There is no soft tissue air identified. There are no radiodense foreign bodies. RAD/Foot min 3 Views IMPRESSION: Limited exam. No fracture or dislocation identified. Diffuse soft tissue swelling. No definite radiographic findings of osteomyelitis. Electronically Signed: Fernando Kim MD at 9:52 EDT Tel , Service support ,
--- NOTE | 2021-02-16 08:10 | EKG12_ITS ---
Test Reason : Blood Pressure : / mmHG Vent. Rate : 086 BPM Atrial Rate : 085 BPM P-R Int : 000 ms QRS Dur : 118 ms QT Int : 366 ms P-R-T Axes : 000 -48 097 degrees QTc Int : 437 ms Atrial fibrillation Left anterior fascicular block T wave abnormality, consider lateral ischemia Abnormal ECG Confirmed by TIN NGUYEN, JESUS ([id number]), manager editorial OFELIA RUTH ([id number]) on 02/17/2021 12:45:17 PM Referred By: MARK Confirmed By:JESUS CASTLE MD
--- NOTE | 2021-02-16 08:10 | RAD_ITS ---
STUDY: X-RAY CHEST REASON FOR EXAM: Male, 70 years old. Weakness TECHNIQUE: Frontal view of the chest COMPARISON: 02/10/21 FINDINGS: The lungs are clear. There are no pleural effusions. There is no pneumothorax. The heart is enlarged, but stable in size. The visualized osseous structures are within normal limits. RAD/Chest 1 View (Portable) IMPRESSION: No acute thoracic pathology. Electronically Signed: Fernando Kim MD at 9:46 EDT Tel , Service support ,
--- NOTE | 2021-02-16 08:11 | ED.VIS.FALL ---
HPI HPI - Fall History of Present Illness Chief Complaint: Fall Informant: patient and EMS Occured/Mechanism Occurred: Today Mechanism/Context: Yes same level fall Narrative: Fell due to weakness and Charcot feet Usually ambulates: Walker (And sometimes a brace on his left foot) Pain/Injury Pain Location: other (Both feet) Quality of Pain: - (Soreness in feet more due to chronic wounds than injury) Current Severity: Mild Maximum Severity: Mild Worsened by: Palpation Relieved by: Leaving alone Associated Symptoms Associated Symptoms: Positive for Inability to ambulate; Negative for Parasthesias, Weakness, Loss of function and Loss of consciousness Narrative Narrative: Patient lives on his own caring for Charcot feet worse on the left and chronic wounds. He does go to the wound center. He was recently admitted here because of weakness and acute kidney injury, and while he was here 4 days ago from now, received his second dose of [employer] COVID-19 vaccine. Within 24 hours he started feeling weak and a little dizzy. Last night he started feeling weaker and shaky/trembling. He blames this for his fall today because he felt so weak. He called EMS for a lift assist, however when they try to get him up he was unable to stand on his own due to weakness of a brought him to the hospital. He states when he fell, he injured both of his feet but believes that they are minor injuries, with a scrape on the right and a twist of the foot on the left, he has chronic deformities that he states are no different after this fall/injury. He denies any other injury including head, arms, back, chest, pelvis/hips. [facility] Medical History Anemia Ankle fracture Anxiety Chronic ulcer of ankle Chronic ulcer of left foot Chronic ulcer of right foot Depression Diabetes History of ankle fracture Hypertension Irregular heart beat Kidney disease Home Medications Lantus Solostar U-100 Insulin 43 unit SUBCUT DAILY 12/25/20 [History Last Taken 02/10/21 08:00] carvedilol [Coreg] 25 mg PO BID 12/25/20 [History Last Taken 02/10/21 08:00] furosemide [Lasix] 40 mg PO BID 12/25/20 [History Last Taken 02/10/21 08:00] pioglitazone [Actos] 30 mg PO DAILY 12/25/20 [History Last Taken 02/10/21 08:00] aspirin 81 mg PO DAILY 12/31/20 [History Last Taken 02/10/21 08:00] atorvastatin 40 mg PO DAILY 12/31/20 [History Last Taken 02/10/21 08:00] cholecalciferol (vitamin D3) [Vitamin D3] 125 mcg PO DAILY 02/10/21 [History Last Taken 02/10/21 08:00] vitamin B complex [B Complex-Vitamin B12] 1 tab PO DAILY 02/10/21 [History Last Taken 02/09/21 08:00] Allergy/AdvReac Type Severity Reaction Status Date / Time Penicillins [PCN] Allergy Rash Verified 02/16/21 07:59 blood pressure meds AdvReac NEEDS Uncoded 02/16/21 07:59 FOLLOW-UP Social History household members: none Smoking Status: Never smoker ROS ROS ED Constitutional Constitutional ED: Reports weakness; Denies chills or fever(s) Eyes Eyes: Denies change in vision or diplopia ENT ENT ED: Denies rhinorrhea or sore throat Cardiovascular Cardiovascular: Denies chest pain or palpitations Respiratory/Chest Respiratory/Chest: Denies cough or dyspnea Gastrointestinal Gastrointestinal: Reports nausea; Denies abdominal pain, diarrhea or vomiting Genitourinary Genitourinary ED: Denies dysuria or hematuria Musculoskeletal Musculoskeletal: Reports as per HPI and extremity pain; Denies back pain or neck pain Integumentary Reports as per HPI and wounds; Denies abscess or rash Neurologic Neurologic: Denies headache(s), paresthesias or weakness Psychiatric Psychiatric: Denies anxiety or suicidal thoughts EXAM Physical Exam Const Vital Signs: 02/16/21 07:59 02/16/21 08:02 02/16/21 08:03 Temperature 98.9 F 98.9 F Temperature Source Temporal Temporal Pulse Rate 93 93 Respiratory Rate 15 15 Respiratory Effort Normal Non-Labored Respiratory Depth Respiratory Pattern Blood Pressure 139/91 H 139/91 H Blood Pressure Mean 107 107 Pulse Ox 93 93 Oxygen Delivery Method Room Air Room Air 02/16/21 08:23 Temperature Temperature Source Pulse Rate Respiratory Rate Respiratory Effort Normal Respiratory Depth Normal Respiratory Pattern Normal Blood Pressure Blood Pressure Mean Pulse Ox Oxygen Delivery Method Room Air Positive well nourished, well developed and obese General Appearance ED: well developed and NAD Nutritional Appearance: obese HEENT Reports moist mucous membranes normocephalic and atraumatic Eyes PERRL and EOMs intact bilaterally Neck full ROM and supple Resp normal respiratory effort and clear to auscultation bilaterally Cardio regular rate, regular rhythm and no murmurs GI non-tender and non-distended Auscultation: normoactive bowel sounds Palpation: soft Back/Spine no CVA tenderness General Back: other FROM Extremity normal to inspection Extremity Narrative: Deformity left foot and ankle consistent with Charcot foot, also deformity of right great toe with a chronic wound at the tip of it and an abrasion dorsally. Deep chronic wound/ulcerations lateral aspect left foot and ankle without discharge or obvious signs of infection although the entire foot is erythematous. General Extremety ED: Yes edema and tenderness; Negative for pulses abnormal General Extremity: edema bilateral lower extremity Details: moderate (Chronic appearing consistent with stasis); Negative for pulses abnormal Neuro oriented x3, CN's II-XII intact bilaterally and no sensory deficits noted Sensorium / Orientation: awake and alert Motor Exam: strength 5/5 throughout Skin no rashes or lesions noted Skin Narrative: Deep wounds left lateral foot and ankle. Also full-thickness wound right great toe. See above. No abscesses. No other rashes or wounds. MDM MDM MDM Narrative Medical decision making narrative: On my interpretation 3 views of each foot are both negative for any acute fracture. Exams are certainly limited by his significant Charcot foot deformities which appear chronic. Chest x-ray shows no sign of acute infection to explain his generalized weakness, his acute kidney injury continues to improve compared with when he was in the hospital this past week. Clinically he is doing well and stable, however he is too weak to stand. We will admit him to observation for further evaluation. Still waiting on urine specimen as well. Lab Data Attestation: I reviewed the patient's lab results. Labs: Laboratory Results - last 24 hr 02/16/21 02/16/21 08:20 08:20 WBC 8.1 RBC 3.67 L Hgb 9.5 L Hct 30.9 L MCV 84.2 MCH 25.9 L MCHC 30.7 L RDW Std Deviation 63.3 H RDW Coeff of Xavier 20.4 H Plt Count 254 MPV 9.9 Immature Gran % (Auto) 1.500 H Neut % (Auto) 77.0 H Lymph % (Auto) 12.5 L [place] % (Auto) 7.6 Eos % (Auto) 1.2 Baso % (Auto) 0.2 Absolute Neuts (auto) 6.2 Absolute Lymphs (auto) 1.01 Nucleated RBC % 0 Anisocytosis 1+ Sodium 141 Potassium 4.0 Chloride 110 H Carbon Dioxide 22.0 Anion Gap 9 BUN 58 H Creatinine 1.48 H Estim Creat Clear Calc 50.88 Est GFR (MDRD) Af Amer 61 Est GFR (MDRD) Non-Af 50 L BUN/Creatinine Ratio 39.2 H Glucose 62 L Calcium 9.0 Troponin I High Sens 52.4 Radiography Diagnostic Testing: Radiology Impression Foot X-Ray 02/16/21 08:07 IMPRESSION: Limited exam. No fracture or dislocation identified. Diffuse soft tissue swelling. No definite radiographic findings of osteomyelitis. Electronically Signed: Fernando Kim MD at 9:52 EDT Tel , Service support , Chest X-Ray 02/16/21 08:10 IMPRESSION: No acute thoracic pathology. Electronically Signed: Fernando Kim MD at 9:46 EDT Tel , Service support , Foot X-Ray 02/16/21 08:17 IMPRESSION: Stable deformity of the left foot, consistent with Charcot foot. No acute fracture or dislocation identified. Diffuse soft tissue swelling which is slightly decreased when compared with the prior exam. Redemonstration of soft tissue air which is suspicious for infection. Electronically Signed: Fernando Kim MD at 9:49 EDT Tel , Service support , EKG Initial EKG: Attestation: I personally reviewed and interpreted this EKG as follows: Interpretation: No Acute Injury Pattern, Atrial Fibrillation and Non-Specific ST Changes Prior EKG tracings: available for review Prior: Unchanged Discharge Plan Dx/Rx/DC Orders Clinical Impression: Inability to walk, Charcot foot due to diabetes mellitus, Generalized weakness Disposition Disposition: Acute Care Hospital [facility]
--- NOTE | 2021-02-16 08:17 | RAD_ITS ---
STUDY: X-RAY - LEFT FOOT CLINICAL: Male, 70 years old. Injury TECHNIQUE: 3 view(s) of the foot. COMPARISON: 12/25/20 FINDINGS: Evaluation is limited by suboptimal positioning. There is marked deformity of the left foot which is stable when compared with the prior exam. This is consistent with Charcot foot. There is no acute fracture or dislocation identified on this limited exam. There is diffuse soft tissue swelling which is slightly increased when compared with the prior exam. Again noted is air within the volar soft tissues which is suspicious for infection. There are no radiodense foreign bodies. RAD/Foot min 3 Views IMPRESSION: Stable deformity of the left foot, consistent with Charcot foot. No acute fracture or dislocation identified. Diffuse soft tissue swelling which is slightly decreased when compared with the prior exam. Redemonstration of soft tissue air which is suspicious for infection. Electronically Signed: Fernando Kim MD at 9:49 EDT Tel , Service support ,
[2021-02-16 08:28] LABS: Absolute Lymphocyte Count 1.01 X10^3/uL (0.83-4.51); Absolute Neutrophil Count 6.2 X10^3/uL (2.0-7.7); Basophil# 0.02 X10^3/uL; Basophil% 0.2 % (0-1); Eosinophils% 1.2 % (0-5); Hematocrit 30.9 % (40-54); Hemoglobin 9.5 g/dL (13.0-16.5); Lymphocyte # 1.01 X10^3/ul (0.83-4.51); Lymphocyte % 12.5 % (19-41); Mean Corp Hgb Conc 30.7 g/dL (32-36); Mean Corpuscular Hgb 25.9 pg (27.0-32.0); Mean Corpuscular Volume 84.2 fL (80-94); Mean Platelet Vol. 9.9 fl (6.2-12.0); Monocyte# 0.62 X10^3/uL; Monocyte% 7.6 % (0-10); NRBC Flagged by Analyzer 0 % (0-5); Neutrophil # 6.24 X10^3/uL (2.7-7.7); POSITIVE MORPHOLOGY YES; Platelet Count 254 K/mm3 (150-450); RBC Distribution Width CV 20.4 % (11.6-14.6); RBC Distribution Width SD 63.3 fl (35.1-43.9); Red Blood Count 3.67 M/mm3 (4.6-6.2); White Blood Count 8.1 K/mm3 (4.4-11.0)
[2021-02-16 08:29] LABS: Differential Indicated SCAN CRITERIA MET
[2021-02-16] MEDS: Ondansetron 4 MG/2 ML Vial IV ×2 (08:35→17:18)
[2021-02-16 08:45] LABS: Anion Gap 9 (5-15); BUN 58 mg/dL (7-18); BUN/Creat Ratio 39.2 RATIO (10-20); Chloride 110 mmol/L (98-107); Creatinine, Serum 1.48 mg/dL (0.70-1.30); EST Glomerular Filtration Rate 50 mL/min (>60); Est Glom Filt Rate - Afr Amer 61 mL/min (>60); Estimated Creatinine Clearance 50.88 ml/min; Glucose 62 mg/dL (74-106); Sodium Level 141 mmol/L (136-145); Troponin-I HS 52.4 pg/mL (3.0-78.5)
[2021-02-16 08:59] LABS: Anisocytosis 1+
[2021-02-16 09:51] LABS: Bacteria 0 SEEN /hpf (None Seen); Mucous, Urine 0 SEEN /hpf (<or=2+); Red Blood Cells-Urine 0 SEEN /hpf (0-5); Squamous Epithelial Cells - UA 0 SEEN /hpf (0-5); White Blood Cells 0 SEEN /hpf (0-5)
[2021-02-16 10:08] LABS: Color, Urine Yellow (Yellow); Glucose, Dipstick Normal (Normal); Ketone-Dipstick Negative (Negative); Leukocyte Esterase-Dipstick Negative /ul (Negative); Nitrite-Dipstick Negative (Negative); Occult Blood-Urine 10 /ul (Negative); Protein-Dipstick 15 mg/dl (Negative); Specific Gravity, Urine 1.015 (1.002-1.030); Urine Bilirubin Dipstick Negative (Negative); Urine Clarity Clear (Clear); Urine Urobilinogen Normal (Normal)
[2021-02-16] MEDS: Acetaminophen 500 MG Tablet 1000 MG PO (10:28)
--- NOTE | 2021-02-16 10:38 | PCM.HP.STD ---
HPI - General General Date of Admission: 02/16/21 Date of Service: 02/16/21 Chief Complaint: Generalized weakness HPI Narrative JONEL ZALDIVAR, is a 70 M with multiple comorbidities including diabetes mellitus type 2 which are caught feet and chronic bilateral lower extremity wounds, chronic kidney disease stage III, discharged from the hospital 4 days prior to his readmission who presented back to the emergency department with progressive generalized weakness. Patient reports having fallen the day prior to his admission. He also did complain of subjective fever and chills. Work-up in the ED was however unremarkable. Admitted to regular nursing floor for further management [facility] Medical History Anemia Ankle fracture Anxiety Chronic ulcer of ankle Chronic ulcer of left foot Chronic ulcer of right foot Depression Diabetes History of ankle fracture Hypertension Irregular heart beat Kidney disease Home Medications Lantus Solostar U-100 Insulin 43 unit SUBCUT DAILY 12/25/20 [History Last Taken 02/10/21 08:00] carvedilol [Coreg] 25 mg PO BID 12/25/20 [History Last Taken 02/10/21 08:00] furosemide [Lasix] 40 mg PO BID 12/25/20 [History Last Taken 02/10/21 08:00] pioglitazone [Actos] 30 mg PO DAILY 12/25/20 [History Last Taken 02/10/21 08:00] aspirin 81 mg PO DAILY 12/31/20 [History Last Taken 02/10/21 08:00] atorvastatin 40 mg PO DAILY 12/31/20 [History Last Taken 02/10/21 08:00] cholecalciferol (vitamin D3) [Vitamin D3] 125 mcg PO DAILY 02/10/21 [History Last Taken 02/10/21 08:00] vitamin B complex [B Complex-Vitamin B12] 1 tab PO DAILY 02/10/21 [History Last Taken 02/09/21 08:00] Allergy/AdvReac Type Severity Reaction Status Date / Time Penicillins [PCN] Allergy Rash Verified 02/16/21 07:59 blood pressure meds AdvReac NEEDS Uncoded 02/16/21 07:59 FOLLOW-UP Family History Father No problems noted. Social History household members: none Smoking Status: Never smoker ROS ROS Narrative GENERAL: chills, night sweats, HEENT: denies headache, sinus congestion, RESPIRATORY: denies cough, sputum production, CARDIAC: denies chest pain, palpitations, GASTROINTESTINAL: denies abdominal pain, GENITOURINARY: denies dysuria, urgency, EXTREMITY: denies swelling MUSCULOSKELETAL: denies current joint pain NEUROLOGIC: denies focal numbness, weakness, HEMATOLOGIC: denies easy bruising and/or hemorrhage INTEGUMENT: denies rashes PSYCHIATRIC: denies suicidal or homicidal ideation Vital Signs Vital Signs Vital Signs: 02/16/21 07:59 02/16/21 08:02 02/16/21 08:03 Temperature 98.9 F 98.9 F Temperature Source Temporal Temporal Pulse Rate 93 93 Respiratory Rate 15 15 Respiratory Effort Normal Non-Labored Respiratory Depth Respiratory Pattern Blood Pressure 139/91 H 139/91 H Blood Pressure Mean 107 107 Pulse Ox 93 93 Oxygen Delivery Method Room Air Room Air 02/16/21 08:23 02/16/21 10:19 02/16/21 10:29 Temperature 99.6 F H 99.4 F H Temperature Source Oral Oral Pulse Rate 98 100 Respiratory Rate 20 H 19 H Respiratory Effort Normal Respiratory Depth Normal Respiratory Pattern Normal Blood Pressure 133/66 H 133/56 H Blood Pressure Mean 88 81 Pulse Ox 98 98 Oxygen Delivery Method Room Air Room Air Room Air Weight Weight: 152.6 kg Body Mass Index (BMI) 46.9 Physical Exam Narrative GENERAL: cooperative HEENT: Atraumatic; EYES; Anicteric, Normal Conjunctiva NECK; supple, normal thyroid, RESPIRATORY: Diminished to auscultation CARDIOVASCULAR: Regular S1 S2, GI: soft, normoactive bowel sounds, : No Renal angle tenderness; EXTREMITIES: Bilateral Charcot feet with chronic lower extremity ulcers MUSCULOSKELETAL: no muscle waisting NEURO: Awake; no lateralizing signs. SKIN: As described above PSYCH; Flat affect Results Lab / Micro Data Result Diagrams: 02/16/21 08:20 02/16/21 08:20 Labs: Laboratory Results - last 24 hr 02/16/21 08:20: WBC 8.1, RBC 3.67 L, Hgb 9.5 L, Hct 30.9 L, MCV 84.2, MCH 25.9 L, MCHC 30.7 L, RDW Std Deviation 63.3 H, RDW Coeff of Xavier 20.4 H, Plt Count 254, MPV 9.9, Immature Gran % (Auto) 1.500 H, Neut % (Auto) 77.0 H, Lymph % (Auto) 12.5 L, [place] % (Auto) 7.6, Eos % (Auto) 1.2, Baso % (Auto) 0.2, Absolute Neuts (auto) 6.2, Absolute Lymphs (auto) 1.01, Nucleated RBC % 0, Anisocytosis 1+ 02/16/21 08:20: Sodium 141, Potassium 4.0, Chloride 110 H, Carbon Dioxide 22.0, Anion Gap 9, BUN 58 H, Creatinine 1.48 H, Estim Creat Clear Calc 50.88, Est GFR (MDRD) Af Amer 61, Est GFR (MDRD) Non-Af 50 L, BUN/Creatinine Ratio 39.2 H, Glucose 62 L, Calcium 9.0, Troponin I High Sens 52.4 02/16/21 09:45: Urine Color Yellow, Urine Clarity Clear, Urine pH 5.0, Ur Specific [place] 1.015, Urine Protein 15 H, Urine Glucose (UA) Normal, Urine Ketones Negative, Urine Occult Blood 10 H, Urine Nitrite Negative, Urine Bilirubin Negative, Urine Urobilinogen Normal, Ur Leukocyte Esterase Negative, Urine RBC 0 SEEN, Urine WBC 0 SEEN, Ur Squamous Epith Cells 0 SEEN, Urine Bacteria 0 SEEN, Urine Mucus 0 SEEN Radiology Impression Foot X-Ray 02/16/21 08:07 IMPRESSION: Limited exam. No fracture or dislocation identified. Diffuse soft tissue swelling. No definite radiographic findings of osteomyelitis. Electronically Signed: Fernando Kim MD at 9:52 EDT Tel , Service support , Chest X-Ray 02/16/21 08:10 IMPRESSION: No acute thoracic pathology. Electronically Signed: Fernando Kim MD at 9:46 EDT Tel , Service support , Foot X-Ray 02/16/21 08:17 IMPRESSION: Stable deformity of the left foot, consistent with Charcot foot. No acute fracture or dislocation identified. Diffuse soft tissue swelling which is slightly decreased when compared with the prior exam. Redemonstration of soft tissue air which is suspicious for infection. Electronically Signed: Fernando Kim MD at 9:49 EDT Tel , Service support , Assessment & Plan Assessment/Plan (1) Inability to walk: (2) Generalized weakness: (3) Diabetes mellitus: (4) Hypertension: (5) Hyperlipidemia: (6) Charcot arthropathy of hindfoot: (7) Fall: PLAN: Patient is a 70-year-old gentleman presented with progressive generalized weakness 1. Physical deconditioning -Patient presented with progressive generalized weakness and falls at home, requested for PT OT eval and social media analyst to assist with discharge planning. Did discuss with patient about possibility of being discharged to a long term facility 2. Diabetes mellitus type II -patient's oral hypoglycemics held. Placed on long acting insulin, Accu-Cheks a.c. and at bedtime and covered with sliding scale insulin 3. Hypertension - Blood pressure controlled, home medications continued with dose adjustment as needed 4. Chronic bilateral lower extremity wounds ?Consult placed wound care nurse 5. Dyslipidemia -Patient is on statin therapy, continued at home dose 6. Obesity with BMI of 46.9 ?Weight loss advised 7. DVT prophylaxis SC Lovenox Charges/Coding Visit Charges OBSV E&M: 78102 Initial observation care L3
[2021-02-16] MEDS: Carvedilol 25 MG Tablet PO ×2 (12:06→22:32)
[2021-02-16] MEDS: Aspirin 81 MG TAB.CHEW PO (12:06)
[2021-02-16] MEDS: Cholecalciferol (VIT D3) 25 MCG TABLET (1,000 UNITS) PO (12:06)
[2021-02-16] MEDS: Furosemide 40 MG Tablet PO ×2 (12:06→17:05)
[2021-02-16] MEDS: Enoxaparin 40 MG/0.4 ML Syringe SC (12:07)
[2021-02-16 12:21] LABS: Bedside Glucose 52 mg/dL (70-110)
[2021-02-16] MEDS: Glucerna Shake 120 ML LIQUID PO (13:50)
[2021-02-16] MEDS: Senna/Docusate Sodium 1 Tablet 2 TABLET PO (13:52)
--- NOTE | 2021-02-16 14:32 | CASEMGMT ---
SW met with patient. Introduced self and role at [facility]. SW spoke with patient about placement. He said he has not thought about it he was thinking he will go home. SW told him it has not been working out at home so it does not seem like it would be a good idea to go home. SW told him that he only had 20 days covered at 100% by his insurance. RIGO told him that if he goes to a long-term from here he will still have the daily co-pays. RIGO asked if he has the finances for this or does he need to apply for Medicaid. He said he may need to apply for Medicaid. He said he would think about going to a long-term. He then had to use the bedpan. Michelle MEDINA
--- NOTE | 2021-02-16 15:20 | NURSING ---
wound photo: right great toe
--- NOTE | 2021-02-16 15:21 | NURSING ---
wound photo: right lateral foot
--- NOTE | 2021-02-16 15:22 | NURSING ---
wound photo: left lateral foot, ankle, lower leg
[2021-02-16 16:20] LABS: M R Staph aureus DNA By PCR POSITIVE (Negative); Probe Check PASS; Staph aureus DNA By PCR POSITIVE (Negative)
[2021-02-16] MEDS: Acetaminophen 325 MG Tablet 650 MG PO (17:05)
[2021-02-16 17:16] LABS: Bedside Glucose 138 mg/dL (70-110)
[2021-02-16] MEDS: 0.9% Saline Lock 10 ML Syringe IV (17:18)
[2021-02-16] MEDS: Mag Hydrox/Al Hydrox/Simeth 30 ML UDC PO (20:38)
[2021-02-16 21:11] LABS: Bedside Glucose 151 mg/dL (70-110)
[2021-02-16] MEDS: Insulin Lispro 100 UNIT/ML INSULN.PEN SC (22:32)
[2021-02-16] MEDS: Menthol/Lanolin/Calamine/Znox 113 GM Tube 1 APPLIC TOPICAL (22:35)
[2021-02-16] MEDS: Nystatin Powder 15gm Bottle 1 APPLIC TOPICAL (22:36)
[2021-02-16] MEDS: Famotidine 20 MG Tablet PO (23:02)
[2021-02-17 03:05] VITALS: BP 127/51; PULSE 74; RESP 18; TEMP 37.3; O2SAT 99
[2021-02-17 05:24] LABS: Absolute Lymphocyte Count 0.99 X10^3/uL (0.83-4.51); Absolute Neutrophil Count 5.4 X10^3/uL (2.0-7.7); Basophil# 0.02 X10^3/uL; Basophil% 0.3 % (0-1); Differential Indicated SCAN CRITERIA MET; Eosinophil# 0.08 X10^3/uL; Eosinophils% 1.1 % (0-5); Hematocrit 30.5 % (40-54); Hemoglobin 9.1 g/dL (13.0-16.5); Lymphocyte # 0.99 X10^3/ul (0.83-4.51); Lymphocyte % 13.6 % (19-41); Mean Corp Hgb Conc 29.8 g/dL (32-36); Mean Corpuscular Hgb 28.3 pg (27.0-32.0); Mean Corpuscular Volume 94.7 fL (80-94); Mean Platelet Vol. 10.7 fl (6.2-12.0); Monocyte# 0.71 X10^3/uL; Monocyte% 9.8 % (0-10); NRBC Flagged by Analyzer 0 % (0-5); Neutrophil # 5.41 X10^3/uL (2.7-7.7); Neutrophil % 74.5 % (47-70); POSITIVE MORPHOLOGY YES; Platelet Count 187 K/mm3 (150-450); RBC Distribution Width CV 20.4 % (11.6-14.6); RBC Distribution Width SD 71.4 fl (35.1-43.9); Red Blood Count 3.22 M/mm3 (4.6-6.2); White Blood Count 7.3 K/mm3 (4.4-11.0)
[2021-02-17 05:44] LABS: Anion Gap 8 (5-15); BUN 56 mg/dL (7-18); BUN/Creat Ratio 32.2 RATIO (10-20); Calcium,Total 8.2 mg/dL (8.5-10.1); Chloride 105 mmol/L (98-107); Creatinine, Serum 1.74 mg/dL (0.70-1.30); EST Glomerular Filtration Rate 42 mL/min (>60); Est Glom Filt Rate - Afr Amer 50 mL/min (>60); Estimated Creatinine Clearance 43.28 ml/min; Glucose 154 mg/dL (74-106); Magnesium 2.1 mg/dL (1.6-2.6); Sodium Level 132 mmol/L (136-145)
[2021-02-17 06:51] LABS: Bedside Glucose 142 mg/dL (70-110)
[2021-02-17 08:49] VITALS: BP 137/55; PULSE 77; RESP 18; TEMP 37.7; O2SAT 96
[2021-02-17] MEDS: Lactated Ringers 1,000 ML 75 ML IV (08:52)
[2021-02-17] MEDS: Aspirin 81 MG TAB.CHEW PO (08:53)
[2021-02-17] MEDS: Carvedilol 25 MG Tablet PO ×2 (08:53→22:42)
[2021-02-17] MEDS: Enoxaparin 40 MG/0.4 ML Syringe SC (08:54)
[2021-02-17] MEDS: Furosemide 40 MG Tablet PO ×2 (08:54→17:42)
[2021-02-17] MEDS: Famotidine 20 MG Tablet PO (08:55)
[2021-02-17] MEDS: Cholecalciferol (VIT D3) 25 MCG TABLET (1,000 UNITS) PO (08:56)
[2021-02-17] MEDS: Menthol/Lanolin/Calamine/Znox 113 GM Tube 1 APPLIC TOPICAL ×2 (08:56→22:39)
[2021-02-17] MEDS: Nystatin Powder 15gm Bottle 1 APPLIC TOPICAL ×2 (08:57→22:41)
--- NOTE | 2021-02-17 11:04 | CASEMGMT ---
This RN MISTY to room with [employer] form, explanation done-pt voices understanding, and signs [employer] form. Original to chart and copy to pt. Pt voices no further questions/concerns/needs. SStaten TINO CM
--- NOTE | 2021-02-17 11:05 | CASEMGMT ---
RIGO met with patient. SW completed a Medicaid application with patient. SW then asked if he would like a list for [facility], or [facility] as there is only 1 facility in [place] and 1 in [facility]. He said he wants to stay in [facility]. IRGO let him know [facility] is the facility. He said that is fine. RIGO asked him if [facility] cannot take him would he want [facility] or [facility] and he said [facility]. RIGO told him RIGO will work on the referral and let him know. Michelle Kee LUMP INSPECTOR ADAM
[2021-02-17 11:55] LABS: Bedside Glucose 128 mg/dL (70-110)
[2021-02-17 14:00] VITALS: BP 130/52; PULSE 83; RESP 18; TEMP 37.2; O2SAT 95
--- NOTE | 2021-02-17 14:49 | CASEMGMT ---
RIGO received a call from Marlyn at [facility]. She said they can accept patient and she will start the pre-cert. SW will let patient know. Plan: d/c to [facility] pending pre-cert. Michelle MEDINA
[2021-02-17] MEDS: Insulin Lispro 100 UNIT/ML INSULN.PEN SC (15:52)
[2021-02-17 15:56] LABS: Bedside Glucose 185 mg/dL (70-110)
[2021-02-17 17:40] VITALS: TEMP 38.4
[2021-02-17] MEDS: Acetaminophen 325 MG Tablet 650 MG PO (17:44)
--- NOTE | 2021-02-17 18:02 | PN.HOSP_ITS ---
Subjective Subjective Patient with admission recently and discharged home on 02/13/2021 but represented on 02/16 after a fall. He has significant bilateral lower extremity wounds. It was recommended that he be discharged to long-term facility at his last hospitalization but he deferred both this and home health care when offered. At this time he is reluctantly agreeable to long-term facility today. He has no specific complaints other than lower extremity pain which is chronic and denies the need for any pain medication related to this. Objective Data Objective Data Vital Signs: Vital Signs Temp Pulse Resp BP Pulse Ox 99.0 F 83 18 130/52 H 95 02/17/21 14:00 02/17/21 14:00 02/17/21 14:00 02/17/21 14:00 02/17/21 14:00 Oxygen Delivery Method Room Air Weight: 155.384 kg Body Mass Index (BMI) 45.9 Intake & Output: Intake and Output for Last 24 Hours 02/15/21 02/16/21 02/17/21 23:59 23:59 23:59 Intake Total 940 / 1540 1350 / 1350 Output Total 300 / 750 1700 / 1700 Balance 640 / 790 -350 / -350 Lab / Micro Data Result Diagrams: 02/17/21 04:58 02/17/21 04:58 Labs: Laboratory Results - last 24 hr 02/16/21 20:37: POC Glucose 151 H 02/17/21 04:58: WBC 7.3, RBC 3.22 L, Hgb 9.1 L, Hct 30.5 L, MCV 94.7 H D, MCH 28.3, MCHC 29.8 L, RDW Std Deviation 71.4 H, RDW Coeff of Xavier 20.4 H, Plt Count 187, MPV 10.7, Immature Gran % (Auto) 0.700, Neut % (Auto) 74.5 H, Lymph % (Auto) 13.6 L, [place] % (Auto) 9.8, Eos % (Auto) 1.1, Baso % (Auto) 0.3, Absolute Neuts (auto) 5.4, Absolute Lymphs (auto) 0.99, Nucleated RBC % 0 02/17/21 04:58: Sodium 132 L, Potassium 4.0, Chloride 105, Carbon Dioxide 19.0 L , Anion Gap 8, BUN 56 H, Creatinine 1.74 H, Estim Creat Clear Calc 43.28, Est GFR (MDRD) Af Amer 50 L, Est GFR (MDRD) Non-Af 42 L, BUN/Creatinine Ratio 32.2 H , Glucose 154 H, Calcium 8.2 L, Magnesium 2.1 02/17/21 06:21: POC Glucose 142 H 02/17/21 11:40: POC Glucose 128 H 02/17/21 15:50: POC Glucose 185 H Micro: Microbiology 02/16/21 14:30 Wound - Left Foot Gram Stain - Final 02/16/21 14:30 Wound - Left Foot Wound Culture - Preliminary Staphylococcus aureus Physical Exam Const alert, oriented x3 and no apparent distress Constitutional Narrative: Morbidly obese upper middle-aged white male sitting up in bed, watching television, appears mildly uncomfortable and when asked he states it is related to his leg pain but denies the need for pain medication, nontoxic-appearing Exam Limitations: no limitations HEENT head/scalp atraumatic and moist oral mucous membranes Head and Scalp: normocephalic Mouth: oral and palatal mucosa normal Eyes PERRL, EOMs intact bilaterally and conjunctivae normal Neck supple Neck Narrative: Trachea midline, neck is short and thick Resp normal respiratory effort, no retractions, no use of accessory muscles and clear to auscultation bilaterally Resp Narrative: Diffusely diminished but distant secondary to body habitus Cardio regular rate, regular rhythm, S1 normal heart sound, S2 normal heart sound, no murmurs, no rub, no gallops, no clicks and no JVD GI normal to inspection, nondistended, normoactive bowel sounds, soft to palpation, non-tender and non-distended GI Narrative: Large umbilical hernia Palpation: hernia; Negative for tender or guarding Extremity Extremity Narrative: Bilateral lower extremities edema, bilateral legs wrapped but obvious signs of chronic venous stasis with dried skin at toes and few cracks General Extremity: edema Peripheral Pulses: Yes pulses 2+ throughout Skin skin turgor normal, no jaundice, no petechiae and no mottling Skin Narrative: Bilateral lower extremity wounds Neuro oriented x3, CN's II-XII intact bilaterally, moves all extremities and no focal motor deficits Neuro Narrative: Bilateral lower extremity neuropathy distally with obvious Charcot foot left greater than right, generalized weakness but no focal deficits Sensorium / Orientation: awake, alert, oriented to person, oriented to place and oriented to time Speech: speech normal Psych Psych Narrative: Affect is flat mood is somewhat depressed Assessment & Plan Assessment/Plan (1) Diabetic infection of left foot: (2) Osteomyelitis of left foot: QUALIFIERS: Osteomyelitis type: unspecified type Qualified Code(s): M86.9 - Osteomyelitis, unspecified (3) Stage 3a chronic kidney disease: (4) Hypertension: (5) Hyperlipidemia: PLAN: Staph aureus bilateral lower extremity diabetic wound infection -Wound culture is growing staph aureus--> identification and sensitivities are pending -Patient has been febrile this afternoon -Check blood cultures x2 -Check UA and urine culture -Start vancomycin with pharmacy to dose--> if no bloodstream infection will convert to linezolid -Start amikacin given penicillin allergy -consult ID Hyponatremia -Na 132 -May be related to some dehydration with elevated creatinine mildly from baseline -Repeat in a.m. ANDRY on CKD stage 3b -mild elevation -Repeat in am -may need some IV hydration -Repeat in a.m. and if still mildly elevated will start some IV fluids -Hold home Lasix dose for today Non-anion gap metabolic acidosis -Serum bicarb is 19 -Baseline appears to be in the 20s -Repeat in a.m. -Suspect related to ANDRY and elevated BUN Chronic anemia -Baseline hemoglobin appears to be between 9 and 10.5 -No signs of bleeding -Repeat CBC in a.m. Hypertension -Continue carvedilol -Hold Lasix -Continue irbesartan -May need to hold if creatinine worsens DM-2 controlled -Most recent hemoglobin A1c from 12/26/2020 is 6.6 -Continue home Lantus dose -Accu-Cheks -SSI -Hold home oral medications Physical deconditioning -Continue PT/OT -Probable discharge to skilled facility Morbid obesity -BMI 46.9 -Advised weight loss -Complicates overall treatment, prognosis, outcomes -Suspect patient has ALLEN that is untreated -Would recommend outpatient sleep study DVT/GI prophylaxis -Switch from enoxaparin to heparin 3 times daily given renal failure -Decrease famotidine from 20 mg twice daily to 20 mg daily CODE STATUS -Full code Charges/Coding Visit Charges Inpatient E&M: 64719 [facility] L3
--- NOTE | 2021-02-17 19:58 | NURSING ---
This RN spoke with Lori in pharmacy regarding pt having 2 antibiotics due at same time and only having one IV and being a very challenging iv start. Lori recommended starting the merrem first as the vanc is only ordered for x1 at this point and will be re-adjusted for next dose by pharmacy. Vanc will appear late on oct.
[2021-02-17 20:05] VITALS: BP 115/44; PULSE 71; RESP 18; TEMP 37; O2SAT 97
[2021-02-17] MEDS: 0.9% Normal Saline 1,000 ML 75 ML IV (20:11)
[2021-02-17 20:36] LABS: Bedside Glucose 149 mg/dL (70-110)
[2021-02-17] MEDS: Atorvastatin Calcium 40 MG Tablet PO (22:42)
[2021-02-17] MEDS: Heparin Injection (Vial) 5,000 UNIT/ML VIAL 5000 UNIT SC (22:44)
[2021-02-17 22:56] LABS: Bedside Glucose 122 mg/dL (70-110)
--- NOTE | 2021-02-18 00:43 | PCM.RX.CS ---
Consult Pharmacy has been consulted to manage selected antiobiotic: Vancomycin Type of Consult: New start Suspected Infection: Skin/Soft tissue Labs: Sodium 132 mmol/L (136-145) L 02/17/21 04:58 Potassium 4.0 mmol/L (3.5-5.1) 02/17/21 04:58 Chloride 105 mmol/L (98-107) 02/17/21 04:58 Carbon Dioxide 19.0 mmol/L (21.0-32.0) L 02/17/21 04:58 Anion Gap 8 (5-15) 02/17/21 04:58 BUN 56 mg/dL (7-18) H 02/17/21 04:58 Creatinine 1.74 mg/dL (0.70-1.30) H 02/17/21 04:58 Est GFR (MDRD) Af Amer 50 mL/min (>60) L 02/17/21 04:58 Est GFR (MDRD) Non-Af 42 mL/min (>60) L 02/17/21 04:58 BUN/Creatinine Ratio 32.2 RATIO (10-20) H 02/17/21 04:58 Glucose 154 mg/dL (74-106) H 02/17/21 04:58 Microbiology: Microbiology 02/16/21 14:30 Wound - Left Foot Gram Stain - Final 02/16/21 14:30 Wound - Left Foot Wound Culture - Preliminary Staphylococcus aureus Goal Trough: 15-20 mcg/mL Pharmacy Plan for Drug Dosing: Pharmacy Service will continue to monitor and adjust dosing as required. Medications Vancomycin HCl (Vancomycin) 1,000 mg in 200 mls @ 200 mls/hr IV Q12H GLADIS Discontinued Medications Vancomycin HCl 2,000 mg/ (Sodium Chloride) 540 mls @ 250 mls/hr IV X1 ONE Stop: 02/17/21 21:09 Last Admin: 02/17/21 23:53 Dose: 250 mls/hr Documented by: WAS ON 1750 Q12H 12/2020 WITH SUPERTHERAPEUTIC LEVELS X2. SIMILAR RENAL FUNCTION NOW, DECREASING INITIAL DOSE SINCE HIGH TROUGH WITH PROTOCOL DOSING Follow-Up Labs: Trough Vancomycin Labs to be done on [date and time ordered]: 02/19 @ 1130
[2021-02-18] MEDS: 0.9% Saline Lock 10 ML Syringe IV (01:01)
[2021-02-18 01:58] VITALS: BP 102/51; PULSE 75; RESP 18; TEMP 37.3; O2SAT 99
[2021-02-18] MEDS: Acetaminophen 325 MG Tablet 650 MG PO ×3 (02:07→15:58)
[2021-02-18 02:12] LABS: Color, Urine Yellow (Yellow); Glucose, Dipstick Normal (Normal); Ketone-Dipstick Negative (Negative); Leukocyte Esterase-Dipstick Negative /ul (Negative); Nitrite-Dipstick Negative (Negative); Occult Blood-Urine Negative /ul (Negative); Protein-Dipstick Negative (Negative); Specific Gravity, Urine 1.015 (1.002-1.030); Urine Bilirubin Dipstick Negative (Negative); Urine Clarity Clear (Clear); Urine Urobilinogen Normal (Normal)
[2021-02-18 05:35] LABS: Absolute Lymphocyte Count 0.67 X10^3/uL (0.83-4.51); Absolute Neutrophil Count 5.1 X10^3/uL (2.0-7.7); Basophil# 0.01 X10^3/uL; Basophil% 0.2 % (0-1); Eosinophil# 0.23 X10^3/uL; Eosinophils% 3.5 % (0-5); Lymphocyte # 0.67 X10^3/ul (0.83-4.51); Lymphocyte % 10.3 % (19-41); Mean Corp Hgb Conc 30.8 g/dL (32-36); Mean Corpuscular Hgb 26.1 pg (27.0-32.0); Mean Corpuscular Volume 84.7 fL (80-94); Mean Platelet Vol. 9.9 fl (6.2-12.0); Monocyte# 0.41 X10^3/uL; Monocyte% 6.3 % (0-10); NRBC Flagged by Analyzer 0 % (0-5); Neutrophil # 5.09 X10^3/uL (2.7-7.7); Neutrophil % 78.5 % (47-70); POSITIVE MORPHOLOGY YES; Platelet Count 193 K/mm3 (150-450); RBC Distribution Width CV 20.3 % (11.6-14.6); RBC Distribution Width SD 63.5 fl (35.1-43.9); Red Blood Count 3.07 M/mm3 (4.6-6.2); White Blood Count 6.5 K/mm3 (4.4-11.0)
[2021-02-18 05:42] LABS: Differential Indicated SCAN CRITERIA MET
[2021-02-18 05:53] LABS: Anion Gap 6 (5-15); BUN 59 mg/dL (7-18); BUN/Creat Ratio 34.9 RATIO (10-20); Calcium,Total 8.2 mg/dL (8.5-10.1); Chloride 104 mmol/L (98-107); Creatinine, Serum 1.69 mg/dL (0.70-1.30); EST Glomerular Filtration Rate 43 mL/min (>60); Est Glom Filt Rate - Afr Amer 52 mL/min (>60); Estimated Creatinine Clearance 44.56 ml/min; Glucose 140 mg/dL (74-106); Potassium 3.8 mmol/L (3.5-5.1); Sodium Level 134 mmol/L (136-145)
[2021-02-18] MEDS: Heparin Injection (Vial) 5,000 UNIT/ML VIAL 5000 UNIT SC ×3 (06:34→21:49)
[2021-02-18 06:40] LABS: Bedside Glucose 129 mg/dL (70-110)
[2021-02-18 08:05] VITALS: BP 125/53; PULSE 75; RESP 18; TEMP 36.9; O2SAT 97
[2021-02-18] MEDS: Famotidine 20 MG Tablet PO (08:19)
[2021-02-18] MEDS: Aspirin 81 MG TAB.CHEW PO (08:19)
[2021-02-18] MEDS: Carvedilol 25 MG Tablet PO ×2 (08:19→21:49)
[2021-02-18] MEDS: Menthol/Lanolin/Calamine/Znox 113 GM Tube 1 APPLIC TOPICAL ×2 (08:21→21:54)
[2021-02-18] MEDS: Nystatin Powder 15gm Bottle 1 APPLIC TOPICAL ×2 (08:22→21:52)
--- NOTE | 2021-02-18 10:23 | PCM.CONS.GEN ---
Assessment & Plan Assessment/Plan (1) Osteomyelitis of left foot: QUALIFIERS: Osteomyelitis type: unspecified type Qualified Code(s): M86.9 - Osteomyelitis, unspecified PLAN: Concern for bilateral foot osteo. Will order MRI of both feet, noncontrast. Recent wound cx with staph. Will consult Dr. Cameron with podiatry. Cont vanc/ernesto. Will follow, thank you. Pt has completed covid vaccine. HPI Consult Data Date of Consult: 02/18/21 HPI Narrative HPI Narrative: JONEL ZALDIVAR, is a 70 M with DM neuropathy, presented with fall, weakness, chills/shakes. Thinks he hurt his L foot in the fall and being dragged across floor by EMS. Admitted with L foot osteo, treated with zosyn then completed end of course with po levaquin 02/05/21. Now with worsened foot pain/redness/drainage. Admitted here, started on vanc/ernesto. Full ROS performed and neg except as noted above. [facility] Medical History Anemia Ankle fracture Anxiety Chronic ulcer of ankle Chronic ulcer of left foot Chronic ulcer of right foot Depression Diabetes History of ankle fracture Hypertension Irregular heart beat Kidney disease Home Medications Lantus Solostar U-100 Insulin 43 unit SUBCUT DAILY 12/25/20 [History Last Taken 02/15/21] carvedilol [Coreg] 25 mg PO BID 12/25/20 [History Last Taken 02/15/21] furosemide [Lasix] 40 mg PO BID 12/25/20 [History Last Taken 02/15/21] pioglitazone [Actos] 30 mg PO DAILY 12/25/20 [History Last Taken 02/15/21] aspirin 81 mg PO DAILY 12/31/20 [History Last Taken 02/15/21] atorvastatin 40 mg PO DAILY 12/31/20 [History Last Taken 02/15/21] cholecalciferol (vitamin D3) [Vitamin D3] 125 mcg PO DAILY 02/10/21 [History Last Taken 02/15/21] vitamin B complex [B Complex-Vitamin B12] 1 tab PO DAILY 02/10/21 [History Last Taken 02/15/21] irbesartan 300 mg PO DAILY 02/16/21 [History Last Taken 02/15/21] saw palmetto 450 mg PO DAILY 02/16/21 [History Last Taken 02/15/21] Allergy/AdvReac Type Severity Reaction Status Date / Time Penicillins [PCN] Allergy Rash Verified 02/16/21 07:59 blood pressure meds AdvReac Unknown NEEDS Uncoded 02/16/21 11:36 FOLLOW-UP Family History (Updated 02/16/21 @ 10:[address] Ac Srivastava MD) Father No problems noted. Social History household members: none Smoking Status: Never smoker Physical Exam Const alert, oriented x3 and no apparent distress General Appearance: cooperative Exam Limitations: no limitations HEENT normocephalic and head/scalp atraumatic Eyes PERRL and EOMs intact bilaterally Neck supple and No nodes Resp normal air movement and clear to auscultation bilaterally Cardio regular rate and regular rhythm GI normal to inspection, nondistended, normoactive bowel sounds Extremity General Extremity: edema Skin Skin Narrative: reviewed photos Neuro CN's II-XII intact bilaterally Lab / Micro Data Result Diagrams: 02/18/21 05:18 02/18/21 05:18 Labs: Laboratory Results - last 24 hr 02/17/21 11:40: POC Glucose 128 H 02/17/21 15:50: POC Glucose 185 H 02/17/21 20:31: POC Glucose 149 H 02/17/21 22:47: POC Glucose 122 H 02/18/21 01:57: Urine Color Yellow, Urine Clarity Clear, Urine pH 6.0, Ur Specific [place] 1.015, Urine Protein Negative, Urine Glucose (UA) Normal, Urine Ketones Negative, Urine Occult Blood Negative, Urine Nitrite Negative, Urine Bilirubin Negative, Urine Urobilinogen Normal, Ur Leukocyte Esterase Negative 02/18/21 05:18: WBC 6.5, RBC 3.07 L, Hgb 8.0 L, Hct 26.0 L, MCV 84.7 D, MCH 26.1 L, MCHC 30.8 L, RDW Std Deviation 63.5 H, RDW Coeff of Xavier 20.3 H, Plt Count 193, MPV 9.9, Immature Gran % (Auto) 1.200 H, Neut % (Auto) 78.5 H, Lymph % (Auto) 10.3 L, [place] % (Auto) 6.3, Eos % (Auto) 3.5, Baso % (Auto) 0.2, Absolute Neuts (auto) 5.1, Absolute Lymphs (auto) 0.67 L, Nucleated RBC % 0 02/18/21 05:18: Sodium 134 L, Potassium 3.8, Chloride 104, Carbon Dioxide 24.0, Anion Gap 6, BUN 59 H, Creatinine 1.69 H, Estim Creat Clear Calc 44.56, Est GFR (MDRD) Af Amer 52 L, Est GFR (MDRD) Non-Af 43 L, BUN/Creatinine Ratio 34.9 H, Glucose 140 H, Calcium 8.2 L 02/18/21 06:32: POC Glucose 129 H Micro: Microbiology 02/16/21 14:30 Wound - Left Foot Gram Stain - Final 02/16/21 14:30 Wound - Left Foot Wound Culture - Final Meth. resistant Staph. aureus
--- NOTE | 2021-02-18 11:08 | CASEMGMT ---
RIGO called Marlyn at [facility] and let her know that patient may be coming on IV antibiotics, but he is not ready today. She said that is fine and just asked that RIGO keep her updated. Michelle Kee [employer]
[2021-02-18] MEDS: Vancomycin IV 1,000 MG/200 ML BAG 200 MG IV (11:38)
[2021-02-18] MEDS: Insulin Lispro 100 UNIT/ML INSULN.PEN SC ×2 (11:39→21:53)
[2021-02-18 11:56] LABS: Bedside Glucose 163 mg/dL (70-110)
--- NOTE | 2021-02-18 14:00 | PN.HOSP_ITS ---
Subjective Subjective Patient reports that he is definitely feeling better today. We discussed the fact that he has bacteria growing in his wounds and we are ruling out bacteremia with blood cultures. He is currently on systemic antibiotics. He realizes that he will need to go to a skilled facility at discharge and is agreeable. Objective Data Objective Data Vital Signs: Vital Signs Temp Pulse Resp BP Pulse Ox 98.5 F 75 18 125/53 H 97 02/18/21 08:05 02/18/21 08:05 02/18/21 08:05 02/18/21 08:05 02/18/21 08:05 Oxygen Delivery Method Room Air Weight: 155.4 kg Body Mass Index (BMI) 45.9 Intake & Output: Intake and Output for Last 24 Hours 02/16/21 02/17/21 02/18/21 23:59 23:59 23:59 Intake Total 940 / 1540 2333.75 / 2333.75 1941.75 / 1941.75 Output Total 300 / 750 1700 / 1950 975 / 975 Balance 640 / 790 633.75 / 383.75 966.75 / 966.75 Lab / Micro Data Result Diagrams: 02/18/21 05:18 02/18/21 05:18 Labs: Laboratory Results - last 24 hr 02/17/21 15:50: POC Glucose 185 H 02/17/21 20:31: POC Glucose 149 H 02/17/21 22:47: POC Glucose 122 H 02/18/21 01:57: Urine Color Yellow, Urine Clarity Clear, Urine pH 6.0, Ur Specific [place] 1.015, Urine Protein Negative, Urine Glucose (UA) Normal, Urine Ketones Negative, Urine Occult Blood Negative, Urine Nitrite Negative, Urine Bilirubin Negative, Urine Urobilinogen Normal, Ur Leukocyte Esterase Negative 02/18/21 05:18: WBC 6.5, RBC 3.07 L, Hgb 8.0 L, Hct 26.0 L, MCV 84.7 D, MCH 26.1 L, MCHC 30.8 L, RDW Std Deviation 63.5 H, RDW Coeff of Xavier 20.3 H, Plt Count 193, MPV 9.9, Immature Gran % (Auto) 1.200 H, Neut % (Auto) 78.5 H, Lymph % (Auto) 10.3 L, [place] % (Auto) 6.3, Eos % (Auto) 3.5, Baso % (Auto) 0.2, Absolute Neuts (auto) 5.1, Absolute Lymphs (auto) 0.67 L, Nucleated RBC % 0 02/18/21 05:18: Sodium 134 L, Potassium 3.8, Chloride 104, Carbon Dioxide 24.0, Anion Gap 6, BUN 59 H, Creatinine 1.69 H, Estim Creat Clear Calc 44.56, Est GFR (MDRD) Af Amer 52 L, Est GFR (MDRD) Non-Af 43 L, BUN/Creatinine Ratio 34.9 H, Glucose 140 H, Calcium 8.2 L 02/18/21 06:32: POC Glucose 129 H 02/18/21 11:38: POC Glucose 163 H Micro: Microbiology 02/16/21 14:30 Wound - Left Foot Gram Stain - Final 02/16/21 14:30 Wound - Left Foot Wound Culture - Final Meth. resistant Staph. aureus Physical Exam Const alert, oriented x3 and no apparent distress Constitutional Narrative: Morbidly obese white male lying in bed, appears older than stated age, much less toxic appearing today, more interactive Exam Limitations: no limitations Resp normal respiratory effort, no retractions, no use of accessory muscles and clear to auscultation bilaterally Cardio regular rate, regular rhythm, S1 normal heart sound, S2 normal heart sound, no murmurs, no rub, no gallops, no clicks and no JVD GI normal to inspection, nondistended, normoactive bowel sounds, soft to palpation, non-tender and non-distended GI Narrative: Obese Extremity Extremity Narrative: Bilateral lower extremities with Fausto bandages and dressings in place, bilateral toes with good cap refill but significantly dry skin, marked Charcot foot left greater than right lower extremity Skin Skin Narrative: See above Neuro oriented x3 and CN's II-XII intact bilaterally Neuro Narrative: Diabetic neuropathy bilateral lower extremities Sensorium / Orientation: awake, alert, oriented to person, oriented to place and oriented to time Assessment & Plan Assessment/Plan (1) Sepsis: (2) Diabetic infection of left foot: (3) Charcot foot due to diabetes mellitus: PLAN: Sepsis secondary to MRSA bilateral lower extremity diabetic wound infection -Wound culture is growing staph aureus--> identification and sensitivities are pending -T-max 101.1 last evening at about 6:00--> no true fevers since that time documented -blood cultures x2 pending -UA is not suggestive of infection -Continue meropenem and vancomycin -MRI ordered bilateral lower extremity--> concern for OM -Podiatry consulted -ID following appreciate input Hyponatremia -Na 134 -Improving -Repeat in a.m. ANDRY on CKD stage 3b -Serum creatinine is now close to baseline -Repeat in a.m. -Continue to hold home Lasix dose Non-anion gap metabolic acidosis -Serum bicarb is 19 -Baseline appears to be in the 20s -Repeat in a.m. -Suspect related to ANDRY and elevated BUN Chronic anemia -Baseline hemoglobin appears to be between 9 and 10.5 -No signs of bleeding -Repeat CBC in a.m. Hypertension -Continue carvedilol -Hold Lasix -Continue irbesartan -May need to hold if creatinine worsens DM-2 controlled -Most recent hemoglobin A1c from 12/26/2020 is 6.6 -Continue home Lantus dose -Accu-Cheks -SSI -Hold home oral medications Physical deconditioning -Continue PT/OT -Probable discharge to skilled facility Morbid obesity -BMI 46.9 -Advised weight loss -Complicates overall treatment, prognosis, outcomes -Suspect patient has ALLEN that is untreated -Would recommend outpatient sleep study DVT/GI prophylaxis -Heparin 5000 units 3 times daily -Famotidine 20 mg daily CODE STATUS -Full code
[2021-02-18] MEDS: 0.9% Normal Saline 1,000 ML 75 ML IV (14:38)
[2021-02-18] MEDS: Cholecalciferol (VIT D3) 25 MCG TABLET (1,000 UNITS) PO (14:38)
[2021-02-18 16:04] VITALS: BP 92/56; PULSE 89; RESP 18; TEMP 36.6; O2SAT 100
[2021-02-18 16:30] LABS: Bedside Glucose 102 mg/dL (70-110)
--- NOTE | 2021-02-18 18:24 | CON.PCM_ITS ---
Assessment & Plan Assessment/Plan (1) Diabetic infection of left foot: (2) Osteomyelitis of left foot: QUALIFIERS: Osteomyelitis type: unspecified type Qualified Code(s): M86.9 - Osteomyelitis, unspecified PLAN: Discussed findings with patient and initially he had refused repeat MRI. It is recommended from our standpoint as well as this will give information about the possible worsening or stability of the previously diagnos ed osteomyelitis. The patient states that he was giving further thought to a lower extremity amputation of the left leg. We had discussed that in the past as the chronic ulceration was infected and with the Charcot foot constantly worsening, he was at higher risk for fall. He does understand that his comorbidities are a factor in this decision as well. Cardiology should be consulted for recommendation. Patient did state that he is amenable to discharge to a extended care facility. This is appropriate for this patient and he was encouraged to continue with that thought. He does understand that he needs physical therapy and to try to regain his strength. His left lower extremity is a significant araceli to an appropriate gait. When he was discharged from the hospital in December, his wounds were almost completely healed and were significantly improved. Living alone he is currently not able to care for himself. He states that he had called [employer] and his new [place] walker is still not finished. We are unsure if it will be helpful in his stability. As his foot position stands, it is not an appropriate leg to be bearing weight on. This was discussed in detail. (3) Charcot foot due to diabetes mellitus: (4) Inability to walk: (5) Chronic ulcer of right foot: QUALIFIERS: Non-pressure ulcer stage: with fat layer exposed Qualified Code(s): L97.512 - Non-pressure chronic ulcer of other part of right foot with fat layer exposed PLAN: Continue with local wound care. It is impossible for the patient to ambulate on the left foot without a protective device such as a modified [place] walker. Even still, with the shape of the foot, he may never be able to walk without further breakdown of the skin. We will await the MRI results for furthe r recommendations. Thank you for consultation. Podiatry will continue to follow as needed. HPI Consult Data Date of Consult: 02/18/21 HPI Narrative HPI Narrative: JONEL ZALDIVAR, is a 70 M who presents to [facility] after another fall. He states that he has been in the hospital over the last month about four times. He states that he is continuing to get weaker. [facility] Medical History (Updated 02/18/21 @ 18:[address] Payton Cameron DPM) Anemia Ankle fracture Anxiety Chronic ulcer of ankle Chronic ulcer of left foot Chronic ulcer of right foot Depression Diabetes History of ankle fracture Hypertension Irregular heart beat Kidney disease Home Medications Lantus Solostar U-100 Insulin 43 unit SUBCUT DAILY 12/25/20 [History Last Taken 02/15/21] carvedilol [Coreg] 25 mg PO BID 12/25/20 [History Last Taken 02/15/21] furosemide [Lasix] 40 mg PO BID 12/25/20 [History Last Taken 02/15/21] pioglitazone [Actos] 30 mg PO DAILY 12/25/20 [History Last Taken 02/15/21] aspirin 81 mg PO DAILY 12/31/20 [History Last Taken 02/15/21] atorvastatin 40 mg PO DAILY 12/31/20 [History Last Taken 02/15/21] cholecalciferol (vitamin D3) [Vitamin D3] 125 mcg PO DAILY 02/10/21 [History Last Taken 02/15/21] vitamin B complex [B Complex-Vitamin B12] 1 tab PO DAILY 02/10/21 [History Last Taken 02/15/21] irbesartan 300 mg PO DAILY 02/16/21 [History Last Taken 02/15/21] saw palmetto 450 mg PO DAILY 02/16/21 [History Last Taken 02/15/21] Allergy/AdvReac Type Severity Reaction Status Date / Time Penicillins [PCN] Allergy Rash Verified 02/16/21 07:59 blood pressure meds AdvReac Unknown NEEDS Uncoded 02/16/21 11:36 FOLLOW-UP Family History (Updated 02/16/21 @ 10:[address] Ac Srivastava MD) Father No problems noted. Social History household members: none Smoking Status: Never smoker ROS Musculoskeletal Musculoskeletal: Reports deformity, difficulty walking and other Details: Left ankle and foot show severe Charcot neuroarthropathy. Integumentary Integumentary: Reports skin ulcer Physical Exam Extremity Right Lower Extremity: foot and digits Skin Wound Narrative: Left foot at the distal lateral aspect has a very large wound which does appear to be more of a skin tear. It measures 6.8 x 3.5 x 0.3 cm. Base is mixed fibrous granular with moderate serosanguineous drainage. Left lateral foot has a wound in similar presentation which measures 3.0 x 2.0 x 0.3 cm. There is undermining from the 9:00 to 12 o'clock position. There is no visible bone nor is there any probing to bone. Both of these wounds have greatly worsened since his previous discharge when I had followed the patient. This wound has more drainage which is a thick yellow-brown tinge. Right distal plantar hallux has large wound with dark necrotic covering that was loose. With pickups and scissors this was selectively debrided at bedside to show a granular base. There is a central aspect that was firmly adhered and could not be removed. No probing to bone or undermining. This wound measures approximately 3.5 x 2.0 x 0.2 cm. There is no malodor. The patient thinks this wound happened from his fall and dragging the foot across the floor. This could have been from a single injury but more likely it does look like a chronic pressure wound given the shape of his toe. Nails: discolored and yellow and thickened Lab / Micro Data Result Diagrams: 02/18/21 05:18 02/18/21 05:18 Labs: Laboratory Results - last 24 hr 02/17/21 20:31: POC Glucose 149 H 02/17/21 22:47: POC Glucose 122 H 02/18/21 01:57: Urine Color Yellow, Urine Clarity Clear, Urine pH 6.0, Ur Specific Randall 1.015, Urine Protein Negative, Urine Glucose (UA) Normal, Urine Ketones Negative, Urine Occult Blood Negative, Urine Nitrite Negative, Urine Bilirubin Negative, Urine Urobilinogen Normal, Ur Leukocyte Esterase Negative 02/18/21 05:18: WBC 6.5, RBC 3.07 L, Hgb 8.0 L, Hct 26.0 L, MCV 84.7 D, MCH 26.1 L, MCHC 30.8 L, RDW Std Deviation 63.5 H, RDW Coeff of Xavier 20.3 H, Plt Count 193, MPV 9.9, Immature Gran % (Auto) 1.200 H, Neut % (Auto) 78.5 H, Lymph % (Auto) 10.3 L, Towner % (Auto) 6.3, Eos % (Auto) 3.5, Baso % (Auto) 0.2, Absolute Neuts (auto) 5.1, Absolute Lymphs (auto) 0.67 L, Nucleated RBC % 0 02/18/21 05:18: Sodium 134 L, Potassium 3.8, Chloride 104, Carbon Dioxide 24.0, Anion Gap 6, BUN 59 H, Creatinine 1.69 H, Estim Creat Clear Calc 44.56, Est GFR (MDRD) Af Amer 52 L, Est GFR (MDRD) Non-Af 43 L, BUN/Creatinine Ratio 34.9 H, Glucose 140 H, Calcium 8.2 L 02/18/21 06:32: POC Glucose 129 H 02/18/21 11:38: POC Glucose 163 H 02/18/21 16:00: POC Glucose 102 Micro: Microbiology 02/16/21 14:30 Wound - Left Foot Gram Stain - Final 02/16/21 14:30 Wound - Left Foot Wound Culture - Final Meth. resistant Staph. aureus
[2021-02-18 21:47] VITALS: BP 143/66; PULSE 82; RESP 18; TEMP 37; O2SAT 99
[2021-02-18] MEDS: Atorvastatin Calcium 40 MG Tablet PO (21:49)
[2021-02-18 22:25] LABS: Bedside Glucose 160 mg/dL (70-110)
[2021-02-19] MEDS: Vancomycin IV 1,000 MG/200 ML BAG 200 MG IV (00:12)
[2021-02-19 02:31] VITALS: BP 155/59; PULSE 64; RESP 18; TEMP 37.5; O2SAT 96
[2021-02-19] MEDS: Heparin Injection (Vial) 5,000 UNIT/ML VIAL 5000 UNIT SC ×3 (05:45→21:36)
[2021-02-19] MEDS: 0.9% Normal Saline 1,000 ML 75 ML IV ×2 (06:22→20:22)
[2021-02-19 06:44] LABS: Absolute Lymphocyte Count 0.97 X10^3/uL (0.83-4.51); Absolute Neutrophil Count 3.6 X10^3/uL (2.0-7.7); Basophil# 0.02 X10^3/uL; Basophil% 0.4 % (0-1); Eosinophils% 8.9 % (0-5); Hematocrit 26.6 % (40-54); Lymphocyte # 0.97 X10^3/ul (0.83-4.51); Lymphocyte % 17.2 % (19-41); Mean Corp Hgb Conc 30.1 g/dL (32-36); Mean Corpuscular Hgb 25.6 pg (27.0-32.0); Mean Platelet Vol. 10.4 fl (6.2-12.0); Monocyte# 0.51 X10^3/uL; Monocyte% 9.1 % (0-10); NRBC Flagged by Analyzer 0 % (0-5); Neutrophil # 3.59 X10^3/uL (2.7-7.7); Neutrophil % 63.7 % (47-70); POSITIVE MORPHOLOGY YES; Platelet Count 207 K/mm3 (150-450); RBC Distribution Width CV 20.3 % (11.6-14.6); RBC Distribution Width SD 63.5 fl (35.1-43.9); Red Blood Count 3.13 M/mm3 (4.6-6.2); White Blood Count 5.6 K/mm3 (4.4-11.0)
[2021-02-19 06:45] LABS: Differential Indicated SCAN CRITERIA MET
[2021-02-19 06:56] LABS: Bedside Glucose 90 mg/dL (70-110)
[2021-02-19 07:17] LABS: Anion Gap 5 (5-15); BUN 55 mg/dL (7-18); Chloride 107 mmol/L (98-107); Creatinine, Serum 1.62 mg/dL (0.70-1.30); EST Glomerular Filtration Rate 45 mL/min (>60); Est Glom Filt Rate - Afr Amer 55 mL/min (>60); Estimated Creatinine Clearance 46.48 ml/min; Glucose 91 mg/dL (74-106); Potassium 4.2 mmol/L (3.5-5.1); Sodium Level 137 mmol/L (136-145)
--- NOTE | 2021-02-19 08:00 | MRI_ITS ---
STUDY: MRI RIGHT FOREFOOT WITHOUT CONTRAST REASON FOR EXAM: Ulcer right great toe, evaluate for osteomyelitis. TECHNIQUE: Standardized fat and water weighted pulse sequences were obtained in all 3 orthogonal planes. COMPARISON: Radiographs 02/16/2021. FINDINGS: Although there is image degradation secondary to patient motion, there is still significant diagnostically useful information available from this examination. Normal metatarsophalangeal joint of the hallux. There is a bipartite fibular sesamoid with mild bone edema (inversion recovery sagittal image 15) suggestive of mild sesamoiditis. There is no bone edema of the tibial sesamoid. There is arthrosis of the interphalangeal joint of the hallux with chondral thinning (T1 sagittal images 12, 13) and flexion deformity at the interphalangeal joint of the great toe. There is mild bone edema of the distal phalanx of the great toe (inversion recovery sagittal image 11), either reactive bone edema or early osteomyelitis. There is no bone edema of the proximal phalanx of the great toe. Normal medial and lateral heads of the flexor hallucis brevis tendons. Normal flexor and extensor hallucis longus tendons. Normal second through fifth metatarsophalangeal (MTP) joints. There are hammertoe deformities of the lesser toes without demonstrated bone edema of the phalanges of the lesser toes. Normal first through fourth intermetatarsal spaces. Normal flexor and extensor tendons of the second through fifth toes. Normal visualized metatarsi. There is atrophy with fat replacement of the intrinsic muscles of the forefoot. There is edema in the subcutis adipose space. There is no demonstrated focal fluid collection to indicate soft tissue abscess. MRI/Lower Ext/No Jt/w/o IMPRESSION: Mild bone edema of the distal phalanx of the great toe, either reactive bone edema or early osteomyelitis. Arthrosis of the interphalangeal joint of the great toe. Mild fibular sesamoiditis. Atrophy of the intrinsic muscles of the forefoot suggestive of peripheral neuropathy. Edema in the subcutis adipose space without demonstrated soft tissue abscess. Electronically Signed: Pankaj Jenkins MD at 11:02 EDT Tel , Service support ,
[2021-02-19 08:30] VITALS: BP 134/51; PULSE 70; RESP 18; TEMP 36.3; O2SAT 100
[2021-02-19] MEDS: Acetaminophen 325 MG Tablet 650 MG PO (09:05)
[2021-02-19] MEDS: Aspirin 81 MG TAB.CHEW PO (09:05)
--- NOTE | 2021-02-19 09:05 | MRI_ITS ---
STUDY: MRI LEFT REARFOOT WITHOUT CONTRAST REASON FOR EXAM: Chronic ulcers, Charcot foot, evaluate for osteomyelitis. TECHNIQUE: Standardized fat and water weighted pulse sequences were obtained in all 3 orthogonal planes. COMPARISON: MRI images 12/25/2020 and radiographs 02/16/2021. 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 There is mild neuropathic osteoarthropathy of the tibiotalar articulation with mild chondral thinning (T2 coronal image 15) and mild subchondral bone edema of the distal tibia (inversion recovery coronal images 17-21) similar to the prior study. There is neuropathic osteoarthropathy of the second third and fourth tarsometatarsal articulations (T2 series 4 images 11-19) as on the prior study. There is persistent bone edema of the plantar aspect of the cuboid (inversion recovery sagittal images 19-22) with chronic erosion of the plantar aspect of the cuboid (T1 sagittal images 21, 22), suspicious of chronic osteomyelitis. There is bone edema of the medial aspect of the head of the talus (inversion recovery sagittal images 28-30) with ill-definition of the medial cortex (T1 axial image 18) suspicious of chronic osteomyelitis as on the prior study. There is a tibiotalar joint effusion (inversion recovery sagittal images 18-20). There is edema in the subcutis adipose space without focal fluid collection to indicate soft tissue abscess. There is thickening of the soft tissues at the plantar aspect of the cuboid as on the prior study. There is thickening of the soft tissues of the lateral aspect of the hindfoot/midfoot as on the prior study. There is fat replacement of the intrinsic muscles of the foot consistent with peripheral neuropathy. MRI/Lower Ext/No Jt/w/o IMPRESSION: Bone edema of the cuboid with erosion of the plantar aspect of the cuboid and bone edema of the medial aspect of the head of the talus similar to the prior study suggestive of chronic osteomyelitis. Neuropathic osteoarthropathy of the hindfoot, midfoot, second through fourth tarsometatarsal articulations and tibiotalar articulation. Tibiotalar joint effusion. Edema in the subcutis adipose space without demonstrated soft tissue abscess. Atrophy of the intrinsic muscles of the foot consistent with peripheral neuropathy. Electronically Signed: Pankaj Jenkins MD at 12:39 EDT Tel , Service support ,
[2021-02-19] MEDS: Menthol/Lanolin/Calamine/Znox 113 GM Tube 1 APPLIC TOPICAL (10:49)
[2021-02-19] MEDS: Nystatin Powder 15gm Bottle 1 APPLIC TOPICAL ×2 (10:49→21:35)
[2021-02-19] MEDS: Cholecalciferol (VIT D3) 25 MCG TABLET (1,000 UNITS) PO (10:54)
[2021-02-19] MEDS: Famotidine 20 MG Tablet PO (10:55)
[2021-02-19 11:25] VITALS: BP 133/56; PULSE 68
[2021-02-19] MEDS: Carvedilol 25 MG Tablet PO ×2 (11:27→21:35)
[2021-02-19 11:50] LABS: Bedside Glucose 127 mg/dL (70-110)
--- NOTE | 2021-02-19 12:06 | NURSING ---
wound photo: right great toe
--- NOTE | 2021-02-19 12:06 | NURSING ---
wound photo: right lateral foot
--- NOTE | 2021-02-19 12:07 | NURSING ---
wound photo: left foot
--- NOTE | 2021-02-19 12:07 | NURSING ---
wound photo: left heel
--- NOTE | 2021-02-19 12:30 | CASEMGMT ---
Palliative screening tool completed for Lace/Strata 3 and readmission. Patient qualifies for palliative consult. Hospitalist notified and order received for consult. [facility] called and referral faxed.
--- NOTE | 2021-02-19 12:54 | PCM.PN.ID ---
Physical Exam Narrative Feeling better, no fever, n/v resolved Const alert and no apparent distress General Appearance: cooperative Resp normal air movement and clear to auscultation bilaterally Cardio regular rate GI normal to inspection, nondistended, normoactive bowel sounds Extremity General Extremity: edema Skin Skin Narrative: feet wrapped ID ID: Route of nutrition/ use of supplements: [] Nutritional Intake: [] IV Site: [] Shearer Catheter: [] Assessment & Plan Assessment/Plan (1) Osteomyelitis of left foot: QUALIFIERS: Osteomyelitis type: unspecified type Qualified Code(s): M86.9 - Osteomyelitis, unspecified PLAN: Concern for bilateral foot osteo. MRIs done. Recent wound cx with MRSA. Seen by Dr. Cameron with podiatry. Cont vanc/ernesto. Will follow
--- NOTE | 2021-02-19 13:57 | CASEMGMT ---
RIGO faxed Medicaid application to [facility]. Patient was approved by insurance to go to [facility]. The pre-cert is good for 48 hours from Monday am. Patient may be ready over the weekend so RIGO will put a green sheet on his chart. Plan: d/c to [facility] pending patient being medically ready. Michelle MEDINA
[2021-02-19 14:10] VITALS: BP 125/60; PULSE 62; RESP 16; TEMP 36.3; O2SAT 99
--- NOTE | 2021-02-19 14:34 | PCM.RX.CS ---
Consult Pharmacy has been consulted to manage selected antiobiotic: Vancomycin Type of Consult: Follow-up Suspected Infection: Skin/Soft tissue Prior Doses of Antibiotics Received/Current Regimen: Medications Discontinued Medications Vancomycin HCl (Vancomycin) 1,000 mg in 200 mls @ 200 mls/hr IV Q12H GLADIS Last Admin: 02/19/21 12:45 Dose: Not Given Documented by: Labs: Sodium 137 mmol/L (136-145) 02/19/21 06:10 Potassium 4.2 mmol/L (3.5-5.1) 02/19/21 06:10 Chloride 107 mmol/L (98-107) 02/19/21 06:10 Carbon Dioxide 25.0 mmol/L (21.0-32.0) 02/19/21 06:10 Anion Gap 5 (5-15) 02/19/21 06:10 BUN 55 mg/dL (7-18) H 02/19/21 06:10 Creatinine 1.62 mg/dL (0.70-1.30) H 02/19/21 06:10 Est GFR (MDRD) Af Amer 55 mL/min (>60) L 02/19/21 06:10 Est GFR (MDRD) Non-Af 45 mL/min (>60) L 02/19/21 06:10 BUN/Creatinine Ratio 34.0 RATIO (10-20) H 02/19/21 06:10 Glucose 91 mg/dL (74-106) 02/19/21 06:10 Vancomycin Trough 23.0 ug/mL (5.0-15.0) H 02/19/21 11:21 Microbiology: Microbiology 02/16/21 14:30 Wound - Left Foot Gram Stain - Final 02/16/21 14:30 Wound - Left Foot Wound Culture - Final Meth. resistant Staph. aureus Weight used for dosin kg Estimated Creatinine Clearance: 66ml/min Goal Trough: 15-20 mcg/mL Pharmacy Plan for Drug Dosing: Vancomycin trough returned above goal at 23mg/L. Dose for 02/19/21 1200 was held and a random level will be ordered in 12 hours to evaluate. Vancomycin will be restarted at a newly calculated dose when level is <20. Pharmacy Service will continue to monitor and adjust dosing as required. Labs to be done on [date and time ordered]: random level 02/19/21 [id number]
--- NOTE | 2021-02-19 15:47 | CASEMGMT ---
RIGO called Marlyn at [place] and left her a voice mail letting her know patient will likely be coming tomorrow. RIGO told her the 2 possible IV antibiotics he will be on at d/c. RIGO also requested that she call RIGO back regarding fax number for weekend and COVID test. Plan: d/c to [facility] under skilled level of care on a PASRR as he was observation status at [facility] and he will likely be at the SNF longer than 30 days. Michelle Kee OUTPATIENT INTERVIEWING CLERK ADAM
--- NOTE | 2021-02-19 16:03 | PN.HOSP_ITS ---
Subjective Subjective Patient states overall he is feeling better. He states he did not sleep well last evening and he is therefore tired today. Dr. Davis from podiatry was in and per Mr. Becker they discussed possible amputation in the future but not during this hospitalization. This was verified with podiatry. PICC line placement explained. Patient states he is aware and has had piccs in the past. I did discuss with him that we recommend that he not go home from the residential facility. He is adamant that he would like to be able to go home as soon as possible Objective Data Objective Data Vital Signs: Vital Signs Temp Pulse Resp BP Pulse Ox 97.4 F L 62 16 125/60 H 99 02/19/21 14:10 02/19/21 14:10 02/19/21 14:10 02/19/21 14:10 02/19/21 14:10 Oxygen Flow Rate (L/min) 3 Oxygen Delivery Method Room Air Weight: 154.5 kg Body Mass Index (BMI) 45.9 Intake & Output: Intake and Output for Last 24 Hours 02/17/21 02/18/21 02/19/21 23:59 23:59 23:59 Intake Total 2333.75 / 2333.75 3016.75 / 3016.75 2652.00 / 2652.00 Output Total 1700 / 1950 1900 / 1900 625 / 625 Balance 633.75 / 383.75 1116.75 / 1116.75 2027.00 / 2027.00 Lab / Micro Data Result Diagrams: 02/19/21 06:10 02/19/21 06:10 Labs: Laboratory Results - last 24 hr 02/18/21 16:00: POC Glucose 102 02/18/21 21:51: POC Glucose 160 H 02/19/21 06:10: WBC 5.6, RBC 3.13 L, Hgb 8.0 L, Hct 26.6 L, MCV 85.0, MCH 25.6 L , MCHC 30.1 L, RDW Std Deviation 63.5 H, RDW Coeff of Xavier 20.3 H, Plt Count 207, MPV 10.4, Immature Gran % (Auto) 0.700, Neut % (Auto) 63.7, Lymph % (Auto) 17.2 L, [place] % (Auto) 9.1, Eos % (Auto) 8.9 H, Baso % (Auto) 0.4, Absolute Neuts (auto) 3.6, Absolute Lymphs (auto) 0.97, Nucleated RBC % 0 02/19/21 06:10: Sodium 137, Potassium 4.2, Chloride 107, Carbon Dioxide 25.0, Anion Gap 5, BUN 55 H, Creatinine 1.62 H, Estim Creat Clear Calc 46.48, Est GFR (MDRD) Af Amer 55 L, Est GFR (MDRD) Non-Af 45 L, BUN/Creatinine Ratio 34.0 H, Glucose 91, Calcium 8.0 L 02/19/21 06:22: POC Glucose 90 02/19/21 11:17: POC Glucose 127 H 02/19/21 11:21: Vancomycin Trough 23.0 H Micro: Microbiology 02/16/21 14:30 Wound - Left Foot Gram Stain - Final 02/16/21 14:30 Wound - Left Foot Wound Culture - Final Meth. resistant Staph. aureus Radiography Diagnostic Testing: Radiology Impression Lower Extremity MRI 02/19/21 08:00 IMPRESSION: Mild bone edema of the distal phalanx of the great toe, either reactive bone edema or early osteomyelitis. Arthrosis of the interphalangeal joint of the great toe. Mild fibular sesamoiditis. Atrophy of the intrinsic muscles of the forefoot suggestive of peripheral neuropathy. Edema in the subcutis adipose space without demonstrated soft tissue abscess. Electronically Signed: Pankaj Jenkins MD at 11:02 EDT Tel , Service support , Lower Extremity MRI 02/19/21 09:05 IMPRESSION: Bone edema of the cuboid with erosion of the plantar aspect of the cuboid and bone edema of the medial aspect of the head of the talus similar to the prior study suggestive of chronic osteomyelitis. Neuropathic osteoarthropathy of the hindfoot, midfoot, second through fourth tarsometatarsal articulations and tibiotalar articulation. Tibiotalar joint effusion. Edema in the subcutis adipose space without demonstrated soft tissue abscess. Atrophy of the intrinsic muscles of the foot consistent with peripheral neuropathy. Electronically Signed: Pankaj Jenkins MD at 12:39 EDT Tel , Service support , Physical Exam Const alert, oriented x3 and no apparent distress Constitutional Narrative: Morbidly obese white male lying in bed, appears older than stated age, patient is watching television, appears comfortable Exam Limitations: no limitations HEENT head/scalp atraumatic and moist oral mucous membranes Neck Neck Narrative: Trachea midline, neck is short and thick Resp normal respiratory effort, no retractions, no use of accessory muscles and clear to auscultation bilaterally Resp Narrative: Diffusely diminished but distant secondary to body habitus Cardio regular rate, regular rhythm, S1 normal heart sound, S2 normal heart sound, no murmurs, no rub, no gallops, no clicks and no JVD GI normal to inspection, nondistended, normoactive bowel sounds, soft to palpation, non-tender and non-distended GI Narrative: Obese Palpation: hernia; Negative for tender or guarding Extremity Extremity Narrative: Bilateral lower extremities with Fausto bandages and dressings in place, bilateral toes with good cap refill but significantly dry skin, marked Charcot foot left greater than right lower extremity General Extremity: edema Neuro oriented x3 and moves all extremities Neuro Narrative: Diabetic neuropathy bilateral lower extremities Sensorium / Orientation: awake and alert Assessment & Plan Assessment/Plan (1) Sepsis: (2) Diabetic infection of left foot: (3) Charcot foot due to diabetes mellitus: PLAN: Sepsis secondary to MRSA bilateral lower extremity diabetic wound infection -Wound culture is growing staph aureus--> identification and sensitivities are pending -T-max 101.1 last evening at about 6:00--> no true fevers since that time docume nted -blood cultures x2 pending -UA is not suggestive of infection -Continue Zosyn and vancomycin -MRI bilateral lower extremities shows chronic osteo- -Podiatry is following--> discussed case with Dr. Davis today and she will follow up with him as an outpatient with further plans for possible amputation in future if patient desires--> per discussion there has been a significant lack of follow-up in the past -PICC line placement -ID following appreciate input -Probable discharge tomorrow to residential facility on IV antibiotics for 6 weeks Hyponatremia -Resolved ANDRY on CKD stage 3b -Serum creatinine is stable and at baseline -Continue to hold home Lasix dose --> if stable tomorrow we will restart Non-anion gap metabolic acidosis -Resolved Chronic anemia -Baseline hemoglobin appears to be between 9 and 10.5 -No signs of bleeding -Hemoglobin has been stable Hypertension -Continue carvedilol -Restart Lasix tomorrow if serum creatinine is stable -Continue irbesartan DM-2 controlled -Most recent hemoglobin A1c from 12/26/2020 is 6.6 -Continue home Lantus dose -Accu-Cheks -SSI -Hold home oral medications Physical deconditioning -Continue PT/OT -Probable discharge to skilled facility Morbid obesity -BMI 46.9 -Advised weight loss -Complicates overall treatment, prognosis, outcomes -Suspect patient has ALLEN that is untreated -Would recommend outpatient sleep study DVT/GI prophylaxis -Heparin 5000 units 3 times daily -Famotidine 20 mg daily CODE STATUS -Full code Charges/Coding Visit Charges Inpatient E&M: 14712 Subs Hosp L2
[2021-02-19 17:05] LABS: Bedside Glucose 147 mg/dL (70-110)
--- NOTE | 2021-02-19 17:55 | RAD_ITS ---
STUDY: X-RAY CHEST REASON FOR EXAM: Male, 70 years old. PICC line placement. TECHNIQUE: Single AP portable view of the chest. COMPARISON: 02/16/2021. FINDINGS: There is a right sided PICC line with its tip just above the atrial caval junction. The lungs are clear and expanded. There is no demonstrated pleural abnormality. Stable cardiomegaly. There is no change in the mediastinum, almaz, pulmonary arteries or aorta. No osseous changes. There is no demonstrated abnormality of the visualized soft tissue structures of the upper abdomen. RAD/CXR for Line Placement IMPRESSION: 1. Right-sided PICC line as described. 2. Stable cardiomegaly without acute pulmonary disease. Electronically Signed: Navi Martinez DO at 18:45 EDT Tel [phone], Service support ,
[2021-02-19 18:45] VITALS: BP 119/72; PULSE 64; RESP 20; TEMP 36.8; O2SAT 98
[2021-02-19 21:28] VITALS: BP 125/54; PULSE 71; RESP 17; TEMP 36.7; O2SAT 96
[2021-02-19] MEDS: Atorvastatin Calcium 40 MG Tablet PO (21:35)
[2021-02-19 21:46] LABS: Bedside Glucose 154 mg/dL (70-110)
[2021-02-20 00:23] LABS: Vancomycin, Random Level 17.6 ug/mL (0.0-15.0)
[2021-02-20 03:35] VITALS: BP 131/62; PULSE 68; RESP 17; TEMP 36.7; O2SAT 98
[2021-02-20 05:54] LABS: Absolute Lymphocyte Count 1.01 X10^3/uL (0.83-4.51); Basophil# 0.02 X10^3/uL; Basophil% 0.4 % (0-1); Eosinophil# 0.37 X10^3/uL; Eosinophils% 7.5 % (0-5); Hematocrit 27.7 % (40-54); Hemoglobin 8.4 g/dL (13.0-16.5); Lymphocyte # 1.01 X10^3/ul (0.83-4.51); Lymphocyte % 20.6 % (19-41); Mean Corp Hgb Conc 30.3 g/dL (32-36); Mean Corpuscular Hgb 25.8 pg (27.0-32.0); Mean Platelet Vol. 10.1 fl (6.2-12.0); Monocyte# 0.44 X10^3/uL; NRBC Flagged by Analyzer 0 % (0-5); Neutrophil # 3.02 X10^3/uL (2.7-7.7); Neutrophil % 61.5 % (47-70); Platelet Count 221 K/mm3 (150-450); RBC Distribution Width SD 62.5 fl (35.1-43.9); Red Blood Count 3.26 M/mm3 (4.6-6.2); White Blood Count 4.9 K/mm3 (4.4-11.0)
[2021-02-20 06:25] LABS: Anion Gap 5 (5-15); BUN 48 mg/dL (7-18); BUN/Creat Ratio 37.5 RATIO (10-20); Calcium,Total 8.2 mg/dL (8.5-10.1); Chloride 109 mmol/L (98-107); Creatinine, Serum 1.28 mg/dL (0.70-1.30); EST Glomerular Filtration Rate 59 mL/min (>60); Est Glom Filt Rate - Afr Amer 72 mL/min (>60); Estimated Creatinine Clearance 58.83 ml/min; Glucose 109 mg/dL (74-106); Potassium 4.5 mmol/L (3.5-5.1); Sodium Level 138 mmol/L (136-145)
[2021-02-20 06:55] LABS: Bedside Glucose 106 mg/dL (70-110)
[2021-02-20] MEDS: Heparin Injection (Vial) 5,000 UNIT/ML VIAL 5000 UNIT SC (07:01)
[2021-02-20 09:00] VITALS: BP 126/59; PULSE 75; RESP 17; TEMP 36.5; O2SAT 98
[2021-02-20] MEDS: Famotidine 20 MG Tablet PO (09:01)
[2021-02-20] MEDS: Carvedilol 25 MG Tablet PO (09:01)
[2021-02-20] MEDS: Aspirin 81 MG TAB.CHEW PO (09:01)
[2021-02-20] MEDS: Cholecalciferol (VIT D3) 25 MCG TABLET (1,000 UNITS) PO (09:01)
[2021-02-20] MEDS: Nystatin Powder 15gm Bottle 1 APPLIC TOPICAL (11:19)
[2021-02-20] MEDS: Menthol/Lanolin/Calamine/Znox 113 GM Tube 1 APPLIC TOPICAL (11:19)
--- NOTE | 2021-02-20 11:20 | DS.PCM_ITS ---
Providers Date of Admission: 02/18/21 Primary Care Physician: Dr. Mcihael Palomino, Consultations 02/16/21 11:22 Consult: Onc/Wound/lever operator Routine Comment: Reason for Consult:: foot wounds 02/17/21 18:10 Consult: Infectious Disease Routine Consulting Provider: Betito Sweeney Reason for Consult: Staph Wound infection EMERGENT Consult: No Notified: Yes Date Notified: 02/17/21 Time Notified: 18:11 Method of Notification: Answering Service 02/18/21 09:44 Consult: Podiatry Routine Consulting Provider: Payton Cameron Reason for Consult: L foot infection EMERGENT Consult: No Notified: Yes Date Notified: 02/18/21 Time Notified: 10:27 Method of Notification: phone Reason For Visit: ADULT FAILURE TO THRIVE Diagnosis Discharge Diagnosis (1) Sepsis: Status: Acute Code(s): A41.9 - Sepsis, unspecified organism (2) Diabetic infection of left foot: Status: Acute Code(s): E11.628 - Type 2 diabetes mellitus with other skin complications; L08.9 - Local infection of the skin and subcutaneous tissue, unspecified (3) Charcot foot due to diabetes mellitus: Status: Chronic Code(s): E11.610 - Type 2 diabetes mellitus with diabetic neuropathic arthropathy Medications at Discharge Home Medications Lantus Solostar U-100 Insulin 43 unit SUBCUT DAILY 12/25/20 carvedilol [Coreg] 25 mg PO BID 12/25/20 furosemide [Lasix] 40 mg PO BID 12/25/20 pioglitazone [Actos] 30 mg PO DAILY 12/25/20 aspirin 81 mg PO DAILY 12/31/20 atorvastatin 40 mg PO DAILY 12/31/20 cholecalciferol (vitamin D3) [Vitamin D3] 125 mcg PO DAILY 02/10/21 vitamin B complex [B Complex-Vitamin B12] 1 tab PO DAILY 02/10/21 irbesartan 300 mg PO DAILY 02/16/21 saw palmetto 450 mg PO DAILY 02/16/21 ertapenem 1 g IV Q24 #0 ea 02/20/21 nystatin [Nyamyc] 1 applic TOPICAL BID #0 g 02/20/21 sennosides-docusate sodium [Stool Softener-Stimulant Laxat] 2 tab PO BID PRN PRN #0 tab 02/20/21 vancomycin 750 mg IV BID 42 Days ea 02/20/21 Hospital Course Procedures PICC line placement (Placed on 02/19/2021) and - (MRI bilateral lower extremity) Summary of Care Provided Minutes Spent on Discharge: 46 Hospital Course: Mr. Becker is a 70-year-old white male with multiple medical problems who was admitted to [facility] through the ED on 02/16/2021. He had recently been discharged 4 days prior to representation. At that hospitalization long-term facility versus home health care was recommended and patient declined both. Upon admission he complained of progressive generalized weakness and had a fall the day prior to admission. He also had subjective fever and chills. His initial work-up in the emergency department was unremarkable however on 02/17/2021 he became febrile. With that cultures were obtained from the wound, blood, and urine. Vancomycin and meropenem were IV initiated and infectious disease was consulted. His wound culture was positive for MRSA his urine and blood cultures were negative. MRIs of bilateral lower extremities were obtained and show no abscesses but suggestive of bilateral osteomyelitis. Podiatry evaluated the patient as well and Dr. Cameron is extremely familiar with Mr. Becker. There has been recommendat ion of amputation in the past but the patient's been reluctant and does not follow-up regularly nor is he compliant at home. Per documentation and personal discussion she again recommends amputation and the patient is considering this now as an option but would recommend doing it as an outpatient after he has further cardiology evaluation. Given his history of polymicrobial wound infections he will be continued on ertapenem 1 g daily and vancomycin 750 mg twice daily for 6 weeks to treat his infection. He will need weekly BMP, CBC, LFTs, Vanco trough and ESR with a 2-week follow-up with infectious disease. Results are to be faxed to Dr. Ryan's office at [phone]. The patient was again reluctant to go to a skilled facility but given his need for long-term antibiotics, wounds, and inability to take care of himself at home he agreed. We recommended long-term placement but I suspect the patient is not going to proceed with this as he asks how long he is going to need to be in the nursing facility. He is also to follow-up with Dr. Cameron from podiatry in 2 to 4 weeks for further discussion on long-term management. A PICC line was placed on 02/19/2021 for his long-term antibiotics. He was discharged in stable condition. Discharge diagnoses: Sepsis secondary to MRSA bilateral lower extremity diabetic wound infections Hyponatremia-resolved ANDRY-resolved CKD stage IIIb DM-2 controlled Morbid obesity Diabetic neuropathy Charcot foot bilateral lower extremities Debility Physical deconditioning CAD HFrEF-compensated HTN HPL Physical Exam Const alert, oriented x3 and no apparent distress Constitutional Narrative: Morbidly obese white male lying in bed, appears older than stated age, patient is watching television, appears comfortable General Appearance: cooperative, comfortable, well kempt and well developed Orientation / Consciousness: awake Exam Limitations: no limitations HEENT normocephalic, head/scalp atraumatic and moist oral mucous membranes HEENT Narrative: Mallampati 3, no rash Eyes PERRL, EOMs intact bilaterally and conjunctivae normal Neck supple Neck Narrative: Trachea midline, neck is short and thick Resp normal respiratory effort, no retractions, no use of accessory muscles and clear to auscultation bilaterally Resp Narrative: Diffusely diminished but distant secondary to body habitus Cardio regular rate, regular rhythm, S1 normal heart sound, S2 normal heart sound, no murmurs, no rub, no gallops, no clicks and no JVD GI normal to inspection, nondistended, normoactive bowel sounds, soft to palpation, non-tender and non-distended GI Narrative: Obese Palpation: hernia; Negative for tender or guarding Extremity Extremity Narrative: Bilateral lower extremities with Fausto bandages and dressings in place, bilateral toes with good cap refill but significantly dry skin, marked Charcot foot left greater than right lower extremity General Extremity: edema Skin skin turgor normal, no jaundice, no petechiae and no mottling Skin Narrative: See above Neuro oriented x3 and moves all extremities Neuro Narrative: Diabetic neuropathy bilateral lower extremities Sensorium / Orientation: awake and alert Speech: speech normal Psych Psych Narrative: Affect is flat mood is somewhat depressed Weight / BMI Weight Weight: 156.5 kg Body Mass Index (BMI) 45.9 ABG / Lab / Microbiology Data Result Diagrams: 02/20/21 05:40 02/20/21 05:40 Laboratory: Laboratory Results - last 24 hr 02/19/21 11:17: POC Glucose 127 H 02/19/21 11:21: Vancomycin Trough 23.0 H 02/19/21 16:52: POC Glucose 147 H 02/19/21 21:30: POC Glucose 154 H 02/19/21 23:51: Random Vancomycin 17.6 H 02/20/21 05:40: WBC 4.9, RBC 3.26 L, Hgb 8.4 L, Hct 27.7 L, MCV 85.0, MCH 25.8 L , MCHC 30.3 L, RDW Std Deviation 62.5 H, RDW Coeff of Xavier 20.0 H, Plt Count 221, MPV 10.1, Immature Gran % (Auto) 1.000 H, Neut % (Auto) 61.5, Lymph % (Auto) 20.6, [place] % (Auto) 9.0, Eos % (Auto) 7.5 H, Baso % (Auto) 0.4, Absolute Neuts (auto) 3.0, Absolute Lymphs (auto) 1.01, Nucleated RBC % 0 02/20/21 05:40: Sodium 138, Potassium 4.5, Chloride 109 H, Carbon Dioxide 24.0, Anion Gap 5, BUN 48 H, Creatinine 1.28, Estim Creat Clear Calc 58.83, Est GFR ( MDRD) Af Amer 72, Est GFR (MDRD) Non-Af 59 L, BUN/Creatinine Ratio 37.5 H, Glucose 109 H, Calcium 8.2 L 02/20/21 06:49: POC Glucose 106 Microbiology: Microbiology 02/18/21 01:57 Urine, Clean Catch Urine Culture - Final Culture exhibits no growth. 02/16/21 14:30 Wound - Left Foot Gram Stain - Final 02/16/21 14:30 Wound - Left Foot Wound Culture - Final Meth. resistant Staph. aureus Radiography Diagnostic Testing: Radiology Impression Lower Extremity MRI 02/19/21 09:05 IMPRESSION: Bone edema of the cuboid with erosion of the plantar aspect of the cuboid and bone edema of the medial aspect of the head of the talus similar to the prior study suggestive of chronic osteomyelitis. Neuropathic osteoarthropathy of the hindfoot, midfoot, second through fourth tarsometatarsal articulations and tibiotalar articulation. Tibiotalar joint effusion. Edema in the subcutis adipose space without demonstrated soft tissue abscess. Atrophy of the intrinsic muscles of the foot consistent with peripheral neuropathy. Electronically Signed: Pankaj Jenkins MD at 12:39 EDT Tel , Service support , Chest X-Ray 02/19/21 17:55 IMPRESSION: 1. Right-sided PICC line as described. 2. Stable cardiomegaly without acute pulmonary disease. Electronically Signed: Navi Martinez DO at 18:45 EDT Tel [phone], Service support , Meaningful Use Info Meaningful Use Diagnoses (Choose all that apply): None applicable Discharge Plan Admission Admit Date/Time: 02/18/21 12:01 Primary Reason for Your Visit: Bilateral lower extremity foot infection secondary to diabetes Attending Provider: Brittney Bolton Primary Care Provider: Michael Palomino Consulting Providers: Betito Sweeney ; Payton Cameron Discharge Orders/Prescriptions Prescriptions: New sennosides-docusate sodium [Stool Softener-Stimulant Laxat] 8.6-50 mg Tablet 2 tab PO BID PRN PRN (Reason: Constipation) Qty: 0 RF: 0 ertapenem 1 gram Recon Soln 1 g IV Q24 Qty: 0 RF: 0 nystatin [Nyamyc] 100,000 unit/gram Powder 1 applic topical BID Qty: 0 RF: 0 vancomycin 750 mg recon soln 750 mg IV BID 42 Days RF: 0 Continued furosemide [Lasix] 40 mg tablet 40 mg PO BID RF: 0 Hold Instructions: Resume on 01/02/21. Follow-up with your PCP in 1 week we will obtain a BMP to monitor your renal function. carvedilol [Coreg] 25 mg tablet 25 mg PO BID RF: 0 pioglitazone [Actos] 30 mg tablet 30 mg PO DAILY RF: 0 Lantus Solostar U-100 Insulin 100 unit/mL (3 mL) insulin pen 43 unit SUBCUT DAILY RF: 0 atorvastatin 40 mg tablet 40 mg PO DAILY RF: 0 aspirin 81 mg Tablet 81 mg PO DAILY RF: 0 vitamin B complex [B Complex-Vitamin B12] Tablet 1 tab PO DAILY RF: 0 cholecalciferol (vitamin D3) [Vitamin D3] 125 mcg (5,000 unit) Tablet 125 mcg PO DAILY RF: 0 irbesartan 300 mg tablet 300 mg PO DAILY RF: 0 saw palmetto 450 mg Capsule 450 mg PO DAILY RF: 0 Referrals / Follow Up: Michael Palomino DO [Primary Care Provider] - Payton Cameron DPM [STAFF PHYSICIAN] - See Referral Note (4 weeks) Betito Sweeney MD [STAFF PHYSICIAN] - Within 2 Weeks (Hospital follow-up for lower extremity and foot infection) Disposition Disposition (needs filled in before D/C Order can be placed): Senior Care Facility Charges/Coding Visit Charges Inpatient E&M: 55918 SNF Disch >30 Min
--- NOTE | 2021-02-20 11:44 | PCM.TXEXTCAR ---
Diet 02/16/21 11:19 Diet: Consistent Carb - Calorie Controlled Food consistency:: Regular Liquid Consistency:: Regular/Thin Type of Dietary Supplement:: Magic Cup Dessert Is pt able to select menu?: Yes Diet Comments: magic cup w/ dinner How many daily calories?: 2000 calorie Routine Orders/Code Status Suppository Frequency: Daily PRN O2 Frequency: PRN Keep PO Greater than or Equal to (%): 92 Routine Lab Work: CBC (Weekly and faxed to below number), BMP (Weekly and faxed to below number) and - (LFT, ESR, Vanco trough--> obtain weekly and fax results to [phone]) Code Status: Full Code Wound(s) Coccyx: Wound Type: moisture associated open area left lateral lower leg: Wound Type: Pressure Injury Dressing Change: AntiMicrobial (Aquacel AG, etc) left lateral ankle: Wound Type: Pressure Injury Dressing Change: AntiMicrobial (Aquacel AG, etc) left lateral foot: Wound Type: Pressure Injury Dressing Change: AntiMicrobial (Aquacel AG, etc) right great toe: Wound Type: Neuropathic/Diabetic Foot Ulcer Dressing Change: AntiMicrobial (Aquacel AG, etc) right lateral foot: Wound Type: Abrasion Dressing Change: Dry Sterile Dressing left heel: Wound Type: Pressure Injury Dressing Change: AntiMicrobial (Aquacel AG, etc) Suggestions for Active Care Change Position every (hours): 2 Hours to sit in a chair: 2 Times a day to sit in chair: 2 Therapies Weight Bearing: Non weight bearing Extremity Affected:: Bilateral Lower Physical Therapy: Eval and Treat Occupational Therapy: Eval and Treat Problem/Diagnosis (1) Sepsis: Status: Acute (2) Diabetic infection of left foot: Status: Acute (3) Charcot foot due to diabetes mellitus: Status: Chronic Allergies/Procedures Done in Hospital Allergies Penicillins [PCN] Allergy (Verified 02/16/21 07:59) Rash blood pressure meds Adverse Reaction (Unknown, Uncoded 02/16/21 11:36) NEEDS FOLLOW-UP patient does not remember which meds Procedures: PICC line placement Type of Care/Length of Stay Estimated LOS: More Than 30 Days Type of Care Needed: Skilled Rehab Potential: Poor Prognosis: Fair Additional Orders/Day of Discharge Day of Discharge: 02/20/21 Dietary and Speech Recommendations Dietitian Recommendations/Changes: Continue consistent carbohydrate 2000kcal/day diet. D/c ensure enlive and Yahir as pt is refusing. Continue magic cup w/ dinner, Daily wts. Will re-order ONS if pt becomes agreeable. Chino Corodva MS, RDN, LD Discharge Plan Admission Admit Date/Time: 02/18/21 12:01 Primary Reason for Your Visit: Bilateral lower extremity foot infection secondary to diabetes Attending Provider: Brittney Bolton Primary Care Provider: Michael Palomino Consulting Providers: Betito Sweeney ; Payton Cameron Discharge Orders/Prescriptions Prescriptions: New sennosides-docusate sodium [Stool Softener-Stimulant Laxat] 8.6-50 mg Tablet 2 tab PO BID PRN PRN (Reason: Constipation) Qty: 0 RF: 0 ertapenem 1 gram Recon Soln 1 g IV Q24 Qty: 0 RF: 0 nystatin [Nyamyc] 100,000 unit/gram Powder 1 applic topical BID Qty: 0 RF: 0 vancomycin 750 mg recon soln 750 mg IV BID 42 Days RF: 0 Continued furosemide [Lasix] 40 mg tablet 40 mg PO BID RF: 0 Hold Instructions: Resume on 01/02/21. Follow-up with your PCP in 1 week we will obtain a BMP to monitor your renal function. carvedilol [Coreg] 25 mg tablet 25 mg PO BID RF: 0 pioglitazone [Actos] 30 mg tablet 30 mg PO DAILY RF: 0 Lantus Solostar U-100 Insulin 100 unit/mL (3 mL) insulin pen 43 unit SUBCUT DAILY RF: 0 atorvastatin 40 mg tablet 40 mg PO DAILY RF: 0 aspirin 81 mg Tablet 81 mg PO DAILY RF: 0 vitamin B complex [B Complex-Vitamin B12] Tablet 1 tab PO DAILY RF: 0 cholecalciferol (vitamin D3) [Vitamin D3] 125 mcg (5,000 unit) Tablet 125 mcg PO DAILY RF: 0 irbesartan 300 mg tablet 300 mg PO DAILY RF: 0 saw palmetto 450 mg Capsule 450 mg PO DAILY RF: 0 Referrals / Follow Up: Michael Palomino DO [Primary Care Provider] - Payton Cameron DPM [STAFF PHYSICIAN] - See Referral Note (4 weeks) Betito Sweeney MD [STAFF PHYSICIAN] - Within 2 Weeks (Hospital follow-up for lower extremity and foot infection) Disposition Disposition (needs filled in before D/C Order can be placed): Shelter Facility
[2021-02-20 12:10] LABS: Bedside Glucose 131 mg/dL (70-110)
[2021-02-20 14:15] VITALS: BP 160/71; PULSE 71; RESP 16; TEMP 36.8; O2SAT 97
--- NOTE | 2021-02-20 14:46 | NURSING ---
Report called to [facility] to nurse Ny
== END 2021-02-20 14:39 | disposition skilled nursing facility (03) | DRG 872 ==
LOC: ED 10:03 → PCU 10:17
PROVIDERS: Admitting Provider Internal Medicine; Emergency Provider Emergency Medicine; PCP Student in an Organized Health Care Education/Training Program; Visit Provider Internal Medicine
DX: A41.02 Sepsis due to Methicillin resistant Staphylococcus aureus (principal); Z68.42 Body mass index [BMI] 45.0-49.9, adult; I13.0 Hypertensive heart and chronic kidney disease with heart failure and stage 1 through stage 4 chronic kidney disease, or unspecified chronic kidney disease; I50.20 Unspecified systolic (congestive) heart failure; L97.309 Non-pressure chronic ulcer of unspecified ankle with unspecified severity; N17.9 Acute kidney failure, unspecified; M86.9 Osteomyelitis, unspecified; E87.1 Hypo-osmolality and hyponatremia; E87.2 Acidosis; E11.610 Type 2 diabetes mellitus with diabetic neuropathic arthropathy; E78.5 Hyperlipidemia, unspecified; E66.01 Morbid (severe) obesity due to excess calories; E11.622 Type 2 diabetes mellitus with other skin ulcer; E11.621 Type 2 diabetes mellitus with foot ulcer; E11.40 Type 2 diabetes mellitus with diabetic neuropathy, unspecified; E11.69 Type 2 diabetes mellitus with other specified complication; E11.22 Type 2 diabetes mellitus with diabetic chronic kidney disease; N18.32 Chronic kidney disease, stage 3b; I25.10 Atherosclerotic heart disease of native coronary artery without angina pectoris; L97.529 Non-pressure chronic ulcer of other part of left foot with unspecified severity; L97.512 Non-pressure chronic ulcer of other part of right foot with fat layer exposed; Z79.82 Long term (current) use of aspirin; Z79.899 Other long term (current) drug therapy; Z79.4 Long term (current) use of insulin; Z91.81 History of falling
CPT/HCPCS: 36415; 36569; 71045; 73630; 73718; 80048; 80202; 81001; 81002; 82962; 83735; 84484; 85025; 87040; 87070; 87077; 87086; 87186; 87205; 87426; 87640; 93005; 97110; 97162; 97166; 97530; 97535; 97802; 97803; 99251; 99285; J2185; J7030; J7040; J7050; J7120; A4216; G0463; J2405

== ENCOUNTER 2021-06-07 14:22 | Observation (INO) | payer MEDICARE, MEDICAID, SELFPAY ==
[2021-06-07 14:23] VITALS: BP 88/47; PULSE 91; RESP 18; TEMP 36; O2SAT 100; BMI 35.9
--- NOTE | 2021-06-07 17:00 | ED.RN ---
consulted sw for patient
[2021-06-07 17:16] LABS: Absolute Lymphocyte Count 2.65 X10^3/uL (0.83-4.51); Absolute Neutrophil Count 4.9 X10^3/uL (2.0-7.7); Basophil# 0.05 X10^3/uL; Basophil% 0.6 % (0-1); Eosinophil# 0.12 X10^3/uL; Eosinophils% 1.4 % (0-5); Hematocrit 35.8 % (40-54); Hemoglobin 10.8 g/dL (13.0-16.5); Lymphocyte # 2.65 X10^3/ul (0.83-4.51); Lymphocyte % 31.3 % (19-41); Mean Corp Hgb Conc 30.2 g/dL (32-36); Mean Corpuscular Hgb 26.9 pg (27.0-32.0); Mean Corpuscular Volume 89.3 fL (80-94); Mean Platelet Vol. 10.9 fl (6.2-12.0); Monocyte# 0.73 X10^3/uL; Monocyte% 8.6 % (0-10); NRBC Flagged by Analyzer 0 % (0-5); Neutrophil # 4.86 X10^3/uL (2.7-7.7); Neutrophil % 57.5 % (47-70); Platelet Count 263 K/mm3 (150-450); RBC Distribution Width CV 15.9 % (11.6-14.6); RBC Distribution Width SD 52.2 fl (35.1-43.9); Red Blood Count 4.01 M/mm3 (4.6-6.2); White Blood Count 8.5 K/mm3 (4.4-11.0)
[2021-06-07 17:21] LABS: Anion Gap 8 (5-15); BUN 41 mg/dL (7-18); Calcium,Total 9.8 mg/dL (8.5-10.1); Chloride 107 mmol/L (98-107); Creatinine, Serum 2.16 mg/dL (0.70-1.30); EST Glomerular Filtration Rate 32 mL/min (>60); Est Glom Filt Rate - Afr Amer 39 mL/min (>60); Glucose 231 mg/dL (74-106); Potassium 4.1 mmol/L (3.5-5.1); Sodium Level 138 mmol/L (136-145)
--- NOTE | 2021-06-07 17:39 | EX.ED.DYSGE1 ---
HPI History of Present Illness Chief Complaint: Weakness Informant: patient and family Onset/Context/Timing Onset: Hours Context: Sudden Onset Timing: Continuous Quality: Weakness, fall, inability to rise from ground Location: Outside of the apartment complex Current Severity: Mild Maximum Severity: Severe Worsened by: Standing or ambulation Relieved by: Nothing Associated Symptoms Associated Symptoms: Decreased urine output Narrative Narrative: Patient is a 70-year-old male with multiple medical problems who was admitted to [facility]. Underwent surgery. His discharge to a nursing facility for rehabilitation. He was discharged on that nursing facility. Walking into his apartment he fell. Is unable to rise from the ground. He states he has not felt well for the past couple days. He reports decreased urine output. He does not feel safe going home. He denies fever, chills night sweats. He denies double vision, blurred vision loss of vision. He denies cardiac respiratory symptoms. Denies black or maroon-colored stool. He denies dysuria, frequency, urgency or hematuria. Prior similar symptoms: Yes Recent Illness/Hospitalization: Yes PFSH [facility] Medical History Anemia Ankle fracture Anxiety Bradycardia Chronic ulcer of ankle Chronic ulcer of left foot Chronic ulcer of right foot CKD (chronic kidney disease) stage 3, GFR 30-59 ml/min Depression Diabetes Diabetes mellitus Essential hypertension Fall History of ankle fracture Hypertension Hypertension Irregular heart beat Kidney disease Stage 3a chronic kidney disease Type 2 diabetes mellitus Home Medications aspirin 81 mg PO DAILY 12/31/20 [History Last Taken 02/15/21] atorvastatin 40 mg PO DAILY 12/31/20 [History Last Taken 02/15/21] cholecalciferol (vitamin D3) [Vitamin D3] 125 mcg PO DAILY 02/10/21 [History Last Taken 02/15/21] irbesartan 300 mg PO DAILY 02/16/21 [History Last Taken 02/15/21] saw palmetto 450 mg PO DAILY 02/16/21 [History Last Taken 02/15/21] Lactobacillus acidophilus 2,000 mmu cells PO BID 04/26/21 [History Last Taken Unknown] ascorbic acid (vitamin C) 500 mg tablet 500 mg PO BID 04/26/21 [History Last Taken Unknown] cyanocobalamin (vitamin B-12) 500 mcg tablet 500 mcg PO DAILY 04/26/21 [History Last Taken Unknown] furosemide 40 mg tablet 40 mg PO DAILY tab 04/26/21 [History Last Taken Unknown] insulin lispro 100 unit/mL subcutaneous pen 10 unit SUBCUT Q6H ml 04/26/21 [History Last Taken Unknown] zinc sulfate 50 mg zinc (220 mg) capsule 50 mg PO DAILY 04/26/21 [History Last Taken Unknown] Allergy/AdvReac Type Severity Reaction Status Date / Time Penicillins [PCN] Allergy Rash Verified 02/16/21 07:59 metformin AdvReac Unknown Diarrhea Verified 04/26/21 16:00 Iidxuwm-Dus-Stu Reductase AdvReac Unknown intolerence Verified 04/26/21 16:00 Inhibitor blood pressure meds AdvReac Unknown NEEDS Uncoded 02/16/21 11:36 FOLLOW-UP Family History Father No problems noted. Social History (Updated 06/07/21 @ 17:[address] Ward Polanco MD) household members: none Smoking Status: Never smoker alcohol intake: current alcohol intake frequency: other substance use type: does not use ROS ROS ED Constitutional Constitutional ED: Denies chills, fever(s), subjective, sweats or weight loss Eyes Eyes: Denies blurry vision, change in vision or diplopia ENT ENT ED: Denies ear pain, rhinorrhea or sore throat Cardiovascular Cardiovascular: Denies chest pain, orthopnea, palpitations or racing heartbeat Respiratory/Chest Respiratory/Chest: Denies cough, dyspnea, dyspnea on exertion or orthopnea Gastrointestinal Gastrointestinal: Denies abdominal pain, diarrhea, melena, nausea or vomiting Genitourinary Genitourinary ED: Reports other Details: Decreased urine output ; Denies dysuria, hematuria or urinary frequency Musculoskeletal Musculoskeletal: Denies arthralgias, back pain, myalgias or neck pain Integumentary Reports Abrasions and rash; Denies abscess Neurologic Neurologic: Reports paresthesias RLE and LLE (Diabetic neuropathy) and weakness Psychiatric Psychiatric: Reports depression Endocrine Endocrinology: Denies polydipsia, polyphagia or polyuria Allergic/Immunologic Allergic/Immunologic ED: Denies urticaria EXAM Physical Exam Const Vital Signs: 06/07/21 14:23 06/07/21 16:33 Temperature 96.8 F L Temperature Source Temporal Pulse Rate 91 Respiratory Rate 18 Respiratory Effort Normal Respiratory Pattern Normal Blood Pressure 88/47 L Blood Pressure Mean 60 Pulse Ox 100 Oxygen Delivery Method Room Air Positive well nourished, well developed, obese and unkempt General Appearance ED: unkempt and well developed Nutritional Appearance: obese HEENT HEENT Narrative: Head is atraumatic normocephalic. Pupils equal round reactive. Ears normal. Nares patent. Posterior pharynx out erythema exudate. Eyes PERRL and EOMs intact bilaterally General Eye ED: Negative for pale conjunctiva or scleral icterus Neck no lymphadenopathy, supple and no JVD Chest Wall inspection of chest normal Resp normal respiratory effort and clear to auscultation bilaterally Cardio regular rate, regular rhythm, S1 normal heart sound, S2 normal heart sound and no murmurs GI normal to inspection, nondistended, normoactive bowel sounds, non-tender and non-distended Palpation: soft Back/Spine no CVA tenderness Cervical Spine: Negative for cervical spine tenderness Thoracic Spine / Upper Back: Negative for thoracic spinal tenderness or paraspinal muscle tenderness Extremity Negative for normal to inspection Extremity Narrative: Significantly deformed left foot due to Charcot's foot General Extremety ED: Yes edema; Negative for tenderness General Extremity: edema Neuro oriented x3, CN's II-XII intact bilaterally and No no sensory deficits noted Sensorium / Orientation: alert Motor Exam: strength 5/5 throughout Psych mental status grossly normal Appearance: unkempt Skin No no rashes or lesions noted and No no wounds Skin Narrative: Patient with abrasions that do not appear infected left foot. MDM MDM MDM Narrative Medical decision making narrative: Failure to thrive will obtain blood work to assess for anemia metabolic dysfunction and electrolyte abnormality renal injury. Patient's creatinine is higher than normal. He is anemic. Case discussed with Dr. Whitten. He'll be a 23 observation for renal insufficiency, anemia and failure to thrive. Lab Data Attestation: I reviewed the patient's lab results. Labs: Laboratory Results - last 24 hr 06/07/21 06/07/21 16:58 16:58 WBC 8.5 RBC 4.01 L Hgb 10.8 L Hct 35.8 L MCV 89.3 MCH 26.9 L MCHC 30.2 L RDW Std Deviation 52.2 H RDW Coeff of Xavier 15.9 H Plt Count 263 MPV 10.9 Immature Gran % (Auto) 0.600 Neut % (Auto) 57.5 Lymph % (Auto) 31.3 [place] % (Auto) 8.6 Eos % (Auto) 1.4 Baso % (Auto) 0.6 Absolute Neuts (auto) 4.9 Absolute Lymphs (auto) 2.65 Nucleated RBC % 0 Sodium 138 Potassium 4.1 Chloride 107 Carbon Dioxide 23.0 Anion Gap 8 BUN 41 H Creatinine 2.16 H Estim Creat Clear Calc 33.80 Est GFR (MDRD) Af Amer 39 L Est GFR (MDRD) Non-Af 32 L BUN/Creatinine Ratio 19.0 Glucose 231 H Calcium 9.8 Discharge Plan Triage Chief Complaint: Weakness ED Provider: Ward Polanco Dx/Rx/DC Orders Clinical Impression: Acute kidney insufficiency, Charcot foot due to diabetes mellitus, Anemia, Adult failure to thrive Prescriptions: No Action insulin lispro [Humalog KwikPen Insulin] 100 unit/mL insulin pen 10 unit subcut Q6H RF: 0 ascorbic acid (vitamin C) 500 mg tablet 500 mg PO BID RF: 0 cyanocobalamin (vitamin B-12) 500 mcg tablet 500 mcg PO DAILY RF: 0 Lactobacillus acidophilus [Acidophilus] Capsule 2,000 mmu cells PO BID RF: 0 zinc sulfate 50 mg zinc (220 mg) capsule 50 mg PO DAILY RF: 0 furosemide [Lasix] 40 mg tablet 40 mg PO DAILY RF: 0 Hold Instructions: Resume on 01/02/21. Follow-up with your PCP in 1 week we will obtain a BMP to monitor your renal function. atorvastatin 40 mg tablet 40 mg PO DAILY RF: 0 aspirin 81 mg Tablet 81 mg PO DAILY RF: 0 cholecalciferol (vitamin D3) [Vitamin D3] 125 mcg (5,000 unit) Tablet 125 mcg PO DAILY RF: 0 irbesartan 300 mg tablet 300 mg PO DAILY RF: 0 saw palmetto 450 mg Capsule 450 mg PO DAILY RF: 0 Primary Care Provider: Michael Palomino Referrals: Michael Palomino DO [Primary Care Provider] - Disposition Disposition: Acute Care Hospital [facility]
--- NOTE | 2021-06-07 17:58 | CM.ED ---
RIGO Note Referral Source: MD Referral Reason: Discharge planning RIGO met with patient and his brother, Asher. Patient said that he had been at [facility] for 4 months and was discharged home today . Patient said that he was released from SNF today at noon and went home and I couldn't lift my boot so I went down and hit my head. Patient said that he is week on his left leg. Patient said that he feels he needs more physical therapy. Patient said that when [facility] was [facility] he did well and was able to go home. Patient's brother reports that therapy at [facility] was hit and miss. Patient said that he feels he needs more physical therapy as I was in bed for the last 6 days and not up. Patient said that he [facility] and then has Medicaid with a spenddown of $1366 a month while at the long-term. Patient said that he was out of money. Patient's brother, Asher, said that patient's family is not able to care for him. Patient said he was offered home health but declined it as he wanted to see how I did at home. Patient said that he has been putting the money, for his spendown, on his credit card. Patient said that he can't stand and is falling. Patient would like to go to TCU. Patient reports he has been vaccinated. Patient was advised that TCU is on COVID shutdown and patient voiced that he was comfortable with that as he prefers TCU. RN stated patient was home for 2 hours when he returned to the ED. RIGO spoke to Kesha in TCU. RIGO had explained to patient that TCU is on COVID shut down and he was comfortable with being on shut down in the TCU. Kesha said that patient was previously in TCU. Kesha said that patient can not be admitted to TCU from the ED and she would need to review documentation for precert tomorrow. RIGO clarified how long patient had been at [facility] and patient again voiced 4 months. As patient has been there for 4 months he is not able to go to TCU. Kesha said that since patient has Medicaid he will need to go to [place] or [facility]. RIGO updated patient and his family. RIGO also provided patient's brother with [facility] from [facility] contact information. SW updated MD Polanco and BATSHEVA Monique. Plan: Admit to Observation Status. [facility] Gabriela DALTON
--- NOTE | 2021-06-07 18:16 | PCM.HP.STD ---
Documented by User: Sylvester HERMAN 06/07/21 18:36 HPI - General HPI Narrative JONEL ZALDIVAR is a 70-year-old male who presents to the ED at [facility] on 06/07/2021 with a chief complaint of weakness and fall. Patient reports that earlier today he was entering his apartment after being discharged from rehab and suffered a fall, and was able to rise from the ground. Patient denies loss of consciousness or hitting his head and reports that the fall to the ground was soft. Patient reports decreased urine output as well as diarrhea. Patient denies chest pain, shortness of breath, palpitations, hemoptysis, sputum production, fever, chills, nausea or vomiting. Of note, patient was discharged earlier today for therapy due to osteomyelitis secondary to Charcot foot. Vital signs in the ED are BP of 88/47, HR of 91, RR of 18, temperature of 96.8 ?F and is currently satting 100% on room air. CBC did not demonstrate a leukocytosis, hemoglobin is 10.8, which is patient's baseline. BMP done did demonstrate an elevated creatinine at 2.1, baseline appears between 1.5 and 2. Patient was given fluids in the ED. 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 Anemia Ankle fracture Anxiety Bradycardia Charcot foot due to diabetes mellitus Chronic ulcer of ankle Chronic ulcer of left foot Chronic ulcer of right foot CKD (chronic kidney disease) stage 3, GFR 30-59 ml/min Depression Diabetes Diabetes mellitus Essential hypertension Fall History of ankle fracture Hypertension Hypertension Irregular heart beat Kidney disease Stage 3a chronic kidney disease Type 2 diabetes mellitus Home Medications aspirin 81 mg PO DAILY 12/31/20 [History Last Taken 06/07/21] cholecalciferol (vitamin D3) [Vitamin D3] 125 mcg PO DAILY 02/10/21 [History Last Taken 06/07/21] irbesartan 300 mg PO DAILY 02/16/21 [History Last Taken 06/07/21] saw palmetto 450 mg PO DAILY 02/16/21 [History Last Taken 06/07/21] Lactobacillus acidophilus 2,000 mmu cells PO BID 04/26/21 [History Last Taken 06/07/21] cyanocobalamin (vitamin B-12) 500 mcg tablet 500 mcg PO DAILY 04/26/21 [History Last Taken 06/07/21] furosemide 40 mg tablet 40 mg PO DAILY tab 04/26/21 [History Last Taken 06/07/21] Allergy/AdvReac Type Severity Reaction Status Date / Time Penicillins [PCN] Allergy Rash Verified 02/16/21 07:59 metformin AdvReac Unknown Diarrhea Verified 04/26/21 16:00 Ixfecvx-Fma-Yzf Reductase AdvReac Unknown intolerence Verified 04/26/21 16:00 Inhibitor blood pressure meds AdvReac Unknown NEEDS Uncoded 02/16/21 11:36 FOLLOW-UP Family History (Updated 06/07/21 @ 18:18 by Sylvester HERMAN) Father Cancer Mother CVA (cerebral vascular accident) CAD (coronary artery disease) Social History household members: none Smoking Status: Never smoker alcohol intake: current alcohol intake frequency: other substance use type: does not use ROS Constitutional Constitutional: Denies anorexia, change in weight, chills, fatigue, fever(s), malaise, night sweats, weakness or other Eyes Eyes: Denies blurry vision, change in eye color, change in vision, discharge from eye(s), double vision, erythema, eye pain, loss of vision or other ENT HEENT: Denies abnormal hearing, dysphagia, ear pain, epistaxis, headache(s), hearing loss, nasal congestion, nasal discharge, post nasal drip, sinus pressure, sore throat or other Cardiovascular Cardiovascular: Denies chest pain, claudication, dyspnea on exertion, edema, lightheadedness, orthopnea, palpitations, paroxysmal nocturnal dyspnea, rapid heart rate, syncope or other Respiratory/Chest Respiratory/Chest: Denies cough, dyspnea, excessive phlegm production, hemoptysis, productive cough, shortness of breath at rest, shortness of breath with exertion, wheezing or other Gastrointestinal Gastrointestinal: Reports diarrhea; Denies abdominal pain, coffee ground emesis, constipation, dyspepsia, hematemesis, hematochezia, loose stools, melena, nausea, vomiting or other Genitourinary Genitourinary: Reports difficulty urinating; Denies burning urination, dysuria, hematuria, nocturia, urinary frequency, urinary hesitancy, urinary incontinence, urinary urgency or other Musculoskeletal Musculoskeletal: Denies arthralgias, back pain, joint pain, joint stiffness, joint swelling, myalgias, neck pain or other Neurologic Neurologic: Denies abnormal gait, abnormal speech, confusion, disequilibrium, dizziness, focal weakness, headache(s), numbness, paresthesias, seizure-like activity, seizures, syncope, tingling, tremor(s) or other Psychiatric Psychiatric: Denies anxiety, depression, homicidal ideation, suicidal ideation or other Endocrine Endocrinology: Denies change in body appearance, cold intolerance, excessive sweating, heat intolerance, polydipsia, polyuria or other Hematologic/Lymphatic Hematologic/Lymphatic: Denies anemia, easy bleeding, easy bruising, lymphadenopathy or other Allergic/Immunologic Allergic/Immunologic: Denies rhinitis, hives, eczemia, asthma or other Vital Signs Vital Signs Vital Signs: 06/07/21 14:23 06/07/21 16:33 Temperature 96.8 F L Temperature Source Temporal Pulse Rate 91 Respiratory Rate 18 Respiratory Effort Normal Respiratory Pattern Normal Blood Pressure 88/47 L Blood Pressure Mean 60 Pulse Ox 100 Oxygen Delivery Method Room Air Weight Weight: 250 lb Body Mass Index (BMI) 35.9 Physical Exam Const alert and oriented x3 General Appearance: cooperative HEENT normocephalic, head/scalp atraumatic and hearing grossly normal bilaterally Eyes PERRL, EOMs intact bilaterally and conjunctivae normal Neck no lymphadenopathy, supple and no JVD Resp normal respiratory effort, no retractions, no use of accessory muscles and clear to auscultation bilaterally Cardio regular rate, regular rhythm, no murmurs and no JVD GI normal to inspection, nondistended, normoactive bowel sounds, soft to palpation, non-tender and non-distended Extremity Extremity Narrative: Permanent deformity of the left foot as well as fifth metatarsal amputation of the left foot. Neuro CN's II-XII intact bilaterally Psych affect normal Results Lab / Micro Data Result Diagrams: 06/07/21 16:58 06/07/21 16:58 Labs: Laboratory Results - last 24 hr 06/07/21 16:58: WBC 8.5, RBC 4.01 L, Hgb 10.8 L, Hct 35.8 L, MCV 89.3, MCH 26.9 L, MCHC 30.2 L, RDW Std Deviation 52.2 H, RDW Coeff of Xavier 15.9 H, Plt Count 263, MPV 10.9, Immature Gran % (Auto) 0.600, Neut % (Auto) 57.5, Lymph % (Auto) 31.3, [place] % (Auto) 8.6, Eos % (Auto) 1.4, Baso % (Auto) 0.6, Absolute Neuts (auto) 4.9, Absolute Lymphs (auto) 2.65, Nucleated RBC % 0 06/07/21 16:58: Sodium 138, Potassium 4.1, Chloride 107, Carbon Dioxide 23.0, Anion Gap 8, BUN 41 H, Creatinine 2.16 H, Estim Creat Clear Calc 33.80, Est GFR (MDRD) Af Amer 39 L, Est GFR (MDRD) Non-Af 32 L, BUN/Creatinine Ratio 19.0, Glucose 231 H, Calcium 9.8 Assessment & Plan Assessment/Plan (1) Adult failure to thrive: (2) CKD (chronic kidney disease) stage 3, GFR 30-59 ml/min: (3) Acute kidney insufficiency: PLAN: Patient is a 70-year-old male who presents to the ED at [facility] on 06/07/2021 with a chief complaint of weakness status post fall. Patient will be placed into the hospital for medical observation and possible placement. 1) adult failure to thrive Patient presents with ongoing weakness and debility status post fall, despite 4 months of continued skilled therapy. Patient does not feel safe returning home and would like placement for ongoing therapy. Patient does not feel safe to return home. Plan; Place on MS 3 for medical observation, CBC and BMP in a.m., PT/OT eval, case management consult ordered for disposition planning, judicious fluid hydration. 2) acute renal insufficiency in the setting of CKD stage IIIb Creatinine currently 2.1, baseline appears between 1.5 and 2. GFR is 32. Continue to trend BMP and hydrate judiciously as above. 3) diabetes mellitus type 2 Hold home insulin regiment, Accu-Cheks with sliding scale insulin ordered. 4) hypotension Current BP is 114/36, likely due to poor oral intake, hold home BP regimen. 5) HTN On Lasix 40 mg daily in irbesartan 3 mg p.o. daily at home, hold BP regiment due to #4. As needed hydralazine ordered. DVT prophylaxis -Lovenox CODE STATUS: Full code Vaccination status: Patient has been fully vaccinated for COVID-19. Patient seen by Sylvester Maurer PA-C, under the supervision of Dr. Whitten Documented by User: Dr. Nati Whitten MD 06/07/21 21:23 HPI - General General Date of Admission: 06/07/21 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 Anemia Ankle fracture Anxiety Bradycardia Charcot foot due to diabetes mellitus Chronic ulcer of ankle Chronic ulcer of left foot Chronic ulcer of right foot CKD (chronic kidney disease) stage 3, GFR 30-59 ml/min Depression Diabetes Diabetes mellitus Essential hypertension Fall History of ankle fracture Hypertension Hypertension Irregular heart beat Kidney disease Stage 3a chronic kidney disease Type 2 diabetes mellitus Home Medications aspirin 81 mg PO DAILY 12/31/20 [History Last Taken 06/07/21] cholecalciferol (vitamin D3) [Vitamin D3] 125 mcg PO DAILY 02/10/21 [History Last Taken 06/07/21] irbesartan 300 mg PO DAILY 02/16/21 [History Last Taken 06/07/21] saw palmetto 450 mg PO DAILY 02/16/21 [History Last Taken 06/07/21] Lactobacillus acidophilus 2,000 mmu cells PO BID 04/26/21 [History Last Taken 06/07/21] cyanocobalamin (vitamin B-12) 500 mcg tablet 500 mcg PO DAILY 04/26/21 [History Last Taken 06/07/21] furosemide 40 mg tablet 40 mg PO DAILY tab 04/26/21 [History Last Taken 06/07/21] Allergy/AdvReac Type Severity Reaction Status Date / Time Penicillins [PCN] Allergy Rash Verified 02/16/21 07:59 metformin AdvReac Unknown Diarrhea Verified 04/26/21 16:00 Xhkjjgy-Wzb-Bpm Reductase AdvReac Unknown intolerence Verified 04/26/21 16:00 Inhibitor blood pressure meds AdvReac Unknown NEEDS Uncoded 02/16/21 11:36 FOLLOW-UP Family History (Updated 06/07/21 @ 18:18 by Sylvester HERMAN) Father Cancer Mother CVA (cerebral vascular accident) CAD (coronary artery disease) Social History household members: none Smoking Status: Never smoker alcohol intake: current alcohol intake frequency: other substance use type: does not use Results Lab / Micro Data Result Diagrams: 06/07/21 16:58 06/07/21 16:58
[2021-06-07 18:22] VITALS: BP 114/36; PULSE 69; RESP 20; TEMP 36.7; O2SAT 97
[2021-06-07 19:41] VITALS: BP 151/69; PULSE 79; RESP 18; TEMP 36.6; O2SAT 100
[2021-06-07 19:49] VITALS: BMI 36.0
[2021-06-07] MEDS: Enoxaparin 40 MG/0.4 ML Syringe SC (20:37)
[2021-06-07] MEDS: Acetaminophen 325 MG Tablet 650 MG PO (20:37)
[2021-06-07] MEDS: 0.9% Normal Saline 1,000 ML 150 ML IV (21:22)
[2021-06-07] MEDS: 0.9% Saline Lock 10 ML Syringe IV (21:23)
--- NOTE | 2021-06-07 22:35 | PCS.PANDOC ---
PANDEMIC DOCUMENTATION INITIATED: Date: 06/07/21 Time: 1899
[2021-06-07] MEDS: Insulin Lispro 100 UNIT/ML INSULN.PEN SC (22:52)
[2021-06-07] MEDS: Glucerna Shake 120 ML LIQUID PO (22:54)
[2021-06-07 23:05] LABS: Bedside Glucose 197 mg/dL (70-110)
[2021-06-08 02:23] VITALS: BP 127/69; PULSE 80; RESP 18; TEMP 36.8; O2SAT 98
[2021-06-08] MEDS: Menthol/Lanolin/Calamine/Znox 113 GM Tube 1 APPLIC TOPICAL ×3 (02:35→21:48)
[2021-06-08] MEDS: 0.9% Normal Saline 1,000 ML 100 ML IV ×2 (05:17→15:31)
[2021-06-08 06:20] LABS: Bedside Glucose 120 mg/dL (70-110)
--- NOTE | 2021-06-08 07:21 | PCM.PN.HOSP ---
Subjective Subjective Patient is a 70-year-old male discharged from a rehab facility who tripped and fell and presented back to the ED Objective Data Objective Data Vital Signs: Vital Signs Temp Pulse Resp BP Pulse Ox 98.2 F 80 18 127/69 H 98 06/08/21 02:23 06/08/21 02:23 06/08/21 02:23 06/08/21 02:23 06/08/21 02:23 Oxygen Delivery Method Room Air Weight: 114.2 kg Body Mass Index (BMI) 36.0 Intake & Output: Intake and Output for Last 24 Hours 06/06/21 06/07/21 06/08/21 23:59 23:59 23:59 Intake Total 1666.67 / 1666.67 Output Total 300 / 300 Balance 1366.67 / 1366.67 Lab / Micro Data Result Diagrams: 06/08/21 06:10 06/08/21 06:10 Labs: Laboratory Results - last 24 hr 06/07/21 16:58: WBC 8.5, RBC 4.01 L, Hgb 10.8 L, Hct 35.8 L, MCV 89.3, MCH 26.9 L, MCHC 30.2 L, RDW Std Deviation 52.2 H, RDW Coeff of Xavier 15.9 H, Plt Count 263, MPV 10.9, Immature Gran % (Auto) 0.600, Neut % (Auto) 57.5, Lymph % (Auto) 31.3, [place] % (Auto) 8.6, Eos % (Auto) 1.4, Baso % (Auto) 0.6, Absolute Neuts (auto) 4.9, Absolute Lymphs (auto) 2.65, Nucleated RBC % 0 06/07/21 16:58: Sodium 138, Potassium 4.1, Chloride 107, Carbon Dioxide 23.0, Anion Gap 8, BUN 41 H, Creatinine 2.16 H, Estim Creat Clear Calc 33.80, Est GFR (MDRD) Af Amer 39 L, Est GFR (MDRD) Non-Af 32 L, BUN/Creatinine Ratio 19.0, Glucose 231 H, Calcium 9.8 06/07/21 22:52: POC Glucose 197 H 06/08/21 06:14: POC Glucose 120 H Physical Exam Narrative GENERAL: cooperative HEENT: Atraumatic; EYES; Anicteric, Normal Conjunctiva NECK; supple, normal thyroid, RESPIRATORY: Diminished to auscultation CARDIOVASCULAR: Regular S1 S2, GI: soft, normoactive bowel sounds, : No Renal angle tenderness; EXTREMITIES: Left foot in surgical dressing MUSCULOSKELETAL: no muscle waisting NEURO: Awake; no lateralizing signs. SKIN: No Rash PSYCH; Flat affect Assessment & Plan Assessment/Plan (1) Generalized weakness: PLAN: Patient is a 70-year-old male discharged from a rehab facility who tripped and fell and presented back to the ED 1. Physical deconditioning with multiple falls -Patient presented with a fall , requested for PT OT eval and social services technician to assist with discharge planning. Did discuss with patient about possibility of being discharged to a senior living facility 2. Diabetes mellitus type II -patient's oral hypoglycemics held. Placed on long acting insulin, Accu-Cheks a.c. and at bedtime and covered with sliding scale insulin 3. Hypertension - Blood pressure controlled, home medications continued with dose adjustment as needed 4. Chronic bilateral lower extremity wounds ?Consult placed wound care nurse 5. Dyslipidemia -Patient is on statin therapy, continued at home dose 6. Obesity with BMI of 46.9 ?Weight loss advised 7. Acute kidney injury ?Superimposed on chronic kidney disease stage IIIb 8. Anemia - Secondary to chronic disorder monitoring H&H and transfuse if patient becomes symptomatic or hemoglobin falls below 7 9. DVT prophylaxis -SC Lovenox Charges/Coding Visit Charges OBSV E&M: 77156 Subsequent observation care L3
[2021-06-08 07:25] LABS: Absolute Lymphocyte Count 2.78 X10^3/uL (0.83-4.51); Absolute Neutrophil Count 2.9 X10^3/uL (2.0-7.7); Basophil# 0.03 X10^3/uL; Basophil% 0.5 % (0-1); Eosinophil# 0.26 X10^3/uL; Eosinophils% 3.9 % (0-5); Hematocrit 32.3 % (40-54); Hemoglobin 9.7 g/dL (13.0-16.5); Lymphocyte # 2.78 X10^3/ul (0.83-4.51); Lymphocyte % 41.8 % (19-41); Mean Corpuscular Hgb 26.7 pg (27.0-32.0); Monocyte# 0.66 X10^3/uL; Monocyte% 9.9 % (0-10); NRBC Flagged by Analyzer 0 % (0-5); Neutrophil # 2.89 X10^3/uL (2.7-7.7); Neutrophil % 43.4 % (47-70); Platelet Count 237 K/mm3 (150-450); RBC Distribution Width SD 52.2 fl (35.1-43.9); Red Blood Count 3.63 M/mm3 (4.6-6.2); White Blood Count 6.7 K/mm3 (4.4-11.0)
[2021-06-08 07:56] LABS: Anion Gap 7 (5-15); BUN 40 mg/dL (7-18); BUN/Creat Ratio 21.6 RATIO (10-20); Chloride 105 mmol/L (98-107); Creatinine, Serum 1.85 mg/dL (0.70-1.30); EST Glomerular Filtration Rate 39 mL/min (>60); Est Glom Filt Rate - Afr Amer 47 mL/min (>60); Estimated Creatinine Clearance 39.46 ml/min; Glucose 113 mg/dL (74-106); Potassium 3.8 mmol/L (3.5-5.1); Sodium Level 137 mmol/L (136-145)
[2021-06-08 07:59] VITALS: BP 117/68; PULSE 63; RESP 16; TEMP 36.9; O2SAT 97
[2021-06-08] MEDS: Acetaminophen 325 MG Tablet 650 MG PO (08:22)
[2021-06-08] MEDS: Aspirin 81 MG TAB.CHEW PO (08:22)
--- NOTE | 2021-06-08 10:03 | WOUNDNOTE ---
wound photo: left lateral foot
--- NOTE | 2021-06-08 10:03 | WOUNDNOTE ---
wound photo: left foot
--- NOTE | 2021-06-08 10:04 | WOUNDNOTE ---
wound photo: left heel
--- NOTE | 2021-06-08 10:04 | WOUNDNOTE ---
wound photo: right buttock
[2021-06-08] MEDS: Losartan Potassium 100 MG Tablet PO (10:35)
[2021-06-08] MEDS: Enoxaparin 40 MG/0.4 ML Syringe SC (10:35)
--- NOTE | 2021-06-08 11:20 | CASEMGMT ---
Social Work Note RIGO reviewed chart. Pt was at [facility] in February and applied for Medicaid and pt went to [facility]. Pt was at [facility] for four months, discharged home, and then returned to [facility] for a fall. RIGO in to speak with pt. RIGO introduced self and role at [facility]. Pt is alert and orientated, answer questions appropriately. SW introduced self and role at [facility]. SW spoke with pt about SNF. Pt states he wants to go to TCU. Pt states he has been there before, was there for about 25 days, was walking, completing steps and then discharged home. SW informed pt that this worker was under the impression that TCU cannot accept pt. Pt states they were checking on that but I never heard back. SW informed pt that this worker will check with TCU as well. SW informed pt that if TCU cannot accept pt, the only other SNF that take his [employer] Medicare are in [place] and [facility]. Pt states he would prefer [place] over [facility]. SW informed pt that the two SNF in [place] that accept [facility] are [facility] and [facility]. Pt states if TCU cannot accept pt, he will attempt to go home again. SW asked pt about going to one of the SNF in [place], states he doesn't know anything about the SNF in [place]. RIGO placed a call to Kesha with TCU and asked about referral. SW received call from Kesha with TCU stating because pt was at [facility] for four months, pt is out of skillable days, and would either need to go to a SNF private pay or under Medicaid. RIGO back in to speak with pt. SW informed pt that he has no skilled days left, pt would need to go to SNF under Medicaid. Pt states he has active Medicaid. Pt states that he was at SNF and got approved for Medicaid. Pt states the private pay for SNF was around $7000 and Medicaid paid for all but the $1336 that he was responsible for. Pt states he didn't have the money to pay for that and so he charged the amount to his credit cards and now all of credit cards are maxed out. Pt states he cannot afford to keep paying what Medicaid is not paying. SW informed pt that this worker will check with his Medicaid benefits, informed pt that if he can go to SNF under Medicaid he could stay in [place]. RIGO reviewed list of SNF in [place] with pt. Pt states no preference on SNF, SW informed pt that this worker will just go down the SNF list and make referrals. Pt states understanding. RIGO placed a call to Geri at [facility] [place]. Geri reviewed pt's Medicaid Benefits. Pt has [facility] Medicaid as secondary insurance. Geri states that pt has a $1526 a month pt liability through Medicaid and pt would have to pay that Medicaid a month regardless of the SNF pt is at. Geri confirms pt has active [facility] Medicaid. Geri states that when pt's are home long enough they can get on the Waiver Program but pt has not been home long enough to get on the Waiver program so pt will need to pay that pt liability at any SNF. RIGO placed a call to Kesha with TCU, asked to check pt's skillable days. Kesha ran pt's [employer] Medicare, pt has used 108 skillable days, he needs 60 days break in care for days to reset, at this time pt has no skillable days under [employer]. Pt would need to go to a SNF under his [facility] but pt will be financially responsible for patient liability of $1526 a month. SW to discuss with pt. Melody eRyna NUTRITION CONSULTANT, DIGITAL RECRUITER
--- NOTE | 2021-06-08 12:34 | CM.ED ---
RIGO Note RIGO received call from Norman at [facility]. [facility] called in a report on patient. Norman inquired about current status. RIGO explained that this proposal lead writer met with patient in the ED yesterday and that patient is currently assigned to [facility]. Norman asked that this proposal lead writer update Melody and ask RIGO to keep her appraised. Email sent to assigned elementary school social worker. Gabriela Boswell.
[2021-06-08 12:56] LABS: Bedside Glucose 144 mg/dL (70-110)
[2021-06-08 13:39] VITALS: BP 129/37; PULSE 68; RESP 18; TEMP 36.9; O2SAT 98
[2021-06-08] MEDS: Glucerna Shake 120 ML LIQUID PO ×2 (15:15→21:47)
--- NOTE | 2021-06-08 16:11 | CASEMGMT ---
TINO CM in to discuss [place] form with patient. RN CM explained [place] form, patient voiced understanding. Pt signed form and filed in chart. Pt provided with a copy of signed [place] form. Patient had no further questions or concerns at this time.
[2021-06-08 16:36] LABS: Bedside Glucose 145 mg/dL (70-110)
[2021-06-08 17:04] LABS: M R Staph aureus DNA By PCR POSITIVE (Negative); Probe Check PASS; Staph aureus DNA By PCR POSITIVE (Negative)
--- NOTE | 2021-06-08 17:31 | CASEMGMT ---
Social Work Note RIGO placed a call to Geri at [facility] [place]. Pt could admit to SNF under Medicaid benefit and have the SNF bill [employer] part B for therapy. Geri states she is not sure if pt has out of network benefits though and still may need to go to a SNF that is in network with [employer]. RIGO placed a call to pt's insurance, [employer], and spoke with Megha. Megha states pt has no out of network benefits so in order for SNF to bill his part B for therapy, pt would need to go to a SNF in network with [employer]. Megha confirms that pt has not had 60 day break in care, so pt's skillable days have not reset. Megha does state that pt has met deductible for this year. RIGO in to speak with pt. RIGO updated pt that it is confirmed that he would need to pay the $1526 a month for patient liability to go to a shelter. Pt states I can't afford that. RIGO informed pt that this worker could see if a SNF would be willing to do a payment plan for his liability but informed pt that he will still need to go to a SNF that is in network with his [employer]. Pt states to try the SNF in [place] [facility]. RIGO placed a call to [place] and left message for Herminia in admissions regarding referral. RIGO attempted to call [facility] multiple times with no answer. RIGO did place a call to [facility] in [place] and spoke with April. April states they would NOT be able to allow pt to do payment plan in regards to his pt liability. RIGO placed a call to Pratibha Jose at [facility] and left message asking if pt's liability could be reduced or waived. RIGO is also aware of a program through [facility] called [facility] that assists pt's that are in shelter with finding and obtaining housing when they transition from shelter to community. RIGO will discuss this program with pt. RIGO also updated that pt has open APS case with Norman from [facility]. RIGO placed a call to Norman and updated her on pt's situation. Norman states she will speak with their halfway digital marketing program manager tomorrow to see if APS can assist with pt. RIGO will follow up with SNF, APS, JFS and pt tomorrow. Melody Reyna STOCK COUNTER, RACE STEWARD
[2021-06-08 18:15] VITALS: BP 110/41; PULSE 61; RESP 18; TEMP 37.1; O2SAT 98
[2021-06-08 20:40] VITALS: BP 148/52; PULSE 85; RESP 16; TEMP 37.1; O2SAT 99
[2021-06-08] MEDS: Insulin Lispro 100 UNIT/ML INSULN.PEN SC (21:47)
[2021-06-08 21:55] LABS: Bedside Glucose 166 mg/dL (70-110)
[2021-06-09] MEDS: 0.9% Normal Saline 1,000 ML 100 ML IV (00:46)
[2021-06-09 02:35] VITALS: BP 139/47; PULSE 72; RESP 16; TEMP 36.6; O2SAT 98
[2021-06-09 06:41] LABS: Bedside Glucose 115 mg/dL (70-110)
--- NOTE | 2021-06-09 07:41 | PN.HOSP_ITS ---
Objective Data Objective Data Vital Signs: Vital Signs Temp Pulse Resp BP Pulse Ox 98 F 72 16 139/47 H 98 06/09/21 02:35 06/09/21 02:35 06/09/21 02:35 06/09/21 02:35 06/09/21 02:35 Oxygen Delivery Method Room Air Weight: 114.2 kg Body Mass Index (BMI) 36.0 Intake & Output: Intake and Output for Last 24 Hours 06/07/21 06/08/21 06/09/21 23:59 23:59 23:59 Intake Total 3416.67 / 3416.67 925 / 925 Output Total 725 / 1075 875 / 875 Balance 2691.67 / 2341.67 50 / 50 Lab / Micro Data Result Diagrams: 06/08/21 06:10 06/08/21 06:10 Labs: Laboratory Results - last 24 hr 06/08/21 06:10: Sodium 137, Potassium 3.8, Chloride 105, Carbon Dioxide 25.0, Anion Gap 7, BUN 40 H, Creatinine 1.85 H, Estim Creat Clear Calc 39.46, Est GFR (MDRD) Af Amer 47 L, Est GFR (MDRD) Non-Af 39 L, BUN/Creatinine Ratio 21.6 H, Glucose 113 H, Calcium 9.0 06/08/21 09:35: S.aureus Protein A PCR POSITIVE H, MRSA (PCR) POSITIVE H 06/08/21 12:47: POC Glucose 144 H 06/08/21 16:24: POC Glucose 145 H 06/08/21 21:46: POC Glucose 166 H 06/09/21 06:33: POC Glucose 115 H Physical Exam Narrative GENERAL: cooperative HEENT: Atraumatic; EYES; Anicteric, Normal Conjunctiva NECK; supple, normal thyroid, RESPIRATORY: Diminished to auscultation CARDIOVASCULAR: Regular S1 S2, GI: soft, normoactive bowel sounds, : No Renal angle tenderness; EXTREMITIES: Left foot in surgical dressing MUSCULOSKELETAL: no muscle waisting NEURO: Awake; no lateralizing signs. SKIN: No Rash PSYCH; Flat affect Assessment & Plan Assessment/Plan (1) Generalized weakness: PLAN: Patient is a 70-year-old male discharged from a rehab facility who tripped and fell and presented back to the ED 1. Physical deconditioning with multiple falls -Patient presented with a fall , requested for PT OT eval and social media marketing analyst to assist with discharge planning. Did discuss with patient about possibility of being discharged to a senior living facility 2. Diabetes mellitus type II -patient's oral hypoglycemics held. Placed on long acting insulin, Accu-Cheks a.c. and at bedtime and covered with sliding scale insulin 3. Hypertension - Blood pressure controlled, home medications continued with dose adjustment as needed 4. Chronic bilateral lower extremity wounds ?Consult placed wound care nurse 5. Dyslipidemia -Patient is on statin therapy, continued at home dose 6. Obesity with BMI of 46.9 ?Weight loss advised 7. Acute kidney injury ?Superimposed on chronic kidney disease stage IIIb 8. Anemia - Secondary to chronic disorder monitoring H&H and transfuse if patient becomes symptomatic or hemoglobin falls below 7 9. DVT prophylaxis -[place] Lovenox
--- NOTE | 2021-06-09 08:29 | CASEMGMT ---
Social Work Note SW received email from [facility] stating pt's liability for fdc Medicaid is pt's income minus $50. Once a pt goes to a new SNF, the new SNF will update their information into the Medicaid System but regardless pt will still have a patient liability for fdc Medicaid. RIGO will discuss with pt today. Melody Reyna MSW, CLOTH MEASURER
[2021-06-09 08:30] VITALS: BP 132/52; PULSE 77; RESP 18; TEMP 36.8; O2SAT 100
[2021-06-09] MEDS: Enoxaparin 40 MG/0.4 ML Syringe SC (08:39)
[2021-06-09] MEDS: Aspirin 81 MG TAB.CHEW PO (08:39)
[2021-06-09] MEDS: Losartan Potassium 100 MG Tablet PO (08:39)
[2021-06-09] MEDS: Menthol/Lanolin/Calamine/Znox 113 GM Tube 1 APPLIC TOPICAL (08:40)
--- NOTE | 2021-06-09 09:33 | DS.PCM_ITS ---
Providers Date of Admission: 06/07/21 Primary Care Physician: Dr. Michael Palomino, DO Consultations 06/07/21 19:06 Consult: Onc/Wound/cigar sorter Routine Comment: 06/07/21 21:27 Consult: Onc/Wound/cigar sorter Routine Comment: Reason For Visit: FAILURE TO THRIVE Diagnosis Discharge Diagnosis (1) Generalized weakness: Status: Acute Code(s): R53.1 - Weakness Medications at Discharge Home Medications aspirin 81 mg PO DAILY 12/31/20 cholecalciferol (vitamin D3) [Vitamin D3] 125 mcg PO DAILY 02/10/21 irbesartan 300 mg PO DAILY 02/16/21 saw palmetto 450 mg PO DAILY 02/16/21 Lactobacillus acidophilus 2,000 mmu cells PO BID 04/26/21 cyanocobalamin (vitamin B-12) 500 mcg tablet 500 mcg PO DAILY 04/26/21 furosemide 40 mg tablet 40 mg PO DAILY tab 04/26/21 Hospital Course Summary of Care Provided Minutes Spent on Discharge: 35 Hospital Course: Patient is a 70-year-old male discharged from a rehab facility who tripped and fell and presented back to the ED 1. Physical deconditioning with multiple falls -Patient presented with a fall , requested for PT OT eval and clinical social work aide to assist with discharge planning. Did discuss with patient about possibility of being discharged to a intermediate facility -?Patient was offered the option of being discharged to intermediate facility he declined stating he could not afford he was therefore discharged home with home PT and home nursing for wound care 2. Diabetes mellitus type II -patient's oral hypoglycemics held. Placed on long acting insulin, Accu-Cheks a.c. and at bedtime and covered with sliding scale insulin 3. Hypertension - Blood pressure controlled, home medications continued with dose adjustment as needed 4. Chronic bilateral lower extremity wounds ?Consult placed wound care nurse 5. Dyslipidemia -Patient is on statin therapy, continued at home dose 6. Obesity with BMI of 46.9 ?Weight loss advised 7. Acute kidney injury ?Superimposed on chronic kidney disease stage IIIb 8. Anemia - Secondary to chronic disorder monitoring H&H and transfuse if patient becomes symptomatic or hemoglobin falls below 7 9. DVT prophylaxis -OK Lovenox Physical Exam Narrative GENERAL: cooperative HEENT: Atraumatic; EYES; Anicteric, Normal Conjunctiva NECK; supple, normal thyroid, RESPIRATORY: Diminished to auscultation CARDIOVASCULAR: Regular S1 S2, GI: soft, normoactive bowel sounds, : No Renal angle tenderness; EXTREMITIES: Left foot in surgical dressing MUSCULOSKELETAL: no muscle waisting NEURO: Awake; no lateralizing signs. SKIN: No Rash PSYCH; Flat affect Weight / BMI Weight Weight: 114.2 kg Body Mass Index (BMI) 36.0 ABG / Lab / Microbiology Data Result Diagrams: 06/08/21 06:10 06/08/21 06:10 Laboratory: Laboratory Results - last 24 hr 06/08/21 09:35: S.aureus Protein A PCR POSITIVE H, MRSA (PCR) POSITIVE H 06/08/21 12:47: POC Glucose 144 H 06/08/21 16:24: POC Glucose 145 H 06/08/21 21:46: POC Glucose 166 H 06/09/21 06:33: POC Glucose 115 H Microbiology: Microbiology 06/08/21 09:35 Wound - Heel, Left Wound Culture - Preliminary Mixed Gram Pos & Gram Neg Org D/C Instructions Discharge Diet: No restrictions Discharge Activity: Return to Normal Activity Call your doctor if you observe: Fever of 101 or Higher, Shortness of breath, Fainting spells and Chest pain Meaningful Use Info Meaningful Use Diagnoses (Choose all that apply): None applicable Discharge Plan Admission Admit Date/Time: 06/07/21 19:05 Attending Provider: Ac Srivastava Primary Care Provider: Michael Palomino Discharge Orders/Prescriptions Prescriptions: Continued cyanocobalamin (vitamin B-12) 500 mcg tablet 500 mcg PO DAILY RF: 0 Lactobacillus acidophilus [Acidophilus] Capsule 2,000 mmu cells PO BID RF: 0 furosemide [Lasix] 40 mg tablet 40 mg PO DAILY RF: 0 Hold Instructions: Resume on 01/02/21. Follow-up with your PCP in 1 week we will obtain a BMP to monitor your renal function. aspirin 81 mg Tablet 81 mg PO DAILY RF: 0 cholecalciferol (vitamin D3) [Vitamin D3] 125 mcg (5,000 unit) Tablet 125 mcg PO DAILY RF: 0 irbesartan 300 mg tablet 300 mg PO DAILY RF: 0 saw palmetto 450 mg Capsule 450 mg PO DAILY RF: 0 Referrals / Follow Up: Michael Palomino DO [Primary Care Provider] - Within 1 Week Disposition Disposition (needs filled in before D/C Order can be placed): Home Health Service Charges/Coding Visit Charges OBSV E&M: 76340 Observation care discharge
--- NOTE | 2021-06-09 10:40 | CASEMGMT ---
Addendum entered by La Alford 06/09/21 11:18: RN MISTY in to pt room after nurse Zeinab states that pt is going to be staying with his girlfriend. Pt states he would like all services cancelled as he will be staying with his girlfriend in [place]. Made him aware that [facility] could see him in [place]. He states he will set up his own HHC or have his girlfriend do it. He states he will do his own wound care. TC to Roman to cancel CCN referral and tc to Ken at [facility] to cancel HHC. Pt states he will be at his home to go through 5 mos of mail. Asked if he would allow HHC to see him while he is in his own home. He declined and stated it was his right to refuse. Pt still has HHC list and is aware he may use for resource information. Notified via [employer]. Addendum entered by La Alford 06/09/21 11:18: Referral made for CCN, left message with Roman young. Original Note: Patient was provided a list of C providers including quality and resource use data and consistent with the patient?s preferred geographic region, medical needs, and insurance network. The patient?s preferred provider is [facility]. TC to Ken at [facility], referral made and accepted. Faxed info at this time.
--- NOTE | 2021-06-09 11:30 | CASEMGMT ---
Addendum entered by Melody Reyna 06/09/21 11:59: RIGO then updated that pt is now refusing HHC. RIGO placed a call to Norman with [facility], left message with update. Original Note: Social Work Note SW in to speak with pt. RIGO informed pt that nursing homes are telling this worker that they cannot do a payment plan with his pt liability and pt would need to pay full amount. Pt states I can't pay that, I will just go home. RIGO asked pt what he is paying for that he cannot afford his liability. Pt states that he is paying for his apartment, his car lease, food, bills, insurance. SW spoke with pt about a [facility] program that can assist pt with finding a apartment when he leaves the shelter. Pt again states he cannot afford the pt liability, he will go home. RIGO spoke with pt about HHC. Pt agreeable to HHC for RN, PT/OT. Patient was provided a list of C providers including quality and resource use data and consistent with the patient?s preferred geographic region, medical needs, and insurance network. Pt states his preferred provider is [facility]. Pt states that he will need transportation arranged to get home. Pt states that he has five steps to enter but states there is a different entrance that transportation can use that doesn't have the steps. Pt states that his Brother will be at his apartment when transportation arrives. Pt states that he will need to be transportation via squad. RIGO accessed trip assist and arranged transportation via cot for 1:00pm. Transportation form completed and given to city secretary, copy on pt's chart. RIGO updated Pt and RN on transportation time. RIGO updated RN CM on pt's request for HHC. Plan: Home with HHC Melody Renya ALUMINUM BOAT INSPECTOR, COMMERCIAL PEST CONTROL REPRESENTATIVE
[2021-06-09 12:06] LABS: Bedside Glucose 149 mg/dL (70-110)
[2021-06-09 12:30] VITALS: BP 126/47; PULSE 67; RESP 18; TEMP 36.4; O2SAT 100
== END 2021-06-09 13:35 | disposition home health service (06) ==
LOC: ED 17:52 → MS3 19:37
PROVIDERS: Physician Assistant; Admitting Provider Family Medicine; Emergency Provider Emergency Medicine; PCP Student in an Organized Health Care Education/Training Program; Visit Provider Internal Medicine
DX: R62.7 Adult failure to thrive (principal); R53.1 Weakness; E11.22 Type 2 diabetes mellitus with diabetic chronic kidney disease; I12.9 Hypertensive chronic kidney disease with stage 1 through stage 4 chronic kidney disease, or unspecified chronic kidney disease; N18.31 Chronic kidney disease, stage 3a; D64.9 Anemia, unspecified; I95.9 Hypotension, unspecified; E66.9 Obesity, unspecified; E78.5 Hyperlipidemia, unspecified; R29.6 Repeated falls; E11.610 Type 2 diabetes mellitus with diabetic neuropathic arthropathy; N28.9 Disorder of kidney and ureter, unspecified; Z79.4 Long term (current) use of insulin; Z79.82 Long term (current) use of aspirin; Z79.899 Other long term (current) drug therapy; Z91.81 History of falling; Z68.36 Body mass index [BMI] 36.0-36.9, adult
CPT/HCPCS: 36415; 80048; 82962; 85025; 87070; 87075; 87077; 87205; 87640; 96360; 96361; 96372; 97162; 97166; 99218; 99285; J7030; A4216; G0378

== ENCOUNTER 2021-06-10 12:34 | Inpatient (IN) | payer MEDICARE, MEDICAID, SELFPAY ==
[2021-06-10] VITALS (11 sets, daily range): BP systolic 137–168; BP diastolic 51–74; PULSE 76–88; RESP 16–22; TEMP 36.5–37.2; O2SAT 98–100; BMI 36.1; BMI 37.3
--- NOTE | 2021-06-10 13:09 | RAD_ITS ---
STUDY: X-RAY - LEFT FOOT CLINICAL: Male, 70 years old. Left foot abrasion secondary to injury. TECHNIQUE: 3 view(s) of the foot. COMPARISON: Comparison is made with prior study dated 02/16/2021. FINDINGS: Once again, the examination is limited due to suboptimal positioning. There is marked deformity of the left with evidence of Charcot deformity. There is increased density of the talus and calcaneus. Diffuse soft tissue swelling. RAD/Foot min 3 Views IMPRESSION: Limited examination due to suboptimal positioning. Stable examination demonstrating deformity with the Charcot''s deformity. Diffuse soft tissue swelling. Electronically Signed: Javed Brandon MD at 14:17 EDT , Service support ,
--- NOTE | 2021-06-10 13:09 | EKG12_ITS ---
Test Reason : INFECTION Blood Pressure : / mmHG Vent. Rate : 074 BPM Atrial Rate : 074 BPM P-R Int : 182 ms QRS Dur : 138 ms QT Int : 430 ms P-R-T Axes : 027 -33 119 degrees QTc Int : 477 ms Sinus rhythm with occasional Premature ventricular complexes Left axis deviation Non-specific intra-ventricular conduction block T wave abnormality, consider lateral ischemia Abnormal ECG Confirmed by LISA NGUYEN, LYNDSEY ([id number]), senior editor OFELIA RUTH ([id number]) on 06/14/2021 10:16:14 A M Referred By: ARIADNE Confirmed By:ODESSA GONZALEZ MD
--- NOTE | 2021-06-10 13:13 | EX.ED.DYSGE1 ---
HPI History of Present Illness Chief Complaint: Weakness Narrative Narrative: Tree of Charcot foot on the left foot, for which he uses a boot/brace to get around. States he is usually able to as long as he has that, but not lately. He was in the hospital for 2 days because of issues with his left foot and the wound on his heel that is colonized out MRSA, he was discharged yesterday without any new prescriptions, and the last course of antibiotics was 3 to 4 months ago, he is concerned that he has an infection because when he got home from the hospital he started having chills all over in his left foot started hurting again. It wasn't hurting prior to being discharged although he admits he has pain in his left foot off and on chronically because it's a Charcot foot. He follows with Dr. Hiral Davis in [place] for that. He states he called 911 because of his concern for another infection today because he had more episodes of the chills and is generally weak unable to stand or walk on his own; he says that when he was discharged home yesterday, the ambulance crew helped him to his office chair, he was unable to get out of it and lives by himself in his apartment so he rolled in his chair to his bed where he tried to transfer, he had issues and his brother came over to help him into the bed and then left, he slept there all night and this morning he is unable to get out fearing his muscles of atrophy too much since he recently was in long term and did not get good OT/PT. When the fire department came to get him today, they lifted him up and accidentally hit his left foot on a nearby coffee table sustaining some abrasions. It appears that was not the original reason he desired to come to the emergency department, however. He denies any definite chills. He denies symptoms elsewhere at this time. It seems this patient was offered long term admission at his recent discharge since he had come from 1 when he was admitted to the hospital recently. He refused because of financial reasons, and so he was agreeable to have home health/occupational therapy at home set up for him, however just prior to discharge according to social group worker who I spoke with, the patient changed his mind and decided against all of that and went home without any assistance. 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 Anemia Ankle fracture Anxiety Bradycardia Charcot foot due to diabetes mellitus Chronic ulcer of ankle Chronic ulcer of left foot Chronic ulcer of right foot CKD (chronic kidney disease) stage 3, GFR 30-59 ml/min Depression Diabetes Diabetes mellitus Essential hypertension Fall History of ankle fracture Hypertension Hypertension Irregular heart beat Kidney disease Stage 3a chronic kidney disease Type 2 diabetes mellitus Home Medications aspirin 81 mg PO DAILY 12/31/20 [History Last Taken 06/07/21] cholecalciferol (vitamin D3) [Vitamin D3] 125 mcg PO DAILY 02/10/21 [History Last Taken 06/07/21] irbesartan 300 mg PO DAILY 02/16/21 [History Last Taken 06/07/21] saw palmetto 450 mg PO DAILY 02/16/21 [History Last Taken 06/07/21] Lactobacillus acidophilus 2,000 mmu cells PO BID 04/26/21 [History Last Taken 06/07/21] cyanocobalamin (vitamin B-12) 500 mcg tablet 500 mcg PO DAILY 04/26/21 [History Last Taken 06/07/21] furosemide 40 mg tablet 40 mg PO DAILY tab 04/26/21 [History Last Taken 06/07/21] aspirin [Aspirin Low Dose] 81 mg PO DAILY 06/10/21 [History Last Taken Unknown] atorvastatin 40 mg PO DAILY 06/10/21 [History Last Taken Unknown] Allergy/AdvReac Type Severity Reaction Status Date / Time Penicillins [PCN] Allergy Rash Verified 06/10/21 12:40 metformin AdvReac Unknown Diarrhea Verified 06/10/21 12:40 Tswskxa-Yel-Ooo Reductase AdvReac Unknown intolerence Verified 06/10/21 12:40 Inhibitor Family History (Updated 06/07/21 @ 18:18 by Sylvester HERMAN) Father Cancer Mother CVA (cerebral vascular accident) CAD (coronary artery disease) Social History household members: none Smoking Status: Never smoker alcohol intake: current alcohol intake frequency: other substance use type: does not use ROS ROS ED Constitutional Constitutional ED: Denies chills or fever(s) Eyes Eyes: Denies change in vision or diplopia ENT ENT ED: Denies rhinorrhea or sore throat Cardiovascular Cardiovascular: Denies chest pain or palpitations Respiratory/Chest Respiratory/Chest: Denies cough or dyspnea Gastrointestinal Gastrointestinal: Denies abdominal pain, diarrhea, nausea or vomiting Genitourinary Genitourinary ED: Denies dysuria or hematuria Musculoskeletal Musculoskeletal: Denies back pain or neck pain Integumentary Denies abscess or rash Neurologic Neurologic: Denies headache(s), paresthesias or weakness Psychiatric Psychiatric: Denies anxiety or suicidal thoughts EXAM Physical Exam Const Vital Signs: 06/10/21 12:35 06/10/21 12:39 06/10/21 12:40 Temperature 98.7 F 98.7 F Temperature Source Temporal Temporal Pulse Rate 88 88 Respiratory Rate 18 18 Respiratory Effort Normal Non-Labored Blood Pressure 145/51 H 145/51 H Blood Pressure Mean 82 82 Pulse Ox 98 98 Oxygen Delivery Method Room Air Room Air 06/10/21 13:17 06/10/21 13:18 06/10/21 13:40 Temperature 98.9 F Temperature Source Oral Pulse Rate Respiratory Rate 18 Respiratory Effort Blood Pressure Blood Pressure Mean Pulse Ox Oxygen Delivery Method Room Air 06/10/21 13:42 06/10/21 14:09 Temperature 97.7 F L 97.9 F Temperature Source Oral Oral Pulse Rate 80 Respiratory Rate 22 H Respiratory Effort Blood Pressure 146/67 H Blood Pressure Mean 93 Pulse Ox 99 Oxygen Delivery Method Room Air Positive well nourished and well developed General Appearance ED: well developed and NAD HEENT Reports moist mucous membranes normocephalic and atraumatic Eyes PERRL and EOMs intact bilaterally Neck full ROM and supple Resp normal respiratory effort and clear to auscultation bilaterally Cardio no murmurs Rate: Negative for tachycardic Rhythm: abnormal rhythm irregularly irregular GI non-tender and non-distended Auscultation: normoactive bowel sounds Palpation: soft Back/Spine no CVA tenderness General Back: other FROM Extremity Extremity Narrative: Severely deformed Charcot foot left with varus deformity, multiple abrasions to the peroneal aspect of the foot and the dorsum, no laceration to repair, blood present but no active bleeding. All of this is mildly tender. There is a ulcerative wound about 4 cm in diameter at the posterior aspect of the heel, it is mildly tender but there is no discharge or surrounding erythema or any obvious signs of infection. There is a foul smell, however. General Extremety ED: Negative for edema or pulses abnormal General Extremity: Negative for edema or pulses abnormal Neuro oriented x3, CN's II-XII intact bilaterally and no sensory deficits noted Sensorium / Orientation: awake and alert Motor Exam: strength 5/5 throughout Skin no rashes or lesions noted and no wounds MDM MDM MDM Narrative Medical decision making narrative: Foot x-rays show no acute fractures, however I was concerned about the posterior aspect of the calcaneus which is just beneath his large ulceration which is dependent as he lies in bed a lot. I discussed with the radiologist he agrees compared with his last x-rays in February it does look demineralized and moth-eaten and could be consistent with osteomyelitis. His labs show no leukocytosis but he does have a very high CRP at 52. Plan will be to admit him with IV antibiotics and further evaluation will probably need another MRI for this. The MRI he had in February showed nothing at the calcaneus, some chronic osteo at the talus and cuboid and possibly the distal phalanx of the great toe. Lab Data Attestation: I reviewed the patient's lab results. Labs: Laboratory Results - last 24 hr 06/10/21 06/10/21 06/10/21 13:00 13:00 13:00 WBC 7.5 RBC 4.23 L Hgb 11.3 L Hct 37.1 L MCV 87.7 MCH 26.7 L MCHC 30.5 L RDW Std Deviation 51.7 H RDW Coeff of Xavier 16.2 H Plt Count 273 MPV 11.2 Immature Gran % (Auto) 1.100 H Neut % (Auto) 52.4 Lymph % (Auto) 34.7 Mayes % (Auto) 7.6 Eos % (Auto) 3.7 Baso % (Auto) 0.5 Absolute Neuts (auto) 4.0 Absolute Lymphs (auto) 2.62 Nucleated RBC % 0 ESR 61 H Sodium 143 Potassium 3.8 Chloride 113 H Carbon Dioxide 22.0 Anion Gap 8 BUN 26 H Creatinine 1.04 Estim Creat Clear Calc 70.19 Est GFR (MDRD) Af Amer 91 Est GFR (MDRD) Non-Af 75 BUN/Creatinine Ratio 25.0 H Glucose 120 H Lactic Acid Calcium 9.0 Total Bilirubin 0.40 AST 38 H ALT 12 L Alkaline Phosphatase 81 C-React Prot Ext Range Total Protein 6.6 Albumin 2.2 L Globulin 4.4 H Albumin/Globulin Ratio 0.5 L Urine Color Urine Clarity Urine pH Ur Specific [place] Urine Protein Urine Glucose (UA) Urine Ketones Urine Occult Blood Urine Nitrite Urine Bilirubin Urine Urobilinogen Ur Leukocyte Esterase 06/10/21 06/10/21 06/10/21 13:00 13:38 14:44 WBC RBC Hgb Hct MCV MCH MCHC RDW Std Deviation RDW Coeff of Xavier Plt Count MPV Immature Gran % (Auto) Neut % (Auto) Lymph % (Auto) Mayes % (Auto) Eos % (Auto) Baso % (Auto) Absolute Neuts (auto) Absolute Lymphs (auto) Nucleated RBC % ESR Sodium Potassium Chloride Carbon Dioxide Anion Gap BUN Creatinine Estim Creat Clear Calc Est GFR (MDRD) Af Amer Est GFR (MDRD) Non-Af BUN/Creatinine Ratio Glucose Lactic Acid 1.4 Calcium Total Bilirubin AST ALT Alkaline Phosphatase C-React Prot Ext Range 52.00 H Total Protein Albumin Globulin Albumin/Globulin Ratio Urine Color Yellow Urine Clarity Clear Urine pH 5.0 Ur Specific [place] 1.015 Urine Protein 15 H Urine Glucose (UA) Normal Urine Ketones Negative Urine Occult Blood Negative Urine Nitrite Negative Urine Bilirubin Negative Urine Urobilinogen Normal Ur Leukocyte Esterase Negative Radiography Diagnostic Testing: Clinical Impression(s) from Imaging Studies Foot X-Ray 06/10/21 13:09 IMPRESSION: Limited examination due to suboptimal positioning. Stable examination demonstrating deformity with the Charcot''s deformity. Diffuse soft tissue swelling. Electronically Signed: Javed Brandon MD at 14:17 EDT , Service support , ADDENDUM: 06/10/21 1451 Rhythm Strip Rhythm Strip: Sinus Rhythm Rate: 75 Ectopy: PVC(s) EKG Initial EKG: Attestation: I personally reviewed and interpreted this EKG as follows: Interpretation: Sinus Rhythm, No Acute Injury Pattern and Non-Specific ST Changes (T wave flattening lateral precord w/ inversions 1/aVL) Comments: left axis. PVC. Prior EKG tracings: available for review Prior: Unchanged Discharge Plan Dx/Rx/DC Orders Clinical Impression: Acute osteomyelitis of left calcaneus, Diabetic infection of left foot, Charcot foot due to diabetes mellitus, Inability to walk, Generalized weakness Disposition Disposition: Acute Care Hospital [facility]
[2021-06-10 13:30] LABS: Absolute Lymphocyte Count 2.62 X10^3/uL (0.83-4.51); Basophil# 0.04 X10^3/uL; Basophil% 0.5 % (0-1); Eosinophil# 0.28 X10^3/uL; Eosinophils% 3.7 % (0-5); Hematocrit 37.1 % (40-54); Hemoglobin 11.3 g/dL (13.0-16.5); Lymphocyte # 2.62 X10^3/ul (0.83-4.51); Lymphocyte % 34.7 % (19-41); Mean Corp Hgb Conc 30.5 g/dL (32-36); Mean Corpuscular Hgb 26.7 pg (27.0-32.0); Mean Corpuscular Volume 87.7 fL (80-94); Mean Platelet Vol. 11.2 fl (6.2-12.0); Monocyte# 0.57 X10^3/uL; Monocyte% 7.6 % (0-10); NRBC Flagged by Analyzer 0 % (0-5); Neutrophil # 3.95 X10^3/uL (2.7-7.7); Neutrophil % 52.4 % (47-70); Platelet Count 273 K/mm3 (150-450); RBC Distribution Width CV 16.2 % (11.6-14.6); RBC Distribution Width SD 51.7 fl (35.1-43.9); Red Blood Count 4.23 M/mm3 (4.6-6.2); White Blood Count 7.5 K/mm3 (4.4-11.0)
[2021-06-10 13:42] LABS: ALB/GLOB Ratio 0.5 RATIO (0.9-2.4); AST(SGOT) 38 U/L (15-37); Alanine Aminotransfer ALT/SGPT 12 U/L (16-61); Albumin, Serum 2.2 g/dL (3.2-5.0); Alkaline Phosphatase 81 U/L (45-117); Anion Gap 8 (5-15); BUN 26 mg/dL (7-18); Chloride 113 mmol/L (98-107); Creatinine, Serum 1.04 mg/dL (0.70-1.30); EST Glomerular Filtration Rate 75 mL/min (>60); Est Glom Filt Rate - Afr Amer 91 mL/min (>60); Estimated Creatinine Clearance 70.19 ml/min; Globulin 4.4 g/dL (2.2-4.2); Glucose 120 mg/dL (74-106); Potassium 3.8 mmol/L (3.5-5.1); Protein, Total 6.6 g/dL (6.4-8.2); Sodium Level 143 mmol/L (136-145)
--- NOTE | 2021-06-10 13:53 | CM.ED ---
SW Note Pratibha from [facility] called and stated that she was working with patient on SNF however patient has a $1526 spenddown and he reported to her that he can't afford that. Yesterday, when patient was sent home he had initially agreed to home health and [facility] however then declined those services. SW updated . Gabriela DALTON
[2021-06-10 14:13] LABS: Lactic Acid 1.4 mmol/L (0.4-1.9)
[2021-06-10 14:44] LABS: Bacteria 0 SEEN /hpf (None Seen); Mucous, Urine 0 SEEN /hpf (<or=2+); Red Blood Cells-Urine 0 SEEN /hpf (0-5); Squamous Epithelial Cells - UA 0 SEEN /hpf (0-5); White Blood Cells 0 SEEN /hpf (0-5)
[2021-06-10 14:46] LABS: Color, Urine Yellow (Yellow); Glucose, Dipstick Normal (Normal); Ketone-Dipstick Negative (Negative); Leukocyte Esterase-Dipstick Negative /ul (Negative); Nitrite-Dipstick Negative (Negative); Occult Blood-Urine Negative /ul (Negative); Protein-Dipstick 15 mg/dl (Negative); Specific Gravity, Urine 1.015 (1.002-1.030); Urine Bilirubin Dipstick Negative (Negative); Urine Clarity Clear (Clear); Urine Urobilinogen Normal (Normal)
[2021-06-10 14:53] LABS: Erythrocyte Sedimentation Rate 61 mm/hr (0-20)
--- NOTE | 2021-06-10 15:05 | PCM.HP.STD ---
HPI - General General Date of Admission: 06/10/21 Date of Service: 06/10/21 Chief Complaint: L foot pain, chills. HPI Narrative The patient is a 70 y/o M w/ PMHx: diabetes mellitus type 2, bilateral lower extremity chronic wounds with Charcot foot using a boot/brace, CKD stage IIIa, hypertension, hyperlipidemia, obesity, anxiety, chronic anemia, recently admitted 06/07/21-06/09/21 secondary to FTT and inability to care for self following recent prolonged SNF admission, fall upon attempt to even get into his home but refusal for SNF placement secondary to cost who now re-presents to the [facility] ED on 06/10/21 with worsening left foot discomfort and chills specifically stating that he did not get discharged on antibiotics nor did he have any imaging including specifically and MRI but does admit that he chronically has intermittent left foot discomfort. Patient did call EMS and unfortunately upon transport his left foot was hit on a nearby table and suffered abrasions. ED physician did discuss case with case management/social work and they reported that patient also at discharge declined any home health and therapy assistance. Work-up in the ED included T 97.7, heart rate 80, BP 146/67, respiratory rate 22, 99% on room air, CBC with WBC 7.5, hemoglobin 11.3, platelet 273 with mildly increased immature granulocytes, CMP with chloride 113, BUN/creatinine 26/1.04, glucose 120, lactic acid 1.4, AST/ALT 38/12, alk phos 81, CRP 52, ESR 61, UA pending upon evaluation of patient, blood culture x2 pending per ED as well as urine culture, plain film of the foot limited secondary to suboptimal positioning, stable examination demonstrated deformity with a Charcot's deformity, diffuse soft tissue swelling. In the ED patient ministered Invanz and vancomycin given penicillin allergy listed. [facility] Medical History (Updated 06/10/21 @ 14:[address] Nikhil Khoury MD) Amputation of fifth toe of left foot Anemia Ankle fracture Anxiety Bradycardia Charcot foot due to diabetes mellitus Chronic ulcer of ankle Chronic ulcer of left foot Chronic ulcer of right foot CKD (chronic kidney disease) stage 3, GFR 30-59 ml/min Depression Diabetes Diabetes mellitus Essential hypertension Fall History of ankle fracture Hypertension Hypertension Irregular heart beat Kidney disease Stage 3a chronic kidney disease Type 2 diabetes mellitus Home Medications cholecalciferol (vitamin D3) [Vitamin D3] 125 mcg PO DAILY 02/10/21 [History Last Taken 2 Days Ago ~06/08/21] irbesartan 300 mg PO DAILY 02/16/21 [History Last Taken 2 Days Ago ~06/08/21] saw palmetto 450 mg PO DAILY 02/16/21 [History Last Taken 2 Days Ago ~06/08/21] cyanocobalamin (vitamin B-12) 500 mcg tablet 500 mcg PO DAILY 04/26/21 [History Last Taken 2 Days Ago ~06/08/21] furosemide 40 mg tablet 40 mg PO DAILY tab 04/26/21 [History Last Taken 2 Days Ago ~06/08/21] aspirin [Aspirin Low Dose] 81 mg PO DAILY 06/10/21 [History Last Taken 2 Days Ago ~06/08/21] atorvastatin 40 mg PO DAILY 06/10/21 [History Last Taken 2 Days Ago ~06/08/21] Allergy/AdvReac Type Severity Reaction Status Date / Time Penicillins [PCN] Allergy Rash Verified 06/10/21 12:40 metformin AdvReac Unknown Diarrhea Verified 06/10/21 12:40 [id number]-Dkb-[id number] Reductase AdvReac Unknown intolerence Verified 06/10/21 12:40 Inhibitor Family History (Updated 06/10/21 @ 15:[address] Nati Whitten MD) Father Cancer Metastatic prostate CA. Mother CVA (cerebral vascular accident) CAD (coronary artery disease) Surgical History (Updated 06/10/21 @ 15:[address] Nati Whitten MD) S/P appendectomy S/P foot surgery, left Social History household members: none Smoking Status: Never smoker alcohol intake: current alcohol intake frequency: other substance use type: does not use ROS ROS Narrative Admission Review of Systems: CONSTITUTIONAL: No weight loss, fever, + chills, weakness or fatigue. HEENT: Eyes: No visual loss, blurred vision, double vision or yellow sclerae. Ears, Nose, Throat: No hearing loss, sneezing, congestion, runny nose or sore throat. SKIN: + chronic BL LE wounds, L foot more foul smelling and laceration/abrasions to BL feet incurred with EMS transport CARDIOVASCULAR: No chest pain, chest pressure or chest discomfort, palpitations, edema, orthopnea, syncopal events. RESPIRATORY: No shortness of breath, cough or sputum, wheezing, hemoptysis. GASTROINTESTINAL: No anorexia, nausea, vomiting or diarrhea, abdominal pain, melena, BRBPR. GENITOURINARY: No dysuria, frequency, urgency or retention. NEUROLOGICAL: No headache, dizziness, syncope, paralysis, ataxia, numbness or tingling in the extremities, focal weakness, change in bowel or bladder control, seizure. MUSCULOSKELETAL: + muscle, back pain, joint pain or stiffness. HEMATOLOGIC: + anemia, bleeding or bruising. LYMPHATICS: No enlarged nodes. No history of splenectomy. PSYCHIATRIC: No history of depression or anxiety. ENDOCRINOLOGIC: No reports of sweating, cold or heat intolerance. No polyuria or polydipsia. ALLERGIES: No history of asthma, hives, eczema or rhinitis. Vital Signs Vital Signs Vital Signs: 06/10/21 12:35 06/10/21 12:39 06/10/21 12:40 Temperature 98.7 F 98.7 F Temperature Source Temporal Temporal Pulse Rate 88 88 Respiratory Rate 18 18 Respiratory Effort Normal Non-Labored Blood Pressure 145/51 H 145/51 H Blood Pressure Mean 82 82 Pulse Ox 98 98 Oxygen Delivery Method Room Air Room Air 06/10/21 13:17 06/10/21 13:18 06/10/21 13:40 Temperature 98.9 F Temperature Source Oral Pulse Rate Respiratory Rate 18 Respiratory Effort Blood Pressure Blood Pressure Mean Pulse Ox Oxygen Delivery Method Room Air 06/10/21 13:42 06/10/21 14:09 Temperature 97.7 F L 97.9 F Temperature Source Oral Oral Pulse Rate 80 Respiratory Rate 22 H Respiratory Effort Blood Pressure 146/67 H Blood Pressure Mean 93 Pulse Ox 99 Oxygen Delivery Method Room Air Weight Weight: 252 lb Body Mass Index (BMI) 36.1 Physical Exam Narrative Physical Examination: General: awake, alert, oriented x 3 and cooperative, seated upright in the ED bed in no apparent distress. Skin: normal color, normal turgor, no icterus, no cyanosis except significant bilateral lower extremity venous stasis disease, chronic diabetic wounds, poor granulation tissue to the left Charcot foot lateral malleolus region, foul-smelling left foot, abrasions to bilateral feet following recent EMS transport, bleeding has subsided. HEENT: AT/NC, EOMI, PERRLA, MMM, no carotid bruits or JVD noted; however, thickened neck makes examination difficult. Lungs: Mildly diminished, greater bases, appropriate effort, no rales, ronchi or wheezing. Heart: Regular rate and rhythm; no gallop, rub audible. Abdomen: soft, obese, NTTP, ND, distant mildly hyperactive BS, no obvious evidence of HSM however habitus makes examination difficult. Extremities: no cyanosis, no clubbing, see skin, chronic bilateral lower extremity wounds with concern for acute left foot infection as noted above see skin, stasis disease, lymphedema. Neurological: patient awake, alert, oriented as noted; cognitive function intact; pupils equally reactive to light and accomodation; cranial nerves II-XII grossly normal, moving all 4 extremities, no focal deficits, strength moderately to severely global decreased. Psychiatric: affect appears fatigued, mildly flat, no acute evidence of depressive or anxiety feelings. Results Lab / Micro Data Result Diagrams: 06/10/21 13:00 06/10/21 13:00 Labs: Laboratory Results - last 24 hr 06/10/21 13:00: WBC 7.5, RBC 4.23 L, Hgb 11.3 L, Hct 37.1 L, MCV 87.7, MCH 26.7 L, MCHC 30.5 L, RDW Std Deviation 51.7 H, RDW Coeff of Xavier 16.2 H, Plt Count 273, MPV 11.2, Immature Gran % (Auto) 1.100 H, Neut % (Auto) 52.4, Lymph % (Auto) 34.7, [place] % (Auto) 7.6, Eos % (Auto) 3.7, Baso % (Auto) 0.5, Absolute Neuts (auto) 4.0, Absolute Lymphs (auto) 2.62, Nucleated RBC % 0 06/10/21 13:00: Sodium 143, Potassium 3.8, Chloride 113 H, Carbon Dioxide 22.0, Anion Gap 8, BUN 26 H, Creatinine 1.04, Estim Creat Clear Calc 70.19, Est GFR (MDRD) Af Amer 91, Est GFR (MDRD) Non-Af 75, BUN/Creatinine Ratio 25.0 H, Glucose 120 H, Calcium 9.0, Total Bilirubin 0.40, AST 38 H, ALT 12 L, Alkaline Phosphatase 81, Total Protein 6.6, Albumin 2.2 L, Globulin 4.4 H, Albumin/Globulin Ratio 0.5 L 06/10/21 13:00: ESR 61 H 06/10/21 13:00: C-React Prot Ext Range 52.00 H 06/10/21 13:38: Lactic Acid 1.4 Rhythm Strip Rhythm Strip: Sinus Rhythm Rate: 75 Ectopy: PVC(s) Radiology Impression Foot X-Ray 06/10/21 13:09 IMPRESSION: Limited examination due to suboptimal positioning. Stable examination demonstrating deformity with the Charcot''s deformity. Diffuse soft tissue swelling. Electronically Signed: Javed Brandon MD at 14:17 EDT , Service support , ADDENDUM: 06/10/21 1451 Assessment & Plan Assessment/Plan (1) Diabetic infection of left foot: PLAN: The patient is a 70 y/o M w/ PMHx: diabetes mellitus type 2, bilateral lower extremity chronic wounds with Charcot foot using a boot/brace, CKD stage IIIa, hypertension, hyperlipidemia, obesity, anxiety, chronic anemia, recently admitted 06/07/21-06/09/21 secondary to FTT and inability to care for self following recent prolonged SNF admission, fall upon attempt to even get into his home but refusal for SNF placement secondary to cost who now re-presents to the [facility] ED on 06/10/21 with worsening left foot discomfort and chills specifically stating that he did not get discharged on antibiotics nor did he have any imaging including specifically and MRI but does admit that he chronically has intermittent left foot discomfort. 1. Adult failure to thrive, complicated by ongoing refusal of skilled therapy or home therapy: We will admit to medical surgical floor, maintain on fall precautions, therapies will be consulted as well as case management, continue bilateral lower extremity wound care with wound RN evaluation as noted to assure no recurrent infection, offloading and dressing changes, again reiterated that patient would benefit from halfway facility placement or absolute acceptance of aggressive home therapies. 2. Acute Left Foot New Osteomyelitis with hx MRSA colonization with elevated inflammatory markers w/ Chronic bilateral lower extremity wounds with Charcot foot: We will continue wound RN consultation, offloading, dressing changes, boot with therapy or ambulation, recent discharge 06/09/2021 with at that time no indication for any further antibiotic therapy or reimaging as no obvious infection, will initiate meropenem (given allergy listed to PCN rash only, non-severe and monitor) and vancomycin pending wound culture and MRSA wound pending podiatry (Dr. Cameron who saw most recently 02/2021) and wound RN reevaluation, will defer imaging to Podiatry service. Procalcitonin pending. 3. Chronic Kidney Disease Stage IIIA: Admission BUN/Cr 26/1.04, baseline renal function 1.6, repeat BMP in AM. 4. Chronic anemia/AOCD: Admission hemoglobin 11.3, prior baseline noted 9-10 primarily, stable, trend. 5. Morbid Obesity: Weight loss and lifestyle changes encouraged. 6. Diabetes mellitus type II: Hold oral home regimen, continue home insulin regimen, ADA diet, accu checks w/ ISS. 7. Hypertension: We will continue Lasix, irbesartan with hold parameters as needed, as needed IV hydralazine. 8. Hyperlipidemia: Continue home statin regimen. 9. DVT prophylaxis: SCDs, Lovenox. 10. CODE status: Patient does not have healthcare power of compliance attorney nor living will in place but is interested therefore recommend discussions with case management/social work for information. Discussed CODE status at length including difference between FULL code, DNR-CCA and DNR-CC status. Following discussions about the differences in these status, requested DNR-CCA, no intubation very specifically. Advanced Care Planning Face to Face Time: 16 minutes. Charges/Coding Visit Charges Inpatient E&M: 70017 Init Hosp L3 Procedures Hospitalists Procedures: 04382 Advncd Care Plan 30 Min
--- NOTE | 2021-06-10 15:18 | NURSING ---
DR ANDRES FOR DR FLORES
--- NOTE | 2021-06-10 15:30 | ED.RN ---
CALLED PHARMACY- STILL WAITING FOR ANTIBIOTIC
--- NOTE | 2021-06-10 15:42 | NURSING ---
313 WHITE OSTEOMYELITIS, LT CALCANEOUS, INABILITY TO WALK/STAND
[2021-06-10 15:45] LABS: Magnesium 1.7 mg/dL (1.6-2.6)
[2021-06-10 16:40] LABS: Procalcitonin 0.08 ng/mL (0.00-0.09)
--- NOTE | 2021-06-10 17:02 | PCS.PANDOC ---
PANDEMIC DOCUMENTATION INITIATED: Date: 03/22/2021 Time: 190
[2021-06-10 18:26] LABS: Bedside Glucose 133 mg/dL (70-110)
--- NOTE | 2021-06-10 20:02 | PCM.RX.CS ---
Consult Pharmacy has been consulted to manage selected antiobiotic: Vancomycin Type of Consult: New start Suspected Infection: Skin/Soft tissue, Osteomyelitis Prior Doses of Antibiotics Received/Current Regimen: Received 1750mg iv x 1. Labs: Sodium 143 mmol/L (136-145) 06/10/21 13:00 Potassium 3.8 mmol/L (3.5-5.1) 06/10/21 13:00 Chloride 113 mmol/L (98-107) H 06/10/21 13:00 Carbon Dioxide 22.0 mmol/L (21.0-32.0) 06/10/21 13:00 Anion Gap 8 (5-15) 06/10/21 13:00 BUN 26 mg/dL (7-18) H 06/10/21 13:00 Creatinine 1.04 mg/dL (0.70-1.30) 06/10/21 13:00 Est GFR (MDRD) Af Amer 91 mL/min (>60) 06/10/21 13:00 Est GFR (MDRD) Non-Af 75 mL/min (>60) 06/10/21 13:00 BUN/Creatinine Ratio 25.0 RATIO (10-20) H 06/10/21 13:00 Glucose 120 mg/dL (74-106) H 06/10/21 13:00 Weight used for dosin kg Estimated Creatinine Clearance: 70 ml/min Goal Trough: 15-20 mcg/mL Pharmacy Plan for Drug Dosing: Will begin 1750mg iv q12h. Trough ordered for before 4th dose on 06.12.21. Pharmacy Service will continue to monitor and adjust dosing as required. Follow-Up Labs: Trough Vancomycin - 06.12.21@1530 before 1600 dose
[2021-06-10] MEDS: 0.9% Saline Lock 10 ML Syringe IV (21:14)
[2021-06-10] MEDS: Atorvastatin Calcium 40 MG Tablet PO (21:33)
[2021-06-10] MEDS: Menthol/Lanolin/Calamine/Znox 113 GM Tube 1 APPLIC TOPICAL (21:34)
[2021-06-11 00:05] LABS: Bedside Glucose 137 mg/dL (70-110)
[2021-06-11 03:49] VITALS: BP 122/51; PULSE 84; RESP 18; TEMP 37.7; O2SAT 98
[2021-06-11] MEDS: Acetaminophen 325 MG Tablet 650 MG PO ×2 (03:53→20:08)
[2021-06-11] MEDS: Menthol/Lanolin/Calamine/Znox 113 GM Tube 1 APPLIC TOPICAL ×3 (06:58→22:11)
--- NOTE | 2021-06-11 07:06 | PN.HOSP_ITS ---
Subjective Subjective Patient is a 70-year-old male discharged from a rehab facility seen in the hospital discharged home after he declined going back to long-term facility with home health presented to the ED with chills as well as left foot pain Objective Data Objective Data Vital Signs: Vital Signs Temp Pulse Resp BP Pulse Ox 100 F H 84 18 122/51 H 98 06/11/21 03:49 06/11/21 03:49 06/11/21 03:49 06/11/21 03:49 06/11/21 03:49 Oxygen Delivery Method Room Air Weight: 117.9 kg Body Mass Index (BMI) 37.3 Intake & Output: Intake and Output for Last 24 Hours 06/09/21 06/10/21 06/11/21 23:59 23:59 23:59 Intake Total 595.25 / 595.25 1519.5 / 1519.5 Output Total 725 / 725 Balance 595.25 / 595.25 794.5 / 794.5 Lab / Micro Data Result Diagrams: 06/11/21 05:50 06/11/21 05:50 Labs: Laboratory Results - last 24 hr 06/10/21 13:00: WBC 7.5, RBC 4.23 L, Hgb 11.3 L, Hct 37.1 L, MCV 87.7, MCH 26.7 L, MCHC 30.5 L, RDW Std Deviation 51.7 H, RDW Coeff of Xavier 16.2 H, Plt Count 273, MPV 11.2, Immature Gran % (Auto) 1.100 H, Neut % (Auto) 52.4, Lymph % (Auto) 34.7, [place] % (Auto) 7.6, Eos % (Auto) 3.7, Baso % (Auto) 0.5, Absolute Neuts (auto) 4.0, Absolute Lymphs (auto) 2.62, Nucleated RBC % 0 06/10/21 13:00: Sodium 143, Potassium 3.8, Chloride 113 H, Carbon Dioxide 22.0, Anion Gap 8, BUN 26 H, Creatinine 1.04, Estim Creat Clear Calc 70.19, Est GFR (MDRD) Af Amer 91, Est GFR (MDRD) Non-Af 75, BUN/Creatinine Ratio 25.0 H, Glucose 120 H, Calcium 9.0, Total Bilirubin 0.40, AST 38 H, ALT 12 L, Alkaline Phosphatase 81, Total Protein 6.6, Albumin 2.2 L, Globulin 4.4 H, Albumin/Globulin Ratio 0.5 L 06/10/21 13:00: ESR 61 H 06/10/21 13:00: C-React Prot Ext Range 52.00 H 06/10/21 13:00: Magnesium 1.7 06/10/21 13:00: Procalcitonin 0.08 06/10/21 13:38: Lactic Acid 1.4 06/10/21 14:44: Urine Color Yellow, Urine Clarity Clear, Urine pH 5.0, Ur Specific [place] 1.015, Urine Protein 15 H, Urine Glucose (UA) Normal, Urine Ketones Negative, Urine Occult Blood Negative, Urine Nitrite Negative, Urine Bilirubin Negative, Urine Urobilinogen Normal, Ur Leukocyte Esterase Negative, Urine RBC 0 SEEN, Urine WBC 0 SEEN, Ur Squamous Epith Cells 0 SEEN, Urine Bacteria 0 SEEN, Urine Mucus 0 SEEN 06/10/21 18:21: POC Glucose 133 H 06/10/21 21:37: POC Glucose 137 H Radiography Diagnostic Testing: Radiology Impression Foot X-Ray 06/10/21 13:09 IMPRESSION: Limited examination due to suboptimal positioning. Stable examination demonstrating deformity with the Charcot''s deformity. Diffuse soft tissue swelling. Electronically Signed: Javed Brandon MD at 14:17 EDT , Service support , ADDENDUM: 06/10/21 1451 Rhythm Strip Rhythm Strip: Sinus Rhythm Rate: 75 Ectopy: PVC(s) Physical Exam Narrative GENERAL: cooperative HEENT: Atraumatic; EYES; Anicteric, Normal Conjunctiva NECK; supple, normal thyroid, RESPIRATORY: Diminished to auscultation CARDIOVASCULAR: Regular S1 S2, GI: soft, normoactive bowel sounds, : No Renal angle tenderness; EXTREMITIES: Left foot in surgical dressing MUSCULOSKELETAL: no muscle waisting NEURO: Awake; no lateralizing signs. SKIN: No Rash PSYCH; Flat affect Assessment & Plan Assessment/Plan (1) Diabetic infection of left foot: PLAN: Patient is a 70-year-old male discharged from a rehab facility seen in the hospital discharged home after he declined going back to long-term facility with home health presented to the ED with chills as well as left foot pain 1. Diabetic foot infection ?Previous cultures had grown possible Enterococcus species as well as procidenti a, patient was however assessed not to have any infection at the time. Patient was therefore not started on antibiotics presented with fever as well as chills started on meropenem as well as vancomycin 2. Physical deconditioning with multiple falls -Patient presented with a fall , requested for PT OT eval and protective services social worker to assist with discharge planning. 2. Diabetes mellitus type II -patient's oral hypoglycemics held. Placed on long acting insulin, Accu-Cheks a.c. and at bedtime and covered with sliding scale insulin 3. Hypertension - Blood pressure controlled, home medications continued with dose adjustment as needed 4. Chronic bilateral lower extremity wounds ?Consult placed wound care nurse 5. Dyslipidemia -Patient is on statin therapy, continued at home dose 6. Obesity with BMI of 46.9 ?Weight loss advised 7. Acute kidney injury ?Superimposed on chronic kidney disease stage IIIb 8. Anemia - Secondary to chronic disorder monitoring H&H and transfuse if patient becomes symptomatic or hemoglobin falls below 7 9. DVT prophylaxis -WI Lovenox Charges/Coding Visit Charges Inpatient E&M: 30895 Subs Hosp L3
[2021-06-11 07:10] LABS: Absolute Lymphocyte Count 1.49 X10^3/uL (0.83-4.51); Basophil# 0.04 X10^3/uL; Basophil% 0.6 % (0-1); Eosinophils% 4.7 % (0-5); Hematocrit 30.6 % (40-54); Hemoglobin 9.4 g/dL (13.0-16.5); Lymphocyte # 1.49 X10^3/ul (0.83-4.51); Lymphocyte % 23.2 % (19-41); Mean Corp Hgb Conc 30.7 g/dL (32-36); Mean Corpuscular Hgb 27.2 pg (27.0-32.0); Mean Corpuscular Volume 88.7 fL (80-94); Mean Platelet Vol. 10.6 fl (6.2-12.0); Monocyte# 0.57 X10^3/uL; Monocyte% 8.9 % (0-10); NRBC Flagged by Analyzer 0 % (0-5); Neutrophil # 3.95 X10^3/uL (2.7-7.7); Neutrophil % 61.4 % (47-70); Platelet Count 230 K/mm3 (150-450); RBC Distribution Width CV 16.1 % (11.6-14.6); RBC Distribution Width SD 52.2 fl (35.1-43.9); Red Blood Count 3.45 M/mm3 (4.6-6.2); White Blood Count 6.4 K/mm3 (4.4-11.0)
[2021-06-11 07:16] LABS: Bedside Glucose 101 mg/dL (70-110)
[2021-06-11 07:34] VITALS: O2SAT 97
[2021-06-11 07:51] LABS: ALB/GLOB Ratio 0.5 RATIO (0.9-2.4); AST(SGOT) 30 U/L (15-37); Alanine Aminotransfer ALT/SGPT 9 U/L (16-61); Albumin, Serum 1.7 g/dL (3.2-5.0); Alkaline Phosphatase 65 U/L (45-117); Anion Gap 7 (5-15); BUN 19 mg/dL (7-18); BUN/Creat Ratio 24.1 RATIO (10-20); Calcium,Total 8.2 mg/dL (8.5-10.1); Chloride 113 mmol/L (98-107); Creatinine, Serum 0.79 mg/dL (0.70-1.30); EST Glomerular Filtration Rate 104 mL/min (>60); Est Glom Filt Rate - Afr Amer 125 mL/min (>60); Globulin 3.7 g/dL (2.2-4.2); Glucose 91 mg/dL (74-106); Potassium 3.6 mmol/L (3.5-5.1); Protein, Total 5.4 g/dL (6.4-8.2); Sodium Level 141 mmol/L (136-145)
[2021-06-11 08:04] VITALS: O2SAT 95
[2021-06-11 08:58] VITALS: BP 122/50; PULSE 80; RESP 16; TEMP 36.9; O2SAT 96
[2021-06-11] MEDS: Furosemide 40 MG Tablet PO (09:01)
[2021-06-11] MEDS: Enoxaparin 40 MG/0.4 ML Syringe SC (09:01)
[2021-06-11] MEDS: Cyanocobalamin 500 MCG Tablet PO (09:01)
[2021-06-11] MEDS: Aspirin 81 MG TAB.CHEW PO (09:01)
[2021-06-11] MEDS: Losartan Potassium 100 MG Tablet PO (09:01)
--- NOTE | 2021-06-11 09:35 | CASEMGMT ---
TINO JAY Assessment: Face to Face with pt for initial transition planning/care coordination assessment. TINO JAY introduced self and role at [facility], pt voices understanding and consents to assessment. Pt is A/O x4 and answers all questions appropriately at this time. Pt sitting up in bed in no distress. Care providers, pharmacy, and demographics verified/updated. Admitting Dx: questionable diabetic L foot infection PCP:Georgette Specialists: chelsy Cameron Pharmacy: [facility] Insurance: [facility], [facility] Community Plan Prescription Benefit: yes LW/HPOA: Pt denies having a LW/DPOA and denies need for info regarding AD. LNOK: Anyi Klein, sister Living Arrangements: Pt lives alone in an efficiency apt with 5 steps to enter with rails on both sides. Pt states normally he is I in ADL's but is not currently due to the infection in his foot. Pt states when he left the hospital in February he was able to walk with a walker. Discussed with him that he was recently dc'd from the SNF and went home same day and fell and was readmitted. Pt states this time will be different when he goes home. Transportation: Pt drives self and denies concerns with transportation. Pt states he plans on going to his girlfriend's house in [place] approx 4 days/wk. DME/HHC/SNF: Pt has a walker at home. Pt has had [facility] in the past and been in [facility] for the past 4 mos. Pt states no concerns with going home at time of dc. He reports he is not homebound as he will be going to his girlfriend's multiple days a week and does not feel he would be home to have HHC. Pt states he performs his own dressing changes and does not need a nurse, but does agree that therapy would be helpful. He also states he cannot afford going to a SNF as he has to pay too much money out of pocket. Pt states no further concerns/needs. CM to follow. Advised pt to ask CM if any further question/concerns/needs arise, voices understanding. Pt Goal: Home Plan: TBD- follow therapy.
--- NOTE | 2021-06-11 10:06 | CASEMGMT ---
Social Work Note SW familiar with pt from previous visits. Pt has active APS case. SW placed a call to Norman with APS and updated her on pt's admission to [facility]. SW updated Norman that at this time pt is still refusing SNF, states that he will be going home. SW to continue to follow. Melody Reyna STRIP CLEANER, RIG SITE ENGINEER
[2021-06-11 11:41] LABS: Bedside Glucose 140 mg/dL (70-110)
--- NOTE | 2021-06-11 14:06 | CASEMGMT ---
Social Work SW received referral for depression. SW met with pt and introduced self and role of SW. Discussed pt's home situation and pt explained he cannot go to SNF due to pt liability. Pt plans to go home and is hopeful he can go to his girlfriends home in [place] shortly after discharge. SW spoke to pt regarding his mood. Pt admits to feeling depressed but states he tries to live above it. Pt does not take medication or see a counselor. Pt denies any suicidal thoughts and states he has never has suicidal thoughts or attempts in the past. Pt stating that his melissa helps him cope with depression and he has family and a loving girlfriend that he finds enjoyment in. SW offered information on counseling services and pt declines. SW offered support and will remain available should other needs arise. SAMIA Villalobos
[2021-06-11 16:09] VITALS: BP 146/56; PULSE 75; RESP 18; TEMP 36.9; O2SAT 97
[2021-06-11 16:46] LABS: Bedside Glucose 137 mg/dL (70-110)
--- NOTE | 2021-06-11 17:51 | NURSING ---
Page out to Dr. Cameron to verify she was aware of consult. She states she is and will be in later tonight to see patient.
[2021-06-11] MEDS: Atorvastatin Calcium 40 MG Tablet PO (21:58)
[2021-06-11 22:00] VITALS: BP 135/72; PULSE 75; RESP 18; TEMP 36.6; O2SAT 99
[2021-06-11] MEDS: Insulin Lispro 100 UNIT/ML INSULN.PEN SC (22:06)
[2021-06-11 22:31] LABS: Bedside Glucose 158 mg/dL (70-110)
--- NOTE | 2021-06-11 23:06 | CON.PCM_ITS ---
Assessment & Plan Assessment/Plan (1) Acute osteomyelitis of left calcaneus: PLAN: Discussed findings with patient and treatment options were again reviewed. We had discussed treatment options this summer and we still believe that the patient is not a great surgical candidate. We had discussed amputation of the lower extremity which is likely not very tolerable for the patient. He states that he does have a [place] walker at home that has been modified, however, this [place] walker would likely not be appropriate for his foot as it has changed completely since the summer. We did discuss utilizing a wheelchair for ambulation and patient states that he values his ability to be independent and is afraid that he may not want to move forward with life at that time. Patient states I am not thinking of hurting myself or anything but I just do not want to live in a longterm. (2) Inability to walk: (3) Generalized weakness: (4) Diabetic infection of left foot: PLAN: The wound was selectively debrided bedside today. Continue with local wound care. We recommended that the patient be in some facility such as assisted living because it is not likely that he can live on his own. The patient would be agreeable to that. As far as his foot goes, we will continue to monitor and treat conservatively. At this time it does not appear that a surgical I&D is necessary. Podiatry will continue to follow. Social work may help the patient plan for future. (5) Osteomyelitis of left foot: QUALIFIERS: Osteomyelitis type: unspecified type Qualified Code(s): M86.9 - Osteomyelitis, unspecified (6) Charcot foot due to diabetes mellitus: (7) Charcot arthropathy of hindfoot: HPI Consult Data Date of Consult: 06/11/21 HPI Narrative HPI Narrative: JONEL ZALDIVAR, is a 70 M who Is known to me as I have treated the patient for many years over many ulcerations to bilateral feet. Most recently had I had seen the patient in [facility] for a large ulceration to the left lower extremity in February 2021. He is now readmitted to [facility] for recent weakness and an ulceration to left posterior heel. FORMERLY [facility], [facility]–1983 Medical History Amputation of fifth toe of left foot Anemia Ankle fracture Anxiety Bradycardia Charcot foot due to diabetes mellitus Chronic ulcer of ankle Chronic ulcer of left foot Chronic ulcer of right foot CKD (chronic kidney disease) stage 3, GFR 30-59 ml/min Depression Diabetes Diabetes mellitus Essential hypertension Fall History of ankle fracture Hypertension Hypertension Irregular heart beat Kidney disease Stage 3a chronic kidney disease Type 2 diabetes mellitus Home Medications cholecalciferol (vitamin D3) [Vitamin D3] 125 mcg PO DAILY 02/10/21 [History Last Taken 2 Days Ago ~06/08/21] irbesartan 300 mg PO DAILY 02/16/21 [History Last Taken 2 Days Ago ~06/08/21] saw palmetto 450 mg PO DAILY 02/16/21 [History Last Taken 2 Days Ago ~06/08/21] cyanocobalamin (vitamin B-12) 500 mcg tablet 500 mcg PO DAILY 04/26/21 [History Last Taken 2 Days Ago ~06/08/21] furosemide 40 mg tablet 40 mg PO DAILY tab 04/26/21 [History Last Taken 2 Days Ago ~06/08/21] aspirin [Aspirin Low Dose] 81 mg PO DAILY 06/10/21 [History Last Taken 2 Days Ago ~06/08/21] atorvastatin 40 mg PO DAILY 06/10/21 [History Last Taken 2 Days Ago ~06/08/21] Allergy/AdvReac Type Severity Reaction Status Date / Time Penicillins [PCN] Allergy Rash Verified 06/10/21 12:40 metformin AdvReac Unknown Diarrhea Verified 06/10/21 12:40 [id number]-Arf Reductase AdvReac Unknown intolerence Verified 06/10/21 12:40 Inhibitor Family History (Updated 06/10/21 @ 15:[address] Nati Whitten MD) Father Cancer Metastatic prostate CA. Mother CVA (cerebral vascular accident) CAD (coronary artery disease) Surgical History S/P appendectomy S/P foot surgery, left Social History household members: none Smoking Status: Never smoker alcohol intake: current alcohol intake frequency: other substance use type: does not use ROS Cardiovascular Cardiovascular: Reports pedal edema Musculoskeletal Musculoskeletal: Reports limited range of motion, muscle weakness and other Details: Left foot has significant change since last seen in February. It is rigidly dorsiflexed and inverted. Patient suffers from Charcot neuroarthropathy. Both legs have significant decrease in lymphedema as well. Patient has no strength to his bilateral lower limbs. Integumentary Integumentary: Reports wounds and other Details: Multiple abrasions are noted to left lateral foot from recent bumping on the coffee table. There is also an abrasion to the right plantar distal hallux. Patient admits this is also from bumping on the coffee table. There is a large posterior heel wound to the left leg. This measures approximately 3.0 x 2.5 x 2.0 cm. Probing to bone is present. There was a mild amount of yellow stringy fibrous tissue that was able to be selectively debrided with scissors and pickups bedside today. Mild bleeding was controlled with compression. No purulence is seen. Wound bed is mostly granular. The previously seen large wound at the plantar lateral left foot is completely resolved. This resulted in the likely MRI result of possible osteomyelitis to the cuboid and corresponding structures at that time. Neurologic Neurologic: Reports numbness and sensory deficit Lab / Micro Data Result Diagrams: 06/11/21 05:50 06/11/21 05:50 Labs: Laboratory Results - last 24 hr 06/10/21 21:37: POC Glucose 137 H 06/11/21 05:50: WBC 6.4, RBC 3.45 L, Hgb 9.4 L, Hct 30.6 L, MCV 88.7, MCH 27.2, MCHC 30.7 L, RDW Std Deviation 52.2 H, RDW Coeff of Xavier 16.1 H, Plt Count 230, MPV 10.6, Immature Gran % (Auto) 1.200 H, Neut % (Auto) 61.4, Lymph % (Auto) 23.2, Robertson % (Auto) 8.9, Eos % (Auto) 4.7, Baso % (Auto) 0.6, Absolute Neuts (auto) 4.0, Absolute Lymphs (auto) 1.49, Nucleated RBC % 0 06/11/21 05:50: Sodium 141, Potassium 3.6, Chloride 113 H, Carbon Dioxide 21.0, Anion Gap 7, BUN 19 H, Creatinine 0.79, Estim Creat Clear Calc 73.00, Est GFR (MDRD) Af Amer 125, Est GFR (MDRD) Non-Af 104, BUN/Creatinine Ratio 24.1 H, Glucose 91, Calcium 8.2 L, Total Bilirubin 0.30, AST 30, ALT 9 L, Alkaline Phosphatase 65, Total Protein 5.4 L, Albumin 1.7 L, Globulin 3.7, Albumin/Globulin Ratio 0.5 L 06/11/21 06:56: POC Glucose 101 06/11/21 11:37: POC Glucose 140 H 06/11/21 16:41: POC Glucose 137 H 06/11/21 22:01: POC Glucose 158 H Micro: Microbiology 06/10/21 14:44 Urine, Clean Catch Urine Culture - Final Mixed Gram Pos & Gram Neg Org Rhythm Strip Rhythm Strip: Sinus Rhythm Rate: 75 Ectopy: PVC(s)
--- NOTE | 2021-06-12 00:48 | NURSING ---
Scd's ordered but patient says he cannot tolerate them. Fausto wrap to Left foot/leg
[2021-06-12 04:18] VITALS: BP 128/61; PULSE 66; RESP 16; TEMP 36.7; O2SAT 100
[2021-06-12 06:21] LABS: Absolute Lymphocyte Count 1.76 X10^3/uL (0.83-4.51); Basophil# 0.05 X10^3/uL; Basophil% 0.8 % (0-1); Eosinophil# 0.45 X10^3/uL; Eosinophils% 7.6 % (0-5); Hematocrit 30.8 % (40-54); Hemoglobin 9.6 g/dL (13.0-16.5); Lymphocyte # 1.76 X10^3/ul (0.83-4.51); Lymphocyte % 29.7 % (19-41); Mean Corp Hgb Conc 31.2 g/dL (32-36); Mean Corpuscular Hgb 27.6 pg (27.0-32.0); Mean Corpuscular Volume 88.5 fL (80-94); Mean Platelet Vol. 10.3 fl (6.2-12.0); Monocyte# 0.61 X10^3/uL; Monocyte% 10.3 % (0-10); NRBC Flagged by Analyzer 0 % (0-5); Neutrophil % 50.6 % (47-70); Platelet Count 222 K/mm3 (150-450); RBC Distribution Width CV 15.9 % (11.6-14.6); RBC Distribution Width SD 51.6 fl (35.1-43.9); Red Blood Count 3.48 M/mm3 (4.6-6.2); White Blood Count 5.9 K/mm3 (4.4-11.0)
[2021-06-12] MEDS: Menthol/Lanolin/Calamine/Znox 113 GM Tube 1 APPLIC TOPICAL ×3 (06:37→21:54)
[2021-06-12] MEDS: Acetaminophen 325 MG Tablet 650 MG PO ×2 (06:37→16:08)
[2021-06-12 06:45] LABS: Anion Gap 2 (5-15); BUN 18 mg/dL (7-18); BUN/Creat Ratio 23.3 RATIO (10-20); Calcium,Total 8.1 mg/dL (8.5-10.1); Chloride 114 mmol/L (98-107); Creatinine, Serum 0.77 mg/dL (0.70-1.30); EST Glomerular Filtration Rate 106 mL/min (>60); Est Glom Filt Rate - Afr Amer 129 mL/min (>60); Glucose 104 mg/dL (74-106); Magnesium 1.7 mg/dL (1.6-2.6); Potassium 3.5 mmol/L (3.5-5.1); Sodium Level 141 mmol/L (136-145)
[2021-06-12 06:45] LABS: Bedside Glucose 93 mg/dL (70-110)
--- NOTE | 2021-06-12 07:32 | PCM.PN.HOSP ---
Subjective Subjective Patient was seen in consultation by Dr. Cameron with podiatry who noted recommendations reviewed. As part of patient subsequent evaluation ordered MRI of the foot to rule out osteomyelitis Objective Data Objective Data Vital Signs: Vital Signs Temp Pulse Resp BP Pulse Ox 98.1 F 66 16 128/61 H 100 06/12/21 04:18 06/12/21 04:18 06/12/21 04:18 06/12/21 04:18 06/12/21 04:18 Oxygen Delivery Method Room Air Weight: 121.4 kg Body Mass Index (BMI) 37.3 Intake & Output: Intake and Output for Last 24 Hours 06/10/21 06/11/21 06/12/21 23:59 23:59 23:59 Intake Total 595.25 / 595.25 2644.5 / 2644.5 655 / 655 Output Total 1125 / 1675 850 / 850 Balance 595.25 / 595.25 1519.5 / 969.5 -195 / -195 Lab / Micro Data Result Diagrams: 06/12/21 06:00 06/12/21 06:00 Labs: Laboratory Results - last 24 hr 06/11/21 05:50: Sodium 141, Potassium 3.6, Chloride 113 H, Carbon Dioxide 21.0, Anion Gap 7, BUN 19 H, Creatinine 0.79, Estim Creat Clear Calc 73.00, Est GFR (MDRD) Af Amer 125, Est GFR (MDRD) Non-Af 104, BUN/Creatinine Ratio 24.1 H, Glucose 91, Calcium 8.2 L, Total Bilirubin 0.30, AST 30, ALT 9 L, Alkaline Phosphatase 65, Total Protein 5.4 L, Albumin 1.7 L, Globulin 3.7, Albumin/Globulin Ratio 0.5 L 06/11/21 11:37: POC Glucose 140 H 06/11/21 16:41: POC Glucose 137 H 06/11/21 22:01: POC Glucose 158 H 06/12/21 06:00: WBC 5.9, RBC 3.48 L, Hgb 9.6 L, Hct 30.8 L, MCV 88.5, MCH 27.6, MCHC 31.2 L, RDW Std Deviation 51.6 H, RDW Coeff of Xavier 15.9 H, Plt Count 222, MPV 10.3, Immature Gran % (Auto) 1.000 H, Neut % (Auto) 50.6, Lymph % (Auto) 29.7, Bracken % (Auto) 10.3 H, Eos % (Auto) 7.6 H, Baso % (Auto) 0.8, Absolute Neuts (auto) 3.0, Absolute Lymphs (auto) 1.76, Nucleated RBC % 0 06/12/21 06:00: Sodium 141, Potassium 3.5, Chloride 114 H, Carbon Dioxide 25.0, Anion Gap 2 L, BUN 18, Creatinine 0.77, Estim Creat Clear Calc 73.00, Est GFR (MDRD) Af Amer 129, Est GFR (MDRD) Non-Af 106, BUN/Creatinine Ratio 23.3 H, Glucose 104, Calcium 8.1 L, Magnesium 1.7 06/12/21 06:33: POC Glucose 93 Micro: Microbiology 06/10/21 14:44 Urine, Clean Catch Urine Culture - Final Mixed Gram Pos & Gram Neg Org Rhythm Strip Rhythm Strip: Sinus Rhythm Rate: 75 Ectopy: PVC(s) Physical Exam Narrative GENERAL: cooperative HEENT: Atraumatic; EYES; Anicteric, Normal Conjunctiva NECK; supple, normal thyroid, RESPIRATORY: Diminished to auscultation CARDIOVASCULAR: Regular S1 S2, GI: soft, normoactive bowel sounds, : No Renal angle tenderness; EXTREMITIES: Left foot in surgical dressing MUSCULOSKELETAL: no muscle waisting NEURO: Awake; no lateralizing signs. SKIN: No Rash PSYCH; Flat affect Assessment & Plan Assessment/Plan (1) Diabetic infection of left foot: PLAN: Patient is a 70-year-old male discharged from a rehab facility seen in the hospital discharged home after he declined going back to [facility] facility with home health presented to the ED with chills as well as left foot pain 1. Diabetic foot infection ?Previous cultures had grown possible Enterococcus species as well as procidentia, patient was however assessed not to have any infection at the time. Patient was therefore not started on antibiotics presented with fever as well as chills started on meropenem as well as vancomycin -06/12/21; Patient was seen in consultation by Dr. Cameron with podiatry who noted recommendations reviewed. As part of patient subsequent evaluation ordered MRI of the foot to rule out osteomyelitis 2. Physical deconditioning with multiple falls -Patient presented with a fall , requested for PT OT eval and home health care social worker to assist with discharge planning. 2. Diabetes mellitus type II -patient's oral hypoglycemics held. Placed on long acting insulin, Accu-Cheks a.c. and at bedtime and covered with sliding scale insulin 3. Hypertension - Blood pressure controlled, home medications continued with dose adjustment as needed 4. Chronic bilateral lower extremity wounds ?Consult placed wound care nurse 5. Dyslipidemia -Patient is on statin therapy, continued at home dose 6. Obesity with BMI of 46.9 ?Weight loss advised 7. Acute kidney injury ?Superimposed on chronic kidney disease stage IIIb 8. Anemia - Secondary to chronic disorder monitoring H&H and transfuse if patient becomes symptomatic or hemoglobin falls below 7 9. DVT prophylaxis -PR Lovenox Charges/Coding Visit Charges Inpatient E&M: 50353 Subs Hosp L3
[2021-06-12 08:21] VITALS: BP 132/49; PULSE 69; RESP 18; TEMP 36.7; O2SAT 96
[2021-06-12] MEDS: Aspirin 81 MG TAB.CHEW PO (08:25)
[2021-06-12] MEDS: Cyanocobalamin 500 MCG Tablet PO (08:25)
[2021-06-12] MEDS: Losartan Potassium 100 MG Tablet PO (08:25)
[2021-06-12] MEDS: Enoxaparin 40 MG/0.4 ML Syringe SC (08:26)
[2021-06-12] MEDS: Furosemide 40 MG Tablet PO (08:26)
[2021-06-12 09:46] VITALS: O2SAT 96
--- NOTE | 2021-06-12 09:47 | MRI_ITS ---
STUDY: MRI LEFT ANKLE WITH AND WITHOUT CONTRAST REASON FOR EXAM: Male, 70 years old. osteomyelitis TECHNIQUE: Standarized fat and water weighted pulse sequences were obtained in all 3 orthogonal plane pre and post administration of IV dotarem 24ml. COMPARISON: X-ray left foot 06/10/2021 I have a prior MRI from February 2021 of the forefoot but it is the right foot not the left and does not include the calcaneus. 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 There is an approximate 90 degree angulation of the hindfoot midfoot articulation whereas the tibia and talus are in an AP position, in this position the hindfoot is angulated laterally and the mid and forefoot rotated and angulated medially. With respect to the posterior lateral calcaneus there is osseous erosion, bone marrow edema and subjacent fluid with partial tearing of the Achilles tendon, for instance referred to image #15 series 5, image #10 series 3 and postcontrast image #15 series 7. The fluid pocket extends to the skin surface. It is seen along a length of approximately 2.8 cm in anterior posterior dimension of 1.65 cm and a transverse dimension of approximately 1.5 cm as seen on image #19 series 7 and image #10 series 8. The appearance is highly concerning for that of underlying osteomyelitis as well as partial Achilles tendon tear. No other specific area of edema in association with the osseous structures of the foot identified to suggest osteomyelitis. Note that the toes are not included on this exam. MRI/Lower Ext No Joint W/WO Cont IMPRESSION: There is evidence of osteomyelitis associated with the posterior lateral calcaneus with fluid collection that also extends to the skin surface located in this area and partial Achilles tendon tear. 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 Electronically Signed: Tiffanie Aguero MD at 11:45 EDT , Service support ,
[2021-06-12 11:50] LABS: Bedside Glucose 145 mg/dL (70-110)
[2021-06-12 14:03] VITALS: BP 136/53; PULSE 55; RESP 18; TEMP 36.6; O2SAT 98
--- NOTE | 2021-06-12 14:30 | NURSING ---
spoke with dial polisher regarding PICC line placement.
--- NOTE | 2021-06-12 15:43 | CASEMGMT ---
SOCIAL WORK Received call from nursing earlier today. Informed patient's brother, Asher Becker called in and requested call from to discuss SNFs. Brother aware unable to receive any medical information. Call to patient's brother, Asher. Per brother, many safety concerns for patient in the home. Brother states patient with multiple falls and is unsafe in the home. He can't care for himself, when he tries to stand, he falls. Brother reports when patient left detention on Monday and returned home, he fell trying to get into his home. Brother stated, He's going to in that apartment. Brother reports prior to patient's admission to the hospital had patient talked into going into SNF/GROUP HOME. Brother reports is aware patient is refusing and asking, what can I do?? Brother given information on Adult Protective Services and [facility]. Much support provided. Kiara Flores, FIBRE TECHNOLOGIST, FABRICATION MANAGER
[2021-06-12] MEDS: Potassium Chloride Oral Tablet 20 MEQ PO (16:10)
[2021-06-12 16:11] LABS: Vancomycin, Trough Level 31.3 ug/mL (5.0-15.0)
[2021-06-12 16:15] LABS: Bedside Glucose 146 mg/dL (70-110)
--- NOTE | 2021-06-12 17:10 | NURSING ---
vanc stopped per Ronnie Pharmacist order to stop.
--- NOTE | 2021-06-12 17:12 | PCM.RX.CS ---
Consult Pharmacy has been consulted to manage selected antiobiotic: Vancomycin Type of Consult: Follow-up Suspected Infection: Skin/Soft tissue Prior Doses of Antibiotics Received/Current Regimen: 1750mg iv q12h Labs: Sodium 141 mmol/L (136-145) 06/12/21 06:00 Potassium 3.5 mmol/L (3.5-5.1) 06/12/21 06:00 Chloride 114 mmol/L (98-107) H 06/12/21 06:00 Carbon Dioxide 25.0 mmol/L (21.0-32.0) 06/12/21 06:00 Anion Gap 2 (5-15) L 06/12/21 06:00 BUN 18 mg/dL (7-18) 06/12/21 06:00 Creatinine 0.77 mg/dL (0.70-1.30) 06/12/21 06:00 Est GFR (MDRD) Af Amer 129 mL/min (>60) 06/12/21 06:00 Est GFR (MDRD) Non-Af 106 mL/min (>60) 06/12/21 06:00 BUN/Creatinine Ratio 23.3 RATIO (10-20) H 06/12/21 06:00 Glucose 104 mg/dL (74-106) 06/12/21 06:00 Vancomycin Trough 31.3 ug/mL (5.0-15.0) H 06/12/21 15:24 Microbiology: Microbiology 06/10/21 13:27 Blood Culture (Wb) - Right Wrist Blood Culture - Final No growth. 06/10/21 13:37 Blood Culture (Wb) - Anticubital Left Blood Culture - Final No growth. 06/10/21 14:44 Urine, Clean Catch Urine Culture - Final Mixed Gram Pos & Gram Neg Org Weight used for dosin kg Estimated Creatinine Clearance: 73 ml/min Goal Trough: 15-20 mcg/mL Pharmacy Plan for Drug Dosing: Trough today was 31.3. Will hold further dosing for now until level <20. Called [facility], asked patient's nurse to stop current infusion. a random level has been ordered for tomorrow ~24hrs post today's partial infusion. Pharmacy Service will continue to monitor and adjust dosing as required. Follow-Up Labs: Trough Vancomycin - random level .02.24@3596
--- NOTE | 2021-06-12 18:40 | RAD_ITS ---
STUDY: X-RAY CHEST REASON FOR EXAM: Male, 70 years old. picc line insertion TECHNIQUE: Single AP portable view of the chest. COMPARISON: February 16, 2021 FINDINGS: Right side PICC line tip terminates just above the right atrium. The lungs are clear and expanded. There is no demonstrated pleural abnormality. Normal size heart. Normal mediastinum and almaz. Normal visualized pulmonary arteries. There is atherosclerotic calcification of the aortic arch with tortuosity. There are diffuse degenerative changes of the visualized thoracic spine. Normal visualized ribs, clavicles, and shoulders. There is no demonstrated abnormality of the visualized soft tissue structures of the upper abdomen. RAD/CXR for Line Placement IMPRESSION: No acute process Electronically Signed: Lon Baptiste MD at 21:17 EDT , Service support ,
--- NOTE | 2021-06-12 21:23 | RAD_ITS ---
STUDY: X-RAY CHEST REASON FOR EXAM: Male, 70 years old. PICC line retracted TECHNIQUE: Single AP portable view of the chest. COMPARISON: None. FINDINGS: Right side PICC line tip terminates in the mid SVC. The lungs are clear and expanded. There is no demonstrated pleural abnormality. Normal size heart. Normal mediastinum and almaz. Normal visualized pulmonary arteries. There is atherosclerotic calcification of the aortic arch with tortuosity. There are diffuse degenerative changes of the visualized thoracic spine. Normal visualized ribs, clavicles, and shoulders. There is no demonstrated abnormality of the visualized soft tissue structures of the upper abdomen. RAD/CXR for Line Placement IMPRESSION: No acute process Electronically Signed: Lon Baptiste MD at 22:54 EDT , Service support ,
[2021-06-12] MEDS: Atorvastatin Calcium 40 MG Tablet PO (21:53)
[2021-06-12] MEDS: Insulin Lispro 100 UNIT/ML INSULN.PEN SC (21:58)
[2021-06-12 22:03] VITALS: BP 150/49; PULSE 77; RESP 16; TEMP 36.6; O2SAT 97
[2021-06-12 22:21] LABS: Bedside Glucose 170 mg/dL (70-110)
[2021-06-13] VITALS (7 sets, daily range): BP systolic 140–145; BP diastolic 51–62; PULSE 58–65; RESP 16–20; TEMP 36.4–36.7; O2SAT 95–100
[2021-06-13] MEDS: Menthol/Lanolin/Calamine/Znox 113 GM Tube 1 APPLIC TOPICAL ×3 (05:30→21:03)
[2021-06-13 06:20] LABS: Bedside Glucose 112 mg/dL (70-110)
--- NOTE | 2021-06-13 07:31 | PN.HOSP_ITS ---
Subjective Subjective MRI obtained the day prior demonstrated evidence of osteomyelitis associated with the posterior lateral calcaneus with fluid collection that also extends to the skin surface located in this area and partial Achilles tendon tear. 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 Cultures obtained on 06-27 demonstrated VRE as well as procidentia and Bacteroides. Subsequently adjusted patient antibiotic therapy with discontinuation of vancomycin and initiation of linezolid with consultation placed to ID Objective Data Objective Data Vital Signs: Vital Signs Temp Pulse Resp BP Pulse Ox 97.8 F 63 16 143/54 H 97 06/13/21 04:03 06/13/21 04:03 06/13/21 04:03 06/13/21 04:03 06/13/21 04:03 Oxygen Delivery Method Room Air Weight: 121.8 kg Body Mass Index (BMI) 37.3 Intake & Output: Intake and Output for Last 24 Hours 06/11/21 06/12/21 06/13/21 23:59 23:59 22:59 Intake Total 2644.5 / 2644.5 1186.67 / 1186.67 711.25 / 711.25 Output Total 1125 / 1675 1650 / 1650 750 / 750 Balance 1519.5 / 969.5 -463.33 / -463.33 -38.75 / -38.75 Lab / Micro Data Result Diagrams: 06/13/21 07:42 06/13/21 07:42 Labs: Laboratory Results - last 24 hr 06/12/21 11:41: POC Glucose 145 H 06/12/21 15:24: Vancomycin Trough 31.3 H 06/12/21 16:07: POC Glucose 146 H 06/12/21 21:57: POC Glucose 170 H 06/13/21 06:15: POC Glucose 112 H Micro: Microbiology 06/10/21 13:27 Blood Culture (Wb) - Right Wrist Blood Culture - Final No growth. 06/10/21 13:37 Blood Culture (Wb) - Anticubital Left Blood Culture - Final No growth. 06/10/21 14:44 Urine, Clean Catch Urine Culture - Final Mixed Gram Pos & Gram Neg Org Radiography Diagnostic Testing: Radiology Impression Lower Extremity MRI 06/12/21 09:47 IMPRESSION: There is evidence of osteomyelitis associated with the posterior lateral calcaneus with fluid collection that also extends to the skin surface located in this area and partial Achilles tendon tear. 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 Electronically Signed: Tiffanie Aguero MD at 11:45 EDT , Service support , Chest X-Ray 06/12/21 18:40 IMPRESSION: No acute process Electronically Signed: Lon Baptiste MD at 21:17 EDT , Service support , Chest X-Ray 06/12/21 21:23 IMPRESSION: No acute process Electronically Signed: Lon Baptiste MD at 22:54 EDT , Service support , Rhythm Strip Rhythm Strip: Sinus Rhythm Rate: 75 Ectopy: PVC(s) Physical Exam Narrative GENERAL: cooperative HEENT: Atraumatic; EYES; Anicteric, Normal Conjunctiva NECK; supple, normal thyroid, RESPIRATORY: Diminished to auscultation CARDIOVASCULAR: Regular S1 S2, GI: soft, normoactive bowel sounds, : No Renal angle tenderness; EXTREMITIES: Left foot in surgical dressing MUSCULOSKELETAL: no muscle waisting NEURO: Awake; no lateralizing signs. SKIN: No Rash PSYCH; Flat affect Assessment & Plan Assessment/Plan (1) Diabetic infection of left foot: PLAN: Patient is a 70-year-old male discharged from a rehab facility seen in the hospital discharged home after he declined going back to snf facility with home health presented to the ED with chills as well as left foot pain 1. Diabetic foot infection ?Previous cultures had grown possible Enterococcus species as well as procidentia, patient was however assessed not to have any infection at the time. Patient was therefore not started on antibiotics presented with fever as well as chills started on meropenem as well as vancomycin -06/12/21; Patient was seen in consultation by Dr. Cameron with podiatry who noted recommendations reviewed. As part of patient subsequent evaluation ordered MRI of the foot to rule out osteomyelitis -06/13/2021; MRI obtained the day prior demonstrated evidence of osteomyelitis associated with the posterior lateral calcaneus with fluid collection that also extends to the skin surface located in this area and partial Achilles tendon tear. 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 Cultures obtained on 06-27 demonstrated VRE as well as procidentia and Bacteroides. Subsequently adjusted patient antibiotic therapy with discontinuation of vancomycin and initiation of linezolid with consultation placed to ID 2. Physical deconditioning with multiple falls -Patient presented with a fall , requested for PT OT eval and social human services assistants to assist with discharge planning. 2. Diabetes mellitus type II -patient's oral hypoglycemics held. Placed on long acting insulin, Accu-Cheks a.c. and at bedtime and covered with sliding scale insulin 3. Hypertension - Blood pressure controlled, home medications continued with dose adjustment as needed 4. Chronic bilateral lower extremity wounds ?Consult placed wound care nurse 5. Dyslipidemia -Patient is on statin therapy, continued at home dose 6. Obesity with BMI of 46.9 ?Weight loss advised 7. Acute kidney injury ?Superimposed on chronic kidney disease stage IIIb 8. Anemia - Secondary to chronic disorder monitoring H&H and transfuse if patient becomes symptomatic or hemoglobin falls below 7 9. DVT prophylaxis -[place] Lovenox Charges/Coding Visit Charges Inpatient E&M: 26871 Subs Hosp L3
[2021-06-13 08:14] LABS: Absolute Lymphocyte Count 2.36 X10^3/uL (0.83-4.51); Absolute Neutrophil Count 3.6 X10^3/uL (2.0-7.7); Basophil# 0.04 X10^3/uL; Basophil% 0.6 % (0-1); Eosinophil# 0.56 X10^3/uL; Eosinophils% 7.7 % (0-5); Hematocrit 32.4 % (40-54); Hemoglobin 9.9 g/dL (13.0-16.5); Lymphocyte # 2.36 X10^3/ul (0.83-4.51); Lymphocyte % 32.5 % (19-41); Mean Corp Hgb Conc 30.6 g/dL (32-36); Mean Corpuscular Volume 88.5 fL (80-94); Mean Platelet Vol. 10.5 fl (6.2-12.0); Monocyte# 0.66 X10^3/uL; Monocyte% 9.1 % (0-10); NRBC Flagged by Analyzer 0 % (0-5); Neutrophil # 3.59 X10^3/uL (2.7-7.7); Neutrophil % 49.3 % (47-70); Platelet Count 248 K/mm3 (150-450); RBC Distribution Width CV 15.9 % (11.6-14.6); RBC Distribution Width SD 52.2 fl (35.1-43.9); Red Blood Count 3.66 M/mm3 (4.6-6.2); White Blood Count 7.3 K/mm3 (4.4-11.0)
[2021-06-13 08:41] LABS: Anion Gap 4 (5-15); BUN 21 mg/dL (7-18); BUN/Creat Ratio 27.4 RATIO (10-20); Calcium,Total 8.3 mg/dL (8.5-10.1); Chloride 111 mmol/L (98-107); Creatinine, Serum 0.77 mg/dL (0.70-1.30); EST Glomerular Filtration Rate 107 mL/min (>60); Est Glom Filt Rate - Afr Amer 130 mL/min (>60); Glucose 112 mg/dL (74-106); Potassium 3.8 mmol/L (3.5-5.1); Sodium Level 139 mmol/L (136-145)
[2021-06-13] MEDS: Aspirin 81 MG TAB.CHEW PO (08:58)
[2021-06-13] MEDS: Glucerna Shake 120 ML LIQUID PO ×2 (08:59→16:33)
[2021-06-13] MEDS: Potassium Chloride Oral Tablet 20 MEQ PO ×2 (09:00→16:36)
[2021-06-13] MEDS: Acetaminophen 325 MG Tablet 650 MG PO (09:06)
[2021-06-13] MEDS: Cyanocobalamin 500 MCG Tablet PO (10:37)
[2021-06-13] MEDS: Enoxaparin 40 MG/0.4 ML Syringe SC (10:37)
[2021-06-13] MEDS: Furosemide 40 MG Tablet PO (10:37)
[2021-06-13] MEDS: Losartan Potassium 100 MG Tablet PO (10:37)
[2021-06-13] MEDS: Linezolid 600 MG 600 MG/300 ML BAG 200 MG IV ×2 (10:44→21:02)
[2021-06-13 12:40] LABS: Bedside Glucose 147 mg/dL (70-110)
[2021-06-13 16:14] LABS: Vancomycin, Trough Level 27.3 ug/mL (5.0-15.0)
[2021-06-13 16:56] LABS: Bedside Glucose 128 mg/dL (70-110)
[2021-06-13] MEDS: Insulin Lispro 100 UNIT/ML INSULN.PEN SC (21:06)
[2021-06-13] MEDS: Atorvastatin Calcium 40 MG Tablet PO (21:06)
[2021-06-13 21:26] LABS: Bedside Glucose 163 mg/dL (70-110)
[2021-06-14 03:50] VITALS: BP 135/40; PULSE 62; RESP 16; TEMP 36.8; O2SAT 98
[2021-06-14] MEDS: Menthol/Lanolin/Calamine/Znox 113 GM Tube 1 APPLIC TOPICAL ×3 (05:02→21:41)
[2021-06-14 06:25] LABS: Bedside Glucose 116 mg/dL (70-110)
[2021-06-14 06:36] LABS: Absolute Lymphocyte Count 2.16 X10^3/uL (0.83-4.51); Absolute Neutrophil Count 3.2 X10^3/uL (2.0-7.7); Basophil# 0.04 X10^3/uL; Basophil% 0.6 % (0-1); Eosinophil# 0.41 X10^3/uL; Eosinophils% 6.5 % (0-5); Hematocrit 33.8 % (40-54); Hemoglobin 10.1 g/dL (13.0-16.5); Lymphocyte # 2.16 X10^3/ul (0.83-4.51); Lymphocyte % 34.1 % (19-41); Mean Corp Hgb Conc 29.9 g/dL (32-36); Mean Corpuscular Hgb 26.5 pg (27.0-32.0); Mean Corpuscular Volume 88.7 fL (80-94); Mean Platelet Vol. 10.5 fl (6.2-12.0); Monocyte# 0.51 X10^3/uL; NRBC Flagged by Analyzer 0 % (0-5); Neutrophil # 3.15 X10^3/uL (2.7-7.7); Neutrophil % 49.7 % (47-70); Platelet Count 270 K/mm3 (150-450); RBC Distribution Width SD 52.5 fl (35.1-43.9); Red Blood Count 3.81 M/mm3 (4.6-6.2); White Blood Count 6.3 K/mm3 (4.4-11.0)
[2021-06-14 06:45] LABS: Anion Gap 4 (5-15); BUN 24 mg/dL (7-18); BUN/Creat Ratio 30.2 RATIO (10-20); Calcium,Total 8.5 mg/dL (8.5-10.1); Chloride 111 mmol/L (98-107); EST Glomerular Filtration Rate 103 mL/min (>60); Est Glom Filt Rate - Afr Amer 124 mL/min (>60); Estimated Creatinine Clearance 91.25 ml/min; Glucose 121 mg/dL (74-106); Potassium 3.9 mmol/L (3.5-5.1); Sodium Level 140 mmol/L (136-145)
[2021-06-14 07:45] VITALS: BP 124/48; PULSE 73; RESP 16; TEMP 36.7; O2SAT 99
[2021-06-14] MEDS: Aspirin 81 MG TAB.CHEW PO (07:50)
[2021-06-14] MEDS: Potassium Chloride Oral Tablet 20 MEQ PO ×2 (07:51→16:08)
--- NOTE | 2021-06-14 09:23 | WOUNDNOTE ---
wound photo: left foot
--- NOTE | 2021-06-14 09:24 | WOUNDNOTE ---
wound photo: left heel
--- NOTE | 2021-06-14 09:24 | WOUNDNOTE ---
wound photo: right great toe
[2021-06-14] MEDS: Cyanocobalamin 500 MCG Tablet PO (09:35)
[2021-06-14] MEDS: Losartan Potassium 100 MG Tablet PO (09:35)
[2021-06-14] MEDS: Furosemide 40 MG Tablet PO (09:35)
[2021-06-14] MEDS: Linezolid 600 MG 600 MG/300 ML BAG 200 MG IV ×2 (09:35→21:41)
[2021-06-14] MEDS: Enoxaparin 40 MG/0.4 ML Syringe SC (09:35)
[2021-06-14] MEDS: Acetaminophen 325 MG Tablet 650 MG PO (09:36)
[2021-06-14 10:09] VITALS: O2SAT 99
[2021-06-14] MEDS: Insulin Lispro 100 UNIT/ML INSULN.PEN SC ×2 (11:14→21:41)
[2021-06-14] MEDS: Glucerna Shake 120 ML LIQUID PO (11:17)
[2021-06-14 11:26] LABS: Bedside Glucose 178 mg/dL (70-110)
--- NOTE | 2021-06-14 11:36 | PCM.PN.HOSP ---
Subjective Subjective Follow-up on acute osteomyelitis of the left calcaneus: Patient was seen and examined. No acute events overnight. He denies any fever or chills. He admits to some loose stools. Objective Data Objective Data Vital Signs: Vital Signs Temp Pulse Resp BP Pulse Ox 98.0 F 73 16 124/48 H 99 06/14/21 07:45 06/14/21 07:45 06/14/21 07:45 06/14/21 07:45 06/14/21 10:09 Oxygen Delivery Method Room Air Weight: 121.1 kg Body Mass Index (BMI) 37.3 Intake & Output: Intake and Output for Last 24 Hours 06/13/21 06/13/21 06/14/21 00:59 23:59 23:59 Intake Total 940 / 940 Output Total 450 / 450 Balance 490 / 490 Lab / Micro Data Result Diagrams: 06/14/21 06:00 06/14/21 06:00 Labs: Laboratory Results - last 24 hr 06/13/21 12:33: POC Glucose 147 H 06/13/21 15:29: Vancomycin Trough 27.3 H 06/13/21 16:35: POC Glucose 128 H 06/13/21 21:05: POC Glucose 163 H 06/14/21 06:00: WBC 6.3, RBC 3.81 L, Hgb 10.1 L, Hct 33.8 L, MCV 88.7, MCH 26.5 L, MCHC 29.9 L, RDW Std Deviation 52.5 H, RDW Coeff of Xavier 16.0 H, Plt Count 270, MPV 10.5, Immature Gran % (Auto) 1.100 H, Neut % (Auto) 49.7, Lymph % (Auto) 34.1, [place] % (Auto) 8.0, Eos % (Auto) 6.5 H, Baso % (Auto) 0.6, Absolute Neuts (auto) 3.2, Absolute Lymphs (auto) 2.16, Nucleated RBC % 0 06/14/21 06:00: Sodium 140, Potassium 3.9, Chloride 111 H, Carbon Dioxide 25.0, Anion Gap 4 L, BUN 24 H, Creatinine 0.80, Estim Creat Clear Calc 91.25, Est GFR (MDRD) Af Amer 124, Est GFR (MDRD) Non-Af 103, BUN/Creatinine Ratio 30.2 H, Glucose 121 H, Calcium 8.5 06/14/21 06:19: POC Glucose 116 H 06/14/21 11:12: POC Glucose 178 H Micro: Microbiology 06/10/21 13:27 Blood Culture (Wb) - Right Wrist Blood Culture - Final No growth. 06/10/21 13:37 Blood Culture (Wb) - Anticubital Left Blood Culture - Final No growth. 06/10/21 14:44 Urine, Clean Catch Urine Culture - Final Mixed Gram Pos & Gram Neg Org Rhythm Strip Rhythm Strip: Sinus Rhythm Rate: 75 Ectopy: PVC(s) Physical Exam Narrative Physical exam: General: Alert, Oriented x3, Cooperative, No apparent distress, Well developed HEENT: Atraumatic Oral: Moist Mucosa Neck: Supple Lungs: Clear to auscultation Cardiovascular: HS I+II, regular, no murmurs Abdomen: Bowel Sounds Present, Soft, Non Tender Extremities: Chronic hyperpigmentation lower extremity with deformity, dressing in place Assessment & Plan Assessment/Plan (1) Diabetic infection of left foot: PLAN: 1. 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 Wound RN following 2. Type II DM, blood sugars controlled, off oral hypoglycemics, continue to monitor on insulin sliding scale 3. ANDRY on CKD stage IIIb, resolved, creatinine today 0.80 4. Rest of his chronic medical conditions including dyslipidemia/hypertension/morbid obesity - remain stable Charges/Coding Visit Charges Inpatient E&M: 15603 Subs Hosp L2
[2021-06-14 14:08] VITALS: BP 139/55; PULSE 65; RESP 16; TEMP 36.7; O2SAT 100
--- NOTE | 2021-06-14 14:58 | PCM.CONS.GEN ---
Assessment & Plan Assessment/Plan (1) Acute osteomyelitis of left calcaneus: PLAN: Recurrent foot osteo with charcot foot. Wound cx now with VRE, providencia, and anaerobes. He is unable to pay for another ECF but only lasted one day at home after a 4 month stay. Foot has worsened. Dr. Cameron with podiatry following. Encouraged him to consider amputation given recurrent infections, progressive resistance, and inability to take care of himself at home. Offered to have ortho consult to discuss risks/benefits of amputation, but he is not interested based on what Dr. Cameron has told him. On linezolid and meropenem. Not clear if medical management can be successful or what the best choice will be given severity of disease and financial limitations. Will follow, thank you, d/w medical case worker (2) Type 2 diabetes mellitus: HPI Consult Data Date of Consult: 06/14/21 HPI Narrative HPI Narrative: JONEL ZALDIVAR, is a 70 M with Charcot foot, recurrent osteo. Admitted in 02/2021 with MRSA infection of L foot. Discharged to ECF with 6 weeks iv vanc and erta. Was there for 4 months; day he was sent home he was weak and unable to reach his walker. Reports foot with increased pain. No fever, no drainage. Admitted here, now on linezolid and meropenem. Dr. Cameron following. Has had covid vaccine. Full ROS performed and neg except as noted above. [facility] Medical History Amputation of fifth toe of left foot Anemia Ankle fracture Anxiety Bradycardia Charcot foot due to diabetes mellitus Chronic ulcer of ankle Chronic ulcer of left foot Chronic ulcer of right foot CKD (chronic kidney disease) stage 3, GFR 30-59 ml/min Depression Diabetes Diabetes mellitus Essential hypertension Fall History of ankle fracture Hypertension Hypertension Irregular heart beat Kidney disease Stage 3a chronic kidney disease Type 2 diabetes mellitus Home Medications cholecalciferol (vitamin D3) [Vitamin D3] 125 mcg PO DAILY 02/10/21 [History Last Taken 2 Days Ago ~06/08/21] irbesartan 300 mg PO DAILY 02/16/21 [History Last Taken 2 Days Ago ~06/08/21] saw palmetto 450 mg PO DAILY 02/16/21 [History Last Taken 2 Days Ago ~06/08/21] cyanocobalamin (vitamin B-12) 500 mcg tablet 500 mcg PO DAILY 04/26/21 [History Last Taken 2 Days Ago ~06/08/21] furosemide 40 mg tablet 40 mg PO DAILY tab 04/26/21 [History Last Taken 2 Days Ago ~06/08/21] aspirin [Aspirin Low Dose] 81 mg PO DAILY 06/10/21 [History Last Taken 2 Days Ago ~06/08/21] atorvastatin 40 mg PO DAILY 06/10/21 [History Last Taken 2 Days Ago ~06/08/21] Allergy/AdvReac Type Severity Reaction Status Date / Time Penicillins [PCN] Allergy Rash Verified 06/10/21 12:40 metformin AdvReac Unknown Diarrhea Verified 06/10/21 12:40 [id number] Reductase AdvReac Unknown intolerence Verified 06/10/21 12:40 Inhibitor Family History (Updated 06/10/21 @ 15:[address] Nati Whitten MD) Father Cancer Metastatic prostate CA. Mother CVA (cerebral vascular accident) CAD (coronary artery disease) Surgical History S/P appendectomy S/P foot surgery, left Social History household members: none Smoking Status: Never smoker alcohol intake: current alcohol intake frequency: other substance use type: does not use Physical Exam Const alert, oriented x3 and no apparent distress General Appearance: cooperative Exam Limitations: no limitations HEENT normocephalic and head/scalp atraumatic Eyes PERRL and EOMs intact bilaterally Neck supple and No nodes Resp normal air movement and clear to auscultation bilaterally Cardio regular rate and regular rhythm GI normal to inspection, nondistended, normoactive bowel sounds Extremity General Extremity: edema Skin Skin Narrative: reviewed photo Neuro CN's II-XII intact bilaterally Lab / Micro Data Result Diagrams: 06/14/21 06:00 06/14/21 06:00 Labs: Laboratory Results - last 24 hr 06/13/21 15:29: Vancomycin Trough 27.3 H 06/13/21 16:35: POC Glucose 128 H 06/13/21 21:05: POC Glucose 163 H 06/14/21 06:00: WBC 6.3, RBC 3.81 L, Hgb 10.1 L, Hct 33.8 L, MCV 88.7, MCH 26.5 L, MCHC 29.9 L, RDW Std Deviation 52.5 H, RDW Coeff of Xavier 16.0 H, Plt Count 270, MPV 10.5, Immature Gran % (Auto) 1.100 H, Neut % (Auto) 49.7, Lymph % (Auto) 34.1, [place] % (Auto) 8.0, Eos % (Auto) 6.5 H, Baso % (Auto) 0.6, Absolute Neuts (auto) 3.2, Absolute Lymphs (auto) 2.16, Nucleated RBC % 0 06/14/21 06:00: Sodium 140, Potassium 3.9, Chloride 111 H, Carbon Dioxide 25.0, Anion Gap 4 L, BUN 24 H, Creatinine 0.80, Estim Creat Clear Calc 91.25, Est GFR (MDRD) Af Amer 124, Est GFR (MDRD) Non-Af 103, BUN/Creatinine Ratio 30.2 H, Glucose 121 H, Calcium 8.5 06/14/21 06:19: POC Glucose 116 H 06/14/21 11:12: POC Glucose 178 H Rhythm Strip Rhythm Strip: Sinus Rhythm Rate: 75 Ectopy: PVC(s)
--- NOTE | 2021-06-14 15:26 | CASEMGMT ---
TINO JAY in to pt room to discuss dc planning. Pt states he plans on going home for an undetermined period of time to go through his mail before going to his girlfriend's house in [place]. He states that he does not know if he will be at home for any length of time at all. Pt states he cannot do IV atb in the home. States he will not be home to do so. Made aware this RN MISTY could set him up with HHC in [place] at his girlfriend's house. He states he does not feel that he wants to do this right now. Pt states he has been told the risks he is taking but he feels like I am between a rock and a hard place. Asked if pt had what he needs at home. Pt states he has BGM and supplies but does not check his blood sugar any longer as his A1C has been good. Pt denies further needs. Pt will notify this RN MISTY if he should change his mind regarding HHC. TINO JAY to follow.
[2021-06-14 16:35] LABS: Bedside Glucose 129 mg/dL (70-110)
[2021-06-14 21:31] VITALS: BP 140/58; PULSE 63; RESP 18; TEMP 36.8; O2SAT 97
[2021-06-14] MEDS: Atorvastatin Calcium 40 MG Tablet PO (21:42)
[2021-06-14 23:30] LABS: Bedside Glucose 167 mg/dL (70-110)
[2021-06-15 02:51] VITALS: BP 114/54; PULSE 70; RESP 18; TEMP 36.9; O2SAT 97
[2021-06-15] MEDS: Ondansetron 4 MG/2 ML Vial IV ×2 (02:58→22:15)
[2021-06-15] MEDS: Menthol/Lanolin/Calamine/Znox 113 GM Tube 1 APPLIC TOPICAL ×3 (05:59→22:16)
[2021-06-15 06:11] LABS: Bedside Glucose 125 mg/dL (70-110)
[2021-06-15 07:27] VITALS: BP 121/46; PULSE 70; RESP 16; TEMP 37.5; O2SAT 97
[2021-06-15] MEDS: Potassium Chloride Oral Tablet 20 MEQ PO ×2 (07:34→16:21)
[2021-06-15] MEDS: Aspirin 81 MG TAB.CHEW PO (07:34)
[2021-06-15 07:51] LABS: Absolute Neutrophil Count 3.5 X10^3/uL (2.0-7.7); Basophil# 0.04 X10^3/uL; Basophil% 0.5 % (0-1); Eosinophil# 0.49 X10^3/uL; Eosinophils% 6.7 % (0-5); Hematocrit 31.8 % (40-54); Hemoglobin 9.7 g/dL (13.0-16.5); Lymphocyte % 35.6 % (19-41); Mean Corp Hgb Conc 30.5 g/dL (32-36); Mean Corpuscular Hgb 26.9 pg (27.0-32.0); Mean Corpuscular Volume 88.1 fL (80-94); Mean Platelet Vol. 9.8 fl (6.2-12.0); Monocyte# 0.61 X10^3/uL; Monocyte% 8.4 % (0-10); NRBC Flagged by Analyzer 0 % (0-5); Platelet Count 262 K/mm3 (150-450); RBC Distribution Width CV 16.3 % (11.6-14.6); RBC Distribution Width SD 52.3 fl (35.1-43.9); Red Blood Count 3.61 M/mm3 (4.6-6.2); White Blood Count 7.3 K/mm3 (4.4-11.0)
[2021-06-15 08:15] LABS: ALB/GLOB Ratio 0.4 RATIO (0.9-2.4); AST(SGOT) 21 U/L (15-37); Alanine Aminotransfer ALT/SGPT 16 U/L (16-61); Albumin, Serum 1.7 g/dL (3.2-5.0); Alkaline Phosphatase 62 U/L (45-117); Anion Gap 4 (5-15); BUN 32 mg/dL (7-18); BUN/Creat Ratio 27.6 RATIO (10-20); Calcium,Total 8.6 mg/dL (8.5-10.1); Chloride 110 mmol/L (98-107); Creatinine, Serum 1.16 mg/dL (0.70-1.30); EST Glomerular Filtration Rate 66 mL/min (>60); Est Glom Filt Rate - Afr Amer 80 mL/min (>60); Estimated Creatinine Clearance 62.93 ml/min; Glucose 128 mg/dL (74-106); Potassium 4.2 mmol/L (3.5-5.1); Protein, Total 5.7 g/dL (6.4-8.2); Sodium Level 140 mmol/L (136-145)
--- NOTE | 2021-06-15 09:15 | CASEMGMT ---
RN CM in room with physician and wound nurse, discussion on pt care. Pt reports he understands the severity of his illness. He is agreeable at this time to going to a SNF for 4-6 weeks for IV atb and care. Cortext to to make aware of this. Notified David SIERRA of this as well.
--- NOTE | 2021-06-15 10:10 | CASEMGMT ---
Late entry for 06/14/2021- Discussed Palliative Care with physician, no order received at this time.
--- NOTE | 2021-06-15 10:18 | PCM.PN.HOSP ---
Subjective Subjective Follow-up on acute osteomyelitis of the left calcaneus: Patient was seen and examined. He complains of diarrhea, 4-5 times yesterday. Cdiff done on 06/14/21. I had a long discussion with patient in the presence of wound RN in case management regards to discharge planning, he is agreeable to going to detention facility for IV antibiotics and therapy. I also talked to Dr. Cameron to reevaluate patient for possible future surgery Objective Data Objective Data Vital Signs: Vital Signs Temp Pulse Resp BP Pulse Ox 99.5 F H 70 16 121/46 H 97 06/15/21 07:27 06/15/21 07:27 06/15/21 07:27 06/15/21 07:27 06/15/21 07:27 Oxygen Delivery Method Room Air Weight: 124.1 kg Body Mass Index (BMI) 37.3 Intake & Output: Intake and Output for Last 24 Hours 06/13/21 06/14/21 06/15/21 23:59 23:59 23:59 Intake Total 1360 / 1360 120 / 120 Output Total 750 / 750 300 / 300 Balance 610 / 610 -180 / -180 Lab / Micro Data Result Diagrams: 06/15/21 07:35 06/15/21 07:35 Labs: Laboratory Results - last 24 hr 06/14/21 11:12: POC Glucose 178 H 06/14/21 16:07: POC Glucose 129 H 06/14/21 21:30: POC Glucose 167 H 06/15/21 06:04: POC Glucose 125 H 06/15/21 07:35: WBC 7.3, RBC 3.61 L, Hgb 9.7 L, Hct 31.8 L, MCV 88.1, MCH 26.9 L, MCHC 30.5 L, RDW Std Deviation 52.3 H, RDW Coeff of Xavier 16.3 H, Plt Count 262, MPV 9.8, Immature Gran % (Auto) 0.800, Neut % (Auto) 48.0, Lymph % (Auto) 35.6, [place] % (Auto) 8.4, Eos % (Auto) 6.7 H, Baso % (Auto) 0.5, Absolute Neuts (auto) 3.5, Absolute Lymphs (auto) 2.60, Nucleated RBC % 0 06/15/21 07:35: Sodium 140, Potassium 4.2, Chloride 110 H, Carbon Dioxide 26.0, Anion Gap 4 L, BUN 32 H, Creatinine 1.16, Estim Creat Clear Calc 62.93, Est GFR (MDRD) Af Amer 80, Est GFR (MDRD) Non-Af 66, BUN/Creatinine Ratio 27.6 H, Glucose 128 H, Calcium 8.6, Total Bilirubin 0.20, AST 21, ALT 16, Alkaline Phosphatase 62, Total Protein 5.7 L, Albumin 1.7 L, Globulin 4.0, Albumin/Globulin Ratio 0.4 L Micro: Microbiology 06/14/21 19:47 Stool C. difficile DNA Amplification - Final 06/10/21 13:27 Blood Culture (Wb) - Right Wrist Blood Culture - Final No growth. 06/10/21 13:37 Blood Culture (Wb) - Anticubital Left Blood Culture - Final No growth. 06/10/21 14:44 Urine, Clean Catch Urine Culture - Final Mixed Gram Pos & Gram Neg Org Rhythm Strip Rhythm Strip: Sinus Rhythm Rate: 75 Ectopy: PVC(s) Physical Exam Narrative Physical exam: General: Alert, Oriented x3, Cooperative, No apparent distress, Well developed HEENT: Atraumatic Oral: Moist Mucosa Neck: Supple Lungs: Clear to auscultation Cardiovascular: HS I+II, regular, no murmurs Abdomen: Bowel Sounds Present, Soft, Non Tender Extremities: Chronic hyperpigmentation lower extremity with deformity, dressing in place Assessment & Plan Assessment/Plan (1) Diabetic infection of left foot: PLAN: 1. 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 Wound RN following 2. Type II DM, blood sugars controlled, off oral hypoglycemics, continue to monitor on insulin sliding scale 3. ANDRY on CKD stage IIIb, Cr appears to be creeping up Now 1.16, will give gentle IVF, repeat in am 4. Rest of his chronic medical conditions including dyslipidemia/hypertension/morbid obesity - remain stable Charges/Coding Visit Charges Inpatient E&M: 46333 Subs Hosp L2
[2021-06-15] MEDS: Enoxaparin 40 MG/0.4 ML Syringe SC (10:26)
[2021-06-15] MEDS: Furosemide 40 MG Tablet PO (10:26)
[2021-06-15] MEDS: Losartan Potassium 100 MG Tablet PO (10:26)
[2021-06-15] MEDS: Linezolid 600 MG 600 MG/300 ML BAG 200 MG IV (10:26)
[2021-06-15] MEDS: Cyanocobalamin 500 MCG Tablet PO (10:27)
--- NOTE | 2021-06-15 11:29 | PCM.PN.ID ---
Physical Exam Narrative Still with diarrhea, no fever, foot feels ok Const alert General Appearance: cooperative Resp normal air movement and clear to auscultation bilaterally Cardio regular rate and regular rhythm GI normal to inspection, nondistended, normoactive bowel sounds Skin Skin Narrative: foot wrapped ID ID: Route of nutrition/ use of supplements: [] Nutritional Intake: [] IV Site: [] Shearer Catheter: [] Assessment & Plan Assessment/Plan (1) Acute osteomyelitis of left calcaneus: PLAN: Recurrent foot osteo with charcot foot. Wound cx now with VRE, providencia, and anaerobes. He is unable to pay for another ECF but only lasted one day at home after a 4 month stay. Foot has worsened. Dr. Cameron with podiatry following. Encouraged him to consider amputation given recurrent infections, progressive resistance, and inability to take care of himself at home. Offered to have ortho consult to discuss risks/benefits of amputation, but he is not interested based on what Dr. Cameron has told him. On linezolid and meropenem. Not clear if medical management can be successful or what the best choice will be given severity of disease and financial limitations. He is now open to going to facility. Dr. Cameron to come in today. Will narrow abx to zosyn which he has tolerated in the past. Cdiff was neg, ok for imodium. If he is not getting amputation, will write for 6 weeks iv zosyn, stop date 07/22/21. Will follow, d/w business case analyst and primary team. ID followup in 2-3 weeks. (2) Type 2 diabetes mellitus:
[2021-06-15 11:56] LABS: Bedside Glucose 141 mg/dL (70-110)
--- NOTE | 2021-06-15 12:50 | CASEMGMT ---
Addendum entered by Melody Reyna 06/15/21 16:29: SW received message from April with [facility] with questions. SW placed a call back to April, answered questions. April states she will need to discuss referral with others, asked this worker to call her tomorrow. Original Note: Social Work Note RIGO, RN CM, Wound RN in to speak with pt. Pt states he checked his bank account juan and has enough money to pay for 2-3 months of intermediate, or until he is done with his IV antibiotics. RIGO spoke with pt about SNF options. Pt's choices are [facility], [facility] or [facility] in [place] as those are the nearest SNF that accept pt's [employer] Medicare. RIGO explained that pt will need to go to SNF that accept [employer] Medicare so SNF can bill services through outpatient benefits (therapy services). Pt states his preferred providers would be the SNF in [place] (either [facility] or [facility]). RIGO informed pt that last week when pt was at [facility], this worker did call both places in [place] and neither of them returned this worker's phone call. RIGO asked pt if neither of the [place] SNF return this worker's phone call, if this worker could try the SNF in [place] and pt agreeable. RIGO placed a call to [facility] and left message for Herminia in admissions regarding referral. RIGO faxed referral. RIGO placed a call to [facility]. SW on hold for quite some time, asked to speak with admissions. RIGO spoke with Melody who states admissions is not available. Melody provided fax number [phone]. RIGO faxed referral to [facility]. RIGO did go ahead and call April with [facility] and provided referral. RIGO faxed referral to April at [facility]. Plan: SNF pending acceptance and pre-cert Melody Reyna SUPERVISOR [employer], DIRECTOR OF STRATEGIC SALES
[2021-06-15] MEDS: Piperacil/Tazobactam 3.375 GM Q8 PREMIX IV ×2 (14:18→22:14)
[2021-06-15 14:21] VITALS: BP 110/52; PULSE 62; RESP 16; TEMP 37.2; O2SAT 98
[2021-06-15] MEDS: 0.9% Normal Saline 1,000 ML 125 ML IV (15:03)
[2021-06-15 16:30] LABS: Bedside Glucose 138 mg/dL (70-110)
--- NOTE | 2021-06-15 20:00 | PN_ITS ---
Subjective Subjective Patient was resting comfortably in his bed with his feet elevated on pillows. Dressings were clean dry intact. He states that he was not having any pain and he thinks he will be discharged tomorrow to either a facility in [place] or a facility in [facility]. He states that he is in a better mood and better state of mind than when I last saw him last week. Objective Data Objective Data Dressing to left foot and right hallux are clean dry and intact. There is no bloody strikethrough on outer layers. Vital Signs: Vital Signs Temp Pulse Resp BP Pulse Ox 98.9 F 62 16 110/52 L 98 06/15/21 14:21 06/15/21 14:21 06/15/21 14:21 06/15/21 14:21 06/15/21 14:21 Oxygen Delivery Method Room Air Weight: 124.1 kg Body Mass Index (BMI) 37.3 Intake & Output: Intake and Output for Last 24 Hours 06/13/21 06/14/21 06/15/21 23:59 23:59 23:59 Intake Total 1360 / 1360 590 / 590 Output Total 750 / 750 300 / 300 Balance 610 / 610 290 / 290 Lab / Micro Data Result Diagrams: 06/15/21 07:35 06/15/21 07:35 Labs: Laboratory Results - last 24 hr 06/14/21 21:30: POC Glucose 167 H 06/15/21 06:04: POC Glucose 125 H 06/15/21 07:35: WBC 7.3, RBC 3.61 L, Hgb 9.7 L, Hct 31.8 L, MCV 88.1, MCH 26.9 L , MCHC 30.5 L, RDW Std Deviation 52.3 H, RDW Coeff of Xavier 16.3 H, Plt Count 262, MPV 9.8, Immature Gran % (Auto) 0.800, Neut % (Auto) 48.0, Lymph % (Auto) 35.6, [place] % (Auto) 8.4, Eos % (Auto) 6.7 H, Baso % (Auto) 0.5, Absolute Neuts (auto) 3.5, Absolute Lymphs (auto) 2.60, Nucleated RBC % 0 06/15/21 07:35: Sodium 140, Potassium 4.2, Chloride 110 H, Carbon Dioxide 26.0, Anion Gap 4 L, BUN 32 H, Creatinine 1.16, Estim Creat Clear Calc 62.93, Est GFR (MDRD) Af Amer 80, Est GFR (MDRD) Non-Af 66, BUN/Creatinine Ratio 27.6 H, Glucose 128 H, Calcium 8.6, Total Bilirubin 0.20, AST 21, ALT 16, Alkaline Phosphatase 62, Total Protein 5.7 L, Albumin 1.7 L, Globulin 4.0, Albumin/Globulin Ratio 0.4 L 06/15/21 11:49: POC Glucose 141 H 06/15/21 16:21: POC Glucose 138 H Micro: Microbiology 06/10/21 13:37 Blood Culture (Wb) - Anticubital Left Blood Culture - Final No growth in 5 days. 06/10/21 13:27 Blood Culture (Wb) - Right Wrist Blood Culture - Final No growth in 5 days. 06/14/21 19:47 Stool C. difficile DNA Amplification - Final 06/10/21 14:44 Urine, Clean Catch Urine Culture - Final Mixed Gram Pos & Gram Neg Org Rhythm Strip Rhythm Strip: Sinus Rhythm Rate: 75 Ectopy: PVC(s) Physical Exam Skin Wound Narrative: Posterior left heel wound has mild bleeding with removal of the dressing. The base of the wound is granular and there is no fibrous tissue as there was last time. There is no malodor nor is there any overt sign of clinical infection. The wound can be probed deep. It does not appear to have improved in size. The other small abrasions are still present to the left foot and right hallux. Assessment & Plan Assessment/Plan (1) Osteomyelitis of left foot: QUALIFIERS: Osteomyelitis type: unspecified type Qualified Code(s): M86.9 - Osteomyelitis, unspecified PLAN: Discussed findings with patient as well as treatment options. Patient was more amenable to discussion today as his last visit he had stated that if he was not able to walk on his own, he felt that that he did not want to remain living. The patient stated that he has reconsidered that stance a little bit. We have discussed treatment options and viability of the left leg. I had stated again that I did not believe the left leg was functional. That even if he uses his [place] walker at home, it is not appropriate for the current position of his foot as it has changed so much. It is not a functioning limb and he will constantly be battling open wounds. Also he seems to not be very tolerant with long-term antibiotics due to his GI upset. I stated that at this time I believe his 2 options are below-knee amputation with/without prosthetic or utilizing a wheelchair/scooter for ambulation and remain on long-term antibiotics as tolerable. In the past when we have discussed below-knee amputation, the patient's cardiac status was a large concern. It would be recommended that cardiology consult be performed to assess the patient's status as it will be more difficult for him to try to undergo therapy and navigate both without his left limb and with a prosthetic. This was discussed in detail with the patient. At this time he states he would still like to consider his options and think about it while he is at the prison, which ever one that will be. In the meantime, continue with local wound care and Fausto wraps for compression. Weightbearing on that left foot is discouraged at all times. And this was discussed with the patient also.l Podiatry to follow as needed. If he is discharged to a facility in [facility], I discussed with the patient I would be able to follow him there. (2) Charcot arthropathy of hindfoot: (3) Inability to walk: (4) Type 2 diabetes mellitus:
[2021-06-15 21:56] VITALS: BP 137/58; PULSE 95; RESP 18; TEMP 37.3; O2SAT 98
[2021-06-15] MEDS: Insulin Lispro 100 UNIT/ML INSULN.PEN SC (22:01)
[2021-06-15] MEDS: Acetaminophen 325 MG Tablet 650 MG PO (22:14)
[2021-06-15] MEDS: 0.9% Saline Lock 10 ML Syringe IV (22:15)
[2021-06-15] MEDS: Atorvastatin Calcium 40 MG Tablet PO (22:16)
[2021-06-16] VITALS (7 sets, daily range): BP systolic 92–124; BP diastolic 31–56; PULSE 55–89; RESP 16–18; TEMP 36.6–37.6; O2SAT 95–98
[2021-06-16] MEDS: Piperacil/Tazobactam 3.375 GM Q8 PREMIX IV ×3 (06:47→22:15)
[2021-06-16] MEDS: Menthol/Lanolin/Calamine/Znox 113 GM Tube 1 APPLIC TOPICAL ×3 (06:47→19:42)
[2021-06-16 06:50] LABS: Bedside Glucose 124 mg/dL (70-110)
[2021-06-16 07:19] LABS: Absolute Neutrophil Count 5.5 X10^3/uL (2.0-7.7); Basophil# 0.03 X10^3/uL; Basophil% 0.4 % (0-1); Eosinophil# 0.42 X10^3/uL; Eosinophils% 5.9 % (0-5); Hematocrit 31.7 % (40-54); Hemoglobin 9.5 g/dL (13.0-16.5); Lymphocyte % 9.8 % (19-41); Mean Corpuscular Hgb 26.7 pg (27.0-32.0); Monocyte# 0.42 X10^3/uL; Monocyte% 5.9 % (0-10); NRBC Flagged by Analyzer 0 % (0-5); Neutrophil # 5.51 X10^3/uL (2.7-7.7); Platelet Count 280 K/mm3 (150-450); RBC Distribution Width CV 16.3 % (11.6-14.6); RBC Distribution Width SD 53.2 fl (35.1-43.9); Red Blood Count 3.56 M/mm3 (4.6-6.2); White Blood Count 7.2 K/mm3 (4.4-11.0)
[2021-06-16] MEDS: Ondansetron 4 MG/2 ML Vial IV (07:43)
[2021-06-16] MEDS: 0.9% Saline Lock 10 ML Syringe IV (07:43)
[2021-06-16 07:44] LABS: ALB/GLOB Ratio 0.4 RATIO (0.9-2.4); AST(SGOT) 23 U/L (15-37); Alanine Aminotransfer ALT/SGPT 16 U/L (16-61); Albumin, Serum 1.7 g/dL (3.2-5.0); Alkaline Phosphatase 59 U/L (45-117); Anion Gap 5 (5-15); BUN 35 mg/dL (7-18); BUN/Creat Ratio 26.1 RATIO (10-20); Calcium,Total 8.5 mg/dL (8.5-10.1); Chloride 109 mmol/L (98-107); Creatinine, Serum 1.34 mg/dL (0.70-1.30); EST Glomerular Filtration Rate 56 mL/min (>60); Est Glom Filt Rate - Afr Amer 68 mL/min (>60); Estimated Creatinine Clearance 54.48 ml/min; Globulin 3.9 g/dL (2.2-4.2); Glucose 130 mg/dL (74-106); Potassium 4.6 mmol/L (3.5-5.1); Protein, Total 5.6 g/dL (6.4-8.2); Sodium Level 138 mmol/L (136-145)
[2021-06-16] MEDS: Furosemide 40 MG Tablet PO (09:47)
[2021-06-16] MEDS: Losartan Potassium 100 MG Tablet PO (09:47)
[2021-06-16] MEDS: Potassium Chloride Oral Tablet 20 MEQ PO ×2 (09:47→17:15)
[2021-06-16] MEDS: Aspirin 81 MG TAB.CHEW PO (09:48)
[2021-06-16] MEDS: Cyanocobalamin 500 MCG Tablet PO (09:48)
[2021-06-16] MEDS: Enoxaparin 40 MG/0.4 ML Syringe SC (09:48)
[2021-06-16] MEDS: Acetaminophen 325 MG Tablet 650 MG PO ×2 (09:51→18:08)
[2021-06-16] MEDS: oxyCODONE 5 MG Tablet PO (09:51)
--- NOTE | 2021-06-16 10:01 | CASEMGMT ---
Addendum entered by Melody Reyna 06/16/21 17:41: SW still hasn't heard back from any SNFs regarding pt. SW is leaving for the day. SW will look up additional SNFs tomorrow and present other options to pt. Addendum entered by Melody Reyna 06/16/21 13:26: SW has not heard back from any SNF's. SW placed a call to April at [facility] and left another message regarding referral. SW placed a call to [facility] and was updated that DON has referral and DON has left for the day, not sure if he will be back to facility today or tomorrow. SW provided direct number for DON to call this worker regarding referral. SW placed a call to [facility] and left message for Elba in admissions regarding referral. SW waiting for call back from SNFs. Original Note: Social Work Note SW [facility] a [facility] to [facility] and left message again for Herminia in admissions regarding referral. SW attempted to call [facility] regarding referral, no one answered the phone. SW placed a call to April at [facility] and left message regarding referral. SW waiting for call back from SNFs. Plan: SNF pending acceptance and pre-cert Melody Reyna ADMISSION LIAISON, POWDER WORKER TNT
[2021-06-16 11:21] LABS: Bedside Glucose 114 mg/dL (70-110)
--- NOTE | 2021-06-16 15:26 | PCM.PN.HOSP ---
Subjective Subjective Follow-up on acute osteomyelitis of the left calcaneus: Patient was seen and examined. He feels nauseous. Discharge planning to group home facility is ongoing. Objective Data Objective Data Vital Signs: Vital Signs Temp Pulse Resp BP Pulse Ox 97.9 F 61 16 102/38 L 95 06/16/21 14:35 06/16/21 14:53 06/16/21 14:35 06/16/21 14:53 06/16/21 14:35 Oxygen Delivery Method Room Air Weight: 124 kg Body Mass Index (BMI) 37.3 Intake & Output: Intake and Output for Last 24 Hours 06/14/21 06/15/21 06/16/21 23:59 23:59 23:59 Intake Total 1360 / 1360 1590 / 1590 100 / 100 Output Total 750 / 750 300 / 300 150 / 150 Balance 610 / 610 1290 / 1290 -50 / -50 Lab / Micro Data Result Diagrams: 06/16/21 06:20 06/16/21 06:20 Labs: Laboratory Results - last 24 hr 06/15/21 16:21: POC Glucose 138 H 06/16/21 06:20: WBC 7.2, RBC 3.56 L, Hgb 9.5 L, Hct 31.7 L, MCV 89.0, MCH 26.7 L, MCHC 30.0 L, RDW Std Deviation 53.2 H, RDW Coeff of Xavier 16.3 H, Plt Count 280, MPV 10.0, Immature Gran % (Auto) 1.000 H, Neut % (Auto) 77.0 H, Lymph % (Auto) 9.8 L, [place] % (Auto) 5.9, Eos % (Auto) 5.9 H, Baso % (Auto) 0.4, Absolute Neuts (auto) 5.5, Absolute Lymphs (auto) 0.70 L, Nucleated RBC % 0 06/16/21 06:20: Sodium 138, Potassium 4.6, Chloride 109 H, Carbon Dioxide 24.0, Anion Gap 5, BUN 35 H, Creatinine 1.34 H, Estim Creat Clear Calc 54.48, Est GFR (MDRD) Af Amer 68, Est GFR (MDRD) Non-Af 56 L, BUN/Creatinine Ratio 26.1 H, Glucose 130 H, Calcium 8.5, Total Bilirubin 0.30, AST 23, ALT 16, Alkaline Phosphatase 59, Total Protein 5.6 L, Albumin 1.7 L, Globulin 3.9, Albumin/Globulin Ratio 0.4 L 06/16/21 06:45: POC Glucose 124 H 06/16/21 11:17: POC Glucose 114 H Micro: Microbiology 06/10/21 13:37 Blood Culture (Wb) - Anticubital Left Blood Culture - Final No growth in 5 days. 06/10/21 13:27 Blood Culture (Wb) - Right Wrist Blood Culture - Final No growth in 5 days. 06/14/21 19:47 Stool C. difficile DNA Amplification - Final 06/10/21 14:44 Urine, Clean Catch Urine Culture - Final Mixed Gram Pos & Gram Neg Org Rhythm Strip Rhythm Strip: Sinus Rhythm Rate: 75 Ectopy: PVC(s) Physical Exam Narrative Physical exam: General: Alert, Oriented x3, Cooperative, No apparent distress, Well developed HEENT: Atraumatic Oral: Moist Mucosa Neck: Supple Lungs: Clear to auscultation Cardiovascular: HS I+II, regular, no murmurs Abdomen: Bowel Sounds Present, Soft, Non Tender Extremities: Chronic hyperpigmentation lower extremity with deformity, dressing in place Assessment & Plan Assessment/Plan (1) Diabetic infection of left foot: PLAN: 1. 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 Wound RN following Discussed with Dr. Cameron, will get cardiac clearance for possible amputation in a couple of weeks 2. Type II DM, blood sugars controlled, off oral hypoglycemics, continue to monitor on insulin sliding scale 3. ANDRY on CKD stage IIIb, appears to be worsening again Creatinine at 1.34 Stop losartan and Lasix Continue on IV fluids, repeat blood work in a.m. 4. Rest of his chronic medical conditions including dyslipidemia/hypertension/morbid obesity - remain stable Charges/Coding Visit Charges Inpatient E&M: 59744 Subs Hosp L2
[2021-06-16] MEDS: 0.9% Normal Saline 1,000 ML 100 ML IV (15:55)
[2021-06-16 17:21] LABS: Bedside Glucose 112 mg/dL (70-110)
[2021-06-16] MEDS: Morphine 2 MG/ML Syringe IV (19:42)
--- NOTE | 2021-06-16 20:14 | CON.PCM.CA_ITS ---
Assessment & Plan Assessment/Plan (1) Preoperative cardiovascular examination: PLAN: The patient has been asked to have preoperative cardiovascular evaluation. The patient has multiple cardiovascular risk factors including hyperlipidemia, hypertension, and diabetes mellitus. He states he is also been told he has atrial fibrillation. It appears he does have previous [facility] ECGs demonstrating both sinus rhythm and atrial fibrillation. He does not recall undergoing any cardiovascular evaluation in the past. However he did have a transthoracic echocardiogram performed in December of this year as noted. He did have an electrocardiogram which is abnormal as noted. From a cardiac standpoint it would not be unreasonable to further evaluate the patient for underlying cardiovascular disease with a combination of a repeat transthoracic echocardiogram and a pharmacologic stress nuclear imaging study. Depending upon the findings he may or may not need further cardiac evaluation versus continued noncardiac evaluation. (2) Atrial fibrillation: PLAN: The patient states he has been told in the past he has atrial fibrillation. He does not recall the details. It does appear he has had previous electrocardiograms at [facility] that have demonstrated both sinus rhythm and atrial fibrillation. Thus he may have paroxysmal atrial fibrillation. It also appears he is undergoing evaluation at [facility] in the past with a transthoracic echocardiogram with the results as noted. At the present time he appears to be in sinus rhythm. He can be monitored for any obvious recurrence of his atrial dysrhythmia. It does not appear he has been on rate control therapy or anticoagulant therapy. This may have to be taken into consideration depending upon his future cardiac rhythm. (3) Abnormal electrocardiogram: PLAN: He does have an abnormal ECG as noted. Again is not unreasonable to proceed with a noninvasive evaluation at this time. (4) HLD (hyperlipidemia): PLAN: He has a history of hyperlipidemia. He should continue medical therapy. (5) Essential hypertension: PLAN: His blood pressure will need to be followed with medicines adjusted accordingly. Addt'l Comments The above was discussed and reviewed with the patient he was agreeable to this approach. This note was generated using a voice recognition system and there may be inc orrect words, spelling or punctuation that were not noted when reviewing the office note prior to saving. HPI Consult Data Date of Consult: 06/16/21 HPI Narrative HPI Narrative: JONEL ZALDIVAR, is a 70 year old white male who presents for cardiovascular consultation for preoperative cardiovascular evaluation based upon a history of underlying atrial fibrillation (per the patient's report and previous [facility] ECGs), hyperlipidemia, hypertension, diabetes mellitus, peripheral vascular disease, chronic renal insufficiency, anemia, and left foot osteomyelitis with concerns for the potential need for a left lower extremity amputation. The patient denies any cardiovascular history other than being told in the past that he had atrial fibrillation. He does not recall any cardiovascular diagnostic studies being performed. However, does appear he had a transthoracic echocardiogram performed at [facility] on 12-25-2020. The results are as noted below. He does not recall any additional noninvasive or invasive studies being performed anywhere. He does not recall having any ongoing chest discomfort or difficulty breathing. He does not seem to recall sensing an abnormal heart rate or rhythm. There is been no episodes of orthopnea or PND. He has not had any near-syncope or syncope that he recalls. He is currently in the hospital for evaluation of his diabetic related issues including a left foot osteomyelitis. He has been receiving IV antibiotic therapy. He states that his left him with episodes of loose bowel movements/diarrhea. He states that he is considering his options in the future with respect to a left lower extremity/foot amputation. He notes in the meantime he may have to spend time in an extended care facility. [facility] Medical History (Updated 06/16/21 @ 20:[address] Sean Oakley MD) Abnormal electrocardiogram Amputation of fifth toe of left foot Anemia Ankle fracture Anxiety Atrial fibrillation Bradycardia Charcot foot due to diabetes mellitus Chronic ulcer of ankle Chronic ulcer of left foot Chronic ulcer of right foot CKD (chronic kidney disease) stage 3, GFR 30-59 ml/min Depression Diabetes Diabetes mellitus Essential hypertension Fall History of ankle fracture HLD (hyperlipidemia) Hypertension Hypertension Irregular heart beat Kidney disease Stage 3a chronic kidney disease Type 2 diabetes mellitus Home Medications cholecalciferol (vitamin D3) [Vitamin D3] 125 mcg PO DAILY 02/10/21 [History Last Taken 2 Days Ago ~06/08/21] irbesartan 300 mg PO DAILY 02/16/21 [History Last Taken 2 Days Ago ~06/08/21] saw palmetto 450 mg PO DAILY 02/16/21 [History Last Taken 2 Days Ago ~06/08/21] cyanocobalamin (vitamin B-12) 500 mcg tablet 500 mcg PO DAILY 04/26/21 [History Last Taken 2 Days Ago ~06/08/21] furosemide 40 mg tablet 40 mg PO DAILY tab 04/26/21 [History Last Taken 2 Days Ago ~06/08/21] aspirin [Aspirin Low Dose] 81 mg PO DAILY 06/10/21 [History Last Taken 2 Days Ago ~06/08/21] atorvastatin 40 mg PO DAILY 06/10/21 [History Last Taken 2 Days Ago ~06/08/21] [id number] [Zosyn in dextrose (iso-osm)] 3.375 g IV Q8H 36 Days #108 bag 06/15/21 [Rx Last Taken Unknown] Allergy/AdvReac Type Severity Reaction Status Date / Time Penicillins [PCN] Allergy Rash Verified 06/10/21 12:40 metformin AdvReac Unknown Diarrhea Verified 06/10/21 12:40 Mzukciz-Dyj-Xkb Reductase AdvReac Unknown intolerence Verified 06/10/21 12:40 Inhibitor Family History (Updated 06/10/21 @ 15:[address] Nati Whitten MD) Father Cancer Metastatic prostate CA. Mother CVA (cerebral vascular accident) CAD (coronary artery disease) Surgical History S/P appendectomy S/P foot surgery, left Social History household members: none Smoking Status: Never smoker alcohol intake: current alcohol intake frequency: other substance use type: does not use ROS Constitutional Constitutional: Reports weakness Eyes Eyes: Reports as per HPI ENT HEENT: Reports as per HPI Cardiovascular Cardiovascular: Reports as per HPI Respiratory/Chest Respiratory/Chest: Reports as per HPI Gastrointestinal Gastrointestinal: Reports diarrhea Genitourinary Genitourinary: Reports as per HPI Musculoskeletal Musculoskeletal: Reports as per HPI Neurologic Neurologic: Reports as per HPI Physical Exam Const alert, oriented x3 and no apparent distress Orientation / Consciousness: awake HEENT normocephalic, head/scalp atraumatic and hearing grossly normal bilaterally Eyes PERRL, EOMs intact bilaterally and conjunctivae normal Neck full ROM, supple and no JVD Resp clear to auscultation bilaterally Cardio regular rate, regular rhythm, S1 normal heart sound and S2 normal heart sound Rhythm: abnormal rhythm ectopic beats GI normal to inspection, nondistended, normoactive bowel sounds Extremity Extremity Narrative: Left foot: Surgical bandage Neuro oriented x3 and moves all extremities Psych mental status grossly normal Risk Stratification Risk Stratification Applicable: No Objective Data Vital Signs: Vital Signs Temp Pulse Resp BP Pulse Ox 97.9 F 69 16 114/45 L 95 06/16/21 14:35 06/16/21 17:13 06/16/21 14:35 06/16/21 17:13 06/16/21 14:35 Oxygen Delivery Method Room Air Weight: 273 lb 5.971 oz Body Mass Index (BMI) 37.3 Intake & Output: Intake and Output for Last 24 Hours 06/14/21 06/15/21 06/16/21 23:59 23:59 23:59 Intake Total 1360 / 1360 1590 / 1590 150 / 150 Output Total 750 / 750 300 / 300 250 / 250 Balance 610 / 610 1290 / 1290 -100 / -100 Lab / Micro Data Result Diagrams: 06/16/21 06:20 06/16/21 06:20 Labs: Laboratory Results - last 24 hr 06/16/21 06:20: WBC 7.2, RBC 3.56 L, Hgb 9.5 L, Hct 31.7 L, MCV 89.0, MCH 26.7 L , MCHC 30.0 L, RDW Std Deviation 53.2 H, RDW Coeff of Xavier 16.3 H, Plt Count 280, MPV 10.0, Immature Gran % (Auto) 1.000 H, Neut % (Auto) 77.0 H, Lymph % (Auto) 9.8 L, [place] % (Auto) 5.9, Eos % (Auto) 5.9 H, Baso % (Auto) 0.4, Absolute Neuts (auto) 5.5, Absolute Lymphs (auto) 0.70 L, Nucleated RBC % 0 06/16/21 06:20: Sodium 138, Potassium 4.6, Chloride 109 H, Carbon Dioxide 24.0, Anion Gap 5, BUN 35 H, Creatinine 1.34 H, Estim Creat Clear Calc 54.48, Est GFR (MDRD) Af Amer 68, Est GFR (MDRD) Non-Af 56 L, BUN/Creatinine Ratio 26.1 H, Glucose 130 H, Calcium 8.5, Total Bilirubin 0.30, AST 23, ALT 16, Alkaline Phosphatase 59, Total Protein 5.6 L, Albumin 1.7 L, Globulin 3.9, Albumin/Gl obulin Ratio 0.4 L 06/16/21 06:45: POC Glucose 124 H 06/16/21 11:17: POC Glucose 114 H 06/16/21 17:08: POC Glucose 112 H Rhythm Strip Rhythm Strip: Sinus Rhythm Rate: 75 Ectopy: PVC(s) Cardiology Labs/Tests 06/16/21 06:20: WBC 7.2, RBC 3.56 L, Hgb 9.5 L, Hct 31.7 L, MCV 89.0, MCH 26.7 L , MCHC 30.0 L, Plt Count 280, MPV 10.0, Immature Gran % (Auto) 1.000 H, Neut % (Auto) 77.0 H, Lymph % (Auto) 9.8 L, [place] % (Auto) 5.9, Eos % (Auto) 5.9 H, Baso % (Auto) 0.4, Absolute Neuts (auto) 5.5, Nucleated RBC % 0 06/16/21 06:20: Sodium 138, Potassium 4.6, Chloride 109 H, Carbon Dioxide 24.0, Anion Gap 5, BUN 35 H, Creatinine 1.34 H, Est GFR (MDRD) Af Amer 68, Est GFR (MDRD) Non-Af 56 L, BUN/Creatinine Ratio 26.1 H, Glucose 130 H, Calcium 8.5, Total Bilirubin 0.30 Rhythm: Sinus rhythm EKG: Sinus rhythm; PVCs; left axis deviation; nonspecific IVCD Echocardiogram: 12-25-2020 Interpretation Summary The estimated ejection fraction is 45 %. There is evidence of diastolic dysfunction. Elnora : Severely Hypokinetic. anteroseptal hypokinesis
--- NOTE | 2021-06-16 20:28 | ECHOCS_ITS ---
Reason For Study: PRE OPERATIVE Procedure This was a 2D Doppler, Color Flow transthoracic echocardiogram. The study was technically difficult. Due to body habitus. Contrast injection was performed. Exam performed portable in patient room. Left Ventricle Normal LV size. Mild concentric left ventricular hypertrophy. Mild segmental systolic dysfunction (see wall motion). The estimated ejection fraction is 50 %. There is evidence of diastolic dysfunction. Mid-inferoseptal : Hypokinetic. Mid-anteroseptal : Hypokinetic. Anterior Inland : Hypokinetic. Inferior Inland : Akinetic. Lateral Inland : Akinetic. Septal [place]land : Akinetic. Right Ventricle Normal RV size. Normal systolic function. Atria The left atrium is mildly enlarged. Normal right atrium. No doppler evidence for ASD. Mitral Valve There is no mitral annular calcification. Mild focal mitral valve calcification of the anterior leaflet. Trivial mitral valve insufficiency. Tricuspid Valve Normal tricuspid valve. Trivial tricuspid valve insufficiency. Unable to estimate RV systolic pressure/pulmonary artery pressure due to technically difficult study. Aortic Valve Trisinus/trileaflet aortic valve. Mild focal aortic valve calcification. Pulmonic Valve The pulmonic valve is not well visualized. Great Vessels The aortic valve is not well visualized. Pericardium/Pleural No pericardial effusion. Medication Diluted definity 2.0ml given slow IV push to enhance endocardial definition. MMode/2D Measurements & Calculations LVIDd: 4.9 cm IVSd: 1.3 cm LAV(MOD-bp): 96.8 ml LVIDs: 3.5 cm LVPWd: 1.4 cm RVDd: 3.9 cm FS: 29.0 % LAV(MOD-bp) Indexed: 40.6 ml/m2 LAV(MOD-sp2): 87.8 ml LAV(MOD-sp4): 97.5 ml LA dimension(2D): 3.9 cm LA A4 area: 27.3 cm2 RA A4 area: 14.7 cm2 Time Measurements MV dec time: 0.22 sec Doppler Measurements & Calculations MV E max aime: 76.9 cm/sec Lat Peak E' Aime: 8.3 cm/sec Med Peak E' Aime: 5.1 cm/sec MV A max aime: 94.1 cm/sec E/E' lat: 9.2 E/E' med: 15.1 MV E/A: 0.82 Ao V2 max: 175.5 cm/sec LV V1 max: 106.2 cm/sec PA V2 max: 92.1 cm/sec Ao max P.3 mmHg LV V1 max P.5 mmHg ECHO/Echo Complete W/ Contrast Interpretation Summary The study was technically difficult. Contrast injection was performed. Mild segmental systolic dysfunction (see wall motion). The estimated ejection fraction is 50 %. Mild concentric left ventricular hypertrophy. The left atrium is mildly enlarged. Mild focal mitral valve calcification of the anterior leaflet. Trivial mitral valve insufficiency. Trivial tricuspid valve insufficiency. Mild focal aortic valve calcification. Unable to estimate RV systolic pressure/pulmonary artery pressure due to techni jessica difficult study. There is evidence of diastolic dysfunction. Ordering Physician: Sean Oakley Referring Physician: Michael Palomino Performed By: Alicia Sanchez RDCS, RVT
[2021-06-16 21:55] LABS: Bedside Glucose 183 mg/dL (70-110)
[2021-06-16] MEDS: Atorvastatin Calcium 40 MG Tablet PO (21:58)
[2021-06-16] MEDS: Insulin Lispro 100 UNIT/ML INSULN.PEN SC (22:00)
[2021-06-16 22:25] LABS: Bedside Glucose 158 mg/dL (70-110)
[2021-06-17] MEDS: 0.9% Normal Saline 1,000 ML 100 ML IV (01:30)
[2021-06-17 02:30] VITALS: BP 118/59; PULSE 61; RESP 16; TEMP 37.2; O2SAT 99
--- NOTE | 2021-06-17 05:57 | NURSING ---
Pt is refusing to have nuclear stress test this AM. Pt expressed concerns stating, I'm not going to have an amputation regardless of what anyone says. I'm concerned about my medical bills increasing and I think I often agree too quick to things. I don't think it's necessary to have a heart test if I'm not going to get an amputation.
[2021-06-17] MEDS: Menthol/Lanolin/Calamine/Znox 113 GM Tube 1 APPLIC TOPICAL ×3 (06:10→20:13)
[2021-06-17] MEDS: Piperacil/Tazobactam 3.375 GM Q8 PREMIX IV ×3 (06:10→20:13)
[2021-06-17 06:56] LABS: Bedside Glucose 117 mg/dL (70-110)
--- NOTE | 2021-06-17 08:19 | PN.CARD_ITS ---
Subjective Subjective The patient appears to be resting comfortably with no new acute cardiac complaints. He states that he has decided, leads for the time being, to not pursue any surgical intervention of his left lower extremity. Thus, he does not feel the need to undergo additional cardiovascular screening of the possibility of CAD with a pharmacologic stress nuclear imaging study. Objective Data Vital Signs: Vital Signs Temp Pulse Resp BP Pulse Ox 99.0 F 61 16 118/59 L 99 06/17/21 02:30 06/17/21 02:30 06/17/21 02:30 06/17/21 02:30 06/17/21 02:30 Oxygen Delivery Method Room Air Weight: 275 lb 12.772 oz Body Mass Index (BMI) 37.3 Intake & Output: Intake and Output for Last 24 Hours 06/15/21 06/16/21 06/17/21 23:59 23:59 23:59 Intake Total 1590 / 1590 450 / 450 1008.33 / 1008.33 Output Total 300 / 300 250 / 250 425 / 425 Balance 1290 / 1290 200 / 200 583.33 / 583.33 Lab / Micro Data Result Diagrams: 06/16/21 06:20 06/16/21 06:20 Labs: Laboratory Results - last 24 hr 06/15/21 22:00: POC Glucose 183 H 06/16/21 11:17: POC Glucose 114 H 06/16/21 17:08: POC Glucose 112 H 06/16/21 22:00: POC Glucose 158 H 06/17/21 06:51: POC Glucose 117 H Rhythm Strip Rhythm Strip: Sinus Rhythm Rate: 75 Ectopy: PVC(s) Physical Exam Const alert, oriented x3 and no apparent distress Orientation / Consciousness: awake HEENT normocephalic, head/scalp atraumatic and hearing grossly normal bilaterally Eyes PERRL, EOMs intact bilaterally and conjunctivae normal Neck full ROM, supple and no JVD Resp clear to auscultation bilaterally Cardio regular rate, regular rhythm, S1 normal heart sound and S2 normal heart sound Rhythm: abnormal rhythm ectopic beats GI normal to inspection, nondistended, normoactive bowel sounds Extremity Extremity Narrative: Left foot: Surgical bandage Neuro oriented x3 and moves all extremities Psych mental status grossly normal Assessment & Plan Assessment/Plan (1) Preoperative cardiovascular examination: PLAN: The patient has been asked to have preoperative cardiovascular evaluation. The patient has multiple cardiovascular risk factors including hyperlipidemia, hypertension, and diabetes mellitus. He states he is also been told he has atrial fibrillation. It appears he does have previous [facility] ECGs demonstrating both sinus rhythm and atrial fibrillation. He does not recall undergoing any cardiovascular evaluation in the past. However he did have a transthoracic echocardiogram performed in December of this year as noted. He did have an electrocardiogram which is abnormal as noted. At the present time he is willing to proceed with a transthoracic echocardiogram to reassess his atrial size and ventricular wall motion and systolic function. He declines proceeding with further evaluation of the possibility of CAD/myocardial ischemia with a pharmacologic stress nuclear imaging study. (2) Atrial fibrillation: PLAN: The patient states he has been told in the past he has atrial fibrillation. It does appear he has had previous electrocardiograms at [facility] that have demonstrated both sinus rhythm and atrial fibrillation. Thus he may have paroxysmal atrial fibrillation. It also appears he is undergoing evaluation at [facility] in the past with a transthoracic echocardiogram with the results as noted. At the present time he appears to be in sinus rhythm. He can be monitored for any obvious recurrence of his atrial dysrhythmia. It does not appear he has been on rate control therapy or anticoagulant therapy. This may have to be taken into consideration depending upon his future cardiac rhythm. (3) Abnormal electrocardiogram: PLAN: He does have an abnormal ECG as noted. Again is not unreasonable to proceed with a noninvasive evaluation at this time. As noted above he is willing to proceed with a transthoracic echocardiogram but not with a pharmacologic stress nuclear imaging study. (4) HLD (hyperlipidemia): PLAN: He has a history of hyperlipidemia. He should continue medical therapy. (5) Essential hypertension: PLAN: His blood pressure will need to be followed with medicines adjusted accordingly. Addt'l Comments This note was generated using a voice recognition system and there may be incorrect words, spelling or punctuation that were not noted when reviewing the office note prior to saving.
--- NOTE | 2021-06-17 09:17 | CASEMGMT ---
Addendum entered by Melody Reyna 06/17/21 09:49: RIGO received message from April at [facility] stating she spoke with their vmware systems administrator and they are able to accept pt. April states she will need updated clinicals for pre-cert. SW in to speak with pt. SW updated pt that this worker has sent four referrals to SNF (two in [place], two in [place]). SW informed pt that this worker has called the [facility] multiple times again with no answer. SW informed pt that one of SNF in [place] is able to accept pt. Pt agreeable to SNF in [place]. SW informed pt that pre-cert will be submitted today. Pt states understanding. RIGO placed a call to April at [facility] and left message which SNF pt has been accepted pt. SW faxed updated clinicals to April. Plan: [facility] skilled pending pre-cert Original Note: Social Work Note RIGO placed another call to April at [facility]. April states that all through the notes it is stating pt is not able to pay for SNF. RIGO informed April that pt had told this worker this week that he could pay for 2-3 months at SNF. April states that she will need to speak with pt to confirm that pt is able to pay. RIGO informed April that pt does have cell phone, asked if April could call pt's cell phone to directly speak to pt about payment at SNF. April states that she is able to that. RIGO informed April to let this worker know when she speaks to pt. SW attempted to speak with pt, pt getting testing done at this time. SW to follow up with pt and April. Plan: SNF pending acceptance and pre-cert Meloyd Reyna SR. OPERATIONS MANAGER, JEWEL CUPPING MACHINE OPERATOR
[2021-06-17] MEDS: Enoxaparin 40 MG/0.4 ML Syringe SC (09:24)
[2021-06-17 09:37] VITALS: BP 109/37; PULSE 57; RESP 16; TEMP 37.3
[2021-06-17 10:02] VITALS: O2SAT 97
[2021-06-17] MEDS: Aspirin 81 MG TAB.CHEW PO (10:36)
[2021-06-17] MEDS: Cyanocobalamin 500 MCG Tablet PO (10:36)
[2021-06-17] MEDS: Potassium Chloride Oral Tablet 20 MEQ PO ×2 (10:36→16:06)
[2021-06-17 11:25] LABS: Bedside Glucose 96 mg/dL (70-110)
--- NOTE | 2021-06-17 13:16 | CASEMGMT ---
Addendum entered by Melody Reyna 06/17/21 13:23: SW in to speak with pt. SW updated pt that [facility] accepted [facility]. RIGO provided pt with address/phone number for [facility]. Original Note: Social Work Note RIGO placed a call to April at [facility]. April states pt will be going to [facility]. April confirms that she received updated clinicals. Plan: [facility] skilled when medically cleared Melody Reyna PEN RIDER, DISPLAY DEPARTMENT MANAGER
--- NOTE | 2021-06-17 14:15 | PN.HOSP_ITS ---
Subjective Subjective Follow-up on acute osteomyelitis of the left calcaneus: Patient was seen and examined. Patient refused stress test because he stated he was afraid of cost. Denies any fever or chills. His nausea and diarrhea is i mproved. Objective Data Objective Data Vital Signs: Vital Signs Temp Pulse Resp BP Pulse Ox 99.1 F 57 L 16 109/37 L 97 06/17/21 09:37 06/17/21 09:37 06/17/21 09:37 06/17/21 09:37 06/17/21 10:02 Oxygen Delivery Method Room Air Weight: 125.1 kg Body Mass Index (BMI) 37.3 Intake & Output: Intake and Output for Last 24 Hours 06/15/21 06/16/21 06/17/21 23:59 23:59 23:59 Intake Total 1590 / 1590 450 / 450 2058.33 / 2058.33 Output Total 300 / 300 250 / 250 425 / 425 Balance 1290 / 1290 200 / 200 1633.33 / 1633.33 Lab / Micro Data Result Diagrams: 06/16/21 06:20 06/16/21 06:20 Labs: Laboratory Results - last 24 hr 06/15/21 22:00: POC Glucose 183 H 06/16/21 17:08: POC Glucose 112 H 06/16/21 22:00: POC Glucose 158 H 06/17/21 06:51: POC Glucose 117 H 06/17/21 11:19: POC Glucose 96 Micro: Microbiology 06/10/21 13:37 Blood Culture (Wb) - Anticubital Left Blood Culture - Final No growth in 5 days. 06/10/21 13:27 Blood Culture (Wb) - Right Wrist Blood Culture - Final No growth in 5 days. 06/14/21 19:47 Stool C. difficile DNA Amplification - Final 06/10/21 14:44 Urine, Clean Catch Urine Culture - Final Mixed Gram Pos & Gram Neg Org Rhythm Strip Rhythm Strip: Sinus Rhythm Rate: 75 Ectopy: PVC(s) Physical Exam Narrative Physical exam: General: Alert, Oriented x3, Cooperative, No apparent distress, Well developed HEENT: Atraumatic Oral: Moist Mucosa Neck: Supple Lungs: Clear to auscultation Cardiovascular: HS I+II, regular, no murmurs Abdomen: Bowel Sounds Present, Soft, Non Tender Extremities: Chronic hyperpigmentation lower extremity with deformity, dressing in place Assessment & Plan Assessment/Plan (1) Diabetic infection of left foot: PLAN: 1. 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 Wound RN following 2D echo is pending. Patient refused stress test. 2. Type II DM, blood sugars controlled, off oral hypoglycemics, continue to monitor on insulin sliding scale 3. ANDRY on CKD stage IIIb, appears to be worsening again Creatinine at 1.34 Stop losartan and Lasix Continue on IV fluids, repeat blood work in a.m. 4. Rest of his chronic medical conditions including dyslipid emia/hypertension/morbid obesity - remain stable Charges/Coding Visit Charges Inpatient E&M: 31960 Subs Hosp L2
[2021-06-17 15:46] VITALS: BP 151/54; PULSE 73; RESP 23; TEMP 36.4; O2SAT 99
[2021-06-17 16:23] LABS: Absolute Lymphocyte Count 1.74 X10^3/uL (0.83-4.51); Absolute Neutrophil Count 3.7 X10^3/uL (2.0-7.7); Basophil# 0.03 X10^3/uL; Basophil% 0.4 % (0-1); Eosinophil# 0.86 X10^3/uL; Eosinophils% 12.5 % (0-5); Hematocrit 33.6 % (40-54); Lymphocyte # 1.74 X10^3/ul (0.83-4.51); Lymphocyte % 25.4 % (19-41); Mean Corp Hgb Conc 29.8 g/dL (32-36); Mean Corpuscular Hgb 26.7 pg (27.0-32.0); Mean Corpuscular Volume 89.8 fL (80-94); Mean Platelet Vol. 10.1 fl (6.2-12.0); Monocyte# 0.45 X10^3/uL; Monocyte% 6.6 % (0-10); NRBC Flagged by Analyzer 0 % (0-5); Neutrophil # 3.73 X10^3/uL (2.7-7.7); Neutrophil % 54.4 % (47-70); Platelet Count 285 K/mm3 (150-450); RBC Distribution Width CV 16.4 % (11.6-14.6); RBC Distribution Width SD 54.1 fl (35.1-43.9); Red Blood Count 3.74 M/mm3 (4.6-6.2); White Blood Count 6.9 K/mm3 (4.4-11.0)
[2021-06-17 16:36] LABS: Bedside Glucose 96 mg/dL (70-110)
[2021-06-17] MEDS: Atorvastatin Calcium 40 MG Tablet PO (20:14)
[2021-06-17] MEDS: Acetaminophen 325 MG Tablet 650 MG PO (20:21)
[2021-06-17 20:30] VITALS: BP 141/58; PULSE 72; RESP 16; TEMP 36.4; O2SAT 98
[2021-06-17 21:25] LABS: Bedside Glucose 124 mg/dL (70-110)
[2021-06-18 02:30] VITALS: BP 129/59; PULSE 65; RESP 16; TEMP 36.8; O2SAT 98
[2021-06-18 05:35] LABS: Absolute Neutrophil Count 3.9 X10^3/uL (2.0-7.7); Basophil# 0.03 X10^3/uL; Basophil% 0.4 % (0-1); Eosinophil# 0.92 X10^3/uL; Eosinophils% 13.5 % (0-5); Hematocrit 32.6 % (40-54); Hemoglobin 9.7 g/dL (13.0-16.5); Lymphocyte % 19.1 % (19-41); Mean Corp Hgb Conc 29.8 g/dL (32-36); Mean Corpuscular Hgb 26.5 pg (27.0-32.0); Mean Corpuscular Volume 89.1 fL (80-94); Mean Platelet Vol. 9.9 fl (6.2-12.0); Monocyte% 8.8 % (0-10); NRBC Flagged by Analyzer 0 % (0-5); Neutrophil # 3.93 X10^3/uL (2.7-7.7); Neutrophil % 57.6 % (47-70); Platelet Count 284 K/mm3 (150-450); RBC Distribution Width CV 16.4 % (11.6-14.6); RBC Distribution Width SD 53.9 fl (35.1-43.9); Red Blood Count 3.66 M/mm3 (4.6-6.2); White Blood Count 6.8 K/mm3 (4.4-11.0)
[2021-06-18] MEDS: Menthol/Lanolin/Calamine/Znox 113 GM Tube 1 APPLIC TOPICAL ×2 (05:55→13:54)
[2021-06-18] MEDS: Piperacil/Tazobactam 3.375 GM Q8 PREMIX IV ×2 (05:55→13:54)
[2021-06-18 06:02] LABS: ALB/GLOB Ratio 0.4 RATIO (0.9-2.4); AST(SGOT) 29 U/L (15-37); Alanine Aminotransfer ALT/SGPT 20 U/L (16-61); Albumin, Serum 1.7 g/dL (3.2-5.0); Alkaline Phosphatase 75 U/L (45-117); Anion Gap 6 (5-15); BUN 42 mg/dL (7-18); BUN/Creat Ratio 32.1 RATIO (10-20); Calcium,Total 8.2 mg/dL (8.5-10.1); Chloride 111 mmol/L (98-107); Creatinine, Serum 1.31 mg/dL (0.70-1.30); EST Glomerular Filtration Rate 58 mL/min (>60); Est Glom Filt Rate - Afr Amer 70 mL/min (>60); Estimated Creatinine Clearance 55.73 ml/min; Globulin 4.1 g/dL (2.2-4.2); Glucose 99 mg/dL (74-106); Potassium 4.8 mmol/L (3.5-5.1); Protein, Total 5.8 g/dL (6.4-8.2); Sodium Level 139 mmol/L (136-145)
[2021-06-18 07:35] LABS: Bedside Glucose 90 mg/dL (70-110)
--- NOTE | 2021-06-18 08:22 | PN.CARD_ITS ---
Subjective Subjective The patient is awake and alert. He denies any ongoing concerns of chest discomfort or difficulty breathing. Objective Data Vital Signs: Vital Signs Temp Pulse Resp BP Pulse Ox 98.2 F 65 16 129/59 H 98 06/18/21 02:30 06/18/21 02:30 06/18/21 02:30 06/18/21 02:30 06/18/21 02:30 Oxygen Delivery Method Room Air Weight: 277 lb 8.992 oz Body Mass Index (BMI) 37.3 Intake & Output: Intake and Output for Last 24 Hours 06/16/21 06/17/21 06/18/21 23:59 23:59 23:59 Intake Total 450 / 450 2108.33 / 2108.33 350 / 350 Output Total 250 / 250 1025 / 1025 400 / 400 Balance 200 / 200 1083.33 / 1083.33 -50 / -50 Lab / Micro Data Result Diagrams: 06/18/21 05:20 06/18/21 05:20 Labs: Laboratory Results - last 24 hr 06/17/21 11:19: POC Glucose 96 06/17/21 16:04: WBC 6.9, RBC 3.74 L, Hgb 10.0 L, Hct 33.6 L, MCV 89.8, MCH 26.7 L, MCHC 29.8 L, RDW Std Deviation 54.1 H, RDW Coeff of Xavier 16.4 H, Plt Count 285, MPV 10.1, Immature Gran % (Auto) 0.700, Neut % (Auto) 54.4, Lymph % (Auto) 25.4, [place] % (Auto) 6.6, Eos % (Auto) 12.5 H, Baso % (Auto) 0.4, Absolute Neuts (auto) 3.7, Absolute Lymphs (auto) 1.74, Nucleated RBC % 0 06/17/21 16:21: POC Glucose 96 06/17/21 20:22: POC Glucose 124 H 06/18/21 05:20: WBC 6.8, RBC 3.66 L, Hgb 9.7 L, Hct 32.6 L, MCV 89.1, MCH 26.5 L , MCHC 29.8 L, RDW Std Deviation 53.9 H, RDW Coeff of Xavier 16.4 H, Plt Count 284, MPV 9.9, Immature Gran % (Auto) 0.600, Neut % (Auto) 57.6, Lymph % (Auto) 19.1, [place] % (Auto) 8.8, Eos % (Auto) 13.5 H, Baso % (Auto) 0.4, Absolute Neuts (auto) 3.9, Absolute Lymphs (auto) 1.30, Nucleated RBC % 0 06/18/21 05:20: Sodium 139, Potassium 4.8, Chloride 111 H, Carbon Dioxide 22.0, Anion Gap 6, BUN 42 H, Creatinine 1.31 H, Estim Creat Clear Calc 55.73, Est GFR (MDRD) Af Amer 70, Est GFR (MDRD) Non-Af 58 L, BUN/Creatinine Ratio 32.1 H, Glucose 99, Calcium 8.2 L, Total Bilirubin 0.30, AST 29, ALT 20, Alkaline Phosphatase 75, Total Protein 5.8 L, Albumin 1.7 L, Globulin 4.1, Albumin/Globulin Ratio 0.4 L 06/18/21 06:05: POC Glucose 90 Rhythm Strip Rhythm Strip: Sinus Rhythm Rate: 75 Ectopy: PVC(s) Cardiology Labs/Tests 06/17/21 16:04: WBC 6.9, RBC 3.74 L, Hgb 10.0 L, Hct 33.6 L, MCV 89.8, MCH 26.7 L, MCHC 29.8 L, Plt Count 285, MPV 10.1, Immature Gran % (Auto) 0.700, Neut % (Auto) 54.4, Lymph % (Auto) 25.4, [place] % (Auto) 6.6, Eos % (Auto) 12.5 H, Baso % (Auto) 0.4, Absolute Neuts (auto) 3.7, Nucleated RBC % 0 06/18/21 05:20: WBC 6.8, RBC 3.66 L, Hgb 9.7 L, Hct 32.6 L, MCV 89.1, MCH 26.5 L , MCHC 29.8 L, Plt Count 284, MPV 9.9, Immature Gran % (Auto) 0.600, Neut % (Auto) 57.6, Lymph % (Auto) 19.1, [place] % (Auto) 8.8, Eos % (Auto) 13.5 H, Baso % (Auto) 0.4, Absolute Neuts (auto) 3.9, Nucleated RBC % 0 06/18/21 05:20: Sodium 139, Potassium 4.8, Chloride 111 H, Carbon Dioxide 22.0, Anion Gap 6, BUN 42 H, Creatinine 1.31 H, Est GFR (MDRD) Af Amer 70, Est GFR (MDRD) Non-Af 58 L, BUN/Creatinine Ratio 32.1 H, Glucose 99, Calcium 8.2 L, Total Bilirubin 0.30 Radiography Diagnostic Testing: Radiology Impression Echocardiogram 06/16/21 20:28 Interpretation Summary The study was technically difficult. Contrast injection was performed. Mild segmental systolic dysfunction (see wall motion). The estimated ejection fraction is 50 %. Mild concentric left ventricular hypertrophy. The left atrium is mildly enlarged. Mild focal mitral valve calcification of the anterior leaflet. Trivial mitral valve insufficiency. Trivial tricuspid valve insufficiency. Mild focal aortic valve calcification. Unable to estimate RV systolic pressure/pulmonary artery pressure due to technically difficult study. There is evidence of diastolic dysfunction. Ordering Physician: Sean Oakley Referring Physician: Michael Palomino Performed By: Alicia Sanchez, SHAWNA, RVT Physical Exam Const alert, oriented x3 and no apparent distress Orientation / Consciousness: awake HEENT normocephalic, head/scalp atraumatic and hearing grossly normal bilaterally Eyes PERRL, EOMs intact bilaterally and conjunctivae normal Neck full ROM, supple and no JVD Resp clear to auscultation bilaterally Cardio regular rate, regular rhythm, S1 normal heart sound and S2 normal heart sound Rhythm: abnormal rhythm ectopic beats GI normal to inspection, nondistended, normoactive bowel sounds Extremity Extremity Narrative: Left foot: Surgical bandage Neuro oriented x3 and moves all extremities Psych mental status grossly normal Assessment & Plan Assessment/Plan (1) Preoperative cardiovascular examination: PLAN: The patient has been asked to have preoperative cardiovascular evaluation. The patient has multiple cardiovascular risk factors including hyperlipidemia, hypertension, and diabetes mellitus. He states he is also been told he has atrial fibrillation. It appears he does have previous [facility] ECGs demonstrating both sinus rhythm and atrial fibrillation. He does not recall undergoing any cardiovascular evaluation in the past. However he did have a transthoracic echocardiogram performed in December of this year as noted. He did have an electrocardiogram which is abnormal as noted. The echocardiogram does demonstrate left ventricular regional wall motion abnormalities. This does raise the concern as to whether or not the patient could have, based upon his cardiovascular risks, underlying CAD. Thus, at the present time, the patient's medications will be optimized. This will include an attempt to add beta-brent therapy and LOKI inhibitor therapy unless otherwise not tolerated/contraindicated. The patient has not wanted to proceed with any additional noninvasive or invasive studies at this time as he continues through his noncardiac medical therapy with respect to his left foot related issues requiring long-term IV antibiotics, etc. (2) Atrial fibrillation: PLAN: The patient states he has been told in the past he has atrial fibrillation. It does appear he has had previous electrocardiograms at [facility] that have demonstrated both sinus rhythm and atrial fibrillation. Thus he may have paroxysmal atrial fibrillation. It also appears he is undergoing evaluation at [facility] in the past with a transthoracic echocardiogram with the results as noted. At the present time he appears to be in sinus rhythm. He can be monitored for any obvious recurrence of his atrial dysrhythmia. It does not appear he has been on rate control therapy or anticoagulant therapy. This may have to be taken into consideration depending upon his future cardiac rhythm. (3) Abnormal electrocardiogram: PLAN: He does have an abnormal ECG as noted. As noted, his repeat echocardiogram does demonstrate left ventricular regional wall motion abnormalities. As discussed above he will continue medical therapy. (4) HLD (hyperlipidemia): PLAN: He has a history of hyperlipidemia. He should continue medical therapy. (5) Essential hypertension: PLAN: His blood pressure will need to be followed with medicines adjusted accordingly. Addt'l Comments This note was generated using a voice recognition system and there may be incorrect words, spelling or punctuation that were not noted when reviewing the office note prior to saving.
[2021-06-18] MEDS: 0.9% Normal Saline 1,000 ML 100 ML IV (08:23)
[2021-06-18] MEDS: Potassium Chloride Oral Tablet 20 MEQ PO ×2 (08:23→17:15)
[2021-06-18] MEDS: Aspirin 81 MG TAB.CHEW PO (08:24)
[2021-06-18 08:28] VITALS: BP 150/55; PULSE 67; RESP 16; TEMP 36.8; O2SAT 98
[2021-06-18 08:34] VITALS: RESP 18
[2021-06-18] MEDS: Enoxaparin 40 MG/0.4 ML Syringe SC (10:05)
[2021-06-18] MEDS: Carvedilol 3.125 MG TABLET PO (10:05)
[2021-06-18] MEDS: Cyanocobalamin 500 MCG Tablet PO (10:06)
[2021-06-18] MEDS: Lisinopril 5 MG Tablet PO (10:09)
--- NOTE | 2021-06-18 10:29 | PCM.CONS.R ---
Assessment & Plan Assessment/Plan (1) Acute kidney injury: (2) Hypertension: PLAN: Normal baseline SCr ANDRY is likely prerenal from diarrhea, nausea and being on lasix and ACEI. ATN is also possibility from sepsis and Abx. another possibility is AIN from Abx Will check UA and urine indices Continue holding lasix and ACEI Continue IVF No need for CARDIOTHORACIC ICU RN Check RFP in am BP is well controlled in general. Will hold ACEI.monitor BP Rest of the management as per the primary and clothing consultant services thank you Call if any question HPI Consult Data Date of Consult: 06/18/21 HPI Narrative HPI Narrative: JONEL ZALDIVAR, is a 70 M who presents with OM of left foot. ID and podiatric is following and the plan is to do amputation Renal is consulted for ANDRY. normal baseline SCr. Cr increased to 1.3 mg/dl yesterday so lasix and ACEI stopped. patient started on IVF. Cr remains 1.3 MG/DL Non oliguric. No IV contrast. No NSAIDs use Patient has been having diarrhea which got worse in the hospital with IV Abx. Patient mentioned having dark urine ROS: 12 system review is negative except diarrhea and nausea [facility] Medical History (Updated 06/18/21 @ 10:[address] Alexandrea Farrell MD) Abnormal electrocardiogram Amputation of fifth toe of left foot Anemia Ankle fracture Anxiety Atrial fibrillation Bradycardia Charcot foot due to diabetes mellitus Chronic ulcer of ankle Chronic ulcer of left foot Chronic ulcer of right foot CKD (chronic kidney disease) stage 3, GFR 30-59 ml/min Depression Diabetes Diabetes mellitus Essential hypertension Fall History of ankle fracture HLD (hyperlipidemia) Hypertension Hypertension Irregular heart beat Kidney disease Stage 3a chronic kidney disease Type 2 diabetes mellitus Home Medications cholecalciferol (vitamin D3) [Vitamin D3] 125 mcg PO DAILY 02/10/21 [History Last Taken 2 Days Ago ~06/08/21] irbesartan 300 mg PO DAILY 02/16/21 [History Last Taken 2 Days Ago ~06/08/21] saw palmetto 450 mg PO DAILY 02/16/21 [History Last Taken 2 Days Ago ~06/08/21] cyanocobalamin (vitamin B-12) 500 mcg tablet 500 mcg PO DAILY 04/26/21 [History Last Taken 2 Days Ago ~06/08/21] furosemide 40 mg tablet 40 mg PO DAILY tab 04/26/21 [History Last Taken 2 Days Ago ~06/08/21] aspirin [Aspirin Low Dose] 81 mg PO DAILY 06/10/21 [History Last Taken 2 Days Ago ~06/08/21] atorvastatin 40 mg PO DAILY 06/10/21 [History Last Taken 2 Days Ago ~06/08/21] cdnjasnlsarr-gittbjnwme-lftegz [Zosyn in dextrose (iso-osm)] 3.375 g IV Q8H 36 Days #108 bag 06/15/21 [Rx Last Taken Unknown] Allergy/AdvReac Type Severity Reaction Status Date / Time Penicillins [PCN] Allergy Rash Verified 06/10/21 12:40 metformin AdvReac Unknown Diarrhea Verified 06/10/21 12:40 Kylcilc-Otk-Urz Reductase AdvReac Unknown intolerence Verified 06/10/21 12:40 Inhibitor Family History (Updated 06/10/21 @ 15:[address] Nati Whitten MD) Father Cancer Metastatic prostate CA. Mother CVA (cerebral vascular accident) CAD (coronary artery disease) Surgical History S/P appendectomy S/P foot surgery, left Social History household members: none Smoking Status: Never smoker alcohol intake: current alcohol intake frequency: other substance use type: does not use Physical Exam Narrative [id number] NAD No JVD AT NC S1/S2RRR CTA Soft + BS no distention No tenderness Ext : +1 edema of LE No skin rash Lab / Micro Data Result Diagrams: 06/18/21 05:20 06/18/21 05:20 Labs: Laboratory Results - last 24 hr 06/17/21 11:19: POC Glucose 96 06/17/21 16:04: WBC 6.9, RBC 3.74 L, Hgb 10.0 L, Hct 33.6 L, MCV 89.8, MCH 26.7 L, MCHC 29.8 L, RDW Std Deviation 54.1 H, RDW Coeff of Xavier 16.4 H, Plt Count 285, MPV 10.1, Immature Gran % (Auto) 0.700, Neut % (Auto) 54.4, Lymph % (Auto) 25.4, [place] % (Auto) 6.6, Eos % (Auto) 12.5 H, Baso % (Auto) 0.4, Absolute Neuts (auto) 3.7, Absolute Lymphs (auto) 1.74, Nucleated RBC % 0 06/17/21 16:21: POC Glucose 96 06/17/21 20:22: POC Glucose 124 H 06/18/21 05:20: WBC 6.8, RBC 3.66 L, Hgb 9.7 L, Hct 32.6 L, MCV 89.1, MCH 26.5 L, MCHC 29.8 L, RDW Std Deviation 53.9 H, RDW Coeff of Xavier 16.4 H, Plt Count 284, MPV 9.9, Immature Gran % (Auto) 0.600, Neut % (Auto) 57.6, Lymph % (Auto) 19.1, [place] % (Auto) 8.8, Eos % (Auto) 13.5 H, Baso % (Auto) 0.4, Absolute Neuts (auto) 3.9, Absolute Lymphs (auto) 1.30, Nucleated RBC % 0 06/18/21 05:20: Sodium 139, Potassium 4.8, Chloride 111 H, Carbon Dioxide 22.0, Anion Gap 6, BUN 42 H, Creatinine 1.31 H, Estim Creat Clear Calc 55.73, Est GFR (MDRD) Af Amer 70, Est GFR (MDRD) Non-Af 58 L, BUN/Creatinine Ratio 32.1 H, Glucose 99, Calcium 8.2 L, Total Bilirubin 0.30, AST 29, ALT 20, Alkaline Phosphatase 75, Total Protein 5.8 L, Albumin 1.7 L, Globulin 4.1, Albumin/Globulin Ratio 0.4 L 06/18/21 06:05: POC Glucose 90 Rhythm Strip Rhythm Strip: Sinus Rhythm Rate: 75 Ectopy: PVC(s) Radiology Impression Echocardiogram 06/16/21 20:28 Interpretation Summary The study was technically difficult. Contrast injection was performed. Mild segmental systolic dysfunction (see wall motion). The estimated ejection fraction is 50 %. Mild concentric left ventricular hypertrophy. The left atrium is mildly enlarged. Mild focal mitral valve calcification of the anterior leaflet. Trivial mitral valve insufficiency. Trivial tricuspid valve insufficiency. Mild focal aortic valve calcification. Unable to estimate RV systolic pressure/pulmonary artery pressure due to technically difficult study. There is evidence of diastolic dysfunction. Ordering Physician: Sean Oakley Referring Physician: Michael Palomino Performed By: Alicia Sanchez, SHAWNA, RVT
--- NOTE | 2021-06-18 10:56 | PN.HOSP_ITS ---
Objective Data Objective Data Vital Signs: Vital Signs Temp Pulse Resp BP Pulse Ox 98.3 F 67 18 150/55 H 98 06/18/21 08:28 06/18/21 08:28 06/18/21 08:34 06/18/21 08:28 06/18/21 08:28 Oxygen Delivery Method Room Air Weight: 125.9 kg Body Mass Index (BMI) 37.3 Intake & Output: Intake and Output for Last 24 Hours 06/16/21 06/17/21 06/18/21 23:59 23:59 23:59 Intake Total 450 / 450 2108.33 / 2108.33 350 / 350 Output Total 250 / 250 1025 / 1025 400 / 400 Balance 200 / 200 1083.33 / 1083.33 -50 / -50 Lab / Micro Data Result Diagrams: 06/18/21 05:20 06/18/21 05:20 Labs: Laboratory Results - last 24 hr 06/17/21 11:19: POC Glucose 96 06/17/21 16:04: WBC 6.9, RBC 3.74 L, Hgb 10.0 L, Hct 33.6 L, MCV 89.8, MCH 26.7 L, MCHC 29.8 L, RDW Std Deviation 54.1 H, RDW Coeff of Xavier 16.4 H, Plt Count 285, MPV 10.1, Immature Gran % (Auto) 0.700, Neut % (Auto) 54.4, Lymph % (Auto) 25.4, [place] % (Auto) 6.6, Eos % (Auto) 12.5 H, Baso % (Auto) 0.4, Absolute Neuts (auto) 3.7, Absolute Lymphs (auto) 1.74, Nucleated RBC % 0 06/17/21 16:21: POC Glucose 96 06/17/21 20:22: POC Glucose 124 H 06/18/21 05:20: WBC 6.8, RBC 3.66 L, Hgb 9.7 L, Hct 32.6 L, MCV 89.1, MCH 26.5 L , MCHC 29.8 L, RDW Std Deviation 53.9 H, RDW Coeff of Xavier 16.4 H, Plt Count 284, MPV 9.9, Immature Gran % (Auto) 0.600, Neut % (Auto) 57.6, Lymph % (Auto) 19.1, [place] % (Auto) 8.8, Eos % (Auto) 13.5 H, Baso % (Auto) 0.4, Absolute Neuts (auto) 3.9, Absolute Lymphs (auto) 1.30, Nucleated RBC % 0 06/18/21 05:20: Sodium 139, Potassium 4.8, Chloride 111 H, Carbon Dioxide 22.0, Anion Gap 6, BUN 42 H, Creatinine 1.31 H, Estim Creat Clear Calc 55.73, Est GFR (MDRD) Af Amer 70, Est GFR (MDRD) Non-Af 58 L, BUN/Creatinine Ratio 32.1 H, Glucose 99, Calcium 8.2 L, Total Bilirubin 0.30, AST 29, ALT 20, Alkaline Phosphatase 75, Total Protein 5.8 L, Albumin 1.7 L, Globulin 4.1, Albumin/Globulin Ratio 0.4 L 06/18/21 06:05: POC Glucose 90 Micro: Microbiology 06/10/21 13:37 Blood Culture (Wb) - Anticubital Left Blood Culture - Final No growth in 5 days. 06/10/21 13:27 Blood Culture (Wb) - Right Wrist Blood Culture - Final No growth in 5 days. 06/14/21 19:47 Stool C. difficile DNA Amplification - Final 06/10/21 14:44 Urine, Clean Catch Urine Culture - Final Mixed Gram Pos & Gram Neg Org Radiography Diagnostic Testing: Radiology Impression Echocardiogram 06/16/21 20:28 Interpretation Summary The study was technically difficult. Contrast injection was performed. Mild segmental systolic dysfunction (see wall motion). The estimated ejection fraction is 50 %. Mild concentric left ventricular hypertrophy. The left atrium is mildly enlarged. Mild focal mitral valve calcification of the anterior leaflet. Trivial mitral valve insufficiency. Trivial tricuspid valve insufficiency. Mild focal aortic valve calcification. Unable to estimate RV systolic pressure/pulmonary artery pressure due to technically difficult study. There is evidence of diastolic dysfunction. Ordering Physician: Sean Oakley Referring Physician: Michael Palomino Performed By: Alicia Sanchez, SHAWNA, RVT Rhythm Strip Rhythm Strip: Sinus Rhythm Rate: 75 Ectopy: PVC(s)
[2021-06-18 11:46] LABS: Bedside Glucose 89 mg/dL (70-110)
--- NOTE | 2021-06-18 12:02 | TREXTCAR_ITS ---
Diet 06/17/21 15:01 Diet: Carbohydrate Controlled Food consistency:: Regular Liquid Consistency:: Regular/Thin Dietary Modifications:: Sodium Restricted Type of Dietary Supplement:: Yahir Is pt able to select menu?: Yes Diet Comments: Yahir w/ breakfast & dinner (orange);1-2 oz extra lean meat/protein Q meal Routine Orders/Code Status O2 Liters per Minute: 3 O2 Frequency: Encourage use of incentive spirometer Keep PO Greater than or Equal to (%): 94 Routine Lab Work: CBC (within 3 days) and BMP (within 3 days) Code Status: DNRCC-A Wound(s) buttock: Wound Type: excoriation R big toe: Wound Type: Neuropathic/Diabetic Foot Ulcer Dressing Change: AntiMicrobial (Aquacel AG, etc) L heel: Wound Type: Neuropathic/Diabetic Foot Ulcer Dressing Change: AntiMicrobial (Aquacel AG, etc) Lateral side L foot: Wound Type: Neuropathic/Diabetic Foot Ulcer Dressing Change: AntiMicrobial (Aquacel AG, etc) Lateral lower left foot: Wound Type: Neuropathic/Diabetic Foot Ulcer Dressing Change: Adaptic left lateral ankle: Wound Type: Neuropathic/Diabetic Foot Ulcer Dressing Change: Adaptic Therapies Weight Bearing: Partial weight bearing Physical Therapy: Eval and Treat Occupational Therapy: Eval and Treat Problem/Diagnosis (1) Acute kidney injury: Status: Resolved (2) Hypertension: Status: Chronic Allergies/Procedures Done in Hospital Allergies Penicillins [PCN] Allergy (Verified 06/10/21 12:40) Rash metformin Adverse Reaction (Unknown, Verified 06/10/21 12:40) Diarrhea Rtauwre-Iyy-Dgc Reductase Inhibitor Adverse Reaction (Unknown, Verified 06/10/21 12:40) intolerence Procedures: 2-D Echocardiogram Type of Care/Length of Stay Estimated LOS: Convalescent Care Less Than 30 days Type of Care Needed: Skilled Rehab Potential: Good Prognosis: Good Additional Orders/Day of Discharge Day of Discharge: 06/18/21 Dietary and Speech Recommendations Dietitian Recommendations/Changes: Will add extra 1-2 oz lean meat/protein Q meal. Continue Carbohydrate-Controlled/Sodium-Restricted Diet. Continue Yahir bid w/ meals for wound healing. No Glucerna shake at this time due to wt gain/good intake at meals. Follow Up Care Please follow up with your Primary Care Physician in: within 1-2 weeks of discharge Please Follow Up With: Payton Cameron DPM When: in 1 week Discharge Plan Admission Admit Date/Time: 06/10/21 15:07 Primary Reason for Your Visit: Acute left OM/ chronic feet ulcers Attending Provider: Sandy Vargas Primary Care Provider: Michael Palomino Consulting Providers: Payton Cameron ; Betito Sweeney ; Estella Martinez ; Mitch Buckley ; Carl Mccall ; Rashawn Boswell ; Haris Bryant ; William Jackson ; Juno Kaur ; Marvin Stroud ; Sean Oakley ; Suraj Galeas ; Sylvester Dias RESEARCH INVESTIGATOR ; Anne James RESEARCH INVESTIGATOR ; Deanna Paiz PA ; Alexandrea Farrell Discharge Orders/Prescriptions Prescriptions: New Zosyn in dextrose (iso-osm) 3.375 gram/50 mL piggyback 3.375 g IV Q8H 36 Days Qty: 108 RF: 0 No Action cyanocobalamin (vitamin B-12) 500 mcg tablet 500 mcg PO DAILY RF: 0 furosemide [Lasix] 40 mg tablet 40 mg PO DAILY RF: 0 Hold Instructions: Resume on 01/02/21. Follow-up with your PCP in 1 week we will obtain a BMP to monitor your renal function. cholecalciferol (vitamin D3) [Vitamin D3] 125 mcg (5,000 unit) Tablet 125 mcg PO DAILY RF: 0 irbesartan 300 mg tablet 300 mg PO DAILY RF: 0 saw palmetto 450 mg Capsule 450 mg PO DAILY RF: 0 atorvastatin 40 mg tablet 40 mg PO DAILY RF: 0 aspirin [Aspirin Low Dose] 81 mg Tablet,Delayed Release (Dr/Ec) 81 mg PO DAILY RF: 0 Referrals / Follow Up: Michael Palomino DO [Primary Care Provider] - Within 2 Weeks Payton Cameron DPM [STAFF PHYSICIAN] - Within 1 Week Betito Sweeney MD [STAFF PHYSICIAN] - Within 2 Weeks Michelle Gregory MD [STAFF PHYSICIAN] - Within 1 Week Disposition Disposition (needs filled in before D/C Order can be placed): Shelter Facility
--- NOTE | 2021-06-18 12:15 | PCM.DC.SUM ---
Providers Date of Admission: 06/10/21 Date of Discharge: 06/18/21 Primary Care Physician: Dr. Michael Palomino, Consultations 06/10/21 17:01 Consult: Onc/Wound/geophysical laboratory supervisor Routine Comment: Reason for Consult:: L foot re-evaluation Consult: Podiatry Routine Consulting Provider: Payton Cameron Reason for Consult: ? Recurrent L Foot Diabetic Infection EMERGENT Consult: No Notified: Yes Date Notified: 06/10/21 Time Notified: 15:08 Method of Notification: Page 06/12/21 17:58 Consult: Infectious Disease Routine Consulting Provider: Betito Sweeney Reason for Consult: Osteomyelitis EMERGENT Consult: No Notified: Yes Date Notified: 06/14/21 Time Notified: 08:46 Method of Notification: Text 06/16/21 11:37 Consult: Cardiology Routine Consulting Provider: Leda Trivedi Reason for Consult: Pre-op clearance EMERGENT Consult: No Notified: Yes Date Notified: 06/16/21 Time Notified: 14:00 Method of Notification: Text 06/18/21 08:03 Consult: Nephrology Routine Consulting Provider: Alexandrea Farrell Reason for Consult: ANDRY on CKD EMERGENT Consult: No Notified: Yes Date Notified: 06/18/21 Time Notified: 08:03 Method of Notification: Answering Service Method of Consult:: In-Person Reason For Visit: ? DIABETIC L FOOT INFECTION Diagnosis Discharge Diagnosis (1) Acute kidney injury: Status: Resolved Code(s): N17.9 - Acute kidney failure, unspecified (2) Hypertension: Status: Chronic Code(s): I10 - Essential (primary) hypertension (3) Diabetic infection of left foot: Status: Acute Code(s): E11.628 - Type 2 diabetes mellitus with other skin complications; L08.9 - Local infection of the skin and subcutaneous tissue, unspecified Medications at Discharge Home Medications cholecalciferol (vitamin D3) [Vitamin D3] 125 mcg PO DAILY 02/10/21 saw palmetto 450 mg PO DAILY 02/16/21 cyanocobalamin (vitamin B-12) 500 mcg tablet 500 mcg PO DAILY 04/26/21 aspirin [Aspirin Low Dose] 81 mg PO DAILY 06/10/21 atorvastatin 40 mg PO DAILY 06/10/21 onmpvqykeyqc-qgletysqsp-eqpzsq [Zosyn in dextrose (iso-osm)] 3.375 g IV Q8H 36 Days #108 bag 06/15/21 carvedilol 3.125 mg PO BID #0 tab 06/18/21 loperamide 2 mg PO Q2H PRN PRN #0 cap 06/18/21 melatonin 3 mg PO QHS PRN PRN #0 tab 06/18/21 menthol-zinc oxide [Calmoseptine] 1 applic TOPICAL TID #0 g 06/18/21 Hospital Course Operations None Procedures 2-D Echocardiogram Summary of Care Provided Minutes Spent on Discharge: 45 Hospital Course: 70-year-old male with past medical history of type II DM, with chronic bilateral lower extremity wound with Charcot's foot, stage III CKD CKD stage IIIb, creatinine is at baseline. Creatinine today is 2.56 We will continue to monitor who comes in with inability to take care of self. Patient was recently discharged after prolonged care home facility stay. Patient presented with left knee and left foot ulcer with discomfort and chills. He was seen by podiatry, Dr. Cameron. [facility] started on vancomycin as well as meropenem. 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 There was partial tearing of the Achilles tendon. He was recommended to have amputation but patient declined. Infectious disease was consulted. Initially he declined home health with IV antibiotics. Later on upon further discussion, he agreed to discharge to care home facility for IV antibiotics. Patient was seen by cardiology for cardiac clearance in anticipation of future amputation. Patient underwent 2D echo that showed EF of 50%, diastolic dysfunction as well as hypokinetic septal and apical region as well as akinetic apex. Patient was recommended to undergo stress test but he declined. He was discharged to care home facility with 6 weeks of antibiotics-stop date is 07/22/21. She will follow-up with Dr. Cameron in the outpatient Physical Exam Narrative Physical exam: General: Alert, Oriented x3, Cooperative, No apparent distress, Well developed HEENT: Atraumatic Oral: Moist Mucosa Neck: Supple Lungs: Clear to auscultation Cardiovascular: HS I+II, regular, no murmurs Abdomen: Bowel Sounds Present, Soft, Non Tender Extremities: Chronic hyperpigmentation lower extremity with deformity, dressing in place Weight / BMI Weight Weight: 125.9 kg Body Mass Index (BMI) 37.3 ABG / Lab / Microbiology Data Result Diagrams: 06/18/21 05:20 06/18/21 05:20 Laboratory: Laboratory Results - last 24 hr 06/17/21 16:04: WBC 6.9, RBC 3.74 L, Hgb 10.0 L, Hct 33.6 L, MCV 89.8, MCH 26.7 L, MCHC 29.8 L, RDW Std Deviation 54.1 H, RDW Coeff of Xavier 16.4 H, Plt Count 285, MPV 10.1, Immature Gran % (Auto) 0.700, Neut % (Auto) 54.4, Lymph % (Auto) 25.4, [place] % (Auto) 6.6, Eos % (Auto) 12.5 H, Baso % (Auto) 0.4, Absolute Neuts (auto) 3.7, Absolute Lymphs (auto) 1.74, Nucleated RBC % 0 06/17/21 16:21: POC Glucose 96 06/17/21 20:22: POC Glucose 124 H 06/18/21 05:20: WBC 6.8, RBC 3.66 L, Hgb 9.7 L, Hct 32.6 L, MCV 89.1, MCH 26.5 L, MCHC 29.8 L, RDW Std Deviation 53.9 H, RDW Coeff of Xavier 16.4 H, Plt Count 284, MPV 9.9, Immature Gran % (Auto) 0.600, Neut % (Auto) 57.6, Lymph % (Auto) 19.1, [place] % (Auto) 8.8, Eos % (Auto) 13.5 H, Baso % (Auto) 0.4, Absolute Neuts (auto) 3.9, Absolute Lymphs (auto) 1.30, Nucleated RBC % 0 06/18/21 05:20: Sodium 139, Potassium 4.8, Chloride 111 H, Carbon Dioxide 22.0, Anion Gap 6, BUN 42 H, Creatinine 1.31 H, Estim Creat Clear Calc 55.73, Est GFR (MDRD) Af Amer 70, Est GFR (MDRD) Non-Af 58 L, BUN/Creatinine Ratio 32.1 H, Glucose 99, Calcium 8.2 L, Total Bilirubin 0.30, AST 29, ALT 20, Alkaline Phosphatase 75, Total Protein 5.8 L, Albumin 1.7 L, Globulin 4.1, Albumin/Globulin Ratio 0.4 L 06/18/21 06:05: POC Glucose 90 06/18/21 11:39: POC Glucose 89 Microbiology: Microbiology 06/10/21 13:37 Blood Culture (Wb) - Anticubital Left Blood Culture - Final No growth in 5 days. 06/10/21 13:27 Blood Culture (Wb) - Right Wrist Blood Culture - Final No growth in 5 days. 06/14/21 19:47 Stool C. difficile DNA Amplification - Final 06/10/21 14:44 Urine, Clean Catch Urine Culture - Final Mixed Gram Pos & Gram Neg Org Radiography Diagnostic Testing: Radiology Impression Echocardiogram 06/16/21 20:28 Interpretation Summary The study was technically difficult. Contrast injection was performed. Mild segmental systolic dysfunction (see wall motion). The estimated ejection fraction is 50 %. Mild concentric left ventricular hypertrophy. The left atrium is mildly enlarged. Mild focal mitral valve calcification of the anterior leaflet. Trivial mitral valve insufficiency. Trivial tricuspid valve insufficiency. Mild focal aortic valve calcification. Unable to estimate RV systolic pressure/pulmonary artery pressure due to technically difficult study. There is evidence of diastolic dysfunction. Ordering Physician: Sean Oakley Referring Physician: Michael Palomino Performed By: Alicia Sanchez, SHAWNA, RVT D/C Instructions Please Follow Up With: Payton Cameron DPM Meaningful Use Info Meaningful Use Diagnoses (Choose all that apply): None applicable Discharge Plan Admission Admit Date/Time: 06/10/21 15:07 Primary Reason for Your Visit: Acute left OM/ chronic feet ulcers Attending Provider: Sandy Vargas Primary Care Provider: Michael Palomino Consulting Providers: Payton Cameron ; Betito Sweeney ; Estella Martinez ; Mitch Buckley ; Carl Mccall ; Rashawn Boswell ; Haris Bryant ; William Jackson ; Juno Kaur ; Marvin Stroud ; Sean Oakley ; Suraj Galeas ; Sylvester Dias EMPLOYMENT APPEALS EXAMINER ; Anne James EMPLOYMENT APPEALS EXAMINER ; Deanna Paiz PA ; Alexandrea Farrell Discharge Orders/Prescriptions Prescriptions: New Zosyn in dextrose (iso-osm) 3.375 gram/50 mL piggyback 3.375 g IV Q8H 36 Days Qty: 108 RF: 0 loperamide 2 mg Capsule 2 mg PO Q2H PRN PRN (Reason: diarrhea) Qty: 0 RF: 0 carvedilol 3.125 mg Tablet 3.125 mg PO BID Qty: 0 RF: 0 menthol-zinc oxide [Calmoseptine] 0.44-20.6 % Ointment 1 applic topical TID Qty: 0 RF: 0 melatonin 3 mg Tablet 3 mg PO QHS PRN PRN (Reason: Insomnia) Qty: 0 RF: 0 Continued cyanocobalamin (vitamin B-12) 500 mcg tablet 500 mcg PO DAILY RF: 0 cholecalciferol (vitamin D3) [Vitamin D3] 125 mcg (5,000 unit) Tablet 125 mcg PO DAILY RF: 0 saw palmetto 450 mg Capsule 450 mg PO DAILY RF: 0 atorvastatin 40 mg tablet 40 mg PO DAILY RF: 0 aspirin [Aspirin Low Dose] 81 mg Tablet,Delayed Release (Dr/Ec) 81 mg PO DAILY RF: 0 Discontinued furosemide [Lasix] 40 mg tablet 40 mg PO DAILY RF: 0 Hold Instructions: Resume on 01/02/21. Follow-up with your PCP in 1 week we will obtain a BMP to monitor your renal function. irbesartan 300 mg tablet 300 mg PO DAILY RF: 0 Referrals / Follow Up: Michelle Gregory MD [STAFF PHYSICIAN] - Within 1 Week Michael Palomino DO [Primary Care Provider] - Within 2 Weeks Payton Cameron DPM [STAFF PHYSICIAN] - Within 1 Week Betito Sweeney MD [STAFF PHYSICIAN] - Within 2 Weeks Disposition Disposition (needs filled in before D/C Order can be placed): [facility] Charges/Coding Visit Charges Inpatient E&M: 28624 Disch Hosp
[2021-06-18 13:40] LABS: Urine Sodium 45 mmol/L (Not Establ.)
[2021-06-18] MEDS: Dicyclomine 10 MG Capsule 20 MG PO (13:53)
[2021-06-18 16:00] VITALS: RESP 18
--- NOTE | 2021-06-18 16:25 | CASEMGMT ---
Social Work Note SW received call from April at [facility] stating pre-cert has been obtained and pt is able to discharge to [facility]. RIGO clarified with April that pt is going to [facility] because this worker thought April said pt would go to [facility]. April confirms, pt to discharge to [facility]. RIGO faxed completed discharge paperwork to April at [facility] including transfer to extended care facility, signed medication list, any scripts, COVID test/tool and Convalescent 7000. Original in SNF folder and copy on pt's chart. RIGO completed convalescent 7000 in [facility]. Original in SNF folder and copy on pt's chart. RIGO accessed trip assist and arranged transportation via cot for 6:00pm. Transportation form completed and placed on SNF folder and copy on pt's chart. RIGO updated RN on transportation time. RIGO placed a call to April at [facility] and updated her on transportation time. SW in to speak with pt. SW updated pt that he will instead be going to [facility] not [facility]. RIGO informed pt that insurance has approved pt and he will discharge today to [facility] today at 6:00pm. Pt states understanding. Plan: [facility] skilled today under convalescent stay with Physician's transporting pt via cot at 6:00pm Melody ANGEL, CLERK GENERAL
[2021-06-18 16:46] LABS: Bedside Glucose 127 mg/dL (70-110)
[2021-06-18 17:13] LABS: Bacteria 0 SEEN /hpf (None Seen); Mucous, Urine 0 SEEN /hpf (<or=2+); Red Blood Cells-Urine 0 SEEN /hpf (0-5); Squamous Epithelial Cells - UA 0 SEEN /hpf (0-5); White Blood Cells 0 SEEN /hpf (0-5)
[2021-06-18 17:14] LABS: Color, Urine Yellow (Yellow); Glucose, Dipstick Normal (Normal); Ketone-Dipstick Negative (Negative); Leukocyte Esterase-Dipstick 25 /ul (Negative); Nitrite-Dipstick Negative (Negative); Occult Blood-Urine Negative /ul (Negative); Protein-Dipstick Negative (Negative); Urine Bilirubin Dipstick Negative (Negative); Urine Clarity Clear (Clear); Urine Urobilinogen Normal (Normal)
[2021-06-18 17:19] VITALS: BP 144/65; PULSE 84; RESP 16; TEMP 36.8; O2SAT 98
[2021-06-18] MEDS: Acetaminophen 325 MG Tablet 650 MG PO (21:41)
--- NOTE | 2021-06-18 23:36 | NURSING ---
[facility]icians ambulance is here to transport patient to facility in [place]. He has had pericare and his attends changed, tylenol given for pain. Patient is alert x3 and ready to go.
--- NOTE | 2021-06-30 08:02 | CCN.REFER ---
CCN REFERRAL D/C D/T PATIENT'S TRANFER TO [facility]
== END 2021-06-18 23:45 | DRG 638 ==
LOC: ED 15:24 → MS3 15:45
PROVIDERS: Internal Medicine; Internal Medicine Nephrology; Admitting Provider Family Medicine; Emergency Provider Emergency Medicine; PCP Student in an Organized Health Care Education/Training Program; Visit Provider Internal Medicine
DX: E11.628 Type 2 diabetes mellitus with other skin complications (principal); M86.172 Other acute osteomyelitis, left ankle and foot; Z16.21 Resistance to vancomycin; L97.329 Non-pressure chronic ulcer of left ankle with unspecified severity; E11.69 Type 2 diabetes mellitus with other specified complication; E11.610 Type 2 diabetes mellitus with diabetic neuropathic arthropathy; E11.621 Type 2 diabetes mellitus with foot ulcer; N17.9 Acute kidney failure, unspecified; R62.7 Adult failure to thrive; E11.22 Type 2 diabetes mellitus with diabetic chronic kidney disease; I12.9 Hypertensive chronic kidney disease with stage 1 through stage 4 chronic kidney disease, or unspecified chronic kidney disease; L97.529 Non-pressure chronic ulcer of other part of left foot with unspecified severity; L89.629 Pressure ulcer of left heel, unspecified stage; L08.9 Local infection of the skin and subcutaneous tissue, unspecified; D63.1 Anemia in chronic kidney disease; E66.01 Morbid (severe) obesity due to excess calories; E78.5 Hyperlipidemia, unspecified; R29.6 Repeated falls; B95.2 Enterococcus as the cause of diseases classified elsewhere; E11.51 Type 2 diabetes mellitus with diabetic peripheral angiopathy without gangrene; I48.91 Unspecified atrial fibrillation; R94.31 Abnormal electrocardiogram [ECG] [EKG]; I95.9 Hypotension, unspecified; N18.32 Chronic kidney disease, stage 3b; S90.411A Abrasion, right great toe, initial encounter; S90.812A Abrasion, left foot, initial encounter; W22.03XA Walked into furniture, initial encounter; Z66 Do not resuscitate; Z79.899 Other long term (current) drug therapy; Z79.4 Long term (current) use of insulin; Z79.82 Long term (current) use of aspirin; Z91.81 History of falling; Z68.37 Body mass index [BMI] 37.0-37.9, adult; Y93.9 Activity, unspecified; Y92.9 Unspecified place or not applicable; Y99.9 Unspecified external cause status
CPT/HCPCS: 36415; 36569; 71045; 73630; 73720; 80048; 80053; 80202; 81001; 82570; 82962; 83605; 83735; 84145; 84300; 85025; 85652; 86140; 87040; 87070; 87075; 87077; 87086; 87088; 87186; 87205; 87426; 87493; 87640; 93005; 93306; 96360; 96361; 96372; 97110; 97162; 97166; 97530; 97535; 97802; 97803; 99218; 99285; A9575; J2020; J2185; J7030; J7040; J7050; Q9957; A4216; C8929; G0378; J2405; J3490